=== PATIENT | male | born 1955 | race Caucasian/White ===

== ENCOUNTER → 2019-12-18 14:30 | Outpatient (CLI) | payer BC, SELFPAY ==
--- NOTE | 2019-12-18 14:37 | CT_ITS ---
PROCEDURE: CT LUNG SCREENING CLINICAL INDICATION: H/O TOBACCO USE Seventy pack-year smoking history, asymptomatic for lung cancer COMPARISON: No exams were available for comparison TECHNIQUE: The exam was performed on a GE Light Speed [address] scanner using 2.90 mGy CTDI. A low dose helical CT CHEST was performed on a multi-detector scanner. All CT scans at the facility use one or more dose reduction, viz: automated exposure control, ma/kV adjustment per patient size (including targeted exams where dose is matched to indication, i.e. head), or iterative reconstruction technique. The LDCT was performed in a facility that meets the criteria for the screening program. Data regarding this exam was submitted to ACR which is an approved registry. The order for this exam indicates that it came as a result of a lung cancer screening counseling shard decision-making visit that included all the elements required of such a visit including smoking cessation. The radiologist interpreting this exam meets the CMS criteria for the LDCT lung cancer screening program. The exam is reported using the Lung-RADS classification scale and reported to the ACR registry. NOTE: This study was performed for the specific purposes of lung cancer screening and is not an alternative to diagnostic chest CT. RADIATION DOSE: CTDI vol(CT dose Index-volume) = 2.90mG DLP (Dose Length Product) = 103.16 mGcm Lung Rads Category: FINDINGS: 3 mm noncalcified nodule right upper lobe image 37 series 3. 4 mm noncalcified nodule left apex image 10 series 3. 3 mm noncalcified nodule left upper lobe centrally image 33 series 3 OTHER FINDINGS: Coronary artery calcifications. Prior left nephrectomy IMPRESSION: Lung rads category 2 benign Recommend 12 month LDCT Dictated by: Willem Holman MD 12/25/2019 11:30 Electronically signed by Willem Holman MD in [place] 12/25/2019 11:30
== END ==
PROVIDERS: PCP Internal Medicine Adolescent Medicine; Visit Provider Internal Medicine Adolescent Medicine
DX: Z87.891 Personal history of nicotine dependence (principal); Z12.2 Encounter for screening for malignant neoplasm of respiratory organs

== ENCOUNTER 2020-04-28 14:12 | Emergency (ER) | payer BC, SELFPAY ==
[2020-04-28 14:18] VITALS: BP 157/98; PULSE 70; RESP 17; TEMP 36.7; O2SAT 98; BMI 35.9
[2020-04-28 14:20] VITALS: BP 157/98; PULSE 70; RESP 17; TEMP 36.7; O2SAT 98; BMI 35.8
--- NOTE | 2020-04-28 14:27 | XR_ITS ---
PROCEDURE: XR CERVICAL SPINE 3V CLINICAL INDICATION: PAIN COMPARISON: No exams were available for comparison FINDINGS: There is normal curvature and alignment. C1 through C6 appear intact. C7 is not adequately evaluated even with a swimmer's view. C7 appears grossly normal on the AP film but not adequately seen on the lateral projection. There is mild disc space narrowing at the C4-5, C5-6 and C6-7 disc spaces. The prevertebral soft tissues are normal and the odontoid is normal. IMPRESSION: Mild multilevel degenerate disc disease lower cervical spine, C7 not adequately evaluated on these images Dictated by: Dr. Hayden Prieto MD 04/28/2020 16:19 Dr. Hayden Prieto MD in [place] 04/28/2020 16:19
--- NOTE | 2020-04-28 14:33 | ECG_ITS ---
APPROVED REPORT Exam: Resting ECG HR:70 bpm ECG Measurements Heart Rate 70 AXES MS 182 P 23 QRSd 84 QRS -55 QT 394 T 57 QTc 425 Conclusion Normal sinus rhythm Left axis deviation,LAHB Pulmonary disease pattern Abnormal ECG Electronically signed by : Jarred Jesus, 05/03/2020 11:34:14
--- NOTE | 2020-04-28 14:41 | HMH.EDUTC ---
[facility] Disposition Clinical Impression: Cervical muscle strain Qualifiers: Encounter type: initial encounter Qualified Code(s): S16.1XXA - Strain of muscle, fascia and tendon at neck level, initial encounter Disposition: Home, Self-Care Condition on Discharge: Good Instructions: Muscle Strain, DI for Cervical Muscle Strain Additional Instructions: rotate heat and ice place ice on for 20 mins and then remove wait for skin to come back to room temp and add heat for 20 mins and repeat muscle relaxers at bedtime, watch doing anything you can fall asleep doing follow up with dr singleton this week if symptoms worsen or do not improve return or be seen in ed no work till wed Prescriptions: Cyclobenzaprine HCl [Flexeril 10mg tablet] 10 mg PO HS PRN 10 Days #10 tab PRN Reason: Muscle Spasm Referrals: Leonardo Singleton MD [Primary Care Provider] - Forms: Work/School Release Time of Disposition: 15:06 Medical Decision Making - Yeison Inquiry Pt receiving controlled substance: No Vital Signs: 04/28/20 14:18 04/28/20 14:20 Temperature 98.1 F 98.1 F Temperature Source Oral Oral Pulse Rate [Right Radial] 70 70 Respiratory Rate 17 17 Blood Pressure [Right Arm] 157/98 H 157/98 H Blood Pressure Mean [Right Arm] 117 117 Blood Pressure Source [Right Arm] Automatic Cuff Blood Pressure Position [Right Arm] Sitting 02 Sat by Pulse Oximetry 98 98 Oxygen Delivery Method Room Air Room Air Orders (Tests/Meds): ORDERS Category Date Time Status Cervical spine XR 3 views [XR cervical spine 3V] Stat Exams 04/28/20 14:27 Taken 12-lead EKG Request [ECG Request by /Nse] Stat Y 04/28/20 14:28 Ordered - Radiology Data #1 Image(s): C-Spine Image Reviewed: Yes I reviewed the patient's radiology image Preliminary Findings: Normal/NAD - Physician Consults Physician Consulted: aneesh Time: 14:50 Reason -: Pt condition Comment/Response: pt poor historian, hx kidney removed, type 2 diabetic, ok to give steroid for muscle spasm? aneesh oked and states flexeril qhs and follow up this week if no improvement [facility] [place] HPI - General Chief complaint: Urgent Treatment Center Stated complaint: back and shoulder pain, no accident Time Seen by Provider: 04/28/20 14:41 Mode of Arrival: Ambulatory Source of Information: Patient Limitations: No Limitations Description of Symptoms (Recalled from Triage Doc. by RN): PATIENT C/O NECK AND UPPER BACK PAIN BETWEEN SHOULDER BLADES THAT HAS BEEN GOING ON APPROX 1 WEEK AND IS GETTING WORSE HEENT Symptoms (Recalled from RN notes): No Resp Symptoms (Recalled from RN notes): No Skin Symptoms (Recalled from RN notes): No MS Symptoms (Recalled from RN notes): Yes Functional Status (Recalled from RN notes): WNL - History of Present Illness Provider Complaint: 65 yr old male presents for pain in upper shoulders and neck for 1 week and becoming worse. Pt states movement of neck makes pain increase. Pt states pain is constant but movement makes pain increase. - Related Data Home Medications Medication Instructions Recorded Confirmed Aspirin [Aspir 81] 81 mg PO DAILY 03/07/19 03/07/19 Atorvastatin Calcium [Atorvastatin 40 mg PO DAILY 03/07/19 03/07/19 40mg Tab] Clopidogrel Bisulfate [Plavix 75mg 75 mg PO DAILY 03/07/19 03/07/19 Tab] Escitalopram Oxalate [Lexapro] 10 mg PO DAILY 03/07/19 03/07/19 Metformin HCl 500 mg PO BID 03/07/19 03/07/19 Verapamil HCl [Verapamil ER] 240 mg PO DAILY 03/07/19 03/07/19 hydroCHLOROthiazide [HCTZ 25mg 25 mg PO DAILY 03/07/19 03/07/19 tab] lisinopriL [Lisinopril 40mg Tablet] 40 mg PO BID 03/07/19 03/07/19 Previous Rx's Medication Instructions Recorded Cyclobenzaprine HCl [Flexeril 10mg 10 mg PO HS PRN 10 Days #10 tab 04/28/20 tablet] Allergies Allergy/AdvReac Type Severity Reaction Status Date / Time No Known Allergies Allergy Unverified 06/22/17 14:57 - Worker's Comp Is this a Worker's Comp case?: No H History
[2020-04-28 15:10] VITALS: BP 157/98; PULSE 70; RESP 17; TEMP 36.7; O2SAT 98
== END 2020-04-28 15:12 | disposition home or self-care (01) ==
PROVIDERS: Emergency Provider Nurse Practitioner Family; PCP Internal Medicine Adolescent Medicine
DX: S16.1XXA Strain of muscle, fascia and tendon at neck level, initial encounter (principal); E11.9 Type 2 diabetes mellitus without complications; I10 Essential (primary) hypertension; E78.5 Hyperlipidemia, unspecified; Z79.899 Other long term (current) drug therapy
CPT/HCPCS: 72040; 93005; 96372; 99202

== ENCOUNTER → 2020-12-24 19:41 | Outpatient (CLI) | payer BC, SELFPAY ==
[2020-12-24 21:50] LABS: Chloride 98 mmol/L (98-107); Sodium 139 mmol/L (136-145)
[2020-12-24 21:51] LABS: Potassium 4.8 mmoL/L (3.5-5.1)
[2020-12-24 21:53] LABS: Alanine Aminotransferase 31 U/L (12-78); Alkaline Phosphatase 64 U/L (38-126); Anion Gap 15.8 mEq/L (5-15); Aspartate Amino Transferase 27 U/L (17-59); Bilirubin,Total 0.5 mg/dl (0.2-1.3); Blood Urea Nitrogen 24 mg/dl (9-20); Carbon Dioxide 30 mmol/L (22.0-30.0); Cholesterol 127 mg/dl (140-200); Estimated Glomerular Filt Rate 61 ml/min (>60); GFR (African American) 74 ML/MIN (>60); Triglycerides 220 mg/dl (30-150); VLDL Cholesterol 44 mg/dL (0-40)
[2020-12-24 21:54] LABS: Albumin Level 4.3 g/dl (3.5-5.0); Albumin/Globulin Ratio 1.4 (1.1-1.8); Calcium 9.3 mg/dl (8.4-10.2); Glucose 93 mg/dl (74-100); HDL Cholesterol 21 mg/dl (40-60); Total Protein,Serum 7.3 g/dl (6.3-8.2)
[2020-12-24 22:05] LABS: Direct LDL Cholesterol 66.24 mg/dL (100-129)
== END ==
PROVIDERS: Visit Provider Internal Medicine Adolescent Medicine
DX: E11.69 Type 2 diabetes mellitus with other specified complication; Z79.84 Long term (current) use of oral hypoglycemic drugs
CPT/HCPCS: 80053; 80061; 83036

== ENCOUNTER → 2021-01-21 12:10 | Outpatient (CLI) | payer BC, SELFPAY ==
--- NOTE | 2021-01-21 12:37 | CT_ITS ---
PROCEDURE: CT ABDOMEN PELVIS WO/W CON CLINICAL INDICATION: LOWER ABD PAIN COMPARISON: CT ABDPELW/O CT ABD PELVIS W/O CONTRAST from 06/22/2016 TECHNIQUE: IV Contrast: 75ML Isovue 370 Oral Contrast None Axial images obtained with sagittal and coronal reformats. All CT scans at the facility use one or more dose reduction, viz: automated exposure control, ma/kV adjustment per patient size (including targeted exams where dose is matched to indication, i.e. head), or iterative reconstruction technique. FINDINGS: LOWER THORAX: Minor bibasilar atelectasis is noted. ABDOMEN & PELVIS: Diffuse fatty infiltration of the liver is noted. The liver is enlarged measuring 25.7 centimeters in craniocaudal dimension. No focal liver lesions. The gallbladder is unremarkable. No intra or extrahepatic biliary dilation. The spleen, adrenal glands, and pancreas are unremarkable. Left nephrectomy is noted. Nonobstructing right renal calculus measuring 4 millimeters. No evidence of hydronephrosis. No abnormal enhancement is noted. No free fluid or free intraperitoneal air. The large bowel demonstrates few colonic diverticula without evidence of diverticulitis. The otherwise the large and small bowel loops demonstrate no focal wall thickening, obstruction or adjacent inflammatory changes. No significant retroperitoneal or mesenteric lymphadenopathy. No free fluid or free intraperitoneal air. The visualized prostate gland is unremarkable. Atherosclerotic vascular calcification of the abdominal aorta and its branches. Ectasia of the abdominal aorta is noted. 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 The abdominal aorta is normal in caliber. Small bilateral fat containing inguinal hernias are noted. Multilevel [id number] degenerative changes of the lumbar spine. IMPRESSION: Hepatic steatosis. Hepatomegaly. Non-obstructing right renal calculus measuring 4 millimeters. No hydronephrosis. Left nephrectomy is noted. Ectasia of the infrarenal abdominal aorta. 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 Other chronic findings as described above. Dictated by: Holley Amaya 01/21/2021 15:19 Holley Amaya in [place] 01/21/2021 15:19
[2021-01-21 13:09] LABS: Basophils # 0.1 K/mm3 (0-0.2); Basophils % 0.9 % (0.1-2.0); Eosinophils # 0.1 K/mm3 (0.0-0.4); Eosinophils % 1.4 % (0.1-12.0); Hematocrit 43.3 % (42.0-52.0); Hemoglobin 14.9 g/dL (14.1-18.0); Lymphocytes # 2.1 K/mm3 (0.7-4.5); Lymphocytes % 29.4 % (10-50); Mean Corpuscular HGB Conc 34.5 g/dL (31.8-35.4); Mean Corpuscular Hemoglobin 30.3 pg (27.0-31.2); Mean Corpuscular Volume 87.9 fl (80-94); Mean Platelet Volume 8.3 fl (7.4-10.4); Monocytes # 0.5 K/mm3 (0.1-1.0); Monocytes % 6.6 % (1.7-9.3); Neutrophils # 4.5 K/mm3 (1.8-7.8); Neutrophils % 61.8 % (37.0-80.0); Platelet Count 225 K/mm3 (142-424); Red Blood Count 4.93 M/mm3 (4.60-6.20); Red Cell Distribution Width 13.7 % (11.5-17.5); White Blood Count 7.2 K/mm3 (4.8-10.8)
[2021-01-21 13:25] LABS: Chloride 99 mmol/L (98-107); Potassium 4.2 mmoL/L (3.5-5.1); Sodium 139 mmol/L (136-145)
[2021-01-21 13:28] LABS: Alanine Aminotransferase 35 U/L (12-78); Albumin Level 4.3 g/dl (3.5-5.0); Albumin/Globulin Ratio 1.5 (1.1-1.8); Alkaline Phosphatase 64 U/L (38-126); Anion Gap 12.2 mEq/L (5-15); Aspartate Amino Transferase 29 U/L (17-59); Bilirubin,Total 0.5 mg/dl (0.2-1.3); Blood Urea Nitrogen 20 mg/dl (9-20); Carbon Dioxide 32 mmol/L (22.0-30.0); Estimated Glomerular Filt Rate 61 ml/min (>60); GFR (African American) 74 ML/MIN (>60); Globulin 2.8 g/dL (1.3-3.2); Total Protein,Serum 7.1 g/dl (6.3-8.2)
[2021-01-21 13:29] LABS: Calcium 9.5 mg/dl (8.4-10.2); Glucose 121 mg/dl (74-100)
== END ==
PROVIDERS: PCP Internal Medicine Adolescent Medicine; Visit Provider Internal Medicine Adolescent Medicine
DX: R10.30 Lower abdominal pain, unspecified (principal)
CPT/HCPCS: 36415; 74178; 80053; 85025; Q9967

== ENCOUNTER 2023-12-31 15:38 | Outpatient (CLI) | payer MEDICARE, SELFPAY ==
--- NOTE | 2023-12-31 16:04 | CT_ITS ---
FINAL REPORT TECHNIQUE: Axial images were obtained from the lung apex to the mid abdomen by computed tomography. This study was performed with techniques to keep radiation doses as low as reasonably achievable (ALARA). Individualized dose reduction techniques using automated exposure control or adjustment of mA and/or kV according to the patient's size were employed. CLINICAL HISTORY: NICOTINE DEPENDENCE FORMER SMOKER, QUIT 3 MONTHS AGO, SMOKED 3 PKS PER DAY X 20 YRS HX OF RENAL CA FINDINGS: CHEST CT LOW DOSE CTDI vol (mGy): 2.90 DLP (mGy-cm): 108.90 Exam is compromised by patient's body habitus and respiratory motion. There is no axillary adenopathy. There is no hilar or mediastinal adenopathy. The heart is normal in size. There is no pericardial or pleural effusion. Lung window images demonstrate no suspicious infiltrate or nodule. Limited images of the upper abdomen are unremarkable. IMPRESSION: No obvious suspicious nodule. Lung RADS category 1. Recommend 12 month follow-up low-dose chest CT. Reviewed, Interpreted and Dictated by Dawson Mohan MD Transcribed by Silvia Ragland Authenticated and [facility]
== END 2023-12-31 23:59 | disposition home or self-care (01) ==
PROVIDERS: PCP Internal Medicine Adolescent Medicine; Visit Provider Internal Medicine Adolescent Medicine
DX: Z87.891 Personal history of nicotine dependence (principal)
CPT/HCPCS: 71271

== ENCOUNTER 2024-03-31 12:16 | Outpatient (CLI) | payer MEDICARE, SELFPAY ==
--- NOTE | 2024-03-31 12:41 | ECG_ITS ---
APPROVED REPORT Exam: Resting ECG HR:79 bpm ECG Measurements Heart Rate 79 AXES MD 205 P 34 QRSd 104 QRS -40 QT 382 T 29 QTc 416 Conclusion SINUS RHYTHM LEFT AXIS DEVIATION [QRS AXIS < -30] o/w NORMAL ECG UNCONFIRMED REPORT Electronically signed by : Leonardo Singleton MD 04/01/2024 08:32:14
[2024-03-31 12:42] LABS: Basophils # 0.1 K/mm3 (0-0.2); Basophils % 0.7 % (0.1-2.0); Eosinophils # 0.3 K/mm3 (0.0-0.4); Eosinophils % 3.4 % (0.1-12.0); Hematocrit 43.5 % (42.0-52.0); Hemoglobin 14.3 g/dL (14.1-18.0); Lymphocytes # 1.4 K/mm3 (0.7-4.5); Lymphocytes % 15.8 % (10-50); Mean Corpuscular HGB Conc 32.8 g/dL (31.8-35.4); Mean Corpuscular Hemoglobin 31.6 pg (27.0-31.2); Mean Corpuscular Volume 96.3 fl (80-94); Mean Platelet Volume 8.6 fl (7.4-10.4); Monocytes # 0.7 K/mm3 (0.1-1.0); Monocytes % 7.8 % (1.7-9.3); Neutrophils # 6.6 K/mm3 (1.8-7.8); Neutrophils % 72.3 % (37.0-80.0); Platelet Count 215 K/mm3 (142-424); Red Blood Count 4.52 M/mm3 (4.60-6.20); Red Cell Distribution Width 13.8 % (11.5-17.5); White Blood Count 9.2 K/mm3 (4.8-10.8)
[2024-03-31 13:05] LABS: Blood Urea Nitrogen 20 mg/dl (9-20); Calcium 8.8 mg/dl (8.4-10.2); Carbon Dioxide 31 mmol/L (22.0-30.0); Chloride 104 mmol/L (98-107); Estimated Glomerular Filt Rate 51 ml/min (>60); GFR (African American) 61 ML/MIN (>60); Glucose 108 mg/dl (74-100); Sodium 136 mmol/L (136-145)
[2024-03-31 13:32] LABS: POC Glucose,Bedside 100 (70-110)
[2024-03-31 14:10] LABS: Anion Gap 4.7 mEq/L (5-15); Potassium 3.7 mmoL/L (3.5-5.1)
== END 2024-03-31 23:59 | disposition home or self-care (01) ==
PROVIDERS: PCP Internal Medicine Adolescent Medicine; Visit Provider Surgery
DX: L02.415 Cutaneous abscess of right lower limb (principal)
CPT/HCPCS: 36415; 80048; 82962; 85025; 93005

== ENCOUNTER 2024-03-31 14:02 | Observation (INO) | payer MEDICARE, SELFPAY ==
[2024-03-31 13:33] VITALS: BMI 35.4
[2024-03-31 14:05] VITALS: BP 161/95; PULSE 82; RESP 19; TEMP 37.7; O2SAT 96; BMI 34.7
--- NOTE | 2024-03-31 14:10 | CT_ITS ---
FINAL REPORT TECHNIQUE: Noncontrast CT exam of the abdomen and pelvis. This study was performed with techniques to keep radiation doses as low as reasonably achievable (ALARA). Individualized dose reduction techniques using automated exposure control or adjustment of mA and/or kV according to the patient's size were employed. CLINICAL HISTORY: eval right hip cellulitis/necrotic lesion COMPARISON: 01/21/2021 FINDINGS: Abdomen: Lung bases are clear. The spleen, pancreas and adrenal glands have a normal CT appearance in their limited unenhanced state. There is fatty infiltration of the liver. There is slight increased density within the gallbladder that may represent sludge or stones. There is a solitary right kidney, and presumed left nephrectomy. Pelvis: The appendix is normal in appearance. The prostate is moderately enlarged. Bladder is unremarkable. There is stranding in the right gluteal region with thickening/induration of the soft tissues that may indicate cellulitis. Superficially there is a more prominent area of thickening, measuring 3 x 4 cm in size, and up to 1 cm in thickness, likely an open wound. IMPRESSION: No acute intra-abdominal processes identified. There is superficial inflammatory change in the right gluteal soft tissues, without evidence of gas or drainable abscess in the deep or subcutaneous soft tissues. Reviewed, Interpreted and Dictated by Dawson Mohan MD Transcribed by Leigh Ann Goncalves Authenticated and [facility]
--- NOTE | 2024-03-31 14:12 | P.HP_ITS ---
History of Present Illness *Admission Date: 03/31/24 *Reason for visit:: hip/skin lesion *History of present illness: 62-year-old male with previous history of strokes, hypertension, diabetes, mood disorder who presented to the surgery clinic as an outpatient for evaluation of wound on his right hip. He went to [facility] yesterday where I&D was performed and oral antibiotics were initiated/prescribed. Followed up with his PCP today, has not taken any oral antibiotics as of yet. They referred him to surgery clinic where he was evaluated by Dr. Sarabia. On evaluation, wound is draining amrik purulent material, approximately 4 cm in diameter with necrotic center. Afebrile and hemodynamically stable. Surgery requested admission however for IV antibiotics overnight and evaluation for surgical debridement in the morning. On evaluation, patient denies nausea, vomiting, chest pain, shortness of breath. No chills. States the wound has been present for 2 weeks and gradually getting worse. Normally sleeps on his right side but has not been able to due to pain from the lesion. Reports it feels somewhat better since I&D but is still painful. at bedside helps supplement history. [facility] Disclaimer: The information contained in this section may have been updated after the patient was seen, as this information can be updated by other users. Medical History (Updated 03/31/24 @ 17:41 by Anurag Gudino MD) Frequency of urination History of COVID-19 Anxiety and depression Allergies Stroke Hyperlipidemia History of kidney cancer Renal cancer Diabetes mellitus Hypertension Surgical History History of nephrectomy Family History Father Cancer Coronary artery disease Mother Diabetes Social History Smoking Status: Current every day smoker alcohol intake: never substance use type: denies use current occupational status: retired Travel in the last 8 weeks: None household members: spouse and children housing: house marital status: caffeine: No Review of Systems Review of Systems Review of systems (narrative): 14 point review of systems performed, pertinent positives and negatives as per HPI Meds Home Medications and Allergies Home Medications ?Medication ?Instructions ?Recorded ?Confirmed ?Type clopidogrel 75 mg tablet 75 mg PO DAILY 03/07/19 03/31/24 History hydrochlorothiazide 25 mg tablet 25 mg PO DAILY 03/07/19 03/31/24 History lisinopril 40 mg tablet 40 mg PO DAILY 03/07/19 03/31/24 History metformin 500 mg tablet 500 mg PO BID 03/07/19 03/31/24 History buspirone 10 mg tablet 10 mg PO BID 01/30/21 03/31/24 History atorvastatin 80 mg tablet 80 mg PO DAILY #30 tabs 02/22/23 03/31/24 Rx escitalopram oxalate 20 mg tablet 20 mg PO DAILY #30 tabs 02/22/23 03/31/24 Rx (Lexapro) pantoprazole 40 mg tablet,delayed 40 mg PO DAILY #30 tabs 02/22/23 03/31/24 Rx release (Protonix) bupropion HCl 150 mg 24 hr tablet, 150 mg PO DAILY 03/31/24 03/31/24 History extended release cephalexin 500 mg capsule 500 mg PO TID 03/31/24 03/31/24 History fenofibrate nanocrystallized 145 145 mg PO DAILY 03/31/24 03/31/24 History mg tablet New Prescriptions to Start Prescriptions: Allergies Allergy/AdvReac Type Severity Reaction Status Date / Time No Known Allergies Allergy Verified 03/31/24 13:17 Exam Data for Last 24 hours I & O for Last 24 hours: Intake & Output 03/28/24 03/29/24 03/30/24 03/31/24 23:59 23:59 23:59 23:59 Weight 112.037 kg Constitutional Constitutional: no acute distress, obese, chronically ill appearing and cooperative *Routine HEENT Exam Head: Present normocephalic Eye: Present EOMI and PERRL ENT: Present mucous membranes moist *Routine Neck Exam Neck: Present supple; Absent lymphadenopathy *Routine Respiratory Exam Respiratory: Present CTA bilaterally; Absent rhonchi, wheezes or crackles *Routine Cardiovascular Exam Cardiovascular: Present RRR *Routine Abdominal Exam Abdominal: Present soft and normoactive bowel sounds; Absent tenderness *Routine Rectal Exam Rectal:: deferred *Routine Genitalia Exam Genitalia:: deferred *Routine Extremities Exam Extremities: Absent cyanosis, clubbing or edema *Routine Skin Exam Skin: Present warm; Absent rash Comments: Lesion over right hip with erythema approximately 4 cm in diameter. Incision in the center with amrik purulent drainage. Appears necrotic. Foul-smelling *Routine Neurological Exam Neurological: Present alert and moving all extremities; Absent altered mental status Comments: Oriented to self and place. Speech somewhat garbled but understandable. Appears to have residual deficits from chronic stroke. At baseline per Assessment and Plan *Assessment and plan (1) Cellulitis: Status: Acute Qualifiers: Site of cellulitis: buttock Qualified Code(s): L03.317 - Cellulitis of buttock Category: Medical Code(s): L03.90 - Cellulitis, unspecified (2) Hypertension: Status: Chronic Qualifiers: Hypertension type: primary hypertension Qualified Code(s): I10 - Essential (primary) hypertension Category: Medical Code(s): I10 - Essential (primary) hypertension (3) Diabetes mellitus: Status: Chronic Qualifiers: Diabetes mellitus type: type 2 Diabetes mellitus ocean transportation intermediary insulin use: without ocean transportation intermediary use Diabetes mellitus complication status: without complication Qualified Code(s): E11.9 - Type 2 diabetes mellitus without complications Category: Medical Code(s): E11.9 - Type 2 diabetes mellitus without complications (4) History of kidney cancer: Status: Acute Category: Medical Code(s): Z85.528 - Personal history of other malignant neoplasm of kidney (5) Hyperlipidemia: Status: Chronic Qualifiers: Hyperlipidemia type: mixed hyperlipidemia Qualified Code(s): E78.2 - Mixed hyperlipidemia Category: Medical Code(s): E78.5 - Hyperlipidemia, unspecified (6) Stroke: Status: Chronic Qualifiers: CVA mechanism: unspecified Qualified Code(s): I63.9 - Cerebral infarction, unspecified Category: Medical Code(s): I63.9 - Cerebral infarction, unspecified (7) Cervical muscle strain: Status: Acute Qualifiers: Encounter type: initial encounter Qualified Code(s): S16.1XXA - Strain of muscle, fascia and tendon at neck level, initial encounter Category: Medical Code(s): S16.1XXA - Strain of muscle, fascia and tendon at neck level, initial encounter (8) Anxiety and depression: Status: Acute Category: Medical Code(s): F41.9 - Anxiety disorder, unspecified; F32.A - Depression, unspecified Plan 69-year-old male with multiple comorbidities including hypertension, anxiety and depression, diabetes, hyperlipidemia, prior stroke with residual deficits. Presented to surgery clinic at the referral of his PCP due to necrotic le eli/abscess/cellulitis on his right hip. Evaluation in surgery clinic, recommend initiating IV antibiotics and admitting with possible surgery in the morning. Discussed case with surgeon, request admission for further management. Agreed to admit. Initiate vancomycin and Zosyn. Imaging and labs ordered. Monitoring overnight, problems addressed as follows: Cellulitis Necrotic abscess -Lesion on right hip concerning for central necrosis. CT obtained of hip, personally reviewed with No subcutaneous gas. Significant stranding, consistent with cellulitis. No definitive fluid collection. -Discussed case with surgery, plan to take patient for debridement and coring of lesion in the morning. Recommend IV antibiotics for 24 hours prior to surgery. -Labs obtained prior to admission show white count of 9.2. ESR elevated at 37. Kidney function slightly elevated with creatinine 1.4, BUN normal at 20. Patient has solitary kidney, suspect this may be his baseline with chronic kidney disease stage III. CBC, CMP, magnesium, ESR ordered for the morning -Lactate normal at less than 1 -Blood cultures obtained and pending -Initiated on vancomycin and Zosyn IV. Monitor for toxicity. Close monitoring of kidney function and electrolytes Hypertension:Holding blood pressure meds in the setting of normotensive state on arrival along with infection. Reevaluate need for medication daily Diabetes: A1c 6.8. Sliding scale insulin with fingersticks ACHS. Holding home metformin Anxiety and depression: Continue citalopram 40 mg daily, BuSpar 10 mg twice daily, Wellbutrin 75 mg twice daily Hyperlipidemia: Continue Lipitor 80 mg nightly GERD: Continue pantoprazole 40 mg nightly DNI Holding regulation as he will go for surgery in the morning Diabetic diet, n.p.o. at midnight
--- NOTE | 2024-03-31 14:35 | HMH.PHAINT1 ---
Pharmacy Intervention Comments: MEDICATION RECONCILIATION COMPLETED ON PATIENT USING EXTERNAL FILL HISTORY FROM PHARMACY. -RENNY GODDARD, JONOD
[2024-03-31 14:42] LABS: Erythrocyte Sedimentation Rate 37 mm/hr (0-20)
--- NOTE | 2024-03-31 15:00 | SUR.PREOP ---
pt procedure had to be cancelled due to code yellow in hospital. pt admitted to the floor for IV abx. Report given to MAURICIO Villegas
[2024-03-31 15:04] LABS: Hemoglobin A1C 6.8 % (4.0-6.0)
[2024-03-31] MEDS: PIPERCILLIN/TAZO 3.375 GM in 0.9 % SODIUM CHLORIDE 50 ML IV ×2 (15:12→19:48)
[2024-03-31 15:14] LABS: Lactic Acid 0.9 mmol/L (0.7-2.1)
--- NOTE | 2024-03-31 15:28 | EXP.PHA.CONS ---
Pharmacy Consult Date: 03/31/24 Time: 15:28 Referring provider: DR. TURNER Reason for Consult:: VANCOMYCIN DOSING Allergies Allergy/AdvReac Type Severity Reaction Status Date / Time No Known Allergies Allergy Verified 03/31/24 13:17 Home Medications ?Medication ?Instructions ?Recorded ?Confirmed ?Type clopidogrel 75 mg tablet 75 mg PO DAILY 03/07/19 03/31/24 History hydrochlorothiazide 25 mg tablet 25 mg PO DAILY 03/07/19 03/31/24 History lisinopril 40 mg tablet 40 mg PO DAILY 03/07/19 03/31/24 History metformin 500 mg tablet 500 mg PO BID 03/07/19 03/31/24 History buspirone 10 mg tablet 10 mg PO BID 01/30/21 03/31/24 History atorvastatin 80 mg tablet 80 mg PO DAILY #30 tabs 02/22/23 03/31/24 Rx escitalopram oxalate 20 mg tablet 20 mg PO DAILY #30 tabs 02/22/23 03/31/24 Rx (Lexapro) pantoprazole 40 mg tablet,delayed 40 mg PO DAILY #30 tabs 02/22/23 03/31/24 Rx release (Protonix) bupropion HCl 150 mg 24 hr tablet, 150 mg PO DAILY 03/31/24 03/31/24 History extended release cephalexin 500 mg capsule 500 mg PO TID 03/31/24 03/31/24 History fenofibrate nanocrystallized 145 145 mg PO DAILY 03/31/24 03/31/24 History mg tablet New Prescriptions to Start Prescriptions: Height: 1.78 m Weight: 109.911 kg Laboratory Results:: Laboratory Results - last 24 hr 03/31/24 12:30: ESR 37 H, Hemoglobin A1c 6.8 H 03/31/24 14:30: Lactate 0.9 Medical History: Medical History (Updated 03/31/24 @ 13:42 by Trinity Chambers RN) Frequency of urination History of COVID-19 Anxiety and depression Allergies Stroke Hyperlipidemia History of kidney cancer Renal cancer Diabetes mellitus Hypertension Assessment and Plan Assessment and plan all Dx Assessment and Plan for all problems:: Pharmacokinetic dosing service Objective: Patient: Floor: Age: 68 yo Serum creatinine: 1.4 mg/dL Height: 70.1 Inches Weight (kg): 109.9 Assessment: IBW (kg): 68.73 Dosing wt(kg): 109.9 Estimated Creatinine clearance (ml/min): 42.9 CRCL method: Cockcroft and Gault using ibw(default). Drug selected: Vancomycin Loading dose (mg): 0 Vd (liters): 87.9 (factor used: 0.8 L/kg) Bg (hr-1): 0.040 Half life (hrs): 17.33 Recommended dose: 2000 mg Interval: 24 hrs Infusion time (hrs): 2.0 Predicted peak (mcg/mL): 35.4 Predicted trough (mcg/mL): 14.68 Total body weight is being used for vancomycin dosing. Recommendations: Give Vancomycin 2000 mg q 24 hrs with an expected Cpeak of 35.4 mcg/ml and an expected Ctrough of 14.68 mcg/ml ----Vanco only - ignore for aminoglycosides----- CLvanco= 3.52 L/hr AUC 0-24 /BELÉN Data: BELÉN 0.5 mcg/mL: AUC/BELÉN: 1136.4 BELÉN 1.0 mcg/mL: AUC/BELÉN: 568.2 --------- BELÉN 1.5 mcg/mL: AUC/BELÉN: 378.8 BELÉN 2.0 mcg/mL: AUC/BELÉN: 284.1
[2024-03-31 16:00] VITALS: BP 154/95; PULSE 88; RESP 18; TEMP 37.3; O2SAT 97
[2024-03-31] MEDS: VANCOMYCIN HCL 2,000 MG in 0.9 % SODIUM CHLORIDE 250 ML 125 MG IV (16:06)
[2024-03-31 18:55] LABS: POC Glucose,Bedside 80 (70-110)
--- NOTE | 2024-03-31 19:28 | PC.NURSE ---
BPs elevated. Last BP dayshift was 154/95. BP at this time 146/104. Dr Winter notified and PRN Hydralazine obtained.
[2024-03-31 19:45] VITALS: BP 146/104; PULSE 83; RESP 16; TEMP 36.9; O2SAT 91
[2024-03-31] MEDS: HYDRALAZINE 20MG/ML VIAL 10 MG IV (19:47)
[2024-03-31 20:00] VITALS: O2SAT 91
[2024-03-31] MEDS: BUSPIRONE HCL 10 MG TABLET PO (20:10)
[2024-03-31] MEDS: buPROPion HCL 75 MG TABLET PO (20:10)
[2024-03-31 20:33] LABS: POC Glucose,Bedside 95 (70-110)
--- NOTE | 2024-03-31 21:27 | PC.NURSE ---
Shower received. wound to right hip cleaned with normal saline, covered with 4x4s and secured with tape. Skin red around the wound, scant amt of serosanguinous drainage noted, small amt of necrotic tissue noted.
[2024-04-01] VITALS (22 sets, daily range): BP systolic 116–157; BP diastolic 71–96; PULSE 66–85; RESP 16–21; TEMP 36.2–37.6; O2SAT 90–98; BMI 34.0
[2024-04-01] MEDS: PIPERCILLIN/TAZO 3.375 GM in 0.9 % SODIUM CHLORIDE 50 ML IV ×4 (01:20→19:44)
--- NOTE | 2024-04-01 03:13 | PC.NURSE ---
Has been NPO since MN. Tolerating IV zosyn. Spouse at bedside. Voices no c/o pain or discomfort. Last BP was 138/87.
[2024-04-01 05:16] LABS: POC Glucose,Bedside 140 (70-110)
[2024-04-01 06:52] LABS: Basophils # 0.1 K/mm3 (0-0.2); Basophils % 0.7 % (0.1-2.0); Eosinophils # 0.2 K/mm3 (0.0-0.4); Eosinophils % 2.6 % (0.1-12.0); Hematocrit 44.8 % (42.0-52.0); Hemoglobin 14.2 g/dL (14.1-18.0); Lymphocytes # 1.3 K/mm3 (0.7-4.5); Lymphocytes % 16.5 % (10-50); Mean Corpuscular HGB Conc 31.7 g/dL (31.8-35.4); Mean Corpuscular Hemoglobin 30.8 pg (27.0-31.2); Mean Corpuscular Volume 97.1 fl (80-94); Mean Platelet Volume 7.8 fl (7.4-10.4); Monocytes # 0.7 K/mm3 (0.1-1.0); Monocytes % 8.4 % (1.7-9.3); Neutrophils # 5.7 K/mm3 (1.8-7.8); Neutrophils % 71.9 % (37.0-80.0); Platelet Count 207 K/mm3 (142-424); Red Blood Count 4.61 M/mm3 (4.60-6.20); Red Cell Distribution Width 13.4 % (11.5-17.5); White Blood Count 7.9 K/mm3 (4.8-10.8)
[2024-04-01 07:11] LABS: Alanine Aminotransferase 24 U/L (12-78); Albumin Level 3.8 g/dl (3.5-5.0); Albumin/Globulin Ratio 1.3 (1.1-1.8); Alkaline Phosphatase 97 U/L (38-126); Anion Gap 6.4 mEq/L (5-15); Aspartate Amino Transferase 32 U/L (17-59); Bilirubin,Total 0.6 mg/dl (0.2-1.3); Blood Urea Nitrogen 20 mg/dl (9-20); Calcium 8.7 mg/dl (8.4-10.2); Carbon Dioxide 30 mmol/L (22.0-30.0); Chloride 103 mmol/L (98-107); Creatinine Clearance Estimated 79 mL/min (50-200); Estimated Glomerular Filt Rate 51 ml/min (>60); GFR (African American) 61 ML/MIN (>60); Globulin 2.9 g/dL (1.3-3.2); Glucose 139 mg/dl (74-100); Magnesium 1.5 mg/dl (1.6-2.3); Potassium 3.4 mmoL/L (3.5-5.1); Sodium 136 mmol/L (136-145); Total Protein,Serum 6.7 g/dl (6.3-8.2)
[2024-04-01 07:27] LABS: Procalcitonin 0.108 ng/mL (0.0-2.0)
--- NOTE | 2024-04-01 07:50 | PC.NURSE ---
Pt taken down to surgery for I&D of right hip
[2024-04-01] MEDS: LIDOCAINE 1% 30ML PF VIAL 30 ML (08:33)
[2024-04-01] MEDS: ROPIVACAINE 0.5% 30ML VIAL 150 MG (08:33)
--- NOTE | 2024-04-01 08:38 | EXP.OP.NOTE ---
Date of procedure: 04/01/24 Pre-op Diagnosis:: Soft tissue infection right hip Post-op Diagnosis:: Same Procedure performed:: Incision and drainage of complex soft tissue abscess right hip with debridement of skin and subcutaneous tissues Surgeon:: Amarjit Sarabia MD FUEL CELL DESIGNER:: Maximiliano Garcia Anesthesia: LMA Estimated blood loss (mL): 5 Operative findings:: Focal necrosis with evidence of focal underlying necrotizing cellulitis with purulence. Debrided area measured 8 cm x 2.5 cm x 1 cm depth Operative note:: Consent was obtained patient was taken to the operating room. He was continued on perioperative intravenous antibiotics and administered Zosyn preoperatively. In the operating room he underwent duction of anesthesia via LMA. He was positioned in left lateral position. The area was prepped and draped in the standard surgical fashion. There is a large amount of induration and erythema with central necrosis draining purulence. Limited incision was made at the site of focal central necrosis with electrocautery. There was underlying purulent necrotic subcutaneous tissue. Sequential serial white ending debridement was carried out until relatively nonnecrotic tissues were encountered. Overall size of the debrided area measured 8 cm x 2-1/2 cm in width and 1 cm in depth. Wound was irrigated. Hemostasis was achieved with electrocautery. Local anesthetic was infiltrated. Wound was packed with dry 4 x 4 gauze and covered with clean dry sterile dressing. Condition: stable Disposition: PACU Complications:: None immediately apparent
--- NOTE | 2024-04-01 08:47 | EXP.ANES.CKL ---
[facility] Disclaimer: The information contained in this section may have been updated after the patient was seen, as this information can be updated by other users. Medical History (Updated 03/31/24 @ 17:41 by Anurag Gudino MD) Frequency of urination History of COVID-19 Anxiety and depression Allergies Stroke Hyperlipidemia History of kidney cancer Renal cancer Diabetes mellitus Hypertension Surgical History History of nephrectomy Family History Father Cancer Coronary artery disease Mother Diabetes Social History Smoking Status: Current every day smoker alcohol intake: never substance use type: denies use current occupational status: retired Travel in the last 8 weeks: None household members: spouse and children housing: house marital status: caffeine: No [facility] Anesthesia Checklist Patient Identification Patient Identification: Arm Band Structural Data Admitted From: Inpatient Planned Operative Procedure/s: I&D Right Hip Consent for Planned Operative Procedure(s) Verified: Yes Verified Documents: Surgical Consent and History and Physical NPO Status Verified Time NPO: 00:00 Additional verifications Anesthesia Reactions: No Airway Assessment Mallampati Score:: Class II C-Spine Mobility Assessed: Yes TMJ Mobility Assessed: Yes Dentition: Poor Dentition Neurological Assessment Level of Consciousness: Awake, Alert and Appropriate Anesthesia Plan Anesthesia Risk discussed: Yes Anesthesia Plan: Verified ASA Class: III Anesthesia Type: General
--- NOTE | 2024-04-01 08:48 | EXP.ANES.I ---
[facility] Anesthesia Record Part I Anesthesia Record I Intake, IV Amount: 300 Hydration: Adequate Estimated blood loss (mL): 10 Urine output (mL): 0 Blood Products used (#): none Blood Pressure: 116/71 SaO2: 93 Pulse Rate: 76 Airway Patency: Patent Respiratory Rate: 16 Temperature: 97.2 F Patient is:: Drowsy and Stable Stable to PACU at:: 08:45
[2024-04-01 08:59] LABS: POC Glucose,Bedside 136 (70-110)
--- NOTE | 2024-04-01 09:12 | SUR.PHASEI ---
called report to MAURICIO Espino
--- NOTE | 2024-04-01 09:23 | P.PN_ITS ---
Subjective *Date: 04/01/24 *Time: 09:40 Medical Exam Vital signs and Labs for Last 24 Hours: Vital Signs Temp Pulse Pulse Resp BP BP Pulse Ox 04/01/24 09:05 78 17 125/96 H 94 L 04/01/24 08:55 75 17 127/80 94 L 04/01/24 08:48 97.2 F L 76 16 116/71 04/01/24 08:45 97.2 F L 76 16 116/71 93 L 04/01/24 07:49 99.6 F 76 19 149/85 H 96 04/01/24 06:28 04/01/24 04:58 04/01/24 04:00 97.9 F 77 16 156/94 H 92 L 04/01/24 02:55 04/01/24 00:46 04/01/24 00:00 98.2 F 85 16 138/87 92 L 03/31/24 23:00 03/31/24 20:50 03/31/24 20:00 91 L 03/31/24 19:45 98.4 F 83 16 146/104 H 91 L 03/31/24 18:38 03/31/24 17:00 03/31/24 16:00 99.1 F 88 18 154/95 H 97 03/31/24 15:00 03/31/24 14:05 99.9 F H 82 19 161/95 H 96 O2 Del Method O2 Flow Rate 04/01/24 09:05 Room Air 04/01/24 08:55 Nasal Cannula 4 04/01/24 08:48 04/01/24 08:45 Nasal Cannula 4 04/01/24 07:49 Room Air 04/01/24 06:28 Room Air 04/01/24 04:58 Room Air 04/01/24 04:00 Room Air 04/01/24 02:55 Room Air 04/01/24 00:46 Room Air 04/01/24 00:00 Room Air 03/31/24 23:00 Room Air 03/31/24 20:50 Room Air 03/31/24 20:00 Room Air 03/31/24 19:45 Room Air 03/31/24 18:38 Room Air 03/31/24 17:00 Room Air 03/31/24 16:00 Room Air 03/31/24 15:00 Room Air 03/31/24 14:05 Room Air Intake and Output 03/31/24 04/01/24 04/01/24 23:59 07:59 15:59 Intake Total 350 / 840 490 / 790 300 / 790 Output Total Balance 349 / 839 489 / 789 300 / 789 Intake: Intake, Oral Amount 300 / 740 440 / 440 Intake, Total IV Amount 50 / 100 50 / 350 300 / 350 Pipercillin/Tazo 3.375 gm In 0. 50 / 100 50 / 50 9 % Sodium Chloride 50 ml @ 100 mls/hr IV Q6H [facility] Rx#:[id number] Output: Output, Urine Amount Other: Number of Unmeasured Voids 07 05 Weight 107.7 kg Patient Weight 04/01/24 23:59 Weight 107.7 kg Laboratory Results - last 24 hr 03/31/24 12:30: ESR 37 H, Hemoglobin A1c 6.8 H 03/31/24 14:30: Lactate 0.9 03/31/24 17:19: POC Glucose 80 03/31/24 20:21: POC Glucose 95 04/01/24 05:04: POC Glucose 140 H 04/01/24 05:38: WBC 7.9, RBC 4.61, Hgb 14.2, Hct 44.8, MCV 97.1 H, MCH 30.8, MCHC 31.7 L, RDW 13.4, Plt Count 207, MPV 7.8, Neut % (Auto) 71.9, Lymph % (Auto) 16.5, [place] % (Auto) 8.4, Eos % (Auto) 2.6, Baso % (Auto) 0.7, Neut # (Auto) 5.7, Lymph # (Auto) 1.3, [place] # (Auto) 0.7, Eos # (Auto) 0.2, Baso # (Auto) 0.1, Sodium 136, Potassium 3.4 L, Chloride 103, Carbon Dioxide 30, Anion Gap 6.4, BUN 20, Creatinine 1.40 H, Estimated Creat Clear 79, Estimated GFR 51 L , Est GFR ( Amer) 61, Glucose 139 H D, Calcium 8.7, Magnesium 1.5 L, Total Bilirubin 0.6, AST 32, ALT 24, Alkaline Phosphatase 97, C-Reactive Protein 40.0 H, Total Protein 6.7, Albumin 3.8, Globulin 2.9, Albumin/Globulin Ratio 1.3, Procalcitonin 0.108 04/01/24 08:52: POC Glucose 136 H I & O for Labs for Last 24 Hours: Intake & Output 03/29/24 03/30/24 03/31/24 04/01/24 23:59 23:59 23:59 23:59 Intake Total 350 / 840 790 / 790 Output Total Balance 349 / 839 789 / 789 Weight 109.911 kg 107.7 kg Assessment and Plan *Assessment and plan (1) Cellulitis: Status: Acute Qualifiers: Site of cellulitis: buttock Qualified Code(s): L03.317 - Cellulitis of buttock Category: Medical Code(s): L03.90 - Cellulitis, unspecified (2) Hypertension: Status: Chronic Qualifiers: Hypertension type: primary hypertension Qualified Code(s): I10 - Essential (primary) hypertension Category: Medical Code(s): I10 - Essential (primary) hypertension (3) Diabetes mellitus: Status: Chronic Qualifiers: Diabetes mellitus complication status: without complication Diabetes mellitus penitentiary insulin use: without termite renewal inspector use Diabetes mellitus type: type 2 Qualified Code(s): E11.9 - Type 2 diabetes mellitus without complications Category: Medical Code(s): E11.9 - Type 2 diabetes mellitus without complications (4) History of kidney cancer: Status: Acute Category: Medical Code(s): Z85.528 - Personal history of other malignant neoplasm of kidney (5) Hyperlipidemia: Status: Chronic Qualifiers: Hyperlipidemia type: mixed hyperlipidemia Qualified Code(s): E78.2 - Mixed hyperlipidemia Category: Medical Code(s): E78.5 - Hyperlipidemia, unspecified (6) Stroke: Status: Chronic Qualifiers: CVA mechanism: unspecified Qualified Code(s): I63.9 - Cerebral infarction, unspecified Category: Medical Code(s): I63.9 - Cerebral infarction, unspecified (7) Cervical muscle strain: Status: Acute Qualifiers: Encounter type: initial encounter Qualified Code(s): S16.1XXA - Strain of muscle, fascia and tendon at neck level, initial encounter Category: Medical Code(s): S16.1XXA - Strain of muscle, fascia and tendon at neck level, initial encounter (8) Anxiety and depression: Status: Acute Category: Medical Code(s): F41.9 - Anxiety disorder, unspecified; F32.A - Depression, unspecified Plan 69-year-old male with multiple comorbidities including hypertension, anxiety and depression, diabetes, hyperlipidemia, prior stroke with residual deficits. Presented to surgery clinic at the referral of his PCP due to necrotic lesion/abscess/cellulitis on his right hip. Evaluation in surgery clinic, recommend initiating IV antibiotics and admitting with possible surgery in the morning. Discussed case with surgeon, request admission for further management. Agreed to admit. Continuing Zosyn. Taken for I&D this morning. Will monitor overnight with dressing changes. Anticipate discharge tomorrow. Problems addressed as follows: Cellulitis Necrotic abscess -Discussed case with surgery this morning, taken for debridement. Large excision of approximately 8 x 3-1/2 cm. Recommend monitoring overnight and continuing IV antibiotics. -Continuing Vancomycin 2 g daily, Zosyn 3.375 g every 6 hours. Monitor for toxicity and monitor kidney function closely -Kidney function stable with BUN 20, creatinine 1.4. Potassium low at 3.4, will administer 40 mg p.o. Repeat magnesium 1.5, 2 g once this morning. -White cell count 7.9. - CBC, CMP, magnesium, ESR ordered for the morning -Blood cultures obtained and pending Hypertension:Holding blood pressure meds in the setting of normotensive state on arrival along with infection. Reevaluate need for medication daily Diabetes: A1c 6.8. Sliding scale insulin with fingersticks ACHS. Holding home metformin Anxiety and depression: Continue citalopram 40 mg daily, BuSpar 10 mg twice daily, Wellbutrin 75 mg twice daily Hyperlipidemia: Continue Lipitor 80 mg nightly GERD: Continue pantoprazole 40 mg nightly DNI Diabetic diet
[2024-04-01] MEDS: BUSPIRONE HCL 10 MG TABLET PO ×2 (09:40→19:59)
[2024-04-01] MEDS: MAGNESIUM SULFATE IN WATER 2 GM/50 ML PIGGYBACK IV (09:40)
[2024-04-01] MEDS: CITALOPRAM 40MG TABLET 40 MG PO (09:40)
[2024-04-01] MEDS: POTASSIUM CHLORIDE 20MEQ TAB 40 MEQ PO (09:40)
[2024-04-01] MEDS: buPROPion HCL 75 MG TABLET PO ×2 (09:40→19:59)
[2024-04-01 11:31] LABS: POC Glucose,Bedside 144 (70-110)
[2024-04-01] MEDS: VANCOMYCIN HCL 2,000 MG in 0.9 % SODIUM CHLORIDE 250 ML 125 MG IV (12:36)
[2024-04-01] MEDS: humaLOG 100 UNITS/ML 10ML VIAL (SSI) SQ (16:37)
[2024-04-01 16:56] LABS: POC Glucose,Bedside 223 (70-110)
--- NOTE | 2024-04-01 18:06 | PC.NURSE ---
Pt A&Ox4. Pt had I&D, debridement of wound on right hip today, some sanguineous drainage noted. Dressing C/D/I. Pt has not c/o pain this shift. VSS. Pt on room air. He ambulates independently in room. at bedside. Pt resting comfortably in bed with no complaints at this time.
[2024-04-01] MEDS: HYDROMORPHONE 2MG/ML SYRINGE 1 MG IV (18:39)
[2024-04-01] MEDS: PANTOPRAZOLE 40MG TABLET 40 MG PO (19:59)
[2024-04-01] MEDS: ATORVASTATIN 40MG TABLET 80 MG PO (19:59)
[2024-04-01 20:28] LABS: POC Glucose,Bedside 146 (70-110)
[2024-04-01] MEDS: OXYCODONE 5MG W/APAP 325MG TABLET 1 EACH PO (23:53)
[2024-04-02] VITALS: BP 142/87; PULSE 46; RESP 18; TEMP 36.6; O2SAT 91
[2024-04-02] MEDS: HYDROMORPHONE 2MG/ML SYRINGE 1 MG IV (00:39)
[2024-04-02] MEDS: PIPERCILLIN/TAZO 3.375 GM in 0.9 % SODIUM CHLORIDE 50 ML IV ×2 (02:07→08:06)
[2024-04-02 04:00] VITALS: BP 157/78; PULSE 71; RESP 17; TEMP 36.9; O2SAT 91; BMI 35.1
--- NOTE | 2024-04-02 05:48 | PC.NURSE ---
Patient alert and oriented x4 this shift. Tolerating room air well. Moderate amount of sanguinous drainage noted on dressing change tonight. Dressing is currently C/D/I Patient only states there is pain when the dressing is changed. Medicated per MAR. Patient has ambulated well to/from restroom independently this shift. has remained at bedside. No complaints at the moment. Call light within reach.
[2024-04-02 06:05] LABS: POC Glucose,Bedside 139 (70-110)
[2024-04-02 06:53] LABS: Basophils # 0.1 K/mm3 (0-0.2); Basophils % 0.6 % (0.1-2.0); Eosinophils # 0.2 K/mm3 (0.0-0.4); Eosinophils % 1.8 % (0.1-12.0); Hematocrit 42.3 % (42.0-52.0); Hemoglobin 13.2 g/dL (14.1-18.0); Lymphocytes % 21.7 % (10-50); Mean Corpuscular HGB Conc 31.2 g/dL (31.8-35.4); Mean Corpuscular Hemoglobin 31.4 pg (27.0-31.2); Mean Corpuscular Volume 100.8 fl (80-94); Mean Platelet Volume 7.7 fl (7.4-10.4); Monocytes # 0.7 K/mm3 (0.1-1.0); Monocytes % 7.5 % (1.7-9.3); Neutrophils # 6.3 K/mm3 (1.8-7.8); Neutrophils % 68.4 % (37.0-80.0); Platelet Count 211 K/mm3 (142-424); Red Cell Distribution Width 13.3 % (11.5-17.5); White Blood Count 9.1 K/mm3 (4.8-10.8)
[2024-04-02 07:12] LABS: Alanine Aminotransferase 20 U/L (12-78); Albumin Level 3.3 g/dl (3.5-5.0); Albumin/Globulin Ratio 1.2 (1.1-1.8); Alkaline Phosphatase 83 U/L (38-126); Anion Gap 5.1 mEq/L (5-15); Aspartate Amino Transferase 24 U/L (17-59); Bilirubin,Total 0.4 mg/dl (0.2-1.3); Blood Urea Nitrogen 25 mg/dl (9-20); Calcium 8.4 mg/dl (8.4-10.2); Carbon Dioxide 33 mmol/L (22.0-30.0); Chloride 103 mmol/L (98-107); Creatinine Clearance Estimated 67 mL/min (50-200); Estimated Glomerular Filt Rate 41 ml/min (>60); GFR (African American) 49 ML/MIN (>60); Globulin 2.7 g/dL (1.3-3.2); Glucose 123 mg/dl (74-100); Magnesium 1.9 mg/dl (1.6-2.3); Potassium 4.1 mmoL/L (3.5-5.1); Sodium 137 mmol/L (136-145)
[2024-04-02 08:00] VITALS: BP 122/72; PULSE 86; RESP 20; TEMP 36.9; O2SAT 96
[2024-04-02] MEDS: CITALOPRAM 40MG TABLET 40 MG PO (08:08)
[2024-04-02] MEDS: buPROPion HCL 75 MG TABLET PO (08:08)
[2024-04-02] MEDS: BUSPIRONE HCL 10 MG TABLET PO (08:08)
[2024-04-02] MEDS: LACTATED RINGERS 1000ML 500 ML 250 ML IV (08:46)
--- NOTE | 2024-04-02 09:29 | P.PN_ITS ---
Subjective Narrative: Patient has had some pain requiring oxycodone and Dilaudid with dressing changes. He did have to have a couple dressing changes due to some oozing from the wound. Exam Data for Last 24 hours Vital signs and Labs for Last 24 Hours: Temp Pulse Resp BP Pulse Ox O2 Del Method O2 Flow Rate 98.4 F 86 20 122/72 96 Room Air 2 04/02/24 08:00 04/02/24 08:00 04/02/24 08:00 04/02/24 08:00 04/02/24 08:00 04/02/24 08:00 04/01/24 09:40 Laboratory Results - last 24 hr 04/01/24 11:25: POC Glucose 144 H 04/01/24 16:28: POC Glucose 223 H 04/01/24 20:21: POC Glucose 146 H 04/02/24 05:48: WBC 9.1, RBC 4.20 L, Hgb 13.2 L, Hct 42.3, MCV 100.8 H, MCH 31.4 H, MCHC 31.2 L, RDW 13.3, Plt Count 211, MPV 7.7, Neut % (Auto) 68.4, Lymph % (Auto) 21.7, [place] % (Auto) 7.5, Eos % (Auto) 1.8, Baso % (Auto) 0.6, Neut # (Auto) 6.3, Lymph # (Auto) 2.0, [place] # (Auto) 0.7, Eos # (Auto) 0.2, Baso # (Auto) 0.1, Sodium 137, Potassium 4.1 D, Chloride 103, Carbon Dioxide 33 H, Anion Gap 5.1, BUN 25 H, Creatinine 1.70 H D, Estimated Creat Clear 67, Estimated GFR 41 L, Est GFR ( Amer) 49 L, Glucose 123 H, Calcium 8.4, Magnesium 1.9 D, Total Bilirubin 0.4, AST 24, ALT 20, Alkaline Phosphatase 83, Total Protein 6.0 L, Albumin 3.3 L D, Globulin 2.7, Albumin/Globulin Ratio 1.2 04/02/24 05:55: POC Glucose 139 H I & O for Last 24 hours: Intake & Output 03/30/24 03/31/24 04/01/24 04/02/24 11:59 11:59 11:59 11:59 Intake Total 1140 / 1140 1250 / 1250 Output Total 2 / 2 0 / 0 Balance 1138 / 1138 1250 / 1250 Weight 237 lb 7.005 oz 245 lb 1.6 oz Microbiology Reports for the Last 24 Hours: Microbiology 04/01/24 08:19 Hip,Right - Abscess Gram Stain - Final 04/01/24 08:19 Hip,Right - Abscess Wound Culture - Preliminary Gram Positive Cocci 04/01/24 08:19 Hip,Right - Abscess Gram Stain - Final 04/01/24 08:19 Hip,Right - Abscess Wound Culture - Preliminary Gram Positive Cocci 03/31/24 14:40 Blood Blood Culture - Preliminary NO GROWTH AFTER 24 HOURS 03/31/24 14:30 Blood Blood Culture - Preliminary NO GROWTH AFTER 24 HOURS *Routine Skin Exam Comments: Some edema. Wound relatively clean. Very minimal oozing medially. Minimal tissue necrosis medially. No purulence. Progress Note: A&P Assessment and plan (1) Cellulitis: Status: Acute Assessment and plan: Plan for discharge on oral antibiotics and oral pain medication with outpatient wound care (2) Hypertension: Status: Chronic (3) Diabetes mellitus: Status: Chronic (4) History of kidney cancer: Status: Acute (5) Hyperlipidemia: Status: Chronic (6) Stroke: Status: Chronic (7) Cervical muscle strain: Status: Acute (8) Anxiety and depression: Status: Acute
--- NOTE | 2024-04-02 09:29 | EXP.DC.SUM ---
General Admission date:: 03/31/24 Discharge date: 04/02/24 HPI HPI HPI: 62-year-old male with previous history of strokes, hypertension, diabetes, mood disorder who presented to the surgery clinic as an outpatient for evaluation of wound on his right hip. He went to [facility] yesterday where I&D was performed and oral antibiotics were initiated/prescribed. Followed up with his PCP today, has not taken any oral antibiotics as of yet. They referred him to surgery clinic where he was evaluated by Dr. Sarabia. On evaluation, wound is draining amrik purulent material, approximately 4 cm in diameter with necrotic center. Afebrile and hemodynamically stable. Surgery requested admission however for IV antibiotics overnight and evaluation for surgical debridement in the morning. On evaluation, patient denies nausea, vomiting, chest pain, shortness of breath. No chills. States the wound has been present for 2 weeks and gradually getting worse. Normally sleeps on his right side but has not been able to due to pain from the lesion. Reports it feels somewhat better since I&D but is still painful. at bedside helps supplement history. Hospital Course Hospital Course Hospital Course: 69-year-old male with multiple comorbidities including hypertension, anxiety and depression, diabetes, hyperlipidemia, prior stroke with residual deficits. Presented to surgery clinic at the referral of his PCP due to necrotic lesion/abscess/cellulitis on his right hip. Evaluation in surgery clinic, recommend initiating IV antibiotics and admitting with plan for surgery in the morning. Taken for debridement on Sunday 04/01. Achieved source control. Bleeding improving. Needs daily dressing changes. Stable to discharge home however to continue oral antibiotics for treatment. instructed on dressing changes. Home health ordered. Problems addressed as follows: Cellulitis Necrotic abscess -Patient admitted for necrotic lesion right hip with cellulitis. Surgery consulted. Taken for debridement on 04/01/2024. Large incision approximately 8 cm x 3-1/2 cm. Monitored overnight with dressing changes performed by nursing and instructed on how to change dressings. Bleeding from wound improving by morning. Initially started on vancomycin and Zosyn for broad coverage. Will transition to doxycycline and Keflex to complete 7 days total of antibiotics. Kidney function with BUN 27, creatinine 1.7. Slightly above his baseline. Making good urine. Tolerating p.o. intake. White count remain normal at 9.1. Stable to discharge home with close follow-up with primary care and surgery in the coming week. Blood cultures obtained on admission, negative at time of discharge. Hypertension: Held during admission due to normotensive state, resume after discharge. Diabetes: A1c 6.8. Sliding scale insulin with fingersticks ACHS during admission. Morning glucose 127. Resume home regimen at discharge of metformin twice daily Anxiety and depression: Continue citalopram 40 mg daily, BuSpar 10 mg twice daily, Wellbutrin 75 mg twice daily Hyperlipidemia: Continue Lipitor 80 mg nightly GERD: Continue pantoprazole 40 mg nightly Total time spent on discharge 35 minutes in counseling, documentation, chart review, and direct care with patient. Exam Data for Last 24 hours Vital signs and Labs for Last 24 Hours: Temp Pulse Resp BP Pulse Ox O2 Del Method O2 Flow Rate 98.4 F 86 20 122/72 96 Room Air 2 04/02/24 08:00 04/02/24 08:00 04/02/24 08:00 04/02/24 08:00 04/02/24 08:00 04/02/24 08:00 04/01/24 09:40 Laboratory Results - last 24 hr 04/01/24 11:25: POC Glucose 144 H 04/01/24 16:28: POC Glucose 223 H 04/01/24 20:21: POC Glucose 146 H 04/02/24 05:48: WBC 9.1, RBC 4.20 L, Hgb 13.2 L, Hct 42.3, MCV 100.8 H, MCH 31.4 H, MCHC 31.2 L, RDW 13.3, Plt Count 211, MPV 7.7, Neut % (Auto) 68.4, Lymph % (Auto) 21.7, Saunders % (Auto) 7.5, Eos % (Auto) 1.8, Baso % (Auto) 0.6, Neut # (Auto) 6.3, Lymph # (Auto) 2.0, Saunders # (Auto) 0.7, Eos # (Auto) 0.2, Baso # (Auto) 0.1, Sodium 137, Potassium 4.1 D, Chloride 103, Carbon Dioxide 33 H, Anion Gap 5.1, BUN 25 H, Creatinine 1.70 H D, Estimated Creat Clear 67, Estimated GFR 41 L, Est GFR ( Amer) 49 L, Glucose 123 H, Calcium 8.4, Magnesium 1.9 D, Total Bilirubin 0.4, AST 24, ALT 20, Alkaline Phosphatase 83, Total Protein 6.0 L, Albumin 3.3 L D, Globulin 2.7, Albumin/Globulin Ratio 1.2 04/02/24 05:55: POC Glucose 139 H I & O for Last 24 hours: Intake & Output 03/30/24 03/31/24 04/01/24 04/02/24 23:59 23:59 23:59 23:59 Intake Total 350 / 840 1800 / 1800 240 / 240 Output Total 0 / 0 Balance 349 / 839 1799 / 1799 240 / 240 Weight 109.911 kg 107.7 kg 111.175 kg Microbiology Reports for the Last 24 Hours: Microbiology 04/01/24 08:19 Hip,Right - Abscess Gram Stain - Final 04/01/24 08:19 Hip,Right - Abscess Wound Culture - Preliminary Gram Positive Cocci 04/01/24 08:19 Hip,Right - Abscess Gram Stain - Final 04/01/24 08:19 Hip,Right - Abscess Wound Culture - Preliminary Gram Positive Cocci 03/31/24 14:40 Blood Blood Culture - Preliminary NO GROWTH AFTER 24 HOURS 03/31/24 14:30 Blood Blood Culture - Preliminary NO GROWTH AFTER 24 HOURS Constitutional Constitutional: no acute distress, obese and chronically ill appearing *Routine HEENT Exam Head: Present normocephalic Eye: Present EOMI and PERRL ENT: Present mucous membranes moist *Routine Neck Exam Neck: Present supple; Absent lymphadenopathy *Routine Respiratory Exam Respiratory: Present CTA bilaterally; Absent respiratory distress, rhonchi, wheezes or crackles *Routine Cardiovascular Exam Cardiovascular: Present RRR *Routine Abdominal Exam Abdominal: Present soft and normoactive bowel sounds; Absent tenderness *Routine Rectal Exam Patient deferred: visual exam *Routine Exam Patient deferred: penile exam *Routine Extremities Exam Extremities: Absent cyanosis, clubbing or edema *Routine Skin Exam Skin: Present erythema and warm; Absent rash Comments: 6 x 2 cm open wound through the dermis right hip. Clean base. Minimal bleeding with removal of dressing. Erythema slightly improved. *Routine Neurological Exam Neurological: Present alert, oriented X3 and moving all extremities; Absent altered mental status Comments: Baseline mentation per Results Data Completed and Pending Labs on day of discharge: Labs from last 24 hours 04/02/24 04/02/24 04/01/24 05:55 05:48 20:21 WBC 9.1 RBC 4.20 L Hgb 13.2 L Hct 42.3 MCV 100.8 H MCH 31.4 H MCHC 31.2 L RDW 13.3 Plt Count 211 MPV 7.7 Neut % (Auto) 68.4 Lymph % (Auto) 21.7 Saunders % (Auto) 7.5 Eos % (Auto) 1.8 Baso % (Auto) 0.6 Neut # (Auto) 6.3 Lymph # (Auto) 2.0 Saunders # (Auto) 0.7 Eos # (Auto) 0.2 Baso # (Auto) 0.1 Sodium 137 Potassium 4.1 D Chloride 103 Carbon Dioxide 33 H Anion Gap 5.1 BUN 25 H Creatinine 1.70 H D Estimated Creat Clear 67 Estimated GFR 41 L Est GFR ( Amer) 49 L Glucose 123 H POC Glucose 139 H 146 H Calcium 8.4 Magnesium 1.9 D Total Bilirubin 0.4 AST 24 ALT 20 Alkaline Phosphatase 83 Total Protein 6.0 L Albumin 3.3 L D Globulin 2.7 Albumin/Globulin Ratio 1.2 04/01/24 04/01/24 16:28 11:25 WBC RBC Hgb Hct MCV MCH MCHC RDW Plt Count MPV Neut % (Auto) Lymph % (Auto) Saunders % (Auto) Eos % (Auto) Baso % (Auto) Neut # (Auto) Lymph # (Auto) Saunders # (Auto) Eos # (Auto) Baso # (Auto) Sodium Potassium Chloride Carbon Dioxide Anion Gap BUN Creatinine Estimated Creat Clear Estimated GFR Est GFR ( Amer) Glucose POC Glucose 223 H 144 H Calcium Magnesium Total Bilirubin AST ALT Alkaline Phosphatase Total Protein Albumin Globulin Albumin/Globulin Ratio Preliminary micro results at discharge 04/01/24 08:19 Wound Culture - Preliminary Hip,Right - Abscess Gram Positive Cocci 04/01/24 08:19 Wound Culture - Preliminary Hip,Right - Abscess Gram Positive Cocci 03/31/24 14:40 Blood Culture - Preliminary Blood NO GROWTH AFTER 24 HOURS 03/31/24 14:30 Blood Culture - Preliminary Blood NO GROWTH AFTER 24 HOURS DS: Diagnosis Discharge Diagnosis (1) Cellulitis: Status: Acute Code(s): L03.90 - Cellulitis, unspecified Qualifiers: Site of cellulitis: buttock Qualified Code(s): L03.317 - Cellulitis of buttock (2) Hypertension: Status: Chronic Code(s): I10 - Essential (primary) hypertension Qualifiers: Hypertension type: primary hypertension Qualified Code(s): I10 - Essential (primary) hypertension (3) Diabetes mellitus: Status: Chronic Code(s): E11.9 - Type 2 diabetes mellitus without complications Qualifiers: Diabetes mellitus complication status: without complication Diabetes mellitus long term care social worker insulin use: without fci use Diabetes mellitus type: type 2 Qualified Code(s): E11.9 - Type 2 diabetes mellitus without complications (4) History of kidney cancer: Status: Acute Code(s): Z85.528 - Personal history of other malignant neoplasm of kidney (5) Hyperlipidemia: Status: Chronic Code(s): E78.5 - Hyperlipidemia, unspecified Qualifiers: Hyperlipidemia type: mixed hyperlipidemia Qualified Code(s): E78.2 - Mixed hyperlipidemia (6) Stroke: Status: Chronic Code(s): I63.9 - Cerebral infarction, unspecified Qualifiers: CVA mechanism: unspecified Qualified Code(s): I63.9 - Cerebral infarction, unspecified (7) Cervical muscle strain: Status: Acute Code(s): S16.1XXA - Strain of muscle, fascia and tendon at neck level, initial encounter Qualifiers: Encounter type: initial encounter Qualified Code(s): S16.1XXA - Strain of muscle, fascia and tendon at neck level, initial encounter (8) Anxiety and depression: Status: Acute Code(s): F41.9 - Anxiety disorder, unspecified; F32.A - Depression, unspecified Meds Home Medications and Allergies Home Medications ?Medication ?Instructions ?Recorded ?Confirmed ?Type clopidogrel 75 mg tablet 75 mg PO DAILY 03/07/19 03/31/24 History hydrochlorothiazide 25 mg tablet 25 mg PO DAILY 03/07/19 03/31/24 History lisinopril 40 mg tablet 40 mg PO DAILY 03/07/19 03/31/24 History metformin 500 mg tablet 500 mg PO BID 03/07/19 03/31/24 History buspirone 10 mg tablet 10 mg PO BID 01/30/21 03/31/24 History atorvastatin 80 mg tablet 80 mg PO DAILY #30 tabs 08/21/23 09/27/24 Rx escitalopram oxalate 20 mg tablet 20 mg PO DAILY #30 tabs 02/22/23 03/31/24 Rx (Lexapro) pantoprazole 40 mg tablet,delayed 40 mg PO DAILY #30 tabs 02/22/23 03/31/24 Rx release (Protonix) bupropion HCl 150 mg 24 hr tablet, 150 mg PO DAILY 03/31/24 03/31/24 History extended release cephalexin 500 mg capsule 500 mg PO TID 03/31/24 03/31/24 History fenofibrate nanocrystallized 145 145 mg PO DAILY 03/31/24 03/31/24 History mg tablet doxycycline hyclate 100 mg capsule 100 mg PO BID 5 days #10 caps 04/02/24 Rx oxycodone-acetaminophen 5 mg-325 1 tab PO Q6HP PRN Severe Pain 04/02/24 Rx mg tablet (7-10) 3 days #11 tabs New Prescriptions to Start Prescriptions: doxycycline hyclate Anurag Gudino oxycodone-acetaminophen Anurag Gudino Allergies Allergy/AdvReac Type Severity Reaction Status Date / Time No Known Allergies Allergy Verified 03/31/24 13:17 Discharge Plan Disposition Patient Disposition: Home Health Service Condition: Good Discharge Order Discharge Orders: Discharge Order (Routine); Ordered 04/02/24 Ordered By: Anurag Gudino Follow up Plan Follow up with: Amarjit Sarabia MD [Staff Physician] - 04/06/24 Leonardo Singleton MD [Primary Care Provider] - Enter time for follow up (please call tomorrow Wednesday, to schedule your hospital follow up! ) Prescriptions/Medication Reconciliation: New oxycodone-acetaminophen 5-325 mg Tablet 1 tab PO Q6HP PRN (Reason: Severe Pain (7-10)) 3 Days Qty: 11 0RF Rx Instructions: 30 minutes before a dressing change doxycycline hyclate 100 mg capsule 100 mg PO BID 5 Days Qty: 10 0RF Continued buspirone 10 mg tablet 10 mg PO BID atorvastatin 80 mg tablet 80 mg PO DAILY Qty: 30 2RF pantoprazole [Protonix] 40 mg tablet,delayed release (DR/EC) 40 mg PO DAILY Qty: 30 2RF escitalopram oxalate [Lexapro] 20 mg tablet 20 mg PO DAILY Qty: 30 2RF fenofibrate nanocrystallized 145 mg tablet 145 mg PO DAILY bupropion HCl 150 mg tablet extended release 24 hr 150 mg PO DAILY cephalexin 500 mg capsule 500 mg PO TID metformin 500 MG tablet 500 mg PO BID hydrochlorothiazide 25 MG tablet 25 mg PO DAILY lisinopril 40 MG tablet 40 mg PO DAILY Held clopidogrel 75 MG tablet 75 mg PO DAILY Hold Instructions: resume on 04/06/24 Problem Reconciliation Problems Reviewed?: Yes Patient Discharge Instructions ACTIVITY: Continue current activity DIET: continue same diet Patient Instructions: DI for Cellulitis -- Adult, DI for Surgical Site Infection Print Language: [place]ian Providers Primary Care Provider: Leonardo Singleton Admit Provider: Anurag Gudino Attending Provider: Anurag Gudino
--- NOTE | 2024-04-03 09:38 | SW/DCPLANNER ---
I called and spoke w/ patient's regarding home health services ordered. stated that she is able to complete dressing changes herself and they are not currently interested in home health services. stated that follow up appointment is on w/ Dr Sarabia and if they have any needs they will contact me. I did provide patient's w/ my contact information.
--- NOTE | 2024-04-04 07:43 | P.PNANES_ITS ---
[facility] Anesthesia Record Part II Anesthesia Record Part II Discharge Time: 09:15 Destination: Medical Surgical Department PACU nurse assessment reviewed?: Yes Patient Condition:: Good Anesthesia Complications:: None Swallowing reflex intact?: Yes Airway Patency: Patent Cyanosis?: No Blood Pressure: 132/86 SaO2: 94 Respiratory Rate: 18 Pulse Rate: 78 Temperature: 98.7 F Mental Status: Alert & Oriented Pain level:: 0 Nausea and/or vomitting:: None Intake, IV Amount: 0 Hydration: Adequate
[2024-04-04 07:44] VITALS: BP 132/86; PULSE 78; RESP 18; TEMP 37.1; O2SAT 94
== END 2024-04-02 10:57 | disposition home health service (06) ==
LOC: 2ND 14:02
PROVIDERS: Surgery; Admitting Provider Internal Medicine Adolescent Medicine; PCP Internal Medicine Adolescent Medicine; Visit Provider Internal Medicine Adolescent Medicine
PROC: (CPT 11042; principal; 2024-03-31 14:30)
DX: L02.415 Cutaneous abscess of right lower limb (principal); I10 Essential (primary) hypertension; E11.9 Type 2 diabetes mellitus without complications; Z85.528 Personal history of other malignant neoplasm of kidney; I69.328 Other speech and language deficits following cerebral infarction; E78.5 Hyperlipidemia, unspecified; F41.9 Anxiety disorder, unspecified; F32.A Depression, unspecified; F17.210 Nicotine dependence, cigarettes, uncomplicated; Z79.899 Other long term (current) drug therapy; Z79.84 Long term (current) use of oral hypoglycemic drugs; Z86.16 Personal history of COVID-19; B95.62 Methicillin resistant Staphylococcus aureus infection as the cause of diseases classified elsewhere; S70.211A Abrasion, right hip, initial encounter
CPT/HCPCS: 11042; G0379; 36415; 74176; 80048; 80053; 82962; 83036; 83605; 83735; 84145; 85025; 85651; 86140; 87040; 87070; 87077; 87186; 87205; 88304; 93005; G0378; J0360; J1100; J1170; J2250; J2405; J2543; J3010; J3370; J3475; J7120

== ENCOUNTER 2024-06-16 23:19 | Emergency (ER) | payer MEDICARE, SELFPAY ==
[2024-06-16 23:28] VITALS: BP 153/100; PULSE 82; RESP 20; TEMP 36.5; O2SAT 93; BMI 34.4
--- NOTE | 2024-06-16 23:29 | ED_ITS ---
Discharge Plan Disposition Patient Disposition: Home, Self-Care Prescriptions Prescriptions: New methocarbamol 500 mg tablet 500 mg PO Q6H PRN (Reason: pain) Qty: 30 0RF lidocaine 5 % adhesive patch,medicated 1 patch topical DAILY PRN (Reason: pain) Qty: 30 0RF Rx Instructions: leave on most painful area for up to 12 hrs No Action buspirone 10 mg tablet 10 mg PO BID linezolid [Zyvox] 600 mg tablet 600 mg PO BID 10 Days Qty: 20 0RF atorvastatin 80 mg tablet 80 mg PO DAILY Qty: 30 2RF pantoprazole [Protonix] 40 mg tablet,delayed release (DR/EC) 40 mg PO DAILY Qty: 30 2RF escitalopram oxalate [Lexapro] 20 mg tablet 20 mg PO DAILY Qty: 30 2RF fenofibrate nanocrystallized 145 mg tablet 145 mg PO DAILY bupropion HCl 150 mg tablet extended release 24 hr 150 mg PO DAILY oxycodone-acetaminophen 5-325 mg Tablet 1 tab PO Q6HP PRN (Reason: Severe Pain (7-10)) 3 Days Qty: 11 0RF Rx Instructions: 30 minutes before a dressing change metformin 500 MG tablet 500 mg PO BID hydrochlorothiazide 25 MG tablet 25 mg PO DAILY lisinopril 40 MG tablet 40 mg PO DAILY clopidogrel 75 MG tablet 75 mg PO DAILY Referrals Follow up/Referrals: Leonardo Singleton MD [Primary Care Provider] - See instructions Activity Restrictions/Add. Instructions Additional Instructions/Restrictions: Please take Tylenol as needed for pain. Please take 500 mg or 1 g of the Robaxin every 6-8 hours as needed for pain. Please use lidocaine patches as needed. Please follow-up with your primary care provider. Please return to the emergency department if you develop any new or worsening symptoms or become concerned for your health. Clinical Impressions Clinical Impression: Low back pain Qualifiers: Chronicity: acute Back pain laterality: left Sciatica presence: with sciatica S ciatica laterality: sciatica of left side Qualified Code(s): M54.42 - Lumbago with sciatica, left side Instructions Patient Instructions: DI for Low Back Pain Print Language Print Language: Bengali Discharge ED Provider: Casimiro Manley General Adult [facility] General Chief complaint: Back Pain/Injury Stated complaint: pain in back, left side Time Seen by Provider: 06/16/24 23:20 History of Present Illness HPI narrative: 69-year-old female with history of of hypertension, diabetes, prior nephrectomy on the left, stroke presents for back pain. It started yesterday, is isolated to the left lumbar paraspinal region and radiates down the left buttock. He denies any weakness in the limbs, denies any numbness in the limbs, no numbness in the groin, reports normal urination for him, reports normal bowel movements for him. No recent trauma. No recent fever or infection. No history of metastatic cancer. Related Data Home Medications ?Medication ?Instructions ?Recorded ?Confirmed clopidogrel 75 mg tablet 75 mg PO DAILY 03/07/19 05/30/24 hydrochlorothiazide 25 mg tablet 25 mg PO DAILY 03/07/19 05/30/24 lisinopril 40 mg tablet 40 mg PO DAILY 03/07/19 05/30/24 metformin 500 mg tablet 500 mg PO BID 03/07/19 05/30/24 buspirone 10 mg tablet 10 mg PO BID 01/30/21 05/30/24 bupropion HCl 150 mg 24 hr tablet, 150 mg PO DAILY 03/31/24 05/30/24 extended release fenofibrate nanocrystallized 145 145 mg PO DAILY 03/31/24 05/30/24 mg tablet Previous Rx's ?Medication ?Instructions ?Recorded atorvastatin 80 mg tablet 80 mg PO DAILY #30 tabs 02/22/23 escitalopram oxalate 20 mg tablet 20 mg PO DAILY #30 tabs 02/22/23 (Lexapro) pantoprazole 40 mg tablet,delayed 40 mg PO DAILY #30 tabs 02/22/23 release (Protonix) oxycodone-acetaminophen 5 mg-325 1 tab PO Q6HP PRN Severe Pain 04/02/24 mg tablet (7-10) 3 days #11 tabs linezolid 600 mg tablet (Zyvox) 600 mg PO BID 10 days #20 tabs 04/06/24 lidocaine 5 % topical patch 1 patch topical DAILY PRN pain #30 06/17/24 ea methocarbamol 500 mg tablet 500 mg PO Q6H PRN pain #30 tabs 06/17/24 Allergies Allergy/AdvReac Type Severity Reaction Status Date / Time No Known Allergies Allergy Verified 05/11/24 09:01 [facility] [place] Disclaimer: The information contained in this section may have been updated after the patient was seen, as this information can be updated by other users. Medical History Frequency of urination History of COVID-19 Anxiety and depression Allergies Stroke Hyperlipidemia History of kidney cancer Renal cancer Diabetes mellitus Hypertension Surgical History History of incision and drainage History of nephrectomy Family History Father Cancer Coronary artery disease Mother Diabetes Social History (Updated 05/30/24 @ 09:34 by BIA Pat) Smoking Status: Never smoker alcohol intake: never substance use type: denies use current occupational status: retired Travel in the last 8 weeks: None household members: spouse and children housing: house marital status: caffeine: No Have you lived/traveled outside [place] in past 30 days?: No Contact w/someone who lives/traveled outside US past 30 days?: No Exposure to someone with infectious disease in past 14 days?: No Do you have a fever (greater than 100.4 F or 38 C)?: No Have you tested positive for COVID-19: No Exposed to someone with COVID-19 in past 14 days?: No Do you have a sore throat?: No Do you have a cough?: No Do you have any weakness?: No Do you have any diarrhea?: No Are you experiencing any unusual bleeding?: No Do you have any muscle aches/pain?: No Do you have any abdominal pain?: No Are you experiencing loss of taste or smell?: No Other Medical History Have you received the Flu Vaccine for this season: No Have you received the Pneumonia Vaccine: Yes ROS Obtained: Yes All systems reviewed & no additional complaints except as documented Physical Exam General General appearance: alert and in no apparent distress Head Head exam: atraumatic and normocephalic Eye Eye exam: Present normal appearance, PERRL and EOMI ENT ENT exam: Present normal oropharynx and normal external ear exam Neck Neck exam: Present normal inspection and full ROM Chest Chest inspection: Present normal inspection and symmetric chest wall rise; Absent tenderness Respiratory Respiratory exam: Present normal lung sounds bilaterally; Absent respiratory distress Cardiovascular Cardiovascular exam: Present regular rate and normal rhythm Abdominal Exam Abdominal exam: Present soft; Absent distention, tenderness or guarding Extremities Exam Extremities exam: Present normal inspection; Absent edema or joint swelling Back Exam Back exam: Present normal inspection, tenderness (Left lumbar paraspinal and SI joint) and straight leg raise (L) Neurological Exam Neurological exam: Present alert, oriented X3 and other (Normal strength and sensation in bilateral lower extremities); Absent motor sensory deficit Psychiatric Psychiatric exam: Present normal affect and normal mood Skin Skin exam: Present warm, dry and normal color Lymphatic Lymphatic Findings: no adenopathy Medical Decision Making Medical Records Medical records reviewed: Yes I reviewed the patient's medical records. Screening: Per USPSTF and CDC recommendations, given the prevalence of disease in our region, it is our hospital?s policy to screen for HIV and viral Hepatitis for all patients aged 18 and over and those with ongoing risk factors. Yeison Inquiry Pt receiving controlled substance: No Yeison was queried for this patient: No Vital Signs: 06/16/24 23:28 06/17/24 01:15 Temperature 97.7 F 98 F Temperature Source Oral Pulse Rate 87 Pulse Rate [Right Brachial] 82 Respiratory Rate 20 18 Blood Pressure 156/102 H Blood Pressure [Right Arm] 153/100 H Blood Pressure Mean [Right Arm] 117 Blood Pressure Source [Right Arm] Automatic Cuff Blood Pressure Position [Right Arm] Sitting 02 Sat by Pulse Oximetry 93 L Oxygen Delivery Method Room Air Room Air Lab Data Lab results reviewed: Yes I reviewed the patient's lab results. Lab Results 06/16/24 23:31: WBC 9.0, RBC 4.79, Hgb 14.7, Hct 43.5, MCV 90.8, MCH 30.7, MCHC 33.8, RDW 13.9, Plt Count 215, MPV 8.0, Neut % (Auto) 65.8, Lymph % (Auto) 24.1, [place] % (Auto) 7.7, Eos % (Auto) 1.5, Baso % (Auto) 0.8, Neut # (Auto) 5.9, Lymph # (Auto) 2.2, [place] # (Auto) 0.7, Eos # (Auto) 0.1, Baso # (Auto) 0.1, Sodium 139, Potassium 4.1, Chloride 104, Carbon Dioxide 28, Anion Gap 11.1, BUN 24 H, C reatinine 1.50 H, Estimated Creat Clear 74, Estimated GFR 47 L, Est GFR ( Amer) 56 L, Glucose 96, Calcium 9.3, Total Bilirubin 0.4, AST 33, ALT 27, Alkaline Phosphatase 84, Total Protein 7.1, Albumin 4.2, Globulin 2.9, Albumin/Globulin Ratio 1.4 06/16/24 23:31 06/16/24 23:31 Orders (Tests/Meds): ED MEDICATIONS Generic Name Dose Route Start Last Admin Trade Name Freq PRN Reason Stop Dose Admin Sodium Chloride 10 ml 06/17/24 00:17 06/17/24 00:23 Sodium Chloride 0.9% 10ml Syr (Rad Only) IV 07/17/24 00:16 10 ml NEEDED PRN Administration Maintain IV Site Discontinued Medications Generic Name Dose Route Start Last Admin Trade Name Freq PRN Reason Stop Dose Admin Acetaminophen 1,000 mg 06/16/24 23:30 06/16/24 23:38 Acetaminophen 500mg Tab PO 06/16/24 23:31 1,000 mg ONCE ONE Administration Iopamidol 75 ml 06/17/24 00:17 06/17/24 00:23 Iopamidol-370 (76%);100ml Bottle IV 06/17/24 00:18 75 ml ONCE ONE Administration Ketorolac Tromethamine 15 mg 06/16/24 23:30 06/16/24 23:38 Ketorolac 30mg/Ml Vial IV 06/16/24 23:31 15 mg ONCE ONE Administration Lidocaine 1 each 06/16/24 23:30 06/16/24 23:38 Lidocaine 5% Transdermal Patch TP 06/16/24 23:31 1 each ONCE ONE Administration Methocarbamol 1,000 mg 06/16/24 23:30 06/16/24 23:38 Methocarbamol 500mg Tablet PO 06/16/24 23:31 1,000 mg ONCE ONE Administration ORDERS Category Date Time Status CT abdomen pelvis w con Stat Cat Scan 06/16/24 23:[address] lumbar spine wo con Stat Cat Scan 06/16/24 23:48 Completed CBC w/Auto Diff [Complete Blood Count Auto Diff] Stat Lab 06/16/24 23:31 Completed CMP [Comprehensive Metabolic Panel] Stat Lab 06/16/24 23:31 Completed HIV (1&2) Antibody Rapid Stat Lab 06/16/24 23:31 Received Hep C Ab with Reflex to RNA Stat Lab 06/16/24 23:31 Received Medical Decision Narrative: 69-year-old male with history as documented above presents for a couple days of left paraspinal low back pain radiating to the buttock.. History was obtained via interactive discussion with patient, family, chart review. On arrival, patient is [afebrile, hemodynamically stable, satting appropriately, alert, oriented x4, GCS 15], moving all extremities spontaneously. Full physical exam performed and significant for left paraspinal tenderness, normal neurologic exam. Given risk factor of age, will proceed with CT imaging. Differential includes but is not limited to herniated disc, sciatica, fracture, dislocation, cauda equina, epidural pathology. Patient was given Tylenol, Toradol, lidocaine patch, Robaxin for symptomatic management and correction of underlying abnormalities. Workup initiated including CBC CMP CT lumbar spine, CT abdomen pelvis with IV contrast.. On re-evaluation, patient [remains afebrile, HD stable.] Reports some symptomatic improvement after pain meds. Laboratory workup independently interpreted by me and significant for no significant leukocytosis, creatinine 1.5, at baseline for patient, no elevation in calcium.. Imaging independently interpreted by me and significant for no acute intra- abdominal pathology, chronic degenerative changes in the spine without acute fracture. There is some canal narrowing in the lumbar spine.. See radiology read for full review of final results. MRI was considered, but deemed unnecessary due to history and physical exam.. Given patient history, exam and workup, patient's presentation most likely represents disc herniation/sciatica. No evidence of spinal cord pathology on exam. The patient's lab workup and CT imaging were discussed with him. Patient was discharged in stable condition with return precautions and lidocaine patches and Robaxin for pain. Procedures Risk/Benefits of Procedure(s) Were Explained: Yes Critical Care Critical Care Time Critical Care Time: No
[2024-06-16] MEDS: LIDOCAINE 5% TRANSDERMAL PATCH 1 EACH TP (23:38)
[2024-06-16] MEDS: ACETAMINOPHEN 500MG TAB 1000 MG PO (23:38)
[2024-06-16] MEDS: KETOROLAC 30MG/ML VIAL 15 MG IV (23:38)
[2024-06-16] MEDS: METHOCARBAMOL 500MG TABLET 1000 MG PO (23:38)
[2024-06-16 23:45] LABS: Basophils # 0.1 K/mm3 (0-0.2); Basophils % 0.8 % (0.1-2.0); Eosinophils # 0.1 K/mm3 (0.0-0.4); Eosinophils % 1.5 % (0.1-12.0); Hematocrit 43.5 % (42.0-52.0); Hemoglobin 14.7 g/dL (14.1-18.0); Lymphocytes # 2.2 K/mm3 (0.7-4.5); Lymphocytes % 24.1 % (10-50); Mean Corpuscular HGB Conc 33.8 g/dL (31.8-35.4); Mean Corpuscular Hemoglobin 30.7 pg (27.0-31.2); Mean Corpuscular Volume 90.8 fl (80-94); Monocytes # 0.7 K/mm3 (0.1-1.0); Monocytes % 7.7 % (1.7-9.3); Neutrophils # 5.9 K/mm3 (1.8-7.8); Neutrophils % 65.8 % (37.0-80.0); Platelet Count 215 K/mm3 (142-424); Red Blood Count 4.79 M/mm3 (4.60-6.20); Red Cell Distribution Width 13.9 % (11.5-17.5)
--- NOTE | 2024-06-16 23:48 | CT_ITS ---
PROCEDURE INFORMATION: Exam: CT Abdomen And Pelvis With Contrast Exam date and time: 06/17/2024 12:15 AM Age: 69 years old Clinical indication: Other: New atraumatic lumbar paraspinal back pain TECHNIQUE: Imaging protocol: Computed tomography of the abdomen and pelvis with contrast. Radiation optimization: All CT scans at this facility use at least one of these dose optimization techniques: automated exposure control; mA and/or kV adjustment per patient size (includes targeted exams where dose is matched to clinical indication); or iterative reconstruction. Contrast material: ISOVUE; Contrast volume: 75 ml; Contrast route: IV; COMPARISON: 1. CT ABDOMEN PELVIS WO CON 03/31/2024 2:[address] ABDOMEN PELVIS WO/W CON 01/21/2021 1:[address] LUMBAR SPINE WO CON 06/16/2024 11:58 PM FINDINGS: Lungs: Scattered areas of bronchial wall thickening which are likely chronic inflammatory. A few areas of subpleural reticulation are noted, nonspecific. Coronary arteries: There is moderate coronary atherosclerotic disease/calcification although evaluation is limited secondary to the non gated nature of the study. Liver: Normal. Gallbladder and biliary ducts: No acute process. Pancreas: There is fatty replacement of the pancreas. Spleen: Normal. Adrenal glands: Nonspecific thickening of the right adrenal gland. Kidneys and ureters: Absent left kidney. Stomach and bowel: There is large volume stool throughout the colon. Appendix: No evidence of appendicitis. Intraperitoneal space: Unremarkable. Vasculature: There is atherosclerotic disease of the visualized aorta and its major branch vessels. Lymph nodes: No lymphadenopathy. Urinary bladder: There is moderate distention of the urinary bladder. Reproductive: The prostate is enlarged. Bones/joints: Please see the dedicated interpretation of the spine for findings in that region. There is diffuse degenerative disease of the visualized osseous structures. Soft tissues: There is bilateral gynecomastia. Laxity of the ventral abdominal wall consistent with diastasis recti. Other findings: Motion artifact mildly limits evaluation. IMPRESSION: 1. No acute inflammatory or obstructive process is identified. Incidental findings are described within the findings section. 2. Please see separately dictated examination of the lumbar spine for findings in that region.
--- NOTE | 2024-06-16 23:48 | CT_ITS ---
PROCEDURE INFORMATION: Exam: CT Lumbar Spine Without Contrast Exam date and time: 06/16/2024 11:58 PM Age: 69 years old Clinical indication: Other: New atraumatic lumbar paraspinal back pain TECHNIQUE: Imaging protocol: Computed tomography of the lumbar spine without contrast. Radiation optimization: All CT scans at this facility use at least one of these dose optimization techniques: automated exposure control; mA and/or kV adjustment per patient size (includes targeted exams where dose is matched to clinical indication); or iterative reconstruction. COMPARISON: 1. CT ABDOMEN PELVIS WO CON 03/31/2024 2:[address] ABDOMEN PELVIS WO/W CON 01/21/2021 1:43 PM FINDINGS: Bones/joints: There is slight anterolisthesis of L4 on L5. There is diffuse osseous demineralization. No evidence of acute spondylolisthesis or vertebral subluxation. Vertebral body heights are generally preserved, but some endplate sclerosis and anterior osteophytes are noted at multiple levels. Narrowing of multiple intervertebral disc spaces observed, indicative of degenerative disc disease. Hypertrophic changes are seen in the facet joints, consistent with osteoarthritis. No fractures or bony lesions identified. No abnormalities seen in adjacent osseous structures. Degenerative disease is most pronounced at the L2-L3 level where there is moderate to severe canal narrowing. Soft tissues: Unremarkable. Other findings: No obvious abnormalities seen in the prevertebral and paravertebral soft tissues. IMPRESSION: 1. Degenerative changes without acute abnormality detected. Moderate to severe canal narrowing is noted at L2-L3. 2. If clinical concern persists, MRI would be suggested.
[2024-06-16 23:49] LABS: Alanine Aminotransferase 27 U/L (12-78); Albumin Level 4.2 g/dl (3.5-5.0); Albumin/Globulin Ratio 1.4 (1.1-1.8); Alkaline Phosphatase 84 U/L (38-126); Anion Gap 11.1 mEq/L (5-15); Aspartate Amino Transferase 33 U/L (17-59); Bilirubin,Total 0.4 mg/dl (0.2-1.3); Blood Urea Nitrogen 24 mg/dl (9-20); Calcium 9.3 mg/dl (8.4-10.2); Carbon Dioxide 28 mmol/L (22.0-30.0); Chloride 104 mmol/L (98-107); Creatinine Clearance Estimated 74 mL/min (50-200); Estimated Glomerular Filt Rate 47 ml/min (>60); GFR (African American) 56 ML/MIN (>60); Globulin 2.9 g/dL (1.3-3.2); Glucose 96 mg/dl (74-100); Potassium 4.1 mmoL/L (3.5-5.1); Sodium 139 mmol/L (136-145); Total Protein,Serum 7.1 g/dl (6.3-8.2)
[2024-06-17] MEDS: IOPAMIDOL-370 (76%);100ML BOTTLE 75 ML IV (00:23)
[2024-06-17] MEDS: SODIUM CHLORIDE 0.9% 10ML SYR (RAD ONLY) 10 ML IV (00:23)
[2024-06-17 01:15] VITALS: BP 156/102; PULSE 87; RESP 18; TEMP 36.6; O2SAT 97
[2024-06-17 14:16] LABS: HIV Combo NEGATIVE (Negative)
[2024-06-18 11:15] LABS: HCV Ab Non Reactive (Non Reactive)
== END 2024-06-17 01:23 | disposition home or self-care (01) ==
PROVIDERS: Emergency Provider Emergency Medicine; PCP Internal Medicine Adolescent Medicine
DX: M54.50 Low back pain, unspecified (principal)
CPT/HCPCS: 72131; 74177; 80053; 85025; 86803; 87389; 96374; 99285; J1885; Q9967

== ENCOUNTER 2024-11-26 20:47 | Emergency (ER) | payer MEDICARE, SELFPAY ==
[2024-11-26 20:49] VITALS: BP 125/83; PULSE 75; RESP 18; TEMP 36.1; O2SAT 94; BMI 33.0
[2024-11-26 20:56] VITALS: BP 151/79; PULSE 77; O2SAT 96
[2024-11-26 21:00] VITALS: BP 153/90; PULSE 78; O2SAT 95
--- NOTE | 2024-11-26 21:13 | HMH.EDGENADL ---
Discharge Plan Disposition Patient Disposition: Home, Self-Care Condition: Good Prescriptions Prescriptions: No Action buspirone 10 mg tablet 10 mg PO BID linezolid [Zyvox] 600 mg tablet 600 mg PO BID 10 Days Qty: 20 0RF atorvastatin 80 mg tablet 80 mg PO DAILY Qty: 30 2RF pantoprazole [Protonix] 40 mg tablet,delayed release (DR/EC) 40 mg PO DAILY Qty: 30 2RF escitalopram oxalate [Lexapro] 20 mg tablet 20 mg PO DAILY Qty: 30 2RF fenofibrate nanocrystallized 145 mg tablet 145 mg PO DAILY bupropion HCl 150 mg tablet extended release 24 hr 150 mg PO DAILY oxycodone-acetaminophen 5-325 mg Tablet 1 tab PO Q6HP PRN (Reason: Severe Pain (7-10)) 3 Days Qty: 11 0RF Rx Instructions: 30 minutes before a dressing change methocarbamol 500 mg tablet 500 mg PO Q6H PRN (Reason: pain) Qty: 30 0RF lidocaine 5 % adhesive patch,medicated 1 patch topical DAILY PRN (Reason: pain) Qty: 30 0RF Rx Instructions: leave on most painful area for up to 12 hrs metformin 500 MG tablet 500 mg PO BID hydrochlorothiazide 25 MG tablet 25 mg PO DAILY lisinopril 40 MG tablet 40 mg PO DAILY clopidogrel 75 MG tablet 75 mg PO DAILY Referrals Follow up/Referrals: Leonardo Singleton MD [Primary Care Provider] - See instructions Activity Restrictions/Add. Instructions Additional Instructions/Restrictions: Recommend using ice rest compression and elevation. I recommend taking Tylenol for the pain and swelling. If you have persistent new or worsening signs or symptoms follow-up with your PCP return to the ER as needed. Clinical Impressions Clinical Impression: Contusion of elbow, right Qualifiers: Encounter type: initial encounter Qualified Code(s): S50.01XA - Contusion of right elbow, initial encounter Print Language Print Language: Vietnamese Discharge ED Provider: Srikanth Stewart Adult HPI <GARCIA Lawrence - Last Filed: 11/26/24 21:53> General Chief complaint: PAIN Stated complaint: Fall x2 11/26/24 18:00-19:00; Time Seen by Provider: 11/26/24 21:13 Mode of Arrival: Ambulatory Source of Information: Patient Description of Symptoms (Recalled from ER Triage Doc. by RN): Pt presents for evaluation of right arm pain after a fall. 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 While he was attempting to get up he had a second fall. Pt states that he did not hit his head, denies loc, pt is on plavix. History of Present Illness HPI narrative: Patient presents for evaluation of a right arm injury. Patient fell landing on his right upper extremity. In attempting get up he fell again landing on the same affected area. He has the most pain at the lateral epicondyle of the right elbow. He also pain radiates up into his right shoulder. He denies any other injury has no neck pain no head pain did not lose consciousness he is intact distally to motor and sensory but reports pain is too great to move his elbow. Related Data Home Medications ?Medication ?Instructions ?Recorded ?Confirmed clopidogrel 75 mg tablet 75 mg PO DAILY 03/07/19 05/30/24 hydrochlorothiazide 25 mg tablet 25 mg PO DAILY 03/07/19 05/30/24 lisinopril 40 mg tablet 40 mg PO DAILY 03/07/19 05/30/24 metformin 500 mg tablet 500 mg PO BID 03/07/19 05/30/24 buspirone 10 mg tablet 10 mg PO BID 01/30/21 05/30/24 bupropion HCl 150 mg 24 hr tablet, 150 mg PO DAILY 03/31/24 05/30/24 extended release fenofibrate nanocrystallized 145 145 mg PO DAILY 03/31/24 05/30/24 mg tablet Previous Rx's ?Medication ?Instructions ?Recorded atorvastatin 80 mg tablet 80 mg PO DAILY #30 tabs 02/22/23 escitalopram oxalate 20 mg tablet 20 mg PO DAILY #30 tabs 02/22/23 (Lexapro) pantoprazole 40 mg tablet,delayed 40 mg PO DAILY #30 tabs 02/22/23 release (Protonix) oxycodone-acetaminophen 5 mg-325 1 tab PO Q6HP PRN Severe Pain 04/02/24 mg tablet (7-10) 3 days #11 tabs linezolid 600 mg tablet (Zyvox) 600 mg PO BID 10 days #20 tabs 04/06/24 lidocaine 5 % topical patch 1 patch topical DAILY PRN pain #30 06/17/24 ea methocarbamol 500 mg tablet 500 mg PO Q6H PRN pain #30 tabs 06/17/24 Allergies Allergy/AdvReac Type Severity Reaction Status Date / Time No Known Allergies Allergy Verified 05/11/24 09:01 [facility] <GARCIA Lawrence - Last Filed: 11/26/24 21:53> [facility] Disclaimer: The information contained in this section may have been updated after the patient was seen, as this information can be updated by other users. Medical History Frequency of urination History of COVID-19 Anxiety and depression Allergies Stroke Hyperlipidemia History of kidney cancer Renal cancer Diabetes mellitus Hypertension Surgical History History of incision and drainage History of nephrectomy Family History Father Cancer Coronary artery disease Mother Diabetes Social History (Updated 05/30/24 @ 09:34 by BIA Pat) Smoking Status: Current every day smoker alcohol intake: never substance use type: denies use current occupational status: retired Travel in the last 8 weeks?: None household members: spouse and children housing: house marital status: caffeine: No Have you lived/traveled outside [place] in past 30 days?: No Contact w/someone who lives/traveled outside [place] past 30 days?: No Exposure to someone with infectious disease in past 14 days?: No Do you have a fever (greater than 100.4 F or 38 C)?: No Have you tested positive for COVID-19?: No Exposed to someone with COVID-19 in past 14 days?: No Do you have a sore throat?: No Do you have a cough?: No Do you have any weakness?: No Do you have any diarrhea?: No Are you experiencing any unusual bleeding?: No Do you have any muscle aches/pain?: No Do you have any abdominal pain?: No Are you experiencing loss of taste or smell?: No Other Medical History Have you received the Flu Vaccine for this season: No Have you received the Pneumonia Vaccine: Yes <GARCIA Lawrence - Last Filed: 11/26/24 21:53> ROS Obtained: Yes Systems reviewed as appropriate & no additional complaints except as documented Physical Exam <GARCIA Lawrence - Last Filed: 11/26/24 21:53> General General appearance: alert and in no apparent distress Respiratory Respiratory exam: Present normal lung sounds bilaterally Cardiovascular Cardiovascular exam: Present regular rate Neurological Exam Neurological exam: Present alert and oriented X3 Medical Decision Making <GARCIA Lawrence - Last Filed: 11/26/24 21:53> Medical Records Medical records reviewed: Yes I reviewed the patient's medical records. Screening: Per USPSTF and CDC recommendations, given the prevalence of disease in our region, it is our hospital?s policy to screen for HIV and viral Hepatitis for all patients aged 18 and over and those with ongoing risk factors. Yeison Inquiry Pt receiving controlled substance: No Vital Signs: 11/26/24 20:49 11/26/24 20:56 11/26/24 21:00 Temperature 97.0 F L Temperature Source Oral Pulse Rate 77 78 Pulse Rate [Right] 75 Respiratory Rate 18 Blood Pressure 151/79 H 153/90 H Blood Pressure [Right Arm] 125/83 Blood Pressure Mean [Right Arm] 97 Blood Pressure Source Blood Pressure Source [Right Arm] Automatic Cuff Blood Pressure Position Blood Pressure Position [Right Arm] Sitting 02 Sat by Pulse Oximetry 94 L 96 95 Oxygen Delivery Method Room Air 11/26/24 22:17 Temperature 98 F Temperature Source Temporal Artery Scan Pulse Rate 78 Pulse Rate [Right] Respiratory Rate 20 Blood Pressure 145/82 H Blood Pressure [Right Arm] Blood Pressure Mean [Right Arm] Blood Pressure Source Automatic Cuff Blood Pressure Source [Right Arm] Blood Pressure Position Sitting Blood Pressure Position [Right Arm] 02 Sat by Pulse Oximetry Oxygen Delivery Method Room Air Orders (Tests/Meds): ED MEDICATIONS Discontinued Medications Generic Name Dose Route Start Last Admin Trade Name Freq PRN Reason Stop Dose Admin Acetaminophen 1,000 mg 11/26/24 21:17 11/26/24 21:41 Acetaminophen 500mg Tab PO 11/26/24 21:18 1,000 mg ONCE ONE Administration Oxycodone HCl 5 mg 11/26/24 21:17 11/26/24 21:41 Oxycodone 5mg Immediate Release Tablet PO 11/26/24 21:18 5 mg ONCE ONE Administration ORDERS Category Date Time Status Elbow XR right minimum 3 views [XR elbow RT min 3V] Exams 11/26/24 21:15 Completed Stat Forearm XR right 2 views [XR forearm RT 2V] Stat Exams 11/26/24 21:15 Completed Shoulder XR right miminum 2 views [XR shoulder RT min Exams 11/26/24 21:15 Completed 2V] Stat Medical Decision Narrative: In summary patient is a 69-year-old male who presents to the emergency department for evaluation of right upper extremity injury. Patient is hemodynamically stable upon arrival, afebrile. Physical exam is remarkable for a tender to palpation of the right elbow and more focally so at the lateral epicondyle. There is also swelling. Is difficult to assess for bony deformity due to the patient's pain. He is neurovascular intact distally but has reduced range of motion due to pain so full range of motion testing was not performed. Humerus is intact and pain about the shoulder girdle does not reveal any pain although he states that his right shoulder aches.. Differential diagnosis includes contusion versus fracture. Initial workup will be conducted with plain film x-rays of the shoulder humerus elbow and forearm. Initial interventions include Tylenol and oxycodone as patient is on Plavix. Initial workup reviewed by me and my informal trepidation of his imaging shows no acute fracture or bony abnormality prior to radiology read. Please see final read for formal interpretation. Upon repeat evaluation patient remains neurovascular intact distally with improvement after initial intervention. Given this patient is appropriate for discharge with instructions for rest ice compression elevation and continue taking Tylenol for his pain and swelling. If he has persistent new or worsening signs or symptoms follow-up PCP return to the ER as needed. <Srikanth Stewart MD - Last Filed: 11/26/24 23:31> Vital Signs: 11/26/24 20:49 11/26/24 20:56 11/26/24 21:00 Temperature 97.0 F L Temperature Source Oral Pulse Rate 77 78 Pulse Rate [Right] 75 Respiratory Rate 18 Blood Pressure 151/79 H 153/90 H Blood Pressure [Right Arm] 125/83 Blood Pressure Mean [Right Arm] 97 Blood Pressure Source Blood Pressure Source [Right Arm] Automatic Cuff Blood Pressure Position Blood Pressure Position [Right Arm] Sitting 02 Sat by Pulse Oximetry 94 L 96 95 Oxygen Delivery Method Room Air 11/26/24 22:17 Temperature 98 F Temperature Source Temporal Artery Scan Pulse Rate 78 Pulse Rate [Right] Respiratory Rate 20 Blood Pressure 145/82 H Blood Pressure [Right Arm] Blood Pressure Mean [Right Arm] Blood Pressure Source Automatic Cuff Blood Pressure Source [Right Arm] Blood Pressure Position Sitting Blood Pressure Position [Right Arm] 02 Sat by Pulse Oximetry Oxygen Delivery Method Room Air Orders (Tests/Meds): ED MEDICATIONS Discontinued Medications Generic Name Dose Route Start Last Admin Trade Name Debbie PRN Reason Stop Dose Admin Acetaminophen 1,000 mg 11/26/24 21:17 11/26/24 21:41 Acetaminophen 500mg Tab PO 11/26/24 21:18 1,000 mg ONCE ONE Administration Oxycodone HCl 5 mg 11/26/24 21:17 11/26/24 21:41 Oxycodone 5mg Immediate Release Tablet PO 11/26/24 21:18 5 mg ONCE ONE Administration ORDERS Category Date Time Status Elbow XR right minimum 3 views [XR elbow RT min 3V] Exams 11/26/24 21:15 Completed Stat Forearm XR right 2 views [XR forearm RT 2V] Stat Exams 11/26/24 21:15 Completed Shoulder XR right miminum 2 views [XR shoulder RT min Exams 11/26/24 21:15 Completed 2V] Stat Medical Decision Narrative: In summary patient is a 69-year-old male who presents to the emergency department for evaluation of right upper extremity injury. Patient is hemodynamically stable upon arrival, afebrile. Physical exam is remarkable for a tender to palpation of the right elbow and more focally so at the lateral epicondyle. There is also swelling. Is difficult to assess for bony deformity due to the patient's pain. He is neurovascular intact distally but has reduced range of motion due to pain so full range of motion testing was not performed. Humerus is intact and pain about the shoulder girdle does not reveal any pain although he states that his right shoulder aches.. Differential diagnosis includes contusion versus fracture. Initial workup will be conducted with plain film x-rays of the shoulder humerus elbow and forearm. Initial interventions include Tylenol and oxycodone as patient is on Plavix. Initial workup reviewed by me and my informal trepidation of his imaging shows no acute fracture or bony abnormality prior to radiology read. Please see final read for formal interpretation. Upon repeat evaluation patient remains neurovascular intact distally with improvement after initial intervention. Given this patient is appropriate for discharge with instructions for rest ice compression elevation and continue taking Tylenol for his pain and swelling. If he has persistent new or worsening signs or symptoms follow-up PCP return to the ER as needed. I was consulted by the MARIXA, and we discussed the complexity of the problems being addressed.I approved the treatment and management plan for this patient?s care in the Emergency Department, thus performing a substantive portion of the medical decision making.Signed, Srikanth Stewart MD [facility] <GARCIA Lawrence - Last Filed: 11/26/24 21:53> Critical Care Time Critical Care Time: No
--- NOTE | 2024-11-26 21:15 | XR_ITS ---
PROCEDURE INFORMATION: Exam: XR Right Shoulder Exam date and time: 11/26/2024 9:16 PM Age: 69 years old Clinical indication: Injury or trauma; Fall; Blunt trauma (contusions or hematomas); Shoulder; Right; Additional info: Fell on right arm twice today TECHNIQUE: Imaging protocol: Radiologic exam of the right shoulder. Views: 2 or more views. Total images: 3 COMPARISON: CR Elbow R 11/26/2024 9:12 PM FINDINGS: Bones/joints: No acute fracture, joint dislocation, or AC joint separation. Mild degenerative change glenohumeral joint. Moderate degenerative change AC joint. Subacromial distance is maintained. No concerning bone lesions. Soft tissues: Unremarkable soft tissues. IMPRESSION: 1. Negative right shoulder. 2. Degenerative arthropathy.
--- NOTE | 2024-11-26 21:15 | XR_ITS ---
PROCEDURE INFORMATION: Exam: XR Right Elbow Exam date and time: 11/26/2024 9:12 PM Age: 69 years old Clinical indication: Injury or trauma; Fall; Blunt trauma (contusions or hematomas); Elbow; Right; Additional info: Fell on R arm x2, pain/swelling at lateral epicond TECHNIQUE: Imaging protocol: Radiologic exam of the right elbow. Views: 3 or more views. Total images: 3 COMPARISON: CR Forearm R 11/26/2024 9:11 PM FINDINGS: Bones/joints: No acute fracture, joint dislocation, or joint effusion. Age-appropriate joint spaces. No concerning bone lesions or calcifications. Tiny enthesophytes at the medial humeral epicondyle and coronoid process. Prominent enthesophyte on the olecranon process. Soft tissues: Unremarkable soft tissues. IMPRESSION: Negative right elbow.
--- NOTE | 2024-11-26 21:15 | XR_ITS ---
PROCEDURE INFORMATION: Exam: XR Right Forearm Exam date and time: 11/26/2024 9:11 PM Age: 69 years old Clinical indication: Injury or trauma; Fall; Blunt trauma (contusions or hematomas); Arm, lower; Right; Additional info: Fell on right arm twice today TECHNIQUE: Imaging protocol: Radiologic exam of the right forearm. Views: 2 views. Total images: 2 COMPARISON: No relevant prior studies available. FINDINGS: Bones/joints: No acute fracture or joint dislocation. No acute fracture or joint dislocation. Limited assessment of the distal forearm and wrist. Unremarkable elbow. Remote deformity of the lunate. Soft tissues: Unremarkable soft tissues. Vasculature: Incidental mild scattered vascular calcifications. Notes: Limited exam secondary to patient positioning. IMPRESSION: 1. Limited evaluation of the distal forearm and wrist, secondary to positioning. Recommend follow-up dedicated radiograph. 2. Unremarkable proximal forearm and elbow.
[2024-11-26] MEDS: ACETAMINOPHEN 500MG TAB 1000 MG PO (21:41)
[2024-11-26] MEDS: OXYCODONE 5MG IMMEDIATE RELEASE TABLET 5 MG PO (21:41)
[2024-11-26 22:17] VITALS: BP 145/82; PULSE 78; RESP 20; TEMP 36.6; O2SAT 99
== END 2024-11-26 22:19 | disposition home or self-care (01) ==
PROVIDERS: Emergency Provider Emergency Medicine; PCP Internal Medicine Adolescent Medicine
DX: S50.01XA Contusion of right elbow, initial encounter (principal); M79.621 Pain in right upper arm; Z79.01 Long term (current) use of anticoagulants; W18.39XA Other fall on same level, initial encounter
CPT/HCPCS: 73030; 73080; 73090; 99284

== ENCOUNTER 2025-03-01 09:16 | Outpatient (CLI) | payer MEDICARE, SELFPAY ==
--- OUTSIDE RECORDS SUMMARY | 2024-11-02 05:30 | XMS_ITS ---
Author Organization [facility] CLAUDIA Address [address] [place] [address] Care Team Providers Care Delivery Recruiter Name Role Phone Leonardo Singleton Primary Care Provider REASON FOR VISIT fu Encounters Encounter Location Date Provider Diagnosis [facility] [address] [address] 11/02/2024 Leonardo Singleton Plan Of Treatment Next Appt Details Provider Name:Leonardo Singleton, 04/05/2025 08:45:00 AM, [address] [address], [place], [address], Progress Notes * Melony LEE LDOB:1954 (69 yo M)Acc No.[id number]:11/02/2024 Progress Notes Patient: Juancarlos LU Melony Huddleston Provider: Clarice Singleton MD :1955 A ge:69 Y S ex:Male Date:11/02/2024 [address] [facility] [id number] Subjective: * Chief Complaints: * 1 . Fu. * Medical History: Objective: * Vitals: Assessment: Plan: * Treatment: * * Electronic signature of Regis Singleton MD FAAP on 03/01/2025 at 09:21 AM EDT Sign off status: Pending * Provider: Clarice Singleton MD Date: 11/02/2024 Generated for Printi ng/Faxing/eTransmitting on: 0 03/01/2025 09:21 AM EDT
--- OUTSIDE RECORDS SUMMARY | 2025-01-23 04:45 | XMS_ITS ---
Author Organization [facility] Address [address] [place] [address] Care Team Providers Care Distribution Clerk Name Role Phone Leonardo Singleton Primary Care Provider Allergies No Known Allergies Results Component Value Reference Range Notes Microalbumin (In-House) Reviewed date:01/23/2025 07:33:10 PM Interpretation:Abnormal Performing Lab: Notes/Report: Abnormal ALB 150mg CRE 100mg A:C >300mg BASIC METABOLIC PANEL (66538 ) Reviewed date:01/24/2025 10:18:07 AM Interpretation: Performing Lab:[facility] [id number], [id number] Will Lyle Notes/Report: NON-FASTING; NON-FASTING GLUCOSE 135 65-99 mg/dL Fasting reference interval For someone without known diabetes, a glucose value >125 mg/dL indicates that they may have diabetes and this should be confirmed with a follow-up test. UREA NITROGEN (BUN) 26 7-25 mg/dL CREATININE 1.59 0.70-1.35 mg/dL EGFR 47 > OR = 60 mL/min/1.73m2 BUN/CREATININE RATIO 16 6-22 (calc) SODIUM 139 135-146 mmol/L POTASSIUM 3.9 3.5-5.3 mmol/L CHLORIDE 102 98-110 mmol/L CARBON DIOXIDE 27 20-32 mmol/L CALCIUM 9.2 8.6-10.3 mg/dL HEMOGLOBIN A1c (496) Reviewed date:01/24/2025 10:18:07 AM Interpretation: Performing Lab:[facility] [facility] [id number], [id number] Will Lyle Notes/Report: NON-FASTING; NON-FASTING HEMOGLOBIN A1c 6.2 <5.7 % For someone without known diabetes, a hemoglobin A1c value between 5.7% and 6.4% is consistent with prediabetes and should be confirmed with a follow-up test. For someone with known diabetes, a value <7% indicates that their diabetes is well controlled. A1c targets should be individualized based on duration of diabetes, age, comorbid conditions, and other considerations. This assay result is consistent with an increased risk of diabetes. Currently, no consensus exists regarding use of hemoglobin A1c for diagnosis of diabetes for children. REASON FOR VISIT MED CK Medications Medication SIG (Take, Route, Frequency, Duration) Notes Start Date End Date Status metFORMIN HCl 500 MG 1 tab(s) orally 2 times a day; Duration: 90 days Active Lisinopril 40 (MG) 1 TAB(S) ORALLY ONCE A DAY; Duration: 90 DAYS *Please review and pick correct strength-formulat ion from [employer] options. If intended option is not shown, discontinue and re-order from Quick Search* Active hydroCHLOROthiazide 25 (MG) 1 TAB(S) ORALLY ONCE A DAY; Duration: 90 DAYS *Please review and pick correct strength-formulat ion from [employer] options. If intended option is not shown, discontinue and re-order from Quick Search* Active Atorvastatin Calcium 80 MG 1 tab(s) orally once a day; Duration: 90 days Active buPROPion HCl ER (XL) 300 MG 1 tab(s) orally every 24 hours; Duration: 90 days 08/31/2024 Active ASA 325 MGM 1 Q AM *Please review for potential replacement for e-prescription and drug interaction check* Active NIFEdipine ER 60 MG 1 tablet on an empty stomach Orally Once a day; Duration: 90 days 10/10/2024 Active Farxiga 10 MG 1 tablet Orally Once a day; Duration: 90 days 11/16/2024 Active Plavix 75 MG 1 tab(s) orally once a day; Duration: 90 days Active Pantoprazole Sodium 40 MG 1 tab(s) orall y once a day; Duration: 90 days Active Fenofibrate 145 (MG) 1 TAB(S) ORALLY ONCE A DAY; Duration: 90 DAYS *Please review and pick correct strength-formulat ion from [employer] options. If intended option is not shown, discontinue and re-order from Quick Search* Active busPIRone HCl 10 MG 1 tab(s) orally 2 times a day; Duration: 90 days Active Escitalopram Oxalate 20 (MG) 1 TAB(S) ORALLY ONCE A DAY; Duration: 90 DAYS *Please review and pick correct strength-formulat ion from [employer] options. If intended option is not shown, discontinue and re-order from Quick Search* Active Social History Tobacco Use: Social History Observation Description Date Details (start date - stop date) Former Smoker NA - NA Tobacco Control (Standard) Question Answer Notes Tobacco use: Former smoker How long has it been since you last smoked? 1-5 years Problems Problem Type SNOMED Code ICD Code Onset Dates Problem Status W/U Status Risk Notes Problem CKD stage 3a, GFR 45-59 ml/min (N18.31) Active confirmed Vital Signs Temperature 97.9 degrees Fahrenheit 01/24/20 25 Heart Rate 78 /min 01/23/2025 Blood pressure systolic 126 mm Hg 01/24/20 25 Blood pressure diastolic 82 mm Hg 025 Height 68 in 01/23/2025 Weight 232 lbs 01/23/2025 BMI 35.27 kg/m2 01/23/2025 Encounters Encounter Location Date Provider Diagnosis [address] [address] 01/23/2025 Leonardo Areli Diabetes mellitus type 2 in obese E11.9 ; CKD stage 3a, GFR 45-59 ml/min N18.31 and Hypertension, essential I10 Assessments Encounter Date Diagnosis (ICD Code) Assessment Notes Treatment Notes Treatment Clinical Notes Section Notes 01/23/2025 Diabetes mellitus type 2 in obese (ICD-10 - E11.9) His diabetes is managed with Metformin. He has no acute concerns at this time. 01/23/2025 CKD stage 3a, GFR 45-59 ml/min (ICD-10 - N18.31) His CKD is managed with lisinopril and farxiga. He has no acute concerns at this time. 01/23/2025 Hypertension, essential (ICD-10 - I10) His hypertension is managed with lisinopril, HCTZ, nifedipine and farxiga. His blood pressure in office is 126/82. He has no concerns at this time. Plan Of Treatment Treatment Notes Assessment Notes Diabetes mellitus type 2 in obese His di abetes is managed with Metformin. He has no acute concerns at this time. CKD stage 3a, GFR 45-59 ml/min His CKD i s managed with lisinopril and farxiga. He has no acute concerns at this time. Hypertension, essential His hypertension is managed with lisinopril, HCTZ, nifedipine and farxiga. His blood pressure in office is 126/82. He has no concerns at this time. Next Appt Details Follow Up: prn,3 Months, [place] son: Provider Name:Leonardo Singleton, 04/05/2025 08:45:00 AM, [address] [facility], [place], [address], Progress Notes * Melony LEE LDOB:1954 (69 yo M)Acc No.[id number]:01/23/2025 Progress Notes Patient: Melony MOSS Provider: Clarice Singleton MD :1955 A ge:69 Y S ex:Male Date:01/23/2025 Address:[address] [place] [address], [facility] Subjective: * Chief Complaints: * 1 . MED CK. * HPI: g en: Mr. Lee presents for a f/u after starting Farxiga two months ago. He reports no concerns with the Farxiga. He has no other acute concerns at this time. He denies chest pain, edema in his legs, and any changes in his feet. His urine microalbumin has stayed the same since his last visit two months ago. We will also get a BMP to assess kidney function and an A1C. He is in need of a new at home BP cuff as his last one broke. * Medical History: H ypertension, Type 2 diabetes, Hyperlipidemia, renal cell cancer diagnosed March 2015, follows with yearly eye examinations at [facility] optometry clinic, Birads 1 LDCT 12/22 - Repeated 01/25-BI-RADS 1, Colonoscopy 08/26 with diverticulosis and diminutive polyps - f/u in 01-11, BI-RADS 1 low-dose CT scan December 2023, AAA screening negative with CT abdomen/pelvis 2021. * Surgical History: l eft nephrectomy for renal cell cancer March 2015. * Hospitalization/Major Diagno stic Procedure: a cory , stroke 08/2018. * Family History: F ather: , diagnosed with Cancer. M other: . P aternal Grand Father: . P aternal Grand Mother: . M aternal Grand Father: . M aternal Grand Mother: . S iblings: alive, diagnosed with Diabetes, Hypertension. C hildren: alive. 4 brother(s) , 3 sister(s) . 2 daughter(s) . . * Social History: R ecreational drug use: no. Home smoke detector use: yes. Caffeine: 2 cups coffee daily. Living Will: No. Alcohol: no. Occupation: maintenance at [employer]. Tobacco Control (Standard) T obacco use: F ormer smoker, H ow long has it been since you last smoked? 1 -5 years. * Medications: T aking ASA 325 MGM TABLET 1 Q AM , Notes to Pharmacist: *Please review for potential replacement for e-prescription and drug interaction check*, Taking Atorvastatin Calcium 80 MG Tablet 1 tab(s) orally once a day , Taking Lisinopril 40 (MG) TABLET 1 TAB(S) ORALLY ONCE A DAY , Notes to Pharmacist: *Please review and pick correct strength-formulation from [employer] options. If intended option is not shown, discontinue and re-order from Quick Search*, Taking hydroCHLOROthiazide 25 (MG) TABLET 1 TAB(S) ORALLY ONCE A DAY , Notes to Pharmacist: *Please review and pick correct strength-formulation from [employer] options. If intended option is not shown, discontinue and re-order from Quick Search*, Taking metFORMIN HCl 500 MG Tablet 1 tab(s) orally 2 times a day , Taking buPROPion HCl ER (XL) 300 MG Tablet Extended Release 24 Hour 1 tab(s) orally every 24 hours , Taking Escitalopram Oxalate 20 (MG) TABLET 1 TAB(S) ORALLY ONCE A DAY , Notes to Pharmacist: *Please review and pick correct strength-formulation from [employer] options. If intended option is not shown, discontinue and re-order from Quick Search*, Taking Fenofibrate 145 (MG) TABLET 1 TAB(S) ORALLY ONCE A DAY , Notes to Pharmacist: *Please review and pick correct strength-formulation from [employer] options. If intended option is not shown, discontinue and re-order from Quick Search*, Taking busPIRone HCl 10 MG Tablet 1 tab(s) orally 2 times a day , Taking Plavix 75 MG Tablet 1 tab(s) orally once a day , Taking Pantoprazole Sodium 40 MG Tablet Delayed Release 1 tab(s) orally once a day , Taking NIFEdipine ER 60 MG Tablet Extended Release 24 Hour 1 tablet on an empty stomach Orally Once a day , Taking Farxiga 10 MG Tablet 1 tablet Orally Once a day , Medication List reviewed and reconciled with the patient * Allergies: N .K.D.A. Objective: * Vitals: N urse: dw, Pain: 0, Temp: 97.9, RR: 18, HR: 78, BP: 126/82, Ht: 68, Wt: 232, BMI:35.27. * Examination: G eneral Examination: General P leasant and Cooperative, NAD on RA,. Chest: n ormal shape and expansion. Heart: R egular Rate and Rhythm, no murmur, rubs or gallops. Lungs: L CTAB, No wheezes, crackles or rhonchi, Good air movement,. Peripheral pulses: n ormal (2+) bilaterally. ? Assessment: * Assessment: 1. D iabetes mellitus type 2 in obese - E11.9 (Primary) 2 . C KD stage 3a, GFR 45-59 ml/min - N18.31 3 . H ypertension, essential - I10 Plan: * Treatment: Value Reference Range G LUCOSE 135 H 65-99 - mg/dL * U SYBIL NITROGEN (BUN) 26 H 7-25 - mg/dL * C REATININE 1.59 H 0.70-1.35 - mg/dL * B UN/CREATININE RATIO 16 6-22 - (calc) * S ODIUM 139 135-146 - mmol/L * P OTASSIUM 3.9 3.5-5.3 - mmol/L * C HLORIDE 102 98-110 - mmol/L * C ARBON DIOXIDE 27 20-32 - mmol/L * C ALCIUM 9.2 8.6-10.3 - mg/dL * E GFR 47 L > OR = 60 - mL/min/1 .73m2 * White, Moreno R 01/24/2025 1 0:10:39 AM EDT > na. Not working number White, Moreno R 01/24/2025 10:18:00 AM EDT > pt notifiedThis lab was reviewed by Moreno Calvillo on 01/24/2025 at 10:18 AM EDT ?LAB: HEMOGLOBIN A1c (496)* Value Reference Range H EMOGLOBIN A1c 6.2 H <5.7 - % * Moreno Calvillo 01/24/2025 1 0:10:39 AM EDT > na. Not working number Morneo Calvillo 01/24/2025 10:18:00 AM EDT > pt notifiedThis lab was reviewed by Moreno Calvillo on 01/24/2025 at 10:18 AM EDT ?LAB: Microalbumin (In-House) (Collection Date & Time - 01/23/2025)?Abnormal * Value Reference Range A LB 150mg * C RE 100mg * A :C >300mg * Moreno Calvillo 01/23/2025 0 8:52:22 AM EDT > Notes: His diabetes is managed with Metformin. He has no acute concerns at this time. ??2.?CKD stage 3a, GFR 45-59 ml/min?LAB: BASIC METABOLIC PANEL (18998)* Value Reference Range G LUCOSE 135 H 65-99 - mg/dL * U SYBIL NITROGEN (BUN) 26 H 7-25 - mg/dL * C REATININE 1.59 H 0.70-1.35 - mg/dL * B UN/CREATININE RATIO 16 6-22 - (calc) * S ODIUM 139 135-146 - mmol/L * P OTASSIUM 3.9 3.5-5.3 - mmol/L * C HLORIDE 102 98-110 - mmol/L * C ARBON DIOXIDE 27 20-32 - mmol/L * C ALCIUM 9.2 8.6-10.3 - mg/dL * E GFR 47 L > OR = 60 - mL/min/1 .73m2 * Moreno Calvillo 01/24/2025 1 0:10:39 AM EDT > na. Not working number Moreno Calvillo 01/24/2025 10:18:00 AM EDT > pt notifiedThis lab was reviewed by Moreno Calvillo on 01/24/2025 at 10:18 AM EDT ?LAB: HEMOGLOBIN A1c (496)* Value Reference Range H EMOGLOBIN A1c 6.2 H <5.7 - % * Moreno Calvillo 01/24/2025 1 0:10:39 AM EDT > na. Not working number Moreno Calvillo 01/24/2025 10:18:00 AM EDT > pt notifiedThis lab was reviewed by Moreno Rajinder on 01/24/2025 at 10:18 AM EDT Notes: His CKD is managed with lisinopril and farxiga. He has no acute concerns at this time. ??3.?Hypertension, essential? Notes: His hypertension is managed with lisinopril, HCTZ, nifedipine and farxiga. His blood pressure in office is 126/82. He has no concerns at this time. ?? * Procedure Codes: 8 2044 MICROALBUMIN, URINE, Modifiers: QW * Follow Up: p rn,3 Months * * Sign off status: Completed true * Provider: Clarice Singleton MD Date: 0 01/23/2025 Generated for Printi ng/Crescenciog/eTransmitting on: 0 03/01/2025 09:21 AM EDT History and Physical Notes * HPI (History of Present Illness) Category Sub-Category Detail Notes Category Not es gen Mr. Lee presents for a f/u after starting Farxiga two months ago. He reports no concerns with the Farxiga. He has no other acute concerns at this time. He denies chest pain, edema in his legs, and any changes in his feet. His urine microalbumin has stayed the same since his last visit two months ago. We will also get a BMP to assess kidney function and an A1C. He is in need of a new at home BP cuff as his last one broke. Examination Category Sub-Category Detail Notes Category Not es General Examination Heart: Regular Rate and Rhythm, no murmur, rubs or gallops Lungs: LCTAB, No wheezes, c rackles or rhonchi, Good air movement, Peripheral pulses: normal (2+) bilatera lly Chest: normal shape and exp ansion General Pleasant and Coopera tive, NAD on RA,
--- OUTSIDE RECORDS SUMMARY | 2025-02-28 06:00 | XMS_ITS ---
Author Organization [facility] Address [address] [facility] [address] [place] [address] Care Team Providers Care Hand Tier Name Role Phone BetinaLeonardo abernathy Primary Care Provider Caryn Chambers Unavailable [phone] Allergies No Known Allergies REASON FOR VISIT Rt leg and hip pain Medications Medication SIG (Take, Route, Frequency, Duration) Notes Start Date End Date Status Plavix 75 MG 1 tab(s) orally once a day; Duration: 90 days Active Pantoprazole Sodium 40 MG 1 tab(s) orall y once a day; Duration: 90 days Active NIFEdipine ER 60 MG 1 tablet on an empty stomach Orally Once a day; Duration: 90 days 10/10/2024 Active Farxiga 10 MG 1 tablet Orally Once a day; Duration: 90 days 11/16/2024 Active Atorvastatin Calcium 80 MG TAKE 1 TABLET EVERY DAY; Duration: 90 Active metFORMIN HCl 500 MG 1 tab(s) orally 2 times a day; Duration: 90 days Active buPROPion HCl ER (XL) 300 MG 1 tab(s) orally every 24 hours; Duration: 90 days 08/31/2024 Active Escitalopram Oxalate 20 (MG) 1 TAB(S) ORALLY ONCE A DAY; Duration: 90 DAYS *Please review and pick correct strength-formulat ion from [employer] options. If intended option is not shown, discontinue and re-order from Quick Search* Active Fenofibrate 145 (MG) 1 TAB(S) ORALLY ONCE A DAY; Duration: 90 DAYS *Please review and pick correct strength-formulat ion from [employer] options. If intended option is not shown, discontinue and re-order from Quick Search* Active busPIRone HCl 10 MG 1 tab(s) orally 2 times a day; Duration: 90 days Active hydroCHLOROthiazide 25 (MG) 1 TAB(S) ORALLY ONCE A DAY; Duration: 90 DAYS *Please review and pick correct strength-formulat ion from [employer] options. If intended option is not shown, discontinue and re-order from Quick Search* Active Methocarbamol 500 MG 1-2 tabs Orally at night for pain and spasm; Duration: 10 days 02/28/2025 Active ASA 325 MGM 1 Q AM *Please review for potential replacement for e-prescription and drug interaction check* Active Lisinopril 40 (MG) 1 TAB(S) ORALLY ONCE A DAY; Duration: 90 DAYS *Please review and pick correct strength-formulat ion from [employer] options. If intended option is not shown, discontinue and re-order from Quick Search* Active Problems Problem Type SNOMED Code ICD Code Onset Dates Problem Status W/U Status Risk Notes Problem Right sciatic nerve pain (M54.31) Active confirmed Problem Essential hypertension (73164521) Essential hypertension (I10) Active confirmed Vital Signs Temperature 98 degrees Fahrenheit 02/28/2025 Heart Rate 88 /min 02/28/2025 Blood pressure systolic 162 mm Hg 02/29/20 25 Blood pressure diastolic 110 mm Hg 025 Height 68 in 02/28/2025 Weight 230 lbs 02/28/2025 BMI 34.97 kg/m2 02/28/2025 Encounters Encounter Location Date Provider Diagnosis [address] [address] 02/28/2025 Caryn Chambers Right sciatic nerve pain M54.31 and Essential hypertension I10 Assessments Encounter Date Diagnosis (ICD Code) Assessment Notes Treatment Notes Treatment Clinical Notes Section Notes 02/28/2025 Right sciatic nerve pain (ICD-10 - M54.31) Rec rest, stretching, continue to alternate heat/ice as needed. Steroid injection given today and methocarbamol to use at HS as needed. Xrays as noted. Consider PT 02/28/2025 Essential hypertension (ICD-10 - I10) Poorly controlled today, may need medication adjustment but also with significant pain. Will attempt to help him get a cuff to monitor at home Plan Of Treatment Medication Medication Name Sig Start Date Stop Date Notes Methocarbamol 500 MG 1-2 tabs Orally at night for pain and spasm; Duration: 10 days 02/28/2025 Pending Test Test Name Order Date X ray : Spines, Lumbosacral 02/28/2025 X ray : Hip, Right 02/28/2025 Next Appt Details Follow Up: 6 Weeks, Reason: Provider Name:Leonardo Moffettjosemanuel, 04/05/2025 08:45:00 AM, [address], [address], Medications Administered Medication Instructions Date of Administration Dosage Notes Dexamethasone 4mg Injection 02/28/2025 4 mg Progress Notes * ROSABg BOYDley LDOB:1954 (69 yo M)Acc No.[id number]:02/28/2025 Progress Notes Patient: Melony MOSS Provider: VIJAY Rg :1955 A ge:69 Y S ex:Male Date:02/28/2025 Address:[address] [place], [place] [id number] Pcp:Leonardo Singleton Subjective: * Chief Complaints: * 1 . Rt leg and hip pain. * HPI: g en: 69 yr old male presents today with c/o right leg pain. Starts in the right buttock region and travels down the posterior/lateral leg to the ankle at times. Worse with ambulation or lying flat, most comfortable semi-reclined with leg extended. Started about 6 months ago, mild and intermittent, but has gotten more severe in the past few days. Denies trauma/aggravating activity. No change in bowel/bladder function, no numbness/tingling. Has tried tylenol, heat, ice at home without relief. BP noted to be elevated today. Has taken all of his medications. Hasn't been checking at home, cuff is broken. No CP, SOA, palpitations, edema. * ROS: C ONSTITUTIONAL: no L oss of appetite. n o F ever. G ASTROENTEROLOGY: no A bdominal pain. n o D iarrhea. U ROLOGY: no D ifficulty urinating. * Medical History: H ypertension, Type 2 diabetes, Hyperlipidemia, renal cell cancer diagnosed March 2015, follows with yearly eye examinations at [facility], Birads 1 LDCT 12/22 - Repeated 01/25-BI-RADS 1, Colonoscopy 08/26 with diverticulosis and diminutive polyps - f/u in 01-11, BI-RADS 1 low-dose CT scan December 2023, AAA screening negative with CT abdomen/pelvis 2021. * Medications: T aking ASA 325 MGM TABLET 1 Q AM , Notes to Pharmacist: *Please review for potential replacement for e-prescription and drug interaction check*, Taking Lisinopril 40 (MG) TABLET 1 TAB(S) ORALLY ONCE A DAY , Notes to Pharmacist: *Please review and pick correct strength-formulation from [employer] options. If intended option is not shown, discontinue and re-order from Quick Search*, Taking hydroCHLOROthiazide 25 (MG) TABLET 1 TAB(S) ORALLY ONCE A DAY , Notes to Pharmacist: *Please review and pick correct strength-formulation from [employer] options. If intended option is not shown, [...] *Please review and pick correct strength-formulation from [employer] options. If intended option is not shown, discontinue and re-order from Quick Search*, Taking Fenofibrate 145 (MG) TABLET 1 TAB(S) ORALLY ONCE A DAY , Notes to Pharmacist: *Please review and pick correct strength-formulation from [employer] options. If intended option is not shown, [...] 1 tablet Orally Once a day , Taking Atorvastatin Calcium 80 MG Tablet TAKE 1 TABLET EVERY DAY , Medication List reviewed and reconciled with the patient * Allergies: N .K.D.A. Objective: * Vitals: N urse: dw, Pain: 10, Temp: 98, RR: 18, HR: 88, BP: 162/110, Ht: 68, Wt: 230, BMI:34.97. * Examination: G eneral Examination: General P leasant and Cooperative, NAD on RA,. Heart: R egular Rate and Rhythm, no murmur, rubs or gallops. Lungs: c lear to auscultation,. Extremities: n o edema or clubbing, good ROM lower extremities, 2+ patellar reflexes, neg SLR, LS spine and SI joint nontender, mild pain with resisted hip adduction. Psych N ormal Mood/Affect. Assessment: * Assessment: 1. R ight sciatic nerve pain - M54.31 (Primary) 2 . E ssential hypertension - I10 Plan: * Treatment: ?Imaging: X ray : Hip, Right* Clinical Notes: Rec rest, stretching, continue to alternate heat/ice as needed. Steroid injection given today and methocarbamol to use at HS as needed. Xrays as noted. Consider PT??2.?Essential hypertension? Clinical Notes: Poorly controlled today, may need medication adjustment but also with significant pain. Will attempt to help him get a cuff to monitor at home?? * Therapeutic Injections: Dexamethasone 4mg Injection : 4 mg (Route: Intramuscular) given by OLVIN Mina on right gluteus * Procedure Codes: J 1100 Dexamethasone Sodium Phosphate 4mg Injection, 86115 THERAPEUTIC ADMINISTRATION * Follow Up: 6 Weeks * * Sign off status: Completed true * Provider: VIJAY Rg Date: 0 02/28/2025 Generated for Didi fabian/Fredy/Sharathitting on: 03/01/2025 09:21 AM EDT History and Physical Notes * Examination Category Sub-Category Detail Notes Category Not es General Examination Heart: Regular Rate and Rhythm, no murmur, rubs or gallops Lungs: clear to auscultatio n, Extremities: no edema or clubbing , good ROM lower extremities, 2+ patellar reflexes, neg SLR, LS spine and SI joint nontender, mild pain with resisted hip adduction General Pleasant and Coopera tive, NAD on RA, Psych Normal Mood/Affect
--- OUTSIDE RECORDS SUMMARY | 2025-03-01 09:22 | XMS_ITS | Clinical Summary ---
Author Organization Healthcare Address [address] [place] [address] Care Team Providers Care Engineering Specialist Technician Name Role Phone Leonardo Singleton MD Primary Care Provider Allergies No known active allergies Medications verapamil SR (Calan-SR) 240 MG ER tablet Take 1 tablet (240 mg total) by mouth 2 (two) times a day. Do not crush or chew. Discontinue previous verapamil prescription. New dose. 60 tablet Active Family History Medical History Relation Name Comments Conversions - Other Other Family h istory unknown Relation Name Status Comments Other Social History Tobacco Use Types Packs/Day Years Used Date Smoking Tobacco: Every Day Smokeless Tobacco: Never Alcohol Use Standard Drinks/Week Comments Never 0 (1 standard drink = 0.6 oz pur e alcohol) Sex and Gender Information Value Date Recorded Sex Assigned at Not on file Legal Sex Male 8:43 PM EDT Gender Identity Not on file Sexual Orientation Not on file Last Filed Vital Signs Vital Sign Reading Time Taken Comments Blood Pressure 170/108 04/30/2021 12:37 PM EDT Pulse 65 04/30/2021 12:37 PM EDT Temperature 36.7 C (98 F) 04/30/2021 9:48 AM EDT Respiratory Rate 20 04/30/2021 12:37 PM EDT Oxygen Saturation 95% 04/30/2021 12:37 PM EDT Inhaled Oxygen Concentration - - Weight 118 kg (260 lb) 04/30/2021 9:48 AM EDT Height 177.8 cm (5' 10 ) 04/30/2021 9:48 AM EDT Body Mass Index 37.31 04/30/2021 9:48 AM EDT Plan of Treatment Not on file Care Teams Engineering Specialist Technician Relationship Specialty Start Date End Date Leonardo Singleton MD [address] [place] [address] PCP - General 04/30/21
--- OUTSIDE RECORDS SUMMARY | 2025-03-01 09:22 | XMS_ITS | Patient Health Record ---
Author Organization [facility] CLAUDIA Address [address] [place] [address] Care Team Providers Care Unit Operator Name Role Phone Leonardo Singleton Primary Care Provider [phone] TrishCaryn Unavailable [phone] Natalya Zita Unavailable [phone] Migration, Provider Unavailable Unavailable Allergies No Known Allergies Results Component Value Reference Range Notes Microalbumin (In-House) Reviewed date:01/23/2025 07:33:10 PM Interpretation:Abnormal Performing Lab: Notes/Report: Abnormal ALB 150mg CRE 100mg A:C >300mg BASIC METABOLIC PANEL (65158 ) Reviewed date:01/24/2025 10:18:07 AM Interpretation: Performing Lab:DEAN, [facility] [id number] [facility], [place] LbifXZ[address] Will Lyle Notes/Report: NON-FASTING; NON-FASTING GLUCOSE 135 [...] (496) Reviewed date:01/24/2025 10:18:07 AM Interpretation: Performing Lab:CB, [facility] [id number] [facility], [facility] CenterZcpuGN[address] Will Lyle Notes/Report: NON-FASTING; NON-FASTING HEMOGLOBIN A1c [...] A1c for diagnosis of diabetes for children. Microalbumin (In-House) Reviewed date:11/16/2024 09:14:12 AM Interpretation: Performing Lab: Notes/Report: ALB 150 CRE 100 A:C >300 LIPID PANEL, STANDARD (7600) Reviewed date:04/28/2024 12:45:47 PM Interpretation: Performing Lab:DEAN [facility] [id number] [facility] [employer] [facility], [facility] HospitalCbbfYY[address] Will Lyle Notes/Report: NON-FASTING; NON-FASTING; NON-FASTING FASTING:NO FASTING: NO CHOLESTEROL, TOTAL 108 <200 mg/dL HDL CHOLESTEROL 25 > OR = 40 mg/dL TRIGLYCERIDES 261 <150 mg/dL If a non-fasting specimen was collected, consider repeat triglyceride testing on a fasting specimen if clinically indicated. Linda et al. J. of Clin. Lipidol. 2015;9:129-169. LDL-CHOLESTEROL 52 Reference range: <100 Desirable range <100 mg/dL for primary prevention; <70 mg/dL for patients with CHD or diabetic patients with > or = 2 CHD risk factors. LDL-C is now calculated using the Og-Danika calculation, which is a validated novel method providing better accuracy than the Friedewald equation in the estimation of LDL-C. Og SS et al. BRIAN. 2013;310(19): 1442-4424 (http://education.[employer]/faq/NFY019) CHOL/HDLC RATIO 4.3 <5.0 (calc) NON HDL CHOLESTEROL 83 <130 mg/dL (calc) For patients with diabetes plus 1 major ASCVD risk factor, treating to a non-HDL-C goal of <100 mg/dL (LDL-C of <70 mg/dL) is considered a therapeutic option. LIPID PANEL, STANDARD (7600) Reviewed date:10/12/2024 02:37:23 PM Interpretation: Performing Lab:DEAN Consumer Agent Portal (CAP) [id number] [employer] [facility], [facility] HospitalGzyeUG[address] Will Lyle Notes/Report: NON-FASTING; NON-FASTING; NON-FASTING FASTING:NO FASTING: NO CHOLESTEROL, TOTAL 97 <200 mg/dL HDL CHOLESTEROL 31 > OR = 40 mg/dL TRIGLYCERIDES 113 <150 mg/dL LDL-CHOLESTEROL 46 Reference range: <100 Desirable range <100 mg/dL for primary prevention; <70 mg/dL for patients with CHD or diabetic patients with > or = 2 CHD risk factors. LDL-C is now calculated using the Og-Danika calculation, which is a validated novel method providing better accuracy than the Friedewald equation in the estimation of LDL-C. Og SS et al. BRIAN. 2013;310(19): 2390-7087 (http://education.[employer]/faq/YGG814) CHOL/HDLC RATIO 3.1 <5.0 (calc) NON HDL CHOLESTEROL 66 <130 mg/dL (calc) For patients with diabetes plus 1 major ASCVD risk factor, treating to a non-HDL-C goal of <100 mg/dL (LDL-C of <70 mg/dL) is considered a therapeutic option. COMPREHENSIVE METABOLIC PANE (04501) Reviewed date:10/12/2024 02:37:23 PM Interpretation: Performing Lab:DEAN Consumer Agent Portal (CAP) [id number] [facility] [employer] [facility] VuCOMP, [facility] HospitalTddcFC[address] Will Lyle Notes/Report: NON-FASTING; NON-FASTING; NON-FASTING FASTING:NO FASTING: NO GLUCOSE 91 65-139 mg/dL Non-fasting reference interval UREA NITROGEN (BUN) 17 7-25 mg/dL CREATININE 1.53 0.70-1.35 mg/dL EGFR 50 > OR = 60 mL/min/1.73m2 BUN/CREATININE RATIO 11 6-22 (calc) SODIUM 140 135-146 mmol/L POTASSIUM 4.0 3.5-5.3 mmol/L CHLORIDE 100 98-110 mmol/L CARBON DIOXIDE 31 20-32 mmol/L CALCIUM 9.3 8.6-10.3 mg/dL PROTEIN, TOTAL 6.9 6.1-8.1 g/dL ALBUMIN 4.2 3.6-5.1 g/dL GLOBULIN 2.7 1.9-3.7 g/dL (calc) ALBUMIN/GLOBULIN RATIO 1.6 1.0-2.5 (calc) BILIRUBIN, TOTAL 0.7 0.2-1.2 mg/dL ALKALINE PHOSPHATASE 87 35-144 U/L AST 15 10-35 U/L ALT 18 9-46 U/L COMPREHENSIVE METABOLIC PANE L (72602) Reviewed date:04/28/2024 12:45:47 PM Interpretation: Performing Lab:DEAN [facility] Limitede1355 [facility], BrightkitScpsKO[address] Will Lyle Notes/Report: NON-FASTING; NON-FASTING; NON-FASTING FASTING:NO FASTING: NO GLUCOSE 147 65-139 mg/dL Non-fasting reference interval UREA NITROGEN (BUN) 20 7-25 mg/dL CREATININE 1.40 0.70-1.35 mg/dL EGFR 55 > OR = 60 mL/min/1.73m2 BUN/CREATININE RATIO 14 6-22 (calc) SODIUM 139 135-146 mmol/L POTASSIUM 4.0 3.5-5.3 mmol/L CHLORIDE 101 98-110 mmol/L CARBON DIOXIDE 28 20-32 mmol/L CALCIUM 9.2 8.6-10.3 mg/dL PROTEIN, TOTAL 6.7 6.1-8.1 g/dL ALBUMIN 4.0 3.6-5.1 g/dL GLOBULIN 2.7 1.9-3.7 g/dL (calc) ALBUMIN/GLOBULIN RATIO 1.5 1.0-2.5 (calc) BILIRUBIN, TOTAL 0.5 0.2-1.2 mg/dL ALKALINE PHOSPHATASE 101 35-144 U/L AST 18 10-35 U/L ALT 20 9-46 U/L HEMOGLOBIN A1c (496) Reviewed date:04/28/2024 12:45:47 PM Interpretation: Performing Lab:DEAN [facility] [id number], BrightkitAveeTT[address] Will Lyle Notes/Report: NON-FASTING; NON-FASTING; NON-FASTING FASTING:NO FASTING: NO HEMOGLOBIN A1c 6.8 <5.7 % of total Hgb For someone without known diabetes, a hemoglobin A1c value of 6.5% or greater indicates that they may have diabetes and this should be confirmed with a follow-up test. For someone with known diabetes, a value <7% indicates that their diabetes is well controlled and a value greater than or equal to 7% indicates suboptimal control. A1c targets should be individualized based on duration of diabetes, age, comorbid conditions, and other considerations. Currently, no consensus exists regarding use of hemoglobin A1c for diagnosis of diabetes for children. HEMOGLOBIN A1c (496) Reviewed date:10/12/2024 02:37:23 PM Interpretation: Performing Lab:DEAN, [facility] [id number] [facility], [facility] RojasNyieHI[address] Will Lyle Notes/Report: NON-FASTING; NON-FASTING; NON-FASTING FASTING:NO FASTING: NO HEMOGLOBIN A1c 6.1 <5.7 % of total Hgb For someone without known diabetes, a hemoglobin [...] A1c for diagnosis of diabetes for children. Medications Medication SIG (Take, Route, Frequency, Duration) Notes Start Date End Date Status hydroCHLOROthiazide 25 (MG) 1 TAB(S) ORALLY ONCE A DAY; Duration: 90 DAYS *Please review and pick correct strength-formulat ion from [employer] options. If intended option is not shown, discontinue and re-order from Quick Search* Active metFORMIN HCl 500 MG 1 tab(s) orally 2 times a day; Duration: 90 days Active buPROPion HCl ER (XL) 300 MG 1 tab(s) orally every 24 hours; Duration: 90 days 08/31/2024 Active Methocarbamol 500 MG 1-2 tabs Orally at night for pain and spasm; Duration: 10 days 02/28/2025 Active Escitalopram Oxalate 20 (MG) 1 TAB(S) ORALLY ONCE A DAY; Duration: 90 DAYS *Please review and pick correct strength-formulat ion from [employer] options. If intended option is not shown, discontinue and re-order from Quick Search* Active Fenofibrate 145 (MG) 1 TAB(S) ORALLY ONCE A DAY; Duration: 90 DAYS *Please review and pick correct strength-formulat ion from [employer] options. If intended option is not shown, discontinue and re-order from Quick Search* Active busPIRone HCl 10 MG 1 tab(s) orally 2 times a day; Duration: 90 days Active Plavix 75 MG 1 tab(s) orally once a day; Duration: 90 days Active Pantoprazole Sodium 40 MG 1 tab(s) orall y once a day; Duration: 90 days Active NIFEdipine ER 60 MG 1 tablet on an empty stomach Orally Once a day; Duration: 90 days 10/10/2024 Active ASA 325 MGM 1 Q AM *Please review for potential replacement for e-prescription and drug interaction check* Active Farxiga 10 MG 1 tablet Orally Once a day; Duration: 90 days 11/16/2024 Active Lisinopril 40 (MG) 1 TAB(S) ORALLY ONCE A DAY; Duration: 90 DAYS *Please review and pick correct strength-formulat ion from [employer] options. If intended option is not shown, discontinue and re-order from Quick Search* Active Atorvastatin Calcium 80 MG TAKE 1 TABLET EVERY DAY; Duration: 90 Active Immunizations Vaccine Route Administration Date Status Comme nts SHINGRIX IM Intramuscular 02/11/2023 Administered SHINGRIX IM Intramuscular 04/20/2023 Administered Prevnar PCV-20 (Pneumococcal conjugate 20) IM Intramuscular 01/26/2023 Administered Pneumovax 23 IM Intramuscular 02/14/2019 Administered Influenza-Fluzone 3+years (NON-MEDICARE) IM Intramuscular 03/31/2016 Administered Fluzone High Dose IM Intramuscular 04/20/2023 Administered Fluzone High Dose IM Intramuscular 04/13/2024 Administered FLUZONE 6MO - OLDER IM Intramuscular 03/10/2022 Administer ed Flublok IM Intramuscular 04/09/2020 Administered Covid Lolita Unknown 03/06/2021 Administered Boostrix IM Intramuscular 01/26/2023 Administered Arexvy IM Intramuscular 04/27/2024 Administered Social History Tobacco Use: Social History Observation Description Date Details (start date - stop date) Former Smoker NA - NA Tobacco Control (Standard) Question Answer Notes Tobacco use: Former smoker How long has it been since you last smoked? 1-5 years Problems Problem Type SNOMED Code ICD Code Onset Dates Problem Status W/U Status Risk Notes Problem Diabetic renal disease (002243744) Type 2 diabetes mellitus with other diabetic kidney complication (E11.29) Active confirmed Problem Nicotine dependence (84662253) Personal history of nicotine dependence (Z87.891) Active confirmed Problem Anxiety (29648339) Anxiety (F41.9) Active confi rmed Problem Hyperlipidemia due t o type 2 diabetes mellitus (disorder) (165369365263083) Hyperlipidemia associated with type 2 diabetes mellitus (E11.69) Active confirmed Problem Hypertriglyceridemia (279054381) Hypertriglyceridemia (E78.1) Active confirmed Problem Diabetes mellitus type 2 in obese (99156764) Diabetes mellitus type 2 in obese (E11.9) Active confirmed Problem Essential hypertension (69898391) Essential hypertension (I10) Active confirmed Problem Hyperlipidemia (56507525) Hyperlipemia, idiopathic familial (E78.5) Active confirmed Problem Gastroesophageal reflux disease (921641431) GERD without esophagitis (K21.9) Active confirmed Problem Tubular adenoma of colon (151773678) Tubular adenoma of colon (D12.6) Active confirmed Problem Sciatica (08513176) Right sciati c nerve pain (M54.31) Active confirmed Problem Primary malignant neoplasm of kidney (46008435) Renal cell cancer, unspecified laterality (C64.9) Active confirmed Problem Lower urinary tract symptoms due to benign prostatic hypertrophy (21514611753442) Benign prostatic hyperplasia with lower urinary tract symptoms (N40.1) Active confirmed Problem Stasis dermatitis (disorder) (30402458) Stasis dermatitis of both legs (I87.2) Active confirmed Problem Chronic kidney disease stage 2 (064638214) Stage 2 chronic kidney disease (N18.2) Active confirmed Problem COVID-19 (772448687) COVID-19 (U07.1) Active co nfirmed Problem Chronic kidney disease stage 3A (disorder) (927550263) CKD stage 3a, GFR 45-59 ml/min (N18.31) Active confirmed Vital Signs Heart Rate 88 /min 02/28/2025 Temperature 98 degrees Fahrenheit 02/28/2025 Blood pressure diastolic 110 mm Hg 02/28/2025 Height 68 in 02/28/2025 Blood pressure systolic 162 mm Hg 02/28/2025 Weight 230 lbs 02/28/2025 BMI 34.97 kg/m2 02/28/2025 Encounters Encounter Location Date Provider Diagnosis [place] [facility] CLAUD[place] [address] [place] [address] 10/07/2024 Provider Migration Anxiety F41.9 ; GERD without esophagitis K21.9 and Hypertension, essential I10 [facility] [address] [address] 03/31/2024 Zita McNees Abscess L02.[address] [address] 04/13/2024 Leonardo Besjosemanuel Immunization(s) administered Z23 ; Abscess of right thigh L02.415 and Hospital discharge follow-up Z09 [facility] [address] [address] 04/27/2024 Leonardo Besjosemanuel Diabetes mellitus ty pe 2 in obese E11.9 ; Hyperlipidemia associated with type 2 diabetes mellitus E11.69 ; Hypertension, essential I10 ; Routine medical exam Z00.00 and Encounter for immunization Z23 [facility] [address] [address] 05/16/2024 Leonardobrady Singleton Laceration of right forearm, initial encounter S51.811A [facility] [address] [address] 08/31/2024 Leonardo Besson Hypertension, essential I10 and Anxiety F41.[address] [address] 10/10/2024 Leonardo Besson Diabetes mellitus ty pe 2 in obese E11.9 ; Hyperlipidemia associated with type 2 diabetes mellitus E11.69 ; Type 2 diabetes mellitus with other diabetic kidney complication E11.29 ; GERD without esophagitis K21.9 ; Anxiety F41.9 ; Hypertension, essential I10 and Routine medical exam Z00.[address] [address] 11/16/2024 Leonardo Betinason Hypertension, essential I10 and Type 2 diabetes mellitus with other diabetic kidney complication E11.[address] [address] 01/23/2025 Leonardo Singleton Diabetes mellitus ty pe 2 in obese E11.9 ; CKD stage 3a, GFR 45-59 ml/min N18.31 and Hypertension, essential I10 [facility] [address] [address] 02/28/2025 Caryn Chambers Right sciatic nerve pain M54.31 and Essential hypertension I10 [facility] [address] [address] 08/17/2024 Leonardo Singleton [facility] [place] [address] [place] [address] 02/28/2025 Caryn Chambers Assessments Encounter Date Diagnosis (ICD Code) Assessment Notes Treatment Notes Treatment Clinical Notes Section Notes 03/31/2024 Abscess (ICD-10 - L02.91) Cleansed, borders marked and repacked using sterile technique. Patient tolerated well. Given the size and location recommend surgical evaluation. Sent to Dr. Sarabia's office with plan for surgery for I&D later today. Will defer abx changes to him at that time. 04/13/2024 Immunization(s) administered (ICD-10 - Z23) 04/13/2024 Abscess of right thigh (ICD-10 - L02.415) - hospital follow-up - s/p debridement on 04/01/24. Followed up in surgery clinic on 04/06/24. - wound culture grew MRSA - completed doxycycline and cephalexin. Now on linezolid x 10 days. - wound is healing appropriately. Continue wet-to-dry dressing changes BID. - has surgery follow-up next week 04/27/2024 Hyperlipidemia associated with type 2 diabetes mellitus (ICD-10 - E11.69) Tolerating atorvastatin well. Check FLP and CMP today. 04/27/2024 Diabetes mellitus type 2 in obese (ICD-10 - E11.9) Tolerating medications well. I will follow all labs personally. 05/16/2024 Laceration of right forearm, initial encounter (ICD-10 - S51.811A) Has essentially stopped bleeding. Discussed wound care. Dressed with triple antibiotic ointment, gauze and Coban wrap. Keep this on for 24 hours. Follow-up if worsening 08/31/2024 Anxiety (ICD-10 - F41.9) Has had worsening mood since daughter in May 2024. Patient compliant with current medications but continues to have depressive symptoms. Will increase bupropion to 300 mg daily from 150 and monitor for symptom improvement at next visit 4 weeks. 08/31/2024 Hypertension, essential (ICD-10 - I10) BP elevated at home and in clinic today. Patient currently on lisinopril 40 mg daily and HCTZ 25 mg daily. Will start nifedipine 30 mg daily and encouraged patient to keep a blood pressure log to bring back with him in 1 month at his follow up appointment. 10/07/2024 Anxiety (ICD-10 - F41.9) 10/07/2024 GERD without esophagitis (ICD-10 - K21.9) 10/07/2024 Hypertension, essential (ICD-10 - I10) 10/10/2024 Hyperlipidemia associated with type 2 diabetes mellitus (ICD-10 - E11.69) Will obtain lipid panel today. 10/10/2024 Diabetes mellitus type 2 in obese (ICD-10 - E11.9) Will recheck A1C and kidney function today. 11/16/2024 Type 2 diabetes mellitus with other diabetic kidney complication (ICD-10 - E11.29) Add SGLT2 as noted for diabetic chronic kidney disease. Follow-up 2 months as noted above. Stay on calcium channel sabina and ALICE inhibitor 11/16/2024 Hypertension, essential (ICD-10 - I10) Blood pressure under better control. Still with proteinuria. Add SGLT2 as noted below. Follow-up in 2 months for labs, BMP and repeat urine micro testing 01/23/2025 Diabetes mellitus type 2 in obese (ICD-10 - E11.9) His diabetes is managed with Metformin. He has no acute concerns at this time. 01/23/2025 CKD stage 3a, GFR 45-59 ml/min (ICD-10 - N18.31) His CKD is managed with lisinopril and farxiga. He has no acute concerns at this time. 02/28/2025 Essential hypertension (ICD-10 - I10) Poorly controlled today, may need medication adjustment but also with significant pain. Will attempt to help him get a cuff to monitor at home 02/28/2025 Right sciatic nerve pain (ICD-10 - M54.31) Rec rest, stretching, continue to alternate heat/ice as needed. Steroid injection given today and methocarbamol to use at HS as needed. Xrays as noted. Consider PT 01/23/2025 Hypertension, essential (ICD-10 - I10) His hypertension is managed with lisinopril, HCTZ, nifedipine and farxiga. His blood pressure in office is 126/82. He has no concerns at this time. 10/10/2024 Type 2 diabetes mellitus with other diabetic kidney complication (ICD-10 - E11.29) 04/27/2024 Hypertension, essential (ICD-10 - I10) BP well-controlled in office. No change in plans. Check kidney function today. 04/13/2024 Hospital discharge follow-up (ICD-10 - Z09) 04/27/2024 Routine medical exam (ICD-10 - Z00.00) I personally reviewed HRA with him. No concerns about functional status/mood. His is healthcare surrogate decision maker. /3 on word recall. UTD on cancer screenings. Will be UTD on vaccinations after receiving RSV today. Ordering labs today. 10/10/2024 GERD without esophagitis (ICD-10 - K21.9) 04/27/2024 Encounter for immunization (ICD-10 - Z23) 10/10/2024 Anxiety (ICD-10 - F41.9) 10/10/2024 Hypertension, essential (ICD-10 - I10) Obtaining routine labs today - blood pressure is elevated in clinic today. Reports that blood pressure stays elevated despite adherence to current therapy. Currently taking Lisinopril 40 mg, Nifedipine 30 mg and HCTZ 25 mg. Will increase Nifedpine to 60 mg from 30 mg. Follow up in 1 month to recheck blood pressure. 10/10/2024 Routine medical exam (ICD-10 - Z00.00) In regards to [employer] practitioner assessment form, patient is up-to-date with vaccinations and healthcare screening. Will check labs today. A1c has been under good control. Microalbumin testing up-to-date. Patient has no evidence of dementia with good 3/3 word recall. Anxiety depression symptoms are fairly well-managed. is healthcare surrogate. No recent falls. Non-smoker Plan Of Treatment Pending Test Test Name Order Date X-Lipid Profile 10/18/2007 X ray : Spines, Lumbosacral 02/28/2025 X ray : Hip, Right 02/28/2025 X ray : Shoulder, Left 03/22/2007 N-PSA 08/20/2009 N-PSA 10/18/2007 N-CMP 10/18/2007 N-CMP 08/20/2009 N-Lipid Panel 08/20/2009 N-cbc 08/14/2008 Dietary Consult 12/18/2016 Ultrasound : Abdominal Aorta 01/26/2023 C-CMP 01/23/2014 C-LIPID PANEL 01/23/2014 C-HGBA1C 01/23/2014 VENIPUNCT, ROUTINE* 07/11/2015 VENIPUNCT, ROUTINE* 07/16/2015 CT Scan : Chest, Lung Cancer Screening 0 08/19/2021 CT Scan : Chest, Lung Cancer Screening 0 01/26/2023 Next Appt Details Provider Name:Leonardo Singleton, 04/05/2025 08:45:00 AM, [address] [place] [address], [place], [address], Insurance Providers Payer Name Payer Address Payer Phone Subscriber Number Group Number Insured Name Patient Relationship to Insured Coverage Start Date Coverage End Date [employer] [address] [address] [place] [address] [id number] Melony Lee Self - patient is the insured Medications Administered Medication Instructions Date of Administration Dosage Notes Dexamethasone 4mg Injection 02/28/2025 4 mg Regen-Cov 03/28/2021 2.5 mL Right arm- Lot # [id number] Regen-Cov 03/28/2021 2.5 mL right leg Regen-Cov 03/28/2021 2.5 mL Left arm Regen-Cov 03/28/2021 2.5 mL left leg Medical (General) History Medical History History ICD Code hypertension type 2 diabetes hyperlipidemia renal cell cancer diagnosed March 24 follows with yearly eye examinations at [facility]ometry [facility] Birads 1 LDCT 12/22 - Repeated 01/25-BI-RA DS 1 Colonoscopy 08/26 with diverticulosis and diminutive polyps - f/u in 7- BI-RADS 1 low-dose CT scan December 2023 AAA screening negative with CT abdomen/p lexus 2021 Surgical History Surgery Date(Month/Year) left nephrectomy for renal cell cancer S eptember 2014 Hospitalization History Reason Date(Month/Year) stroke 08/2018 above
--- NOTE | 2025-03-01 09:30 | XR_ITS ---
FINAL REPORT CLINICAL HISTORY: RT SCIATIC NERVE PAIN FINDINGS: An AP view of the pelvis and a frog leg view of the right hip were obtained. There is no prior exam for comparison. There is no acute osseous abnormality of the pelvis or right hip. Degenerative disease is noted at the bilateral hips. There is no acute soft tissue abnormality. IMPRESSION: Degenerative change without acute osseous abnormality of the right hip. Reviewed, Interpreted and Dictated by Debbie Camacho MD Transcribed by Sarah Mckeon Authenticated and [facility]
--- NOTE | 2025-03-01 09:30 | XR_ITS ---
FINAL REPORT CLINICAL HISTORY: RT SCIATIC NERVE PAIN FINDINGS: AP, lateral, and oblique views of the lumbar spine were obtained. There is no prior exam for comparison. There is grade 1 anterior spondylolisthesis of L4 on L5. Very mild retrolisthesis is noted at L1 on L2 and L2 on L3. There is multilevel degenerative disc disease most pronounced in the upper lumbar levels. No acute paraspinal abnormality is identified. IMPRESSION: Degenerative/chronic changes without acute abnormality identified. Reviewed, Interpreted and Dictated by Debbie Camacho MD Transcribed by Sarah Mckeon Authenticated and [facility]
== END 2025-03-01 23:59 | disposition home or self-care (01) ==
LOC: RAD 09:19
PROVIDERS: PCP Internal Medicine Adolescent Medicine; Visit Provider Nurse Practitioner Family
DX: M47.26 Other spondylosis with radiculopathy, lumbar region (principal)
CPT/HCPCS: 72110; 73502

== ENCOUNTER 2025-06-06 13:07 | Inpatient (IN) | payer MEDICARE, SELFPAY ==
--- OUTSIDE RECORDS SUMMARY | 2024-09-28 04:30 | XMS_ITS ---
Author Organization [facility] Address [address] [place] [address] Care Team Providers Care Unit Manager Rn Name Role Phone Leonardo Singleton Primary Care Provider REASON FOR VISIT med ck Encounters Encounter Location Date Provider Diagnosis [place] [address] [address] 09/28/2024 Leonardo Singleotn Plan Of Treatment No Information Progress Notes * Melony LEE LDOB:1954 (70 yo M)Acc No.[id number]:09/28/2024 Progress Notes Patient: Bg MOSSley Flaquito Provider: Clarice Singleton MD :1955 A ge:69 Y S ex:Male Date:09/28/2024 [facility] [id number] Subjective: * Chief Complaints: * 1 . Med ck. * Medical History: Objective: * Vitals: Assessment: Plan: * Treatment: * * Electronic signature of Regis Singleton MD FAAP on 06/07/2025 at 10:00 AM EST Sign off status: Pending * Provider: Clarice Singleton MD Date: 0 09/28/2024 Generated for Didi fabian/Fredy/eTransmitting on: 08/08/2024 10:00 AM EST
--- OUTSIDE RECORDS SUMMARY | 2024-09-28 04:30 | XMS_ITS ---
Author Organization [facility] Address [address] [place] [address] Care Team Providers Care Garment Form Assembler Name Role Phone Leonardo Singleton Primary Care Provider REASON FOR VISIT med ck Encounters Encounter Location Date Provider Diagnosis [place] [address] [address] 09/28/2024 Leonardo Singleton Plan Of Treatment No Information Progress Notes * Melony LEE LDOB:1954 (70 yo M)Acc No.[id number]:09/28/2024 Progress Notes Patient: Bg MOSSley Flaquito Provider: Clarice Singleton MD :1955 A ge:69 Y S ex:Male Date:09/28/2024 [facility] [id number] Subjective: * Chief Complaints: * 1 . Med ck. * Medical History: Objective: * Vitals: Assessment: Plan: * Treatment: * * Electronic signature of Regis Singleton MD FAAP on 06/06/2025 at 01:44 PM EST Sign off status: Pending * Provider: Clarice Singleton MD Date: 0 09/28/2024 Generated for Faizai rui/Fredy/eTransmitting on: 08/07/2024 01:44 PM EST
--- OUTSIDE RECORDS SUMMARY | 2024-10-07 16:30 | XMS_ITS ---
Author Organization [facility] Address [address] [facility] [address] [place] [address] Care Team Providers Care Corporate Sales Representative Name Role Phone Leonardo Singleton Primary Care Provider [phone] Migration, Provider Unavailable Unavailable REASON FOR VISIT [facility] Encounter Medications Medication SIG (Take, Route, Frequency, Duration) Notes Start Date End Date Status Fenofibrate 145 (MG) 1 TAB(S) ORALLY ONCE A DAY; Duration: 90 DAYS *Please review and pick correct strength-formulat ion from Primedic options. If intended option is not shown, [...] review and pick correct strength-formulat ion from Primedic options. If intended option is not shown, [...] review and pick correct strength-formulat ion from Primedic options. If intended option is not shown, discontinue and re-order from Quick Search* Active Atorvastatin Calcium 80 MG 1 tab(s) orally once a day; Duration: 90 days Active Lisinopril 40 (MG) 1 TAB(S) ORALLY ONCE A DAY; Duration: 90 DAYS *Please review and pick correct strength-formulat ion from Primedic options. If intended option is not shown, discontinue and re-order from Quick Search* Active Encounters Encounter Location Date Provider Diagnosis [facility] CLAUDIA [address] [facility] [address] [place] [address] 10/07/2024 Provider Migration Anxiety F41.9 ; GERD [...] *Please review and pick correct strength-formulation from Primedic options. If intended option is not shown, [...] shown, discontinue and re-order from Quick Search* Progress Notes * Bg LEEley LDOB:1954 (70 yo M)Acc No.[id number]:10/07/2024 Patient: Melony MOSS Provider: Yimi frey Migration :1955 A ge:69 Y S ex:Male Date:10/07/2024 Address:[facility] [address] [facility] [place], [id number] Pcp:Leonardo Singleton Subjective: * Chief Complaints: * 1 . Multum To Medispan Conversion Encounter. * Medical History: * Medications: [...] *Please review and pick correct strength-formulation from The Multiverse Networkspan options. If intended option is not shown, discontinue and re-order from Quick Search*; S tart Fenofibrate TABLET, 145 (MG), 1 TAB(S), ORALLY, ONCE A DAY, 90 DAYS, 90, Refills 2, Notes to Pharmacist: *Please review and pick correct strength-formulation from The Multiverse Networkspan options. If intended option is not shown, discontinue and re-order from Quick Search*; S tart Plavix Tablet, 75 MG, 1 tab(s), orally, once a day, 90 days, 90, Refills 2. * * Electronic signature of Prov ider Migration on 06/07/2025 at 09:59 AM EST Sign off status: Pending * Provider: Yimi frey Migration Date: 0 10/07/2024 Generated for Didi fabian/Fredy/Caty on: 1 08/08/2024 09:59 AM EST
--- OUTSIDE RECORDS SUMMARY | 2024-11-02 04:30 | XMS_ITS ---
Author Organization [facility] PE D CLAUDIA Address [address] [place] [address] Care Team Providers Care Linux System Admin Name Role Phone Leonardo Singleton Primary Care Provider [phone] REASON FOR VISIT fu Encounters Encounter Location Date Provider Diagnosis [place] [address] [address] 11/02/2024 Leonardo Singleton Plan Of Treatment No Information Progress Notes * Melony LEE LDOB:1954 (70 yo M)Acc No.[id number]:11/02/2024 Progress Notes Patient: Bg MOSSley [place] Provider: Clarice Singleton MD :1955 A ge:69 Y S ex:Male Date:11/02/2024 [address] [facility] Subjective: * Chief Complaints: * 1 . Fu. * Medical History: Objective: * Vitals: Assessment: Plan: * Treatment: * * Electronic signature of Regis Singleton MD FAAP on 06/06/2025 at 01:44 PM EST Sign off status: Pending * Provider: Clarice Singleton MD Date: 0 11/02/2024 Generated for Printi ng/Crescenciog/eTransmitting on: 08/07/2024 01:44 PM EST
--- OUTSIDE RECORDS SUMMARY | 2024-11-02 04:30 | XMS_ITS ---
Author Organization [facility] PE D CLAUDIA Address [address] [place] [address] Care Team Providers Care Flight Engineer Inspector Name Role Phone Leonardo Singleton Primary Care Provider REASON FOR VISIT fu Encounters Encounter Location Date Provider Diagnosis [place] [address] [address] 11/02/2024 Leonardo Singleton Plan Of Treatment No Information Progress Notes * Melony LEE LDOB:1954 (70 yo M)Acc No.[id number]:11/02/2024 Progress Notes Patient: Bg MOSSinna Huddleston Provider: Clarice Singleton MD :1955 A ge:69 Y S ex:Male Date:11/02/2024 [address] [facility] Subjective: * Chief Complaints: * 1 . Fu. * Medical History: Objective: * Vitals: Assessment: Plan: * Treatment: * * Electronic signature of Regis Singleton MD FAAP on 06/07/2025 at 09:59 AM EST Sign off status: Pending * Provider: Clarice Singleton MD Date: 0 11/02/2024 Generated for Faizai ng/Fredy/eTransmitting on: 08/08/2024 09:59 AM EST
--- OUTSIDE RECORDS SUMMARY | 2025-04-05 03:45 | XMS_ITS ---
Author Organization [facility] Address [address] [place] [address] Care Team Providers Care Ophthalmic Photographer Name Role Phone Leonardo Singleton Primary Care Provider [phone] REASON FOR VISIT wellness Encounters Encounter Location Date Provider Diagnosis [place] [address] [address] 04/05/2025 Leonardo Singleton Plan Of Treatment No Information Progress Notes * Melony LEE LDOB:1954 (70 yo M)Acc No.[id number]:04/05/2025 Progress notes Patient: Bg MOSSley Flaquito Provider: Clarice Singleton MD :1955 A ge:69 Y S ex:Male Date:04/05/2025 [address] [facility] Subjective: * Chief Complaints: * 1 . Wellness. * Medical History: Objective: * Vitals: Assessment: Plan: * Treatment: * * Electronic signature of Regis Singleton MD FAAP on 06/07/2025 at 10:00 AM EST Sign off status: Pending * Provider: Clarice Singleton MD Date: Generated for Faizai rui/Fredy/eTransmitting on: 08/08/2024 10:00 AM EST
--- OUTSIDE RECORDS SUMMARY | 2025-04-05 03:45 | XMS_ITS ---
Author Organization [facility] Address [address] [place] [address] Care Team Providers Care Client Services Coordinator Name Role Phone Leonardo Singleton Primary Care Provider REASON FOR VISIT wellness Encounters Encounter Location Date Provider Diagnosis [place] [address] [address] 04/05/2025 Leonardo Singleton Plan Of Treatment No Information Progress Notes * Melony LEE LDOB:1954 (70 yo M)Acc No.[id number]:04/05/2025 Progress notes Patient: Bg MOSSley Flaquito Provider: Clarice Singleton MD :1955 A ge:69 Y S ex:Male Date:04/05/2025 [facility] [facility] Subjective: * Chief Complaints: * 1 . Wellness. * Medical History: Objective: * Vitals: Assessment: Plan: * Treatment: * * Electronic signature of Regis Singleton MD FAAP on 06/06/2025 at 01:44 PM EST Sign off status: Pending * Provider: Clarice Singleton MD Date: Generated for Faizai rui/Fredy/eTransmitting on: 08/07/2024 01:44 PM EST
[2025-06-06] VITALS (14 sets, daily range): BP systolic 117–176; BP diastolic 68–117; PULSE 57–99; RESP 13–24; TEMP 36.4–36.8; O2SAT 83–98; BMI 33.0
--- NOTE | 2025-06-06 13:38 | PC.NURSE ---
PT ATTEMPTED URINE SPECIMEN COLLECTION WITHOUT SUCCESS. WILL PROVIDE URINE SOON HE CAN.
[2025-06-06 13:43] LABS: Hematocrit 49.8 % (42.0-52.0); Hemoglobin 16.6 g/dL (14.1-18.0); Immature Granulocytes % 0.5 %; Mean Corpuscular HGB Conc 33.3 g/dL (31.8-35.4); Mean Corpuscular Hemoglobin 30.5 pg (27.0-31.2); Mean Corpuscular Volume 91.5 fl (80-94); Nucleated Red Blood Cells % 0 %; Platelet Count 277 K/mm3 (142-424); Red Blood Count 5.44 M/mm3 (4.60-6.20); Red Cell Distribution Width-SD 46.0 fL; White Blood Count 21.8 K/mm3 (4.8-10.8)
--- OUTSIDE RECORDS SUMMARY | 2025-06-06 13:44 | XMS_ITS | Clinical Summary ---
Author Organization [facility] Address [address] [place] [address] Care Team Providers Care Compressor Engineer Name Role Phone Leonardo Singleton MD Primary Care Provider [phone] Allergies No known active allergies Medications verapamil [...] of Treatment Not on file Care Teams Compressor Engineer Relationship Specialty Start Date End Date Leonardo Singleton MD [address] [place] [address] PCP - General 04/30/21
--- OUTSIDE RECORDS SUMMARY | 2025-06-06 13:44 | XMS_ITS | Patient Health Record ---
Author Organization [facility] Address [address] [place] [address] Care Team Providers Care Art Editor Name Role Phone Leonardo Singleton Primary Care Provider Trish Caryn Unavailable [phone] Migration, Provider Unavailable Unavailable Allergies No Known Allergies Results Component Value Reference Range Notes X ray : Hip, Right Reviewed date:03/13/2025 12:55:18 PM Interpretation: Performing Lab: Notes/Report: X ray : Hip, Right Reviewed date:03/13/2025 12:55:18 PM Interpretation: Performing Lab: Notes/Report: X ray : Spines, Lumbosacral Reviewed date:03/09/2025 12:20:45 PM Interpretation: Performing Lab: Notes/Report: Microalbumin (In-House) Reviewed date:11/16/2024 09:14:12 AM Interpretation: Performing Lab: Notes/Report: ALB 150 CRE 100 A:C >300 LIPID PANEL, STANDARD (7600) Reviewed date:10/12/2024 02:37:23 PM Interpretation: Performing Lab:CB, [facility] [address] [facility], [facility] HospitalTgkwBD[address] Will Lyle Notes/Report: NON-FASTING; NON-FASTING; NON-FASTING FASTING:NO FASTING: NO CHOLESTEROL, TOTAL 97 <200 mg/dL HDL CHOLESTEROL 31 > OR = 40 mg/dL TRIGLYCERIDES 113 <150 mg/dL LDL-CHOLESTEROL 46 Reference range: <100 Desirable range <100 mg/dL for primary prevention; <70 mg/dL for patients with CHD or diabetic patients with > or = 2 CHD risk factors. LDL-C is now calculated using the Og-Garnica calculation, which is a validated novel method providing better accuracy than the Friedewald equation in the estimation of LDL-C. Og SS et al. BRIAN. 2013;310(27): 0028-5040 (http://education.[employer].com [employer]/faq/SSO442) CHOL/HDLC RATIO 3.1 <5.0 (calc) NON HDL CHOLESTEROL 66 <130 mg/dL (calc) For patients with diabetes plus 1 major ASCVD risk factor, treating to a non-HDL-C goal of <100 mg/dL (LDL-C of <70 mg/dL) is considered a therapeutic option. COMPREHENSIVE METABOLIC PANE (65475) Reviewed date:10/12/2024 02:37:23 PM Interpretation: Performing Lab:DEAN [facility] [address] [employer], castaclipSkeiUN[address] Will Lyle Notes/Report: NON-FASTING; NON-FASTING; NON-FASTING FASTING:NO [...] 15 10-35 U/L ALT 18 9-46 U/L HEMOGLOBIN A1c (496) Reviewed date:10/12/2024 02:37:23 PM Interpretation: Performing Lab:[facility] [address], [facility] Work LoftsWwxiJL[address] Will Lyle Notes/Report: NON-FASTING; NON-FASTING; NON-FASTING FASTING:NO [...] diabetes for children. HEMOGLOBIN A1c (496) Reviewed date:01/24/2025 10:18:07 AM Interpretation: Performing Lab:[facility] [address] Gallardo[address] Will Lyle Notes/Report: NON-FASTING; NON-FASTING HEMOGLOBIN A1c [...] A1c for diagnosis of diabetes for children. BASIC METABOLIC PANEL (18469 ) Reviewed date:01/24/2025 10:18:07 AM Interpretation: Performing Lab:[facility] [address] [place] TsneUW[address] Will Lyle Notes/Report: NON-FASTING; NON-FASTING GLUCOSE 135 [...] 27 20-32 mmol/L CALCIUM 9.2 8.6-10.3 mg/dL Microalbumin (In-House) Reviewed date:01/23/2025 07:33:10 PM Interpretation:Abnormal Performing Lab: Notes/Report: Abnormal ALB 150mg CRE 100mg A:C >300mg Medications Medication SIG (Take, Route, Frequency, Duration) Notes Start Date End Date Status Lisinopril 40 MG TAKE 1 TABLET EVERY DAY; Duration: 90 Active metFORMIN HCl 500 MG TAKE 1 TABLET TWICE DAILY; Duration: 90 Active ASA 325 MGM 1 Q AM *Please review for potential replacement for e-prescription and drug interaction check* Active Atorvastatin Calcium 80 MG TAKE 1 TABLET EVERY DAY; Duration: 90 Active hydroCHLOROthiazide 25 MG TAKE 1 TABLET EVERY DAY; Duration: 90 Active Escitalopram Oxalate 20 MG 1 TAB(S) ORALLY ONCE A DAY; Duration: 90 days Active buPROPion HCl ER (XL) 300 MG 1 tab(s) orally Once a day; Duration: 90 days 08/31/2024 Active Farxiga 10 MG 1 tablet Orally Once a day; Duration: 90 days 11/16/2024 Active NIFEdipine ER 60 MG 1 tablet on an empty stomach Orally Once a day; Duration: 90 days 10/10/2024 Active Plavix 75 MG 1 tab(s) orally once a day; Duration: 90 days Active Pantoprazole Sodium 40 MG TAKE 1 TABLET EVERY DAY; Duration: 90 Active busPIRone HCl 10 MG TAKE 1 TABLET TWICE DAILY; Duration: 90 Active Fenofibrate 145 (MG) 1 TAB(S) ORALLY ONCE A DAY; Duration: 90 DAYS *Please review and pick correct strength-formulat ion from [employer] options. If intended option is not shown, discontinue and re-order from Quick Search* Active traMADol HCl 50 MG 1 tablet as needed Orally every 8 hrs; Duration: 7 days As needed 03/09/2025 Active Immunizations Vaccine Route Administration Date Status Comme nts Arexvy IM Intramuscular 04/27/2024 Administered Boostrix IM Intramuscular 01/26/2023 Administered Covid Lolita Unknown 03/06/2021 Administered Flublok IM Intramuscular 04/09/2020 Administered FLUZONE 6MO - OLDER IM Intramuscular 03/10/2022 Administer ed Fluzone High Dose IM Intramuscular 04/20/2023 Administered Fluzone High Dose IM Intramuscular 04/13/2024 Administered Influenza-Fluzone 3+years (NON-MEDICARE) IM Intramuscular 03/31/2016 Administered Pneumovax 23 IM Intramuscular 02/14/2019 Administered Prevnar PCV-20 (Pneumococcal conjugate 20) IM Intramuscular 01/26/2023 Administered SHINGRIX IM Intramuscular 02/11/2023 Administered SHINGRIX IM Intramuscular 04/20/2023 Administered Social History Tobacco Use: Social History Observation Description Date Details (start date - stop date) Former Smoker NA - NA Tobacco Control (Standard) Question Answer Notes Tobacco use: Former smoker How long has it been since you last smoked? 1-5 years Problems Problem Type SNOMED Code ICD Code Onset Dates Problem Status W/U Status Risk Notes Problem Diabetic renal disease (293490854) Type 2 diabetes mellitus with other diabetic kidney complication (E11.29) Active confirmed Problem Nicotine dependence (59085568) Personal history of nicotine dependence (Z87.891) Active confirmed Problem Anxiety (34767903) Anxiety (F41.9) Active confi rmed Problem Hyperlipidemia due t o type 2 diabetes mellitus (disorder) (275691666178147) Hyperlipidemia associated with type 2 diabetes mellitus (E11.69) Active confirmed Problem Hypertriglyceridemia (387237258) Hypertriglyceridemia (E78.1) Active confirmed Problem Diabetes mellitus type 2 in obese (40421618) Diabetes mellitus type 2 in obese (E11.9) Active confirmed Problem Essential hypertension (12606894) Essential hypertension (I10) Active confirmed Problem Hyperlipidemia (39077720) Hyperlipemia, idiopathic familial (E78.5) Active confirmed Problem Gastroesophageal reflux disease (968710333) GERD without esophagitis (K21.9) Active confirmed Problem Tubular adenoma of colon (266193010) Tubular adenoma of colon (D12.6) Active confirmed Problem Sciatica (43591479) Right sciati c nerve pain (M54.31) Active confirmed Problem Localized, primary osteoarthritis of the pelvic region and thigh (983497618) 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) Active confirmed Problem Primary malignant neoplasm of kidney (03000331) Renal cell cancer, unspecified laterality (C64.9) Active confirmed Problem Lower urinary tract symptoms due to benign prostatic hypertrophy (44600225958218) Benign prostatic hyperplasia with lower urinary tract symptoms (N40.1) Active confirmed Problem Stasis dermatitis (disorder) (96302991) Stasis dermatitis of both legs (I87.2) Active confirmed Problem Chronic kidney disease stage 2 (216298880) Stage 2 chronic kidney disease (N18.2) Active confirmed Problem COVID-19 (485276746) COVID-19 (U07.1) Active co nfirmed Problem Chronic kidney disease stage 3A (disorder) (133092547) CKD stage 3a, GFR 45-59 ml/min (N18.31) Active confirmed Vital Signs Heart Rate 78 /min 03/13/2025 Temperature 98 degrees Fahrenheit 03/13/2025 Blood pressure diastolic 110 mm Hg 03/13/2025 Height 68 in 03/13/2025 Blood pressure systolic 145 mm Hg 03/13/2025 Weight 220 lbs 03/13/2025 BMI 33.45 kg/m2 03/13/2025 Encounters Encounter Location Date [facility] [address] [facility] [address] [place] [address] 10/07/2024 Provider Migration Anxiety F41.9 ; GERD without esophagitis K21.9 and Hypertension, essential I10 [place] [address] [address] 08/31/2024 Leonardo Areli Hypertension, essential I10 and Anxiety F41.[address] [place] [address] 10/10/2024 Leonardo Besson Diabetes mellitus ty pe 2 in obese E11.9 ; Hyperlipidemia associated with type 2 diabetes mellitus E11.69 ; Type 2 diabetes mellitus with other diabetic kidney complication E11.29 ; GERD without esophagitis K21.9 ; Anxiety F41.9 ; Hypertension, essential I10 and Routine medical exam Z00.[address] [address] 11/16/2024 Leonardo Besson Hypertension, essential I10 and Type 2 diabetes mellitus with other diabetic kidney complication E11.[address] [place] [address] 01/23/2025 Leonardo Besson Diabetes mellitus ty pe 2 in obese E11.9 ; CKD stage 3a, GFR 45-59 ml/min N18.31 and Hypertension, essential I10 [place] [address] [address] 02/28/2025 Caryn Chambers Right sciatic nerve pain M54.31 and Essential hypertension I10 [facility] [address] [address] 03/06/2025 Leonardo Besson Primary osteoarthrit is of right hip M16.11 and Essential hypertension I10 [facility] [address] [address] 03/13/2025 Leonardo Besson Primary osteoarthrit is of right hip M16.11 [facility] [address] [address] 08/17/2024 Leonardo Besson [facility] [address] [place] [address] 02/28/2025 Caryn Chambers [facility] [address] [address] 03/06/2025 Leonardo Besson Primary osteoarthrit is of right hip M16.11 [facility] [address] [address] 03/09/2025 Leonardo Besson [facility] [address] [address] 03/15/2025 Leonardo Besson Anxiety F41.9 and Hypertension, essential I10 Assessments Encounter Date Diagnosis (ICD Code) Assessment Notes Treatment Notes Treatment Clinical Notes Section Notes 08/31/2024 Anxiety (ICD-10 - F41.9) Has had [...] Will recheck A1C and kidney function today. 01/23/2025 CKD stage 3a, GFR 45-59 ml/min [...] as needed. Xrays as noted. Consider PT 03/06/2025 Primary osteoarthritis of right hip (ICD-10 - M16.11) 03/06/2025 Essential hypertension (ICD-10 - I10) Patient's blood pressure been well-controlled on current regimen, needs refills. Will do this and schedule routine follow-up 03/06/2025 Primary osteoarthritis of right hip (ICD-10 - M16.11) Reviewed x-rays previously obtained, DJD bilaterally, especially on the right, no evidence of fracture. Exam consistent with OA of hip 03/13/2025 Primary osteoarthritis of right hip (ICD-10 - M16.11) Pt was referred to Dr. Henson orthopedic office for further evaluation and management of pt's hip pain. Pt was told to continue taking Tylenol as needed for the pain. Pt was encouraged to continue home mobility exercises as tolerated. Pt was encouraged to continue any other supportive measures for comfort as needed. 03/15/2025 Anxiety (ICD-10 - F41.9) 11/16/2024 Type 2 diabetes mellitus with other [...] He has no concerns at this time. 03/15/2025 Hypertension, essential (ICD-10 - I10) 10/10/2024 Type 2 diabetes mellitus with other diabetic kidney complication (ICD-10 - E11.29) 10/10/2024 GERD without esophagitis (ICD-10 - K21.9) 10/10/2024 Anxiety (ICD-10 - F41.9) 10/10/2024 Hypertension, [...] Date X-Lipid Profile 10/18/2007 X ray : Shoulder, Left 03/22/2007 N-PSA 10/18/2007 N-PSA 08/20/2009 N-CMP 08/20/2009 N-CMP 10/18/2007 N-Lipid Panel 08/20/2009 N-cbc 08/14/2008 Dietary Consult 12/18/2016 Ultrasound : Abdominal Aorta 01/26/2023 C-CMP 01/23/2014 C-LIPID PANEL 01/23/2014 C-HGBA1C 01/23/2014 VENIPUNCT, ROUTINE* 07/11/2015 VENIPUNCT, ROUTINE* 07/16/2015 CT Scan : Chest, Lung Cancer Screening 0 08/19/2021 CT Scan : Chest, Lung Cancer Screening 0 01/26/2023 Insurance Providers Payer Name Payer Address Payer Phone Subscriber Number Group Number Insured Name Patient Relationship to Insured Coverage Start Date Coverage End Date [employer] [address] [address] [place] [address] [phone] [id number] Rosa Melony Self - patient is the insured Medications Administered Medication Instructions Date of Administration Dosage Notes Dexamethasone 4mg Injection 02/28/2025 4 mg Regen-Cov 03/28/2021 2.5 mL Right arm- Lot # [id number] Regen-Cov 03/28/2021 2.5 mL right leg Regen-Cov 03/28/2021 2.5 mL Left arm Regen-Cov 03/28/2021 2.5 mL left leg Medical (General) History Medical History History ICD Code hypertension type 2 diabetes hyperlipidemia renal cell cancer diagnosed March 24 follows with yearly eye examinations at [facility] optometry clinic Birads 1 LDCT 12/22 - Repeated 01/25-BI-RA DS 1 Colonoscopy 08/26 with diverticulosis and diminutive polyps - f/u in 7-10 BI-RADS 1 low-dose CT scan December 2023 AAA screening negative with CT abdomen/p lexus 2021 Surgical History Surgery Date(Month/Year) left nephrectomy for renal cell cancer S eptemb2014 Hospitalization History Reason Date(Month/Year) stroke 08/2018 above
[2025-06-06 13:49] LABS: Alanine Aminotransferase 137 U/L (12-78); Albumin Level 4.7 g/dl (3.5-5.0); Albumin/Globulin Ratio 1.5 (1.1-1.8); Alkaline Phosphatase 97 U/L (38-126); Anion Gap 12.4 mEq/L (5-15); Aspartate Amino Transferase 259 U/L (17-59); Bilirubin,Total 2.7 mg/dl (0.2-1.3); Blood Urea Nitrogen 33 mg/dl (9-20); Calcium 9.5 mg/dl (8.4-10.2); Carbon Dioxide 24 mmol/L (22.0-30.0); Chloride 101 mmol/L (98-107); Creatinine Clearance Estimated 61 mL/min (50-200); Creatinine,Serum 1.70 mg/dl (0.66-1.25); Estimated Glomerular Filt Rate 40 ml/min (>60); GFR (African American) 49 ML/MIN (>60); Globulin 3.1 g/dL (1.3-3.2); Glucose 170 mg/dl (74-100); Potassium 3.4 mmoL/L (3.5-5.1); Sodium 134 mmol/L (136-145); Total Protein,Serum 7.8 g/dl (6.3-8.2)
--- NOTE | 2025-06-06 13:51 | ECG_ITS ---
APPROVED REPORT Exam: Resting ECG HR:100 bpm ECG Measurements Heart Rate 100 AXES IN 144 P -18 QRSd 94 QRS -88 QT 355 T 29 QTc 412 Conclusion EKG read limited by baseline artifact, no evidence of overt STEMI Electronically signed by : Dante Solis, 06/06/2025 16:29:18
--- NOTE | 2025-06-06 13:51 | CT_ITS ---
FINAL REPORT TECHNIQUE: Thin section axial images are obtained through the abdomen and pelvis after intravenous contrast. Reconstruction images were obtained from the axial data. This study was performed with techniques to keep radiation doses as low as reasonably achievable (ALARA). Individualized dose reduction techniques using automated exposure control or adjustment of mA and/or kV according to the patient's size were employed. CLINICAL HISTORY: abdominal pain COMPARISON: 03/31/2024 FINDINGS: LIVER: Homogeneous. No focal lesion. GALLBLADDER/BILIARY SYSTEM: Gallbladder is present. Gallbladder wall is either thickened or there is a small amount of Levy cholecystic fluid present. There is no biliary ductal dilatation. SPLEEN: Unremarkable. PANCREAS: Abnormal attenuation surrounding the pancreas consistent with acute, interstitial pancreatitis. No loculated fluid collection. ADRENALS: Unremarkable. KIDNEYS/URETERS/BLADDER: Left kidney is absent. Right kidney is without hydronephrosis or mass. Unremarkable urinary bladder. GI TRACT: Stomach is mildly distended with fluid. No small bowel obstruction or dilatation. Appendix not visualized. No secondary findings of appendicitis. No acute colon abnormality. PELVIC ORGANS: Prostate is significantly enlarged. LYMPH NODES/RETROPERITONEUM/MESENTERY: No lymphadenopathy. No abdominal aortic aneurysm. ABDOMINAL WALL: The abdominal wall is intact. FREE FLUID: No ascites. BONES: No acute osseous abnormality. IMPRESSION: 1. Acute pancreatitis. 2. Gallbladder wall thickening versus small amount of pericholecystic fluid. 3. Very enlarged prostate. Recommend PSA for further evaluation. Reviewed, Interpreted and Dictated by Debbie Camacho MD Transcribed by Izzy Tubbs Authenticated and [facility]
--- NOTE | 2025-06-06 14:00 | CT_ITS ---
FINAL REPORT TECHNIQUE: Axial imaging of the chest is obtained after the administration of contrast. 3-D MIP reformatted images were also obtained and reviewed per PE protocol. This study was performed with techniques to keep radiation doses as low as reasonably achievable (ALARA). Individualized dose reduction techniques using automated exposure control or adjustment of mA and/or kV according to the patient's size were employed. CLINICAL HISTORY: soa COMPARISON: 12/31/2023 FINDINGS: There is prominent wall thickening of the distal esophagus which could be neoplastic or related to esophagitis. The pulmonary arteries are well filled. There is no evidence of pulmonary embolus. There is no aortic dissection. Heart size is mildly enlarged. There is no mediastinal, hilar, or axillary lymphadenopathy. There is dependent atelectasis. The lungs are otherwise clear. There is no pleural or pericardial effusion. No acute osseous abnormality. IMPRESSION: No evidence of pulmonary embolism or aortic dissection. Prominent wall thickening of the distal esophagus which could be neoplastic or related to esophagitis. Recommend endoscopy. Reviewed, Interpreted and Dictated by Debbie Camacho MD Transcribed by Izzy Tubbs Authenticated and . [facility]
[2025-06-06] MEDS: 0.9 % SODIUM CHLORIDE 1000ML 1,000 ML 999 ML IV (14:01)
[2025-06-06] MEDS: ONDANSETRON 4MG/2ML VIAL 4 MG IV (14:02)
--- NOTE | 2025-06-06 14:03 | ED_ITS ---
<Statement entered by Dante Solis DO - 06/06/25 16:36> I was consulted by the MARIXA, and we discussed the complexity of problems being addressed. I approved the treatment and management plan for this patient's care in the emergency department, thus performing a substantive portion of the medical decision making. Dante Solis DO I independently evaluated this patient as well. Patient tells me that he gets rather sudden onset epigastric and right upper quadrant pain began today. He has also been experiencing some shortness of breath with intermittent desaturations while here in the emergency department. On my evaluation he has marked epigastric and right upper quadrant tenderness to palpation. Labs were personally turbid by me and diminished transaminitis, hyperbilirubinemia, and a CT scan on my independent interpretation demonstrates thickening of the gallbladder wall. Given the sudden nature of his pain I had suspicion for potential choledocholithiasis. We obtained a right upper quadrant ultrasound which shows evidence of pericholecystic fluid and gallbladder wall thickening but relatively normal common bile duct size for his age. Ultimately we discussed this case with Dr. Martel and he actually admit the patient to the hospital for further management with ERCP. Case was discussed with internal medicine service who agreed to evaluate the patient the emergency department and they ultimately agreed to accept the patient for admission. Discharge Plan Disposition Patient Disposition: Admitted Prescriptions Prescriptions: No Action buspirone 10 mg tablet 10 mg PO BID linezolid [Zyvox] 600 mg tablet 600 mg PO BID 10 Days Qty: 20 0RF atorvastatin 80 mg tablet 80 mg PO DAILY Qty: 30 2RF pantoprazole [Protonix] 40 mg tablet,delayed release (DR/EC) 40 mg PO DAILY Qty: 30 2RF escitalopram oxalate [Lexapro] 20 mg tablet 20 mg PO DAILY Qty: 30 2RF fenofibrate nanocrystallized 145 mg tablet 145 mg PO DAILY bupropion HCl 150 mg tablet extended release 24 hr 150 mg PO DAILY oxycodone-acetaminophen 5-325 mg Tablet 1 tab PO Q6HP PRN (Reason: Severe Pain (7-10)) 3 Days Qty: 11 0RF Rx Instructions: 30 minutes before a dressing change methocarbamol 500 mg tablet 500 mg PO Q6H PRN (Reason: pain) Qty: 30 0RF lidocaine 5 % adhesive patch,medicated 1 patch topical DAILY PRN (Reason: pain) Qty: 30 0RF Rx Instructions: leave on most painful area for up to 12 hrs metformin 500 MG tablet 500 mg PO BID hydrochlorothiazide 25 MG tablet 25 mg PO DAILY lisinopril 40 MG tablet 40 mg PO DAILY clopidogrel 75 MG tablet 75 mg PO DAILY Referrals Follow up/Referrals: Leonardo Singleton MD [Primary Care Provider, Internal Medicine] - See instructions Clinical Impressions Clinical Impression: Acute gallstone pancreatitis, Sepsis Instructions Patient Instructions: DI for Acute Abdominal Pain Print Language Print Language: [place] Citizen Discharge ED Provider: Dante Solis General Adult HPI <Adrianaarmando Seymouryuliyakalee (ED), VP TRAINING - Last Filed: 06/06/25 16:14> General Chief complaint: Abdominal Pain Stated complaint: abd pain, nausea Time Seen by Provider: 06/06/25 13:11 Mode of Arrival: Ambulatory Source of Information: Patient and Spouse Description of Symptoms (Recalled from ER Triage Doc. by RN): PATIENT PRESENTS TO ED FOR MID EPIGASTRIC ABDOMINAL PAIN WITH NAUSEA THAT BEGAN EARLIER TODAY. DENIES VOMITING OR DIARRHEA. History of Present Illness HPI narrative: 70-year-old male presents to the ED today for complaint of abdominal pain that is in the center of his abdomen that started about 11 AM this morning. Patient has vomiting of green bile. He also has shortness of air. He has had a mass on his kidney in the past that has been removed in 2013 or 2015 according to his . He has history of diabetes, hypertension, shortness of air most of the time. He has osteoarthritis in his hip and his leg on the right side, he has not had any diarrhea but he has had vomiting. No current fevers. He appears to be in pain. Related Data Home Medications ?Medication ?Instructions ?Recorded ?Confirmed clopidogrel 75 mg tablet 75 mg PO DAILY 03/07/1905/06 Held on 04/02/24. Instructions: resume on 04/06/24 hydrochlorothiazide 25 mg tablet 25 mg PO DAILY 05/30/24 lisinopril 40 mg tablet 40 mg PO DAILY 03/07/1905/06 metformin 500 mg tablet 500 mg PO BID 03/07/1905/30 buspirone 10 mg tablet 10 mg PO BID 01/30/21 bupropion HCl 150 mg 24 hr tablet, 150 mg PO DAILY 05/30/24 extended release fenofibrate nanocrystallized 145 145 mg PO DAILY 03/3105/30/24 mg tablet Previous Rx's ?Medication ?Instructions ?Recorded atorvastatin 80 mg tablet 80 mg PO DAILY #30 tabs 02/03 07/27 escitalopram oxalate 20 mg tablet 20 mg PO DAILY #30 t abs 02/22/23 (Lexapro) pantoprazole 40 mg tablet,delayed 40 mg PO DAILY #30 t abs 02/22/23 release (Protonix) oxycodone-acetaminophen 5 mg-325 1 tab PO Q6HP PRN Sev ere Pain 04/02/24 mg tablet (7-10) 3 days #11 tabs linezolid 600 mg tablet (Zyvox) 600 mg PO BID 10 days #20 tabs 04/06/24 lidocaine 5 % topical patch 1 patch topical DAILY PRN pain #30 06/17/24 ea methocarbamol 500 mg tablet 500 mg PO Q6H PRN pain #30 tabs 06/17/24 Allergies Allergy/AdvReac Type Severity Reaction Status Date / Time No Known Allergies Allergy Verified 05/11/24 09:01 [facility] <Adriana Ortiz (ED), VP TRAINING - Last Filed: 06/06/25 16:14> [facility] Disclaimer: The information contained in this section may have been updated after the patient was seen, as this information can be updated by other users. Medical History Frequency of urination History of COVID-19 Anxiety and depression Allergies Stroke Hyperlipidemia History of kidney cancer Renal cancer Diabetes mellitus Hypertension Surgical History History of incision and drainage History of nephrectomy Family History Father Cancer Coronary artery disease Mother Diabetes Social History Smoking Status: Current every day smoker alcohol intake: never substance use type: denies use current occupational status: retired Travel in the last 8 weeks?: None household members: spouse and children housing: house marital status: caffeine: No Have you lived/traveled outside US in past 30 days?: No Contact w/someone who lives/traveled outside US past 30 days?: No Exposure to someone with infectious disease in past 14 days?: No Do you have a fever (greater than 100.4 F or 38 C)?: No Have you tested positive for COVID-19?: No Exposed to someone with COVID-19 in past 14 days?: No Do you have a sore throat?: No Do you have a cough?: No Do you have any weakness?: No Do you have any diarrhea?: No Are you experiencing any unusual bleeding?: No Do you have any muscle aches/pain?: No Do you have any abdominal pain?: No Are you experiencing loss of taste or smell?: No Other Medical History Have you received the Flu Vaccine for this season: No Have you received the Pneumonia Vaccine: Yes <Adriana Ortiz (ED), VP TRAINING - Last Filed: 06/06/25 16:14> ROS Obtained: Yes Systems reviewed as appropriate & no additional complaints except as documented Constitutional Constitutional: Reports as per HPI Physical Exam <Adriana Ortiz (ED), VP TRAINING - Last Filed: 06/06/25 16:14> General General appearance: alert and in no apparent distress Head Head exam: normocephalic Eye Eye exam: Present PERRL and EOMI ENT ENT exam: Present normal oropharynx and mucous membranes moist Neck Neck exam: Present full ROM and trachea midline Chest Chest inspection: Present normal inspection Respiratory Respiratory exam: Present wheezes and accessory muscle use Cardiovascular Cardiovascular exam: Present regular rate, normal rhythm, normal heart sounds, +S1 and +S2 Abdominal Exam Abdominal exam: Present soft, tenderness (Med abdominal pain upper and lower) and normal bowel sounds Extremities Exam Extremities exam: Present normal inspection, full ROM and normal capillary refill Neurological Exam Neurological exam: Present alert and oriented X3 Skin Skin exam: Present warm and dry Medical Decision Making <Adriana Ortiz (ED), VP TRAINING - Last Filed: 06/06/25 16:14> Medical Records Screening: Per USPSTF and CDC recommendations, given the prevalence of disease in our region, it is our hospital?s policy to screen for HIV and viral Hepatitis for all patients aged 18 and over and those with ongoing risk factors. Yeison Inquiry Pt receiving controlled substance: No Yeison was queried for this patient: No Vital Signs: 06/06/25 13:15 12/03/25 13:15 06/06/25 14:44 Temperature 97.7 F 97.7 F Temperature Source Temporal Artery Scan Pulse Rate 99 H 93 H Pulse Rate [Right] 99 H Respiratory Rate 18 18 21 Blood Pressure 128/78 155/104 H Blood Pressure [Right Arm] 128/78 Blood Pressure Mean [Right Arm] 94 02 Sat by Pulse Oximetry 92 L 92 L 98 Oxygen Delivery Method T-Piece Oxygen Flow Rate (LPM) 06/06/25 14:45 06/06/25 14:56 06/06/25 15:00 Temperature Temperature Source Pulse Rate 57 L 86 89 Pulse Rate [Right] Respiratory Rate 17 20 15 Blood Pressure 154/102 H 176/117 H 158/104 H Blood Pressure [Right Arm] Blood Pressure Mean [Right Arm] 02 Sat by Pulse Oximetry 83 L 94 L 96 Oxygen Delivery Method Room Air Nasal Cannula Nasal Cannula Oxygen Flow Rate (LPM) 4 4 06/06/25 15:15 06/06/25 15:30 06/06/25 16:11 Temperature Temperature Source Pulse Rate 89 87 87 Pulse Rate [Right] Respiratory Rate 24 21 18 Blood Pressure 152/104 H 154/101 H 132/82 Blood Pressure [Right Arm] Blood Pressure Mean [Right Arm] 02 Sat by Pulse Oximetry 94 L 98 97 Oxygen Delivery Method Nasal Cannula Nasal Cannula Nasal Cannula Oxygen Flow Rate (LPM) 4 4 4 06/06/25 16:15 Temperature Temperature Source Pulse Rate 86 Pulse Rate [Right] Respiratory Rate 16 Blood Pressure 141/81 H Blood Pressure [Right Arm] Blood Pressure Mean [Right Arm] 02 Sat by Pulse Oximetry 97 Oxygen Delivery Method Nasal Cannula Oxygen Flow Rate (LPM) 4 Lab Data Lab Results 06/06/25 13:20: D-Dimer 2.72 H, NT-Pro-B Natriuret Pep 540 H 06/06/25 13:30: WBC 21.8 H*, RBC 5.44, Hgb 16.6, Hct 49.8, MCV 91.5, MCH 30.5, MCHC 33.3, RDW 13.7, Plt Count 277, MPV 11.0 H, Neut % (Auto) 89.3 H, Lymph % (Auto) 6.4 L, [place] % (Auto) 3.4, Eos % (Auto) 0.0 L, Baso % (Auto) 0.4, Neut # (Auto) 19.5 H, Lymph # (Auto) 1.4, [place] # (Auto) 0.7, Eos # (Auto) 0.0, Baso # (Auto) 0.1, Total Counted 100, Neutrophils % (Manual) 90 H, Lymphocytes % (Manual) 7 L, Monocytes % (Manual) 3, Platelet Estimate Normal, RBC Morphology Not Reportable, Poikilocytosis 1+, Anisocytosis 1+, Microcytosis 1+, Macrocytosis 1+, Target Cells 1+, Tear Drop Cells 1+, Gumaro Cells 1+, Sodium 134 L, Potassium 3.4 L, Chloride 101, Carbon Dioxide 24, Anion Gap 12.4, BUN 33 H, C reatinine 1.70 H, Estimated Creat Clear 61, Estimated GFR 40 L, Est GFR ( Amer) 49 L, Glucose 170 H, Calcium 9.5, Total Bilirubin 2.7 H, AST 259 H, ALT 137 H, Alkaline Phosphatase 97, Total Protein 7.8, Albumin 4.7, Globulin 3.1, Albumin/Globulin Ratio 1.5, Lipase 62570 H, HCV Ab TENNIL[place] w/Rflx PCR Qn Negative, HIV Ag/Ab Combo Qual Negative 06/06/25 13:51: VBG pH 7.29 L, VBG pCO2 45.4, VBG pO2 77.0 H, VBG HCO3 21.2 L, V BG Total CO2 22.6 L, VBG O2 Saturation 93.6 H, VBG Base Excess -5.4 L, VBG Lactic Acid 3.2 H 06/06/25 13:55: ESR 1, PT 12.5, INR 1.14 H, APTT 23.6, Lactate 2.6 H, Total Creatine Kinase 113, Troponin I 0.03, C-Reactive Protein 3.0 06/06/25 14:20: SARS-CoV-2 (PCR) Not detected, Influenza A Untype (PCR) Not detected, Influenza Type B (PCR) Not detected 06/06/25 13:30 06/06/25 13:30 Orders (Tests/Meds): ED MEDICATIONS Discontinued Medications Generic Name Dose Route Start Last Admin Trade Name Freq PRN Reason Stop Dose Admin Albuterol/Ipratropium 9 ml 06/06/25 14:00 06/06/25 14:30 Ipratropium/Albuterol 3 Ml Neb IH 06/06/25 14:01 9 ml ONCE ONE Administration Dexamethasone Sodium Phosphate 10 mg 06/06/25 14:00 06/06/25 14:45 Dexamethasone 4mg/Ml 1ml Vial IV 06/06/25 14:01 10 mg ONCE ONE Administration Hydromorphone HCl 0.5 mg 06/06/25 15:25 06/06/25 16:14 Hydromorphone 2mg/Ml Syringe IV 06/06/25 15:26 0.5 mg ONCE ONE Administration Sodium Chloride 1,000 mls @ 999 mls/hr 06/06/25 13:51 06/06/25 15:11 Sod Chlor 0.9% 1000ml Bag IV 06/06/25 14:51 Infused .Q1H1M ONE Infusion Magnesium Sulfate 2 gm in 50 mls @ 50 mls/hr 06/06/25 14:00 06/06/25 15:38 Magnesium Sulfate 2gm/50ml Premix IV 06/06/25 14:59 Infused ONCE ONE Infusion Cefepime HCl 2 gm/ Sodium 100 mls @ 200 mls/hr 06/06/25 14:01 06/06/25 15:16 Chloride IV 06/06/25 14:30 Infused ONCE ONE Infusion Sodium Chloride 3,130 mls @ 1,565 mls/hr 06/06/25 14:09 06/06/25 15:15 Sod Chlor 0.9% 1000ml Bag 30 ml/kg infuse over 2 hr (3130 ml) 06/06/25 16:08 1,565 mls/hr IV Administration .Q2H ONE Protocol Vancomycin/PEG/NADA/Lysine/Water 1.75 gm in 350 mls @ 175 mls/hr 06/06/25 14:30 06/06/25 14:47 Vancomycin 1.75gm/350ml (Peg) Premix IV 06/06/25 16:29 175 mls/hr ONCE ONE Administration Iopamidol 70 ml 06/06/25 14:15 06/06/25 14:18 Iopamidol-370 (76%);100ml Bottle IV 06/06/25 14:16 70 ml ONCE ONE Administration Miscellaneous 1 each 06/06/25 14:15 06/06/25 14:37 Vancomycin Consult Request NOTAPPLIC 07/06/25 14:14 1 each CONSULT PHARMACY AN Administration Morphine Sulfate 4 mg 06/06/25 13:51 06/06/25 14:04 Morphine 4mg/Ml Syringe IV 06/06/25 13:52 4 mg ONCE ONE Administration Ondansetron HCl 4 mg 06/06/25 13:51 06/06/25 14:02 Ondansetron 4mg/2ml Vial IV 06/06/25 13:52 4 mg ONCE ONE Administration Potassium Chloride 60 meq 06/06/25 14:00 06/06/25 14:46 Potassium Chloride 20meq Tab PO 06/06/25 14:01 60 meq ONCE ONE Administration Sodium Chloride 10 ml 06/06/25 14:15 06/06/25 14:18 Sodium Chloride 0.9% 10ml Syr (Rad Only) IV 06/06/25 14:16 10 ml ONCE ONE Administration Sodium Chloride 50 ml 06/06/25 14:15 06/06/25 14:18 0.9 % Sodium Chloride 50 Ml Vial IV 06/06/25 14:16 50 ml ONCE ONE Administration ORDERS Category Date Time Status CT abdomen pelvis w con Stat Cat Scan 06/06/25 13:51 Completed CTA Chest [CT angio chest PE protocol] Stat Cat Scan 06/06/25 14:00 Completed POCUS Point of Care (ER Only) Stat Exams 06/06/25 14:37 Completed US gallbladder Stat Exams 06/06/25 15:20 Taken BNP [NT Pro Brain Natriuretic Pep.] Stat Lab 06/06/25 13:20 Completed C-Reactive Protein Stat Lab 06/06/25 13:55 Completed Complete Blood Count Auto Diff Stat Lab 06/06/25 13:30 Completed Comprehensive Metabolic Panel Stat Lab 06/06/25 13:30 Completed Creatine Kinase Stat Lab 06/06/25 13:55 Completed D-Dimer Stat Lab 06/06/25 13:20 Completed Erythrocyte Sedimentation Rate Stat Lab 06/06/25 13:55 Completed HIV Combo Stat Lab 06/06/25 13:30 Completed Hepatitis C Ab Qual. W/ RFX Stat Lab 06/06/25 13:30 Completed Lactic Acid Stat Lab 06/06/25 13:55 Completed Lipase Stat Lab 06/06/25 13:30 Completed PT INR [Prothrombin Time INR] Stat Lab 06/06/25 13:55 Completed PTT [Activated Partial Thrombo Time] Stat Lab 06/06/25 13:55 Completed Rapid PCR Covid and Flu A/B Stat Lab 06/06/25 14:20 Completed Trop I [Troponin I] Stat Lab 06/06/25 13:55 Completed Troponin I Q3H Lab 06/06/25 17:15 Ordered Troponin I Q3H Lab 06/06/25 20:15 Ordered Urinalysis and Microscopic Stat Lab 06/06/25 13:37 Ordered Blood Culture Stat Micro 06/06/25 14:20 Received Urine Culture Stat Micro 06/06/25 14:10 Ordered Venous Blood Gas Stat RT 06/06/25 13:51 Completed Medical Decision Narrative: patient is a 70-year-old male presenting to the emergency department for evaluation of abdominal pain, shortness of breath. Patient's abdominal pain began at 11 AM this morning he started vomiting once he got to the ED and it is green in color.. Patient is hemodynamically stable and nontoxic-appearing upon arrival, afebrile. Differential diagnosis includes bowel obstruction, cholangitis, pancreatitis, cirrhosis, obstruction, viral illness, cholecystitis, hepatitis, gastritis, gastroenteritis, incarcerated hernia, colitis, diverticulitis, among others. Workup will be conducted with hematologic labs, specific imaging, provocative tests. Initial inventions include crystalloid bolus, analgesics, antibiotics. Initial workup reviewed by me hematologic labs are remarkable for elevated white count at 21.8, antibiotics have been ordered, shortness of air and hypoxia down to 78% on room air, we placed him on 2 L and recovered to 93%. states that he does smoke. Patient has elevated liver enzymes AST 259 ALT 137 this is different from his normal which the last time he was here he had normal liver enzymes, elevated bilirubin at 2.7 BUN and creatinine were elevated as well at 33 and 1.7. Patient'sPotassium was 3.4 which was treated here in the ED, lipase was 22,735. Patient CT scan came back acute pancreatitis, gallbladder wall thickening with small amount of Levy cholecystic fluid. I talked to Dr. Martel about possibly doing an ERCP and he said to admit patient and he will do that tomorrow if patient does not improve if patient improves he will not do anything most likely. I talked to about admission and he agreed to admit patient for acute pancreatitis. Patient is stable at this time <Dante Solis DO - Last Filed: 06/06/25 16:34> Medical Records Medical records reviewed: Yes I reviewed the patient's medical records. Vital Signs: 06/06/25 13:15 06/06/25 13:15 06/06/25 14:44 Temperature 97.7 F 97.7 F Temperature Source Temporal Artery Scan Pulse Rate 99 H 93 H Pulse Rate [Right] 99 H Respiratory Rate 18 18 21 Blood Pressure 128/78 155/104 H Blood Pressure [Right Arm] 128/78 Blood Pressure Mean [Right Arm] 94 02 Sat by Pulse Oximetry 92 L 92 L 98 Oxygen Delivery Method T-Piece Oxygen Flow Rate (LPM) 06/06/25 14:45 06/06/25 14:56 06/06/25 15:00 Temperature Temperature Source Pulse Rate 57 L 86 89 Pulse Rate [Right] Respiratory Rate 17 20 15 Blood Pressure 154/102 H 176/117 H 158/104 H Blood Pressure [Right Arm] Blood Pressure Mean [Right Arm] 02 Sat by Pulse Oximetry 83 L 94 L 96 Oxygen Delivery Method Room Air Nasal Cannula Nasal Cannula Oxygen Flow Rate (LPM) 4 4 06/06/25 15:15 06/06/25 15:30 06/06/25 16:11 Temperature Temperature Source Pulse Rate 89 87 87 Pulse Rate [Right] Respiratory Rate 24 21 18 Blood Pressure 152/104 H 154/101 H 132/82 Blood Pressure [Right Arm] Blood Pressure Mean [Right Arm] 02 Sat by Pulse Oximetry 94 L 98 97 Oxygen Delivery Method Nasal Cannula Nasal Cannula Nasal Cannula Oxygen Flow Rate (LPM) 4 4 4 06/06/25 16:15 Temperature Temperature Source Pulse Rate 86 Pulse Rate [Right] Respiratory Rate 16 Blood Pressure 141/81 H Blood Pressure [Right Arm] Blood Pressure Mean [Right Arm] 02 Sat by Pulse Oximetry 97 Oxygen Delivery Method Nasal Cannula Oxygen Flow Rate (LPM) 4 Lab Data Lab Results 06/06/25 13:20: D-Dimer 2.72 H, NT-Pro-B Natriuret Pep 540 H 06/06/25 13:30: WBC 21.8 H*, RBC 5.44, Hgb 16.6, Hct 49.8, MCV 91.5, MCH 30.5, MCHC 33.3, RDW 13.7, Plt Count 277, MPV 11.0 H, Neut % (Auto) 89.3 H, Lymph % (Auto) 6.4 L, [place] % (Auto) 3.4, Eos % (Auto) 0.0 L, Baso % (Auto) 0.4, Neut # (Auto) 19.5 H, Lymph # (Auto) 1.4, [place] # (Auto) 0.7, Eos # (Auto) 0.0, Baso # (Auto) 0.1, Total Counted 100, Neutrophils % (Manual) 90 H, Lymphocytes % (Manual) 7 L, Monocytes % (Manual) 3, Platelet Estimate Normal, RBC Morphology Not Reportable, Poikilocytosis 1+, Anisocytosis 1+, Microcytosis 1+, Macrocytosis 1+, Target Cells 1+, Tear Drop Cells 1+, [place] Cells 1+, Sodium 134 L, Potassium 3.4 L, Chloride 101, Carbon Dioxide 24, Anion Gap 12.4, BUN 33 H, C reatinine 1.70 H, Estimated Creat Clear 61, Estimated GFR 40 L, Est GFR ( Amer) 49 L, Glucose 170 H, Calcium 9.5, Total Bilirubin 2.7 H, AST 259 H, ALT 137 H, Alkaline Phosphatase 97, Total Protein 7.8, Albumin 4.7, Globulin 3.1, Albumin/Globulin Ratio 1.5, Lipase 04771 H, HCV Ab [place] w/Rflx PCR Qn Negative, HIV Ag/Ab Combo Qual Negative 06/06/25 13:51: VBG pH 7.29 L, VBG pCO2 45.4, VBG pO2 77.0 H, VBG HCO3 21.2 L, V BG Total CO2 22.6 L, VBG O2 Saturation 93.6 H, VBG Base Excess -5.4 L, VBG Lactic Acid 3.2 H 06/06/25 13:55: ESR 1, PT 12.5, INR 1.14 H, APTT 23.6, Lactate 2.6 H, Total Creatine Kinase 113, Troponin I 0.03, C-Reactive Protein 3.0 06/06/25 14:20: SARS-CoV-2 (PCR) Not detected, Influenza A Untype (PCR) Not detected, Influenza Type B (PCR) Not detected Orders (Tests/Meds): ED MEDICATIONS Discontinued Medications Generic Name Dose Route Start Last Admin Trade Name Freq PRN Reason Stop Dose Admin Albuterol/Ipratropium 9 ml 06/06/25 14:00 06/06/25 14:30 Ipratropium/Albuterol 3 Ml Neb IH 06/06/25 14:01 9 ml ONCE ONE Administration Dexamethasone Sodium Phosphate 10 mg 06/06/25 14:00 06/06/25 14:45 Dexamethasone 4mg/Ml 1ml Vial IV 06/06/25 14:01 10 mg ONCE ONE Administration Hydromorphone HCl 0.5 mg 06/06/25 15:25 06/06/25 16:14 Hydromorphone 2mg/Ml Syringe IV 06/06/25 15:26 0.5 mg ONCE ONE Administration Sodium Chloride 1,000 mls @ 999 mls/hr 06/06/25 13:51 06/06/25 15:11 Sod Chlor 0.9% 1000ml Bag IV 06/06/25 14:51 Infused .Q1H1M ONE Infusion Magnesium Sulfate 2 gm in 50 mls @ 50 mls/hr 06/06/25 14:00 06/06/25 15:38 Magnesium Sulfate 2gm/50ml Premix IV 06/06/25 14:59 Infused ONCE ONE Infusion Cefepime HCl 2 gm/ Sodium 100 mls @ 200 mls/hr 06/06/25 14:01 06/06/25 15:16 Chloride IV 06/06/25 14:30 Infused ONCE ONE Infusion Sodium Chloride 3,130 mls @ 1,565 mls/hr 06/06/25 14:09 06/06/25 15:15 Sod Chlor 0.9% 1000ml Bag 30 ml/kg infuse over 2 hr (3130 ml) 06/06/25 16:08 1,565 mls/hr IV Administration .Q2H ONE Protocol Vancomycin/PEG/NADA/Lysine/Water 1.75 gm in 350 mls @ 175 mls/hr 06/06/25 14:30 06/06/25 14:47 Vancomycin 1.75gm/350ml (Peg) Premix IV 06/06/25 16:29 175 mls/hr ONCE ONE Administration Iopamidol 70 ml 06/06/25 14:15 06/06/25 14:18 Iopamidol-370 (76%);100ml Bottle IV 06/06/25 14:16 70 ml ONCE ONE Administration Miscellaneous 1 each 06/06/25 14:15 06/06/25 14:37 Vancomycin Consult Request NOTAPPLIC 07/06/25 14:14 1 each CONSULT PHARMACY AN Administration Morphine Sulfate 4 mg 06/06/25 13:51 06/06/25 14:04 Morphine 4mg/Ml Syringe IV 06/06/25 13:52 4 mg ONCE ONE Administration Ondansetron HCl 4 mg 06/06/25 13:51 06/06/25 14:02 Ondansetron 4mg/2ml Vial IV 06/06/25 13:52 4 mg ONCE ONE Administration Potassium Chloride 60 meq 06/06/25 14:00 06/06/25 14:46 Potassium Chloride 20meq Tab PO 06/06/25 14:01 60 meq ONCE ONE Administration Sodium Chloride 10 ml 06/06/25 14:15 06/06/25 14:18 Sodium Chloride 0.9% 10ml Syr (Rad Only) IV 06/06/25 14:16 10 ml ONCE ONE Administration Sodium Chloride 50 ml 06/06/25 14:15 06/06/25 14:18 0.9 % Sodium Chloride 50 Ml Vial IV 06/06/25 14:16 50 ml ONCE ONE Administration ORDERS Category Date Time Status CT abdomen pelvis w con Stat Cat Scan 06/06/25 13:51 Completed CTA Chest [CT angio chest PE protocol] Stat Cat Scan 06/06/25 14:00 Completed POCUS Point of Care (ER Only) Stat Exams 06/06/25 14:37 Completed US gallbladder Stat Exams 06/06/25 15:20 Taken BNP [NT Pro Brain Natriuretic Pep.] Stat Lab 06/06/25 13:20 Completed C-Reactive Protein Stat Lab 06/06/25 13:55 Completed Complete Blood Count Auto Diff Stat Lab 06/06/25 13:30 Completed Comprehensive Metabolic Panel Stat Lab 06/06/25 13:30 Completed Creatine Kinase Stat Lab 06/06/25 13:55 Completed D-Dimer Stat Lab 06/06/25 13:20 Completed Erythrocyte Sedimentation Rate Stat Lab 06/06/25 13:55 Completed HIV Combo Stat Lab 06/06/25 13:30 Completed Hepatitis C Ab Qual. W/ RFX Stat Lab 06/06/25 13:30 Completed Lactic Acid Stat Lab 06/06/25 13:55 Completed Lipase Stat Lab 06/06/25 13:30 Completed PT INR [Prothrombin Time INR] Stat Lab 06/06/25 13:55 Completed PTT [Activated Partial Thrombo Time] Stat Lab 06/06/25 13:55 Completed Rapid PCR Covid and Flu A/B Stat Lab 06/06/25 14:20 Completed Trop I [Troponin I] Stat Lab 06/06/25 13:55 Completed Troponin I Q3H Lab 06/06/25 17:15 Ordered Troponin I Q3H Lab 06/06/25 20:15 Ordered Urinalysis and Microscopic Stat Lab 06/06/25 13:37 Ordered Blood Culture Stat Micro 06/06/25 14:20 Received Urine Culture Stat Micro 06/06/25 14:10 Ordered Venous Blood Gas Stat RT 06/06/25 13:51 Completed Critical Care <Adriana Ortiz (ED), VP TRAINING - Last Filed: 06/06/25 16:14> Critical Care Time Critical Care Time: No
[2025-06-06] MEDS: MORPHINE 4MG/ML SYRINGE 4 MG IV (14:04)
[2025-06-06 14:14] LABS: VBG HCO3 21.2 mmol/L (23-30); VBG PCO2 45.4 mmol/L (35-51); VBG PH 7.29 mmol/L (7.31-7.41); VBG PO2 77.0 mmol/L (28-40)
[2025-06-06 14:15] LABS: NT Pro Brain Natriuretic Pep. 540 pg/mL (0-125)
[2025-06-06 14:15] LABS: Lactate Venous 3.2 mmol/L (0.4-2.0)
[2025-06-06] MEDS: 0.9 % SODIUM CHLORIDE 50 ML VIAL IV (14:18)
[2025-06-06] MEDS: SODIUM CHLORIDE 0.9% 10ML SYR (RAD ONLY) 10 ML IV (14:18)
[2025-06-06] MEDS: IOPAMIDOL-370 (76%);100ML BOTTLE 70 ML IV (14:18)
[2025-06-06 14:28] LABS: Coronavirus 19, PCR Not Detected (NotDetected); Influenza A, PCR Not Detected (NotDetected); Influenza B, PCR Not Detected (NotDetected)
[2025-06-06] MEDS: IPRATROPIUM/ALBUTEROL 3 ML NEB 9 ML IH (14:30)
[2025-06-06 14:32] LABS: Activated Partial Thrombo Time 23.6 seconds (22.8-30.6); INR 1.14 (0.9-1.1); Prothrombin Time 12.5 seconds (10.1-12.5)
[2025-06-06] MEDS: VANCOMYCIN CONSULT REQUEST 1 EACH NOTAPPLIC (14:37)
[2025-06-06 14:38] LABS: Creatine Kinase 113 U/L (55-170)
[2025-06-06 14:44] LABS: C-Reactive Protein 3.0 mg/L (0-4)
[2025-06-06] MEDS: MAGNESIUM SULFATE IN WATER 2 GM/50 ML PIGGYBACK IV (14:44)
[2025-06-06] MEDS: DEXAMETHASONE 4MG/ML 1ML VIAL 10 MG IV (14:45)
[2025-06-06] MEDS: CEFEPIME HCL 2 GM in 0.9 % SODIUM CHLORIDE 100 ML IV (14:46)
[2025-06-06] MEDS: POTASSIUM CHLORIDE 20MEQ TAB 60 MEQ PO (14:46)
[2025-06-06] MEDS: VANCOMYCIN/WATER FOR INJ (PEG) 1.75 GM/350 ML PIGGYBACK IV (14:47)
[2025-06-06 14:50] LABS: Troponin I 0.03 ng/ml (0.00-0.034)
[2025-06-06 15:06] LABS: Total Cells Counted 100
[2025-06-06 15:08] LABS: Anisocytosis 1+; Burr Cells 1+; Macrocytosis 1+; Microcytosis 1+; Poikilocytosis 1+
[2025-06-06 15:09] LABS: Target Cells 1+; Tear Drop Cells 1+
--- NOTE | 2025-06-06 15:11 | ECG_ITS ---
APPROVED REPORT Exam: Resting ECG HR:92 bpm ECG Measurements Heart Rate 92 AXES ID 223 P 48 QRSd 95 QRS -60 QT 382 T 27 QTc 431 Conclusion SINUS RHYTHM WITH FIRST DEGREE AV BLOCK LEFT AXIS DEVIATION [QRS AXIS < -30] POSSIBLE ANTERIOR MYOCARDIAL INFARCTION , OF INDETERMINATE AGE [30 ms Q WAVE IN V3/V4, OR R < 0.2 mV IN V4] ABNORMAL ECG UNCONFIRMED REPORT Electronically signed by : Anurag Farr, 06/06/2025 23:26:53
--- NOTE | 2025-06-06 15:20 | US_ITS ---
FINAL REPORT TECHNIQUE: Sonographic images of the right upper quadrant were obtained. CLINICAL HISTORY: severe RUQ pain COMPARISON: None FINDINGS: PANCREAS: Pancreas is not well-seen. LIVER: Fatty infiltration of the liver is present.. No focal hepatic lesion. No intrahepatic biliary ductal dilatation. GALLBLADDER: Multiple gallstones are present in the gallbladder. Mild gallbladder wall thickening is present along with a small amount of Levy cholecystic fluid. COMMON DUCT: 6 mm. Normal for age. RIGHT KIDNEY: The right kidney measures 13 cm. There is no hydronephrosis, mass, or stone. FREE FLUID: None. IMPRESSION: Gallstones are present with gallbladder wall thickening and a small amount of pericholecystic fluid. Acute cholecystitis is not excluded. Fatty infiltration of the liver. Reviewed, Interpreted and Dictated by Debbie Camacho MD Transcribed by Leigh Ann Goncalves Authenticated and [facility]
[2025-06-06 15:24] LABS: D-Dimer 2.72 ug/mL (0.0-0.5)
[2025-06-06 15:29] LABS: Hepatitis C Ab Qual. W/ RFX NEGATIVE (Negative)
[2025-06-06] MEDS: HYDROMORPHONE 2MG/ML SYRINGE 0.5 MG IV (16:14)
--- NOTE | 2025-06-06 17:11 | EXP.HP ---
[facility] Disclaimer: The information contained in this section may have been updated after the patient was seen, as this information can be updated by other users. Medical History Frequency of urination History of COVID-19 Anxiety and depression Allergies Stroke Hyperlipidemia History of kidney cancer Renal cancer Diabetes mellitus Hypertension Surgical History History of incision and drainage History of nephrectomy Family History Father Cancer Coronary artery disease Mother Diabetes Social History Smoking Status: Current every day smoker alcohol intake: never substance use type: denies use current occupational status: retired Travel in the last 8 weeks?: None household members: spouse and children housing: house marital status: caffeine: No Have you lived/traveled outside US in past 30 days?: No Contact w/someone who lives/traveled outside US past 30 days?: No Exposure to someone with infectious disease in past 14 days?: No Do you have a fever (greater than 100.4 F or 38 C)?: No Have you tested positive for COVID-19?: No Exposed to someone with COVID-19 in past 14 days?: No Do you have a sore throat?: No Do you have a cough?: No Do you have any weakness?: No Do you have any diarrhea?: No Are you experiencing any unusual bleeding?: No Do you have any muscle aches/pain?: No Do you have any abdominal pain?: No Are you experiencing loss of taste or smell?: No Other Medical History Have you received the Flu Vaccine for this season: No Have you received the Pneumonia Vaccine: Yes Meds Home Medications and Allergies Home Medications ?Medication ?Instructions ?Recorded ?Confirmed ?Type clopidogrel 75 mg tablet 75 mg PO DAILY 03/07/19 05/30/24 History Held on 04/02/24. Instructions: resume on 04/06/24 hydrochlorothiazide 25 mg tablet 25 mg PO DAILY 03/07/19 05/30/24 History lisinopril 40 mg tablet 40 mg PO DAILY 03/07/19 05/30/24 History metformin 500 mg tablet 500 mg PO BID 03/07/19 05/30/24 History buspirone 10 mg tablet 10 mg PO BID 01/30/21 05/30/24 History atorvastatin 80 mg tablet 80 mg PO DAILY #30 tabs 02/22/23 05/30/24 Rx escitalopram oxalate 20 mg tablet 20 mg PO DAILY #30 tabs 02/22/23 05/30/24 Rx (Lexapro) pantoprazole 40 mg tablet,delayed 40 mg PO DAILY #30 tabs 02/22/23 05/30/24 Rx release (Protonix) bupropion HCl 150 mg 24 hr tablet, 150 mg PO DAILY 03/31/24 05/30/24 History extended release fenofibrate nanocrystallized 145 145 mg PO DAILY 03/31/24 05/30/24 History mg tablet oxycodone-acetaminophen 5 mg-325 1 tab PO Q6HP PRN Severe Pain 04/02/24 05/30/24 Rx mg tablet (7-10) 3 days #11 tabs linezolid 600 mg tablet (Zyvox) 600 mg PO BID 10 days #20 tabs 04/06/24 05/30/24 Rx lidocaine 5 % topical patch 1 patch topical DAILY PRN pain #30 06/17/24 Rx ea methocarbamol 500 mg tablet 500 mg PO Q6H PRN pain #30 tabs 06/17/24 Rx New Prescriptions to Start Prescriptions: Allergies Allergy/AdvReac Type Severity Reaction Status Date / Time No Known Allergies Allergy Verified 05/11/24 09:01 Exam Data for Last 24 hours Vital signs and Labs for Last 24 Hours: Temp Pulse Resp BP Pulse Ox O2 Del Method O2 Flow Rate 97.7 F 88 13 132/80 93 L Nasal Cannula 4 06/06/25 13:15 06/06/25 17:00 06/06/25 16:31 06/06/25 17:00 06/06/25 17:00 06/06/25 17:00 06/06/25 17:00 Laboratory Results - last 24 hr 06/06/25 13:20: D-Dimer 2.72 H, NT-Pro-B Natriuret Pep 540 H 06/06/25 13:30: WBC 21.8 H*, RBC 5.44, Hgb 16.6, Hct 49.8, MCV 91.5, MCH 30.5, MCHC 33.3, RDW 13.7, Plt Count 277, MPV 11.0 H, Neut % (Auto) 89.3 H, Lymph % (Auto) 6.4 L, [place] % (Auto) 3.4, Eos % (Auto) 0.0 L, Baso % (Auto) 0.4, Neut # (Auto) 19.5 H, Lymph # (Auto) 1.4, [place] # (Auto) 0.7, Eos # (Auto) 0.0, Baso # (Auto) 0.1, Total Counted 100, Neutrophils % (Manual) 90 H, Lymphocytes % (Manual) 7 L, Monocytes % (Manual) 3, Platelet Estimate Normal, RBC Morphology Not Reportable, Poikilocytosis 1+, Anisocytosis 1+, Microcytosis 1+, Macrocytosis 1+, Target Cells 1+, Tear Drop Cells 1+, Gumaro Cells 1+, Sodium 134 L, Potassium 3.4 L, Chloride 101, Carbon Dioxide 24, Anion Gap 12.4, BUN 33 H, Creatinine 1.70 H, Estimated Creat Clear 61, Estimated GFR 40 L, Est GFR ( Amer) 49 L, Glucose 170 H, Calcium 9.5, Total Bilirubin 2.7 H, AST 259 H, ALT 137 H, Alkaline Phosphatase 97, Total Protein 7.8, Albumin 4.7, Globulin 3.1, Albumin/Globulin Ratio 1.5, Lipase 19534 H, HCV Ab [place] w/Rflx PCR Qn Negative, HIV Ag/Ab Combo Qual Negative 06/06/25 13:51: VBG pH 7.29 L, VBG pCO2 45.4, VBG pO2 77.0 H, VBG HCO3 21.2 L, VBG Total CO2 22.6 L, VBG O2 Saturation 93.6 H, VBG Base Excess -5.4 L, VBG Lactic Acid 3.2 H 06/06/25 13:55: ESR 1, PT 12.5, INR 1.14 H, APTT 23.6, Lactate 2.6 H, Total Creatine Kinase 113, Troponin I 0.03, C-Reactive Protein 3.0 06/06/25 14:20: SARS-CoV-2 (PCR) Not detected, Influenza A Untype (PCR) Not detected, Influenza Type B (PCR) Not detected I & O for Last 24 hours: Intake & Output 06/03/25 06/04/25 06/05/25 06/06/25 23:59 23:59 23:59 23:59 Intake Total 4280 / 4280 Balance 4280 / 4280 Weight 104.326 kg
[2025-06-06 18:01] LABS: Troponin I 0.04 ng/ml (0.00-0.034)
--- NOTE | 2025-06-06 18:06 | PC.NURSE ---
arrived by w/c from ED
[2025-06-06 18:15] LABS: Reflex Lactic Add Lactic Reflex
--- NOTE | 2025-06-06 18:52 | P.HP_ITS ---
<Statement entered by Timmy Ocampo MD - 06/12/25 15:53> Agree with plan of care as outlined by the [facility]. History of Present Illness *Admission Date: 06/06/25 *Reason for visit:: Abdominal pain *History of present illness: This is a 70-year-old male who has a past medical history significant for COVID-19 infection, anxiety, depression, CVA, hyperlipidemia, kidney cancer, colitis, and hypertension who presents with a chief complaint of abdominal pain. Due to patient's symptoms, presented to the emergency room for evaluation. While in the emergency room, patient had significant elevated LFT. Gallbladder ultrasound revealed gallstones present with within the gallbladder/associated with gallbladder wall thickening and a small amount of pericholecystic fluid alluding to acute cholecystitis/fatty liver infiltration was also noted. CT scan of the chest abdomen distal esophagus which could be seen in neoplastic or related esophagitis. CT scan of the abdomen pelvis revealed acute pancreatitis wall thickening versus small amount of Pericholecystic fluid, and enlarged prostate. As a result of these findings, hospital medicine was consulted for further management. During my evaluation of the patient, patient states he started having diffuse abdominal pain this morning around 1100 hrs. He reports having greenish emesis. He called and spoke with his significant other and informed her that he was not feeling well and needed to be taken to patient also has some associated shortness of air and is currently on 2 L of oxygen by nasal cannula. He reports a multiple year history of a pack a day smoking. He is currently denying chest pain, lightheadedness, dizziness, fever, chills, rigors, dyspnea, PND, orthopnea, lower extremity swelling, or diarrhea. Patient states he is having normal bowel movements. Additional pertinent labs obtained include a white blood cell count of 21.8, neutrophils 89.3%, INR 1.14, pH 7.29, HCO3 21.2, sodium 130 potassium 3.4, 3, creatinine 1.70, GFR 40, blood glucose 170, lactic acid 2.6, total bilirubin 2.7, AST of 259, ALT of 137, and lipase of 22,734. [facility] Disclaimer: The information contained in this section may have been updated after the patient was seen, as this information can be updated by other users. Medical History Frequency of urination History of COVID-19 Anxiety and depression Allergies Stroke Hyperlipidemia History of kidney cancer Renal cancer Diabetes mellitus Hypertension Surgical History History of incision and drainage History of nephrectomy Family History Father Cancer Coronary artery disease Mother Diabetes Social History Smoking Status: Current every day smoker alcohol intake: never substance use type: denies use current occupational status: retired Travel in the last 8 weeks?: None household members: spouse and children housing: house marital status: caffeine: No Have you lived/traveled outside US in past 30 days?: No Contact w/someone who lives/traveled outside US past 30 days?: No Exposure to someone with infectious disease in past 14 days?: No Do you have a fever (greater than 100.4 F or 38 C)?: No Have you tested positive for COVID-19?: No Exposed to someone with COVID-19 in past 14 days?: No Do you have a sore throat?: No Do you have a cough?: No Do you have any weakness?: No Do you have any diarrhea?: No Are you experiencing any unusual bleeding?: No Do you have any muscle aches/pain?: No Do you have any abdominal pain?: No Are you experiencing loss of taste or smell?: No Other Medical History Have you received the Flu Vaccine for this season: No Have you received the Pneumonia Vaccine: Yes Review of Systems Review of Systems Review of systems:: pertinent systems reviewed and negative unless documented b elow Constitutional Constitutional: Reports system reviewed and no additional complaints, except as documented Eyes Eyes: Reports system reviewed and no additional complaints, except as documented ENT Ears, Nose, Mouth, and Throat: Reports system reviewed and no additional complaints, except as documented *Cardiovascular Cardiovascular: Reports system reviewed and no additional complaints, except as documented and Reports dyspnea *Respiratory Respiratory: Reports dyspnea *Gastrointestinal Gastrointestinal: Reports abdominal pain and Reports vomiting *Genitourinary Genitourinary: Reports system reviewed and no additional complaints, except as documented *Musculoskeletal Musculoskeletal: Reports system reviewed and no additional complaints, except as documented Integumentary/Breasts Skin/Breast: Reports system reviewed and no additional complaints, except as documented *Neurologic Neurologic: Reports system reviewed and no additional complaints, except as documented Psychiatric Psychiatric: Reports system reviewed and no additional complaints, except as documented Endocrine Endocrine: Reports system reviewed and no additional complaints, except as documented Hematologic/Lymphatic Hematologic/Lymphatic: Reports system reviewed and no additional complaints, except as documented Allergic/Immunologic Allergic/Immunologic: Reports system reviewed and no additional complaints, except as documented Meds Home Medications and Allergies Home Medications ?Medication ?Instructions ?Recorded ?Confirmed ?Type clopidogrel 75 mg tablet 75 mg PO DAILY 03/07/1905/06 History Held on 04/02/24. Instructions: resume on 04/06/24 hydrochlorothiazide 25 mg tablet 25 mg PO DAILY 05/30/24 History lisinopril 40 mg tablet 40 mg PO DAILY 03/07/1905/06 History metformin 500 mg tablet 500 mg PO BID 03/07/1905/30 History buspirone 10 mg tablet 10 mg PO BID 01/30/21 History atorvastatin 80 mg tablet 80 mg PO DAILY #30 tabs 02/0305/30/24 Rx escitalopram oxalate 20 mg tablet 20 mg PO DAILY #30 t abs 02/22/23 05/30/24 Rx (Lexapro) pantoprazole 40 mg tablet,delayed 40 mg PO DAILY #30 t abs 02/22/23 05/30/24 Rx release (Protonix) bupropion HCl 150 mg 24 hr tablet, 150 mg PO DAILY 05/30/24 History extended release fenofibrate nanocrystallized 145 145 mg PO DAILY 03/3105/30/24 History mg tablet oxycodone-acetaminophen 5 mg-325 1 tab PO Q6HP PRN Sev ere Pain 04/02/24 05/30/24 Rx mg tablet (7-10) 3 days #11 tabs linezolid 600 mg tablet (Zyvox) 600 mg PO BID 10 days #20 tabs 04/06/24 05/30/24 Rx lidocaine 5 % topical patch 1 patch topical DAILY PRN pain #30 06/17/24 Rx ea methocarbamol 500 mg tablet 500 mg PO Q6H PRN pain #30 tabs 06/17/24 Rx New Prescriptions to Start Prescriptions: Allergies Allergy/AdvReac Type Severity Reaction Status Date / Time No Known Allergies Allergy Verified 05/11/24 09:01 Exam Data for Last 24 hours Vital signs and Labs for Last 24 Hours: Temp Pulse Resp BP Pulse Ox O2 Del Method O2 Flow Rate 98.2 F 74 18 154/78 H 93 L Nasal Cannula 2 06/06/25 17:33 06/06/25 17:33 06/06/25 17:33 06/06/25 17:33 06/06/25 17:00 06/06/25 17:33 06/06/25 17:33 Laboratory Results - last 24 hr 06/06/25 13:20: D-Dimer 2.72 H, NT-Pro-B Natriuret Pep 540 H 06/06/25 13:30: WBC 21.8 H*, RBC 5.44, Hgb 16.6, Hct 49.8, MCV 91.5, MCH 30.5, MCHC 33.3, RDW 13.7, Plt Count 277, MPV 11.0 H, Neut % (Auto) 89.3 H, Lymph % (Auto) 6.4 L, [place] % (Auto) 3.4, Eos % (Auto) 0.0 L, Baso % (Auto) 0.4, Neut # (Auto) 19.5 H, Lymph # (Auto) 1.4, [place] # (Auto) 0.7, Eos # (Auto) 0.0, Baso # (Auto) 0.1, Total Counted 100, Neutrophils % (Manual) 90 H, Lymphocytes % (Manual) 7 L, Monocytes % (Manual) 3, Platelet Estimate Normal, RBC Morphology Not Reportable, Poikilocytosis 1+, Anisocytosis 1+, Microcytosis 1+, Macrocytosis 1+, Target Cells 1+, Tear Drop Cells 1+, [place]umaro Cells 1+, Sodium 134 L, Potassium 3.4 L, Chloride 101, Carbon Dioxide 24, Anion Gap 12.4, BUN 33 H, Creatinine 1.70 H, Estimated Creat Clear 61, Estimated GFR 40 L, Est GFR ( Amer) 49 L, Glucose 170 H, Calcium 9.5, Total Bilirubin 2.7 H, AST 259 H, ALT 137 H, Alkaline Phosphatase 97, Total Protein 7.8, Albumin 4.7, Globulin 3.1, Albumin/Globulin Ratio 1.5, Lipase 01449 H, HCV Ab [place] w/Rflx PCR Qn Negative, HIV Ag/Ab Combo Qual Negative 06/06/25 13:51: VBG pH 7.29 L, VBG pCO2 45.4, VBG pO2 77.0 H, VBG HCO3 21.2 L, VBG Total CO2 22.6 L, VBG O2 Saturation 93.6 H, VBG Base Excess -5.4 L, VBG Lactic Acid 3.2 H 06/06/25 13:55: ESR 1, PT 12.5, INR 1.14 H, APTT 23.6, Lactate 2.6 H, Total Creatine Kinase 113, Troponin I 0.03, C-Reactive Protein 3.0 06/06/25 14:20: SARS-CoV-2 (PCR) Not detected, Influenza A Untype (PCR) Not detected, Influenza Type B (PCR) Not detected 06/06/25 17:21: Troponin I 0.04 H I & O for Last 24 hours: Intake & Output 06/03/25 06/04/25 06/05/25 06/06/25 23:59 23:59 23:59 23:59 Intake Total 4630 / 4630 Balance 4630 / 4630 Weight 104.326 kg Constitutional Constitutional: no acute distress, obese and cooperative *Routine HEENT Exam Head: Present normocephalic and atraumatic Eye: Present EOMI and PERRL ENT: Present mucous membranes moist *Routine Neck Exam Neck: Present supple, full ROM and trachea midline *Routine Respiratory Exam Respiratory: Present wheezes, normal respiratory effort, able to speak in complete sentences and symmetric chest movement *Routine Cardiovascular Exam Cardiovascular: Present RRR, Normal S1 and Normal S2 *Routine Abdominal Exam Abdominal: Present soft, normoactive bowel sounds and obese *Routine Rectal Exam Rectal:: deferred *Routine Genitalia Exam Genitalia:: deferred *Routine Extremities Exam Extremities: Present full ROM and normal capillary refill Routine Back/Spine/Pelvis Exam Back/Spine: Present full ROM *Routine Skin Exam Skin: Present intact, dry, warm and normal turgor *Routine Neurological Exam Neurological: Present alert, oriented X3, CN II-XII intact, moving all extremities and normal speech Routine Psychiatric Exam Psychiatric: Present normal affect, normal thought process, cooperative, good insight and good judgment H&P: Result Impressions 70-year-old male presents with acute abdominal pain found to have acute pancreatitis most likely due to acute cholecystitis. Assessment and Plan *Assessment and plan (1) Sepsis: Status: Acute Qualifiers: Sepsis type: sepsis due to unspecified organism Sepsis acute organ dysfunction status: unspecified Qualified Code(s): A41.9 - Sepsis, unspecified organism Category: Medical Code(s): A41.9 - Sepsis, unspecified organism (2) Acute gallstone pancreatitis: Status: Acute Category: Medical Code(s): K85.10 - Biliary acute pancreatitis without necrosis or infection (3) Leukocytosis: Status: Acute Qualifiers: Leukocytosis type: unspecified Qualified Code(s): D72.829 - Elevated white blood cell count, unspecified Category: Medical Code(s): D72.829 - Elevated white blood cell count, unspecified (4) Hypokalemia: Status: Acute Category: Medical Code(s): E87.6 - Hypokalemia (5) Acute kidney injury: Status: Acute Category: Medical Code(s): N17.9 - Acute kidney failure, unspecified (6) Hyperglycemia due to diabetes mellitus: Status: Acute Category: Medical Code(s): E11.65 - Type 2 diabetes mellitus with hyperglycemia (7) Lactic acidosis: Status: Acute Category: Medical Code(s): E87.20 - Acidosis, unspecified (8) Transaminitis: Status: Acute Category: Medical Code(s): R74.01 - Elevation of levels of liver transaminase levels (9) Enlarged prostate: Status: Acute Category: Medical Code(s): N40.0 - Benign prostatic hyperplasia without lower urinary tract symptoms (10) Cholelithiasis: Status: Acute Qualifiers: Cholelithiasis location: gallbladder Cholecystitis acuity: unspecified acuity Biliary obstruction: without biliary obstruction Cholecystitis presence: with cholecystitis Qualified Code(s): K80.10 - Calculus of gallbladder with chronic cholecystitis without obstruction Category: Medical Code(s): K80.20 - Calculus of gallbladder without cholecystitis without obstruction Plan Assessment: Sepsis: Patient is meeting sepsis criteria with high white blood cell count, elevated heart rate, and source of gallbladder Acute gallstone pancreatitis: [place] criteria 3 Leukocytosis with left shift Lactic acidosis Transaminitis: AST greater than ALT: Ratio 1.8 Cholelithiasis: Seen on imaging - Patient is currently meeting sepsis criteria but he did not receive 30 mL/kg of body weight of IV hydration. Patient has stable blood pressure - Blood cultures x 2 - Will trend patient's lactate - 3.375 g of Zosyn IV every 6 hours - Sepsis reperfusion screening performed - Consult general surgery - Consult GI specialist - Obtain lipid panel - More than likely patient will require cholecystectomy - May benefit from ERCP - Sips and chips - Keep patient n.p.o. - Will trend LFT - LR at 100 mL an hour Acute kidney injury - Patient may have some chronic renal impairment baseline creatinine appears to be around 1.3 - Will avoid nephrotoxic drugs - Will give IV hydration - Will monitor creatinine daily - If no improvement will obtain urine studies. And renal ultrasound - Most likely prerenal Enlarged prostate - Obtain PSA - Patient is not voicing any obstructive urinary flow Esophagitis -This was seen on imaging - Protonix daily 40 mg p.o. Hyperglycemia: Most likely due to diabetes - Sliding scale insulin every 6 hours with mild scale coverage Plan: Admit patient to the MedSurg unit Activity as tolerated SCD to bilateral lower extremity Sublinox maintain oxygen saturation greater 94% Vital signs every 4 hours N.p.o. except for ice chips Hemoglobin A1c Fractionate bilirubin CBC/CMP daily Lipid panel in a.m. Daily lipase 5 mg [place] p.o. every 4 hours for moderate pain 0.5 mg hydromorphone IV push every 4 hours as needed severe pain DuoNebs every 6 hours as needed shortness of breath 21 mg nicotine patch daily 4 mg Zofran IV push every 8 hours pain nausea balm Patient's potassium was replaced in emergency room Full code I have discussed this case with attending physician Dr. Ocampo and I look forward to more input
[2025-06-06 19:13] LABS: Bilirubin,Direct 1.7 mg/dl (0.0-0.4); Bilirubin,Indirect 0.8 mg/dL (0.0-0.9); Bilirubin,Total 2.5 mg/dl (0.2-1.3); Bilirubin,Unconjugated 0.8 mg/dL (0.0-1.1)
--- NOTE | 2025-06-06 19:16 | EXP.SEPSISRE ---
[facility] Tissue Perfusion Eval Sepsis Re-Evaluation Performed: Yes Date Performed: 06/06/25 Time Performed: 19:16
[2025-06-06] MEDS: LACTATED RINGERS 1000ML 1,000 ML 100 ML IV (20:11)
[2025-06-06] MEDS: PANTOPRAZOLE 40MG TABLET 40 MG PO (20:12)
[2025-06-06 20:33] LABS: Microscopic, Urine URINE MICROSCOPIC (MICROSCOPIC)
[2025-06-06 20:41] LABS: Bilirubin,Urine Negative (Negative); Color,Urine YELLOW (Yellow); Glucose,Urine (UA) Negative (Negative); Ketones,Urine Negative (Negative); Leukocyte Esterase,Urine Negative (Negative); PH,Urine 5.5 (5.0-8.5); Protein,Urine 1+ (Negative); Specific Gravity, Urine 1.020 (1.005-1.030); Urobilinogen,Urine 0.2 EU/dl (0.2)
[2025-06-06 20:47] LABS: POC Glucose,Bedside 115 gm/dL (70-110)
[2025-06-06 21:23] LABS: Lactic Acid Follow Up (RFLX 1) 2.1 mmol/L (0.7-2.1)
[2025-06-06 21:33] LABS: Bacteria,Urine 2+ /lpf
[2025-06-06 21:35] LABS: Troponin I 0.04 ng/ml (0.00-0.034)
--- NOTE | 2025-06-06 21:47 | PC.NURSE ---
patient refuses to wear SCD's. a&ox4 but forgetful which is his baseline after his CVA.
[2025-06-06] MEDS: KETOROLAC 30MG/ML VIAL 15 MG IV (22:01)
--- NOTE | 2025-06-06 22:07 | PC.NURSE ---
Addendum entered by Josh Kilpatrick RN 06/07/25 04:56: patient c/o 04/13 abd pain x2 - tx per SEP Original Note: pt c/o 04/13 abd pain - tx per MAR
[2025-06-06 22:51] LABS: Hemoglobin A1C 5.6 % (4.0-6.0)
[2025-06-06 23:09] LABS: Reflex Lactic (2 hrs) Add Lactic Reflex
[2025-06-06 23:55] LABS: Lactic Acid Follow up (RFLX 2) 1.6 mmol/L (0.7-2.1)
[2025-06-07] VITALS (19 sets, daily range): BP systolic 140–162; BP diastolic 64–102; PULSE 69–104; RESP 14–24; TEMP 36.5–37.5; O2SAT 90–99; BMI 33.1
[2025-06-07] MEDS: PIPERACILLIN/TAZO 3.375 GM in 0.9 % SODIUM CHLORIDE 50 ML IV ×4 (00:15→17:26)
[2025-06-07 00:22] LABS: POC Glucose,Bedside 140 gm/dL (70-110)
[2025-06-07] MEDS: MORPHINE 4MG/ML SYRINGE 4 MG IV ×3 (03:32→21:31)
[2025-06-07] MEDS: OXYCODONE 7.5MG W/APAP 325MG TABLET 1 EACH PO (04:39)
[2025-06-07 06:18] LABS: POC Glucose,Bedside 126 gm/dL (70-110)
[2025-06-07 06:23] LABS: Albumin Level 4.0 g/dl (3.5-5.0); Chloride 106 mmol/L (98-107)
[2025-06-07 06:24] LABS: Potassium 4.8 mmoL/L (3.5-5.1); Sodium 144 mmol/L (136-145)
[2025-06-07 06:26] LABS: Alanine Aminotransferase 205 U/L (12-78); Albumin/Globulin Ratio 1.4 (1.1-1.8); Alkaline Phosphatase 72 U/L (38-126); Anion Gap 18.8 mEq/L (5-15); Aspartate Amino Transferase 191 U/L (17-59); Bilirubin,Total 2.0 mg/dl (0.2-1.3); Blood Urea Nitrogen 37 mg/dl (9-20); Carbon Dioxide 24 mmol/L (22.0-30.0); Creatinine Clearance Estimated 55 mL/min (50-200); Creatinine,Serum 1.90 mg/dl (0.66-1.25); Estimated Glomerular Filt Rate 35 ml/min (>60); GFR (African American) 43 ML/MIN (>60); Globulin 2.9 g/dL (1.3-3.2); Total Protein,Serum 6.9 g/dl (6.3-8.2)
[2025-06-07 06:27] LABS: Calcium 8.4 mg/dl (8.4-10.2); Cholesterol 80 mg/dl (140-200); Glucose 117 mg/dl (74-100); HDL Cholesterol 34 mg/dl (40-60); Magnesium 2.0 mg/dl (1.6-2.3); Triglycerides 66 mg/dl (30-150)
[2025-06-07 06:39] LABS: Hematocrit 44.7 % (42.0-52.0); Immature Granulocytes % 0.6 %; Mean Corpuscular HGB Conc 31.8 g/dL (31.8-35.4); Mean Corpuscular Hemoglobin 30.0 pg (27.0-31.2); Mean Corpuscular Volume 94.3 fl (80-94); Nucleated Red Blood Cells % 0 %; Platelet Count 216 K/mm3 (142-424); Red Blood Count 4.74 M/mm3 (4.60-6.20); Red Cell Distribution Width-SD 48.6 fL; White Blood Count 21.4 K/mm3 (4.8-10.8)
[2025-06-07 06:45] LABS: Hemoglobin 14.2 g/dL (14.1-18.0)
[2025-06-07 07:35] LABS: Lipase 3647 U/L (23-300)
[2025-06-07 08:05] LABS: Prostate Specific Ag, Diagnost 8.08 ng/ml (0.0-4.0)
[2025-06-07] MEDS: HYDROCODONE/APAP 5/325 MG TABLET 1 TAB PO (08:39)
[2025-06-07] MEDS: LACTATED RINGERS 1000ML 1,000 ML 100 ML IV (08:43)
--- NOTE | 2025-06-07 09:13 | [facility].PHAAMS2 ---
- Antimicrobial Stewardship Review culture & sensitivity review Stewardship interventions: culture & sensitivity review, reviewed - no change Comments: URINE AND BLOOD CULTURES PENDING, EMPIRIC THERAPY CONTINUED
--- OUTSIDE RECORDS SUMMARY | 2025-06-07 10:01 | XMS_ITS | Patient Health Record ---
Author Organization [facility] Address [address] [place] [address] Care Team Providers Care Wall Worker Name Role Phone AreliLeonardo Primary Care Provider TrishCaryn sevilla Unavailable [phone] Migration, Provider Unavailable Unavailable Allergies No Known Allergies Results Component Value Reference Range Notes Microalbumin (In-House) Reviewed date:11/16/2024 09:14:12 AM Interpretation: Performing Lab: Notes/Report: ALB 150 CRE 100 A:C >300 HEMOGLOBIN A1c (496) Reviewed date:10/12/2024 02:37:23 PM Interpretation: Performing Lab:[facility] [id number] [address] [facility] HoldCodavid Apple [id number] Will Lyle Notes/Report: NON-FASTING; NON-FASTING; NON-FASTING FASTING:NO FASTING: NO HEMOGLOBIN A1c 6.1 <5.7 % of total Hgb targets should be individualized based on duration of considerations. of diabetes. This assay result is consistent with an increased risk diabetes, age, comorbid conditions, and other A1c value between 5.7% and 6.4% is consistent with Currently, no consensus exists regarding use of For someone without known diabetes, a hemoglobin follow-up test. indicates that their diabetes is well controlled. A1c hemoglobin A1c for diagnosis of diabetes for children. For someone with known diabetes, a value <7% prediabetes and should be confirmed with a COMPREHENSIVE METABOLIC PANE L (12539) Reviewed date:10/12/2024 02:37:23 PM Interpretation: Performing Lab:[facility] [id number] [address] Easy [employer] Film [id number] Will Lyle Notes/Report: NON-FASTING; NON-FASTING; NON-FASTING FASTING:NO [...] 15 10-35 U/L ALT 18 9-46 U/L LIPID PANEL, STANDARD (7600) Reviewed date:10/12/2024 02:37:23 PM Interpretation: Performing Lab:CB, [facility] [address], [facility] ClinicDbsbWW[address] Will Lyle Notes/Report: NON-FASTING; NON-FASTING; NON-FASTING FASTING:NO FASTING: NO CHOLESTEROL, TOTAL 97 <200 mg/dL HDL CHOLESTEROL 31 > OR = 40 mg/dL TRIGLYCERIDES 113 <150 mg/dL LDL-CHOLESTEROL 46 with > or = 2 CHD risk factors. estimation of LDL-C. LDL-C is now calculated using the Lisa better accuracy than the Friedewald equation in the (http://education.Mission Air.Real Food Real Kitchens/faq/IJQ233) Og WOODWARD et al. BRIAN. 2013;310(19): 9607-5070 <70 mg/dL for patients with CHD or diabetic patients Reference range: <100 Desirable range <100 mg/dL for primary prevention; calculation, which is a validated novel method providing CHOL/HDLC RATIO 3.1 <5.0 (calc) NON HDL CHOLESTEROL 66 <130 mg/dL (calc) For patients with diabetes plus 1 major ASCVD risk factor, treating to a non-HDL-C goal of <100 mg/dL option. (LDL-C of <70 mg/dL) is considered a therapeutic X ray : Hip, Right Reviewed date:03/13/2025 12:55:18 PM Interpretation: Performing Lab: Notes/Report: X ray : Hip, Right Reviewed date:03/13/2025 12:55:18 PM Interpretation: Performing Lab: Notes/Report: X ray : Spines, Lumbosacral Reviewed date:03/09/2025 12:20:45 PM Interpretation: Performing Lab: Notes/Report: HEMOGLOBIN A1c (496) Reviewed date:01/24/2025 10:18:07 AM Interpretation: Performing Lab:[facility] [id number] [address] [place], [facility] [id number] Will Lyle Notes/Report: NON-FASTING; NON-FASTING HEMOGLOBIN A1c 6.2 <5.7 % targets should be individualized based on duration of A1c value between 5.7% and 6.4% is consistent with of diabetes. hemoglobin A1c for diagnosis of diabetes for children. indicates that their diabetes is well controlled. A1c follow-up test. considerations. For someone without known diabetes, a hemoglobin diabetes, age, comorbid conditions, and other Currently, no consensus exists regarding use of This assay result is consistent with an increased risk prediabetes and should be confirmed with a For someone with known diabetes, a value <7% BASIC METABOLIC PANEL (36068 ) Reviewed date:01/24/2025 10:18:07 AM Interpretation: Performing Lab:[facility] [id number], TrackMavenQhigCC[address] Will Lyle Notes/Report: NON-FASTING; NON-FASTING GLUCOSE 135 65-99 mg/dL diabetes and this should be confirmed with a value >125 mg/dL indicates that they may have Fasting reference interval follow-up test. For someone without known diabetes, a glucose UREA NITROGEN (BUN) 26 7-25 mg/dL CREATININE [...] review and pick correct strength-formulat ion from [employer] options. If intended option is not shown, [...] Status Risk Notes Problem Diabetic renal disease (773073546) Type 2 diabetes mellitus with other diabetic kidney complication (E11.29) Active confirmed Problem Nicotine dependence (09153265) Personal history of nicotine dependence (Z87.891) Active confirmed Problem Anxiety (90066331) Anxiety (F41.9) Active confi rmed Problem Hyperlipidemia due t o type 2 diabetes mellitus (disorder) (893725768396639) Hyperlipidemia associated with type 2 diabetes mellitus (E11.69) Active confirmed Problem Hypertriglyceridemia (588811565) Hypertriglyceridemia (E78.1) Active confirmed Problem Diabetes mellitus type 2 in obese (70706657) Diabetes mellitus type 2 in obese (E11.9) Active confirmed Problem Essential hypertension (32274710) Essential hypertension (I10) Active confirmed Problem Hyperlipidemia (66802691) Hyperlipemia, idiopathic familial (E78.5) Active confirmed Problem Gastroesophageal reflux disease (614868451) GERD without esophagitis (K21.9) Active confirmed Problem Tubular adenoma of colon (288854498) Tubular adenoma of colon (D12.6) Active confirmed Problem Sciatica (63278958) Right sciati c nerve pain (M54.31) Active confirmed Problem Localized, primary osteoarthritis of the pelvic region and thigh (867613546) 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) Active confirmed Problem Primary malignant neoplasm of kidney (93169500) Renal cell cancer, unspecified laterality (C64.9) Active confirmed Problem Lower urinary tract symptoms due to benign prostatic hypertrophy (00927893952223) Benign prostatic hyperplasia with lower urinary tract symptoms (N40.1) Active confirmed Problem Stasis dermatitis (disorder) (78331780) Stasis dermatitis of both legs (I87.2) Active confirmed Problem Chronic kidney disease stage 2 (578942995) Stage 2 chronic kidney disease (N18.2) Active confirmed Problem COVID-19 (624450833) COVID-19 (U07.1) Active co nfirmed Problem Chronic kidney disease stage 3A (disorder) (435636659) CKD stage 3a, GFR 45-59 ml/min (N18.31) Active confirmed Vital Signs Heart Rate 78 /min 03/13/2025 Temperature 98 degrees Fahrenheit 03/13/2025 Blood pressure diastolic 110 mm Hg 03/13/2025 Height 68 in 03/13/2025 Blood pressure systolic 145 mm Hg 03/13/2025 Weight 220 lbs 03/13/2025 BMI 33.45 kg/m2 03/13/2025 Encounters Encounter Location Date [facility] [address] [facility] [address] [place] [address] 10/07/2024 Provider Migration Anxiety F41.9 ; GERD without esophagitis K21.9 and Hypertension, essential I10 [facility] [address] [address] 08/31/2024 Leonardo Areli Hypertension, essential I10 and Anxiety F41.[address] [facility] [address] 10/10/2024 Leonardo Besson Diabetes mellitus ty pe 2 in obese E11.9 ; Hyperlipidemia associated with type 2 diabetes mellitus E11.69 ; Type 2 diabetes mellitus with other diabetic kidney complication E11.29 ; GERD without esophagitis K21.9 ; Anxiety F41.9 ; Hypertension, essential I10 and Routine medical exam Z00.[address] [address] 11/16/2024 Leonardo Besson Hypertension, essential I10 and Type 2 diabetes mellitus with other diabetic kidney complication E11.[address] [facility] [address] 01/23/2025 Leonardo Besson Diabetes mellitus ty pe 2 in obese E11.9 ; CKD stage 3a, GFR 45-59 ml/min N18.31 and Hypertension, essential I10 [facility] [address] [address] 02/28/2025 Caryn Chambers Right sciatic nerve pain M54.31 and Essential hypertension I10 [facility] [address] [address] 03/06/2025 Leonardo Besson Primary osteoarthrit is of right hip M16.11 and Essential hypertension I10 [facility] [address] [address] 03/13/2025 Leonardo Besson Primary osteoarthrit is of right hip M16.11 [facility] [address] [address] 08/17/2024 Leonardo Besson [facility] [address] [place] [address] 02/28/2025 Caryn Chambers [facility] [address] [address] 03/06/2025 Leonardo Besson Primary osteoarthrit is of right hip M16.11 [facility] [address] [address] 03/09/2025 Leonardo Besson [facility] [address] [address] 03/15/2025 Leonardo Besson Anxiety F41.9 and Hypertension, [...] End Date [employer] [address] [address] [place] [address] [id number] Rosa Melony Self - patient is the insured Medications Administered Medication Instructions Date of Administration Dosage Notes Dexamethasone 4mg Injection 02/28/2025 4 mg Regen-Cov 03/28/2021 2.5 mL Right arm- Lot # [id number] Regen-Cov 03/28/2021 2.5 mL right leg Regen-Cov 03/28/2021 2.5 mL Left arm Regen-Cov 03/28/2021 2.5 mL left leg Medical (General) History Medical History History ICD Code hypertension type 2 diabetes hyperlipidemia renal cell cancer diagnosed March 24 follows with yearly eye examinations at [facility] optometry clinic Birads 1 LDCT 12/22 - Repeated 01/25-BI-RA DS 1 Colonoscopy 08/26 with diverticulosis and diminutive polyps - f/u in 7-10 BI-RADS 1 low-dose CT scan December 2023 AAA screening negative with CT abdomen/p lexus 2021 Surgical History Surgery Date(Month/Year) left nephrectomy for renal cell cancer S [id number] Hospitalization History Reason Date(Month/Year) stroke 08/2018 above
--- OUTSIDE RECORDS SUMMARY | 2025-06-07 10:01 | XMS_ITS | Clinical Summary ---
Author Organization Healthcare Address [address] [place] [address] Care Team Providers Care Administrative Nursing Supervisor Name Role Phone Leonardo Singleton MD Primary Care Provider [phone] Allergies No known active allergies Medications verapamil [...] of Treatment Not on file Care Teams Administrative Nursing Supervisor Relationship Specialty Start Date End Date Leonardo Singleton MD [address] [place] [address] PCP - General 04/30/21
--- NOTE | 2025-06-07 12:30 | EXP.SURG.CON ---
History of Present Illness *Admission Date: 06/06/25 *Reason for visit:: Gallstone pancreatitis with acute cholecystitis. *History of present illness: Patient is a 70-year-old male from [facility] with history of diabetes, kidney cancer (status post prior left nephrectomy), hyperlipidemia, previous CVA, anxiety and depression, tobacco abuse. He developed acute onset of abdominal pain with associated emesis approximately 11 AM on 06/06/2025. He presented to the emergency department. He was found to have some derangement of his liver function tests. He had a notable leukocytosis. CT scan of the abdomen revealed findings consistent with acute pancreatitis with some gallbladder wall thickening versus Pericholecystic fluid and prostate enlargement. CTA of the chest revealed prominent wall thickening of the distal esophagus which could be neoplastic or related to esophagitis. Gallbladder ultrasound performed which revealed gallstones, gallbladder wall thickening with small amount of Pericholecystic fluid, 6 mm common bile duct. In the emergency department discussion was held with gastroenterology and arrangements were made for admission for inpatient management for biliary pancreatitis and ERCP. Surgery was consulted as well. . [facility] Disclaimer: The information contained in this section may have been updated after the patient was seen, as this information can be updated by other users. Medical History Frequency of urination History of COVID-19 Anxiety and depression Allergies Stroke Hyperlipidemia History of kidney cancer Renal cancer Diabetes mellitus Hypertension Surgical History History of incision and drainage History of nephrectomy Family History Father Cancer Coronary artery disease Mother Diabetes Social History (Updated 06/06/25 @ 20:21 by Josh Kilpatrick RN) Smoking Status: Current every day smoker tobacco type: cigarettes packs per day: 3 alcohol intake: never substance use type: denies use current occupational status: retired Travel in the last 8 weeks?: None household members: spouse and children housing: house marital status: caffeine: No Have you lived/traveled outside US in past 30 days?: No Contact w/someone who lives/traveled outside US past 30 days?: No Exposure to someone with infectious disease in past 14 days?: No Do you have a fever (greater than 100.4 F or 38 C)?: No Have you tested positive for COVID-19?: No Exposed to someone with COVID-19 in past 14 days?: No Do you have a sore throat?: No Do you have a cough?: No Do you have any weakness?: No Do you have any diarrhea?: No Are you experiencing any unusual bleeding?: No Do you have any muscle aches/pain?: No Do you have any abdominal pain?: No Are you experiencing loss of taste or smell?: No Review of Systems *Neurologic Neurologic: Reports system reviewed and no additional complaints, except as documented Meds Home Medications and Allergies Home Medications ?Medication ?Instructions ?Recorded ?Confirmed ?Type hydrochlorothiazide 25 mg tablet 25 mg PO DAILY 03/07/19 06/06/25 History metformin 500 mg tablet 500 mg PO BID 03/07/19 06/06/25 History buspirone 10 mg tablet 10 mg PO BID 01/30/21 06/07/25 History pantoprazole 40 mg tablet,delayed 40 mg PO DAILY #30 tabs 02/22/23 06/06/25 Rx release (Protonix) fenofibrate nanocrystallized 145 145 mg PO DAILY 03/31/24 06/06/25 History mg tablet aspirin 81 mg capsule 81 mg PO DAILY 06/06/25 06/06/25 History clopidogrel 75 mg tablet 75 mg PO DAILY 06/06/25 06/06/25 History escitalopram oxalate 20 mg tablet 20 mg PO DAILY 06/06/25 06/06/25 History lisinopril 40 mg tablet 40 mg PO DAILY 06/06/25 06/06/25 History atorvastatin 80 mg tablet 80 mg PO HS 06/07/25 06/07/25 History New Prescriptions to Start Prescriptions: Allergies Allergy/AdvReac Type Severity Reaction Status Date / Time No Known Allergies Allergy Verified 05/11/24 09:01 Exam (Inpt) Vital signs and Labs for Last 24 Hours: Temp Pulse Resp BP Pulse Ox O2 Del Method O2 Flow Rate 98.1 F 74 17 140/86 97 Room Air 2 06/07/25 12:00 06/07/25 12:00 06/07/25 12:00 06/07/25 12:00 06/07/25 12:00 06/07/25 08:00 06/07/25 06:44 Laboratory Results - last 24 hr 06/06/25 13:20: D-Dimer 2.72 H, Total Bilirubin 2.5 H, Direct Bilirubin 1.7 H, Conjugated Bilirubin 0.8 H, Indirect Bilirubin 0.8, Unconjugated Bilirubin 0.8, NT-Pro-B Natriuret Pep 540 H 06/06/25 13:30: WBC 21.8 H*, RBC 5.44, Hgb 16.6, Hct 49.8, MCV 91.5, MCH 30.5, MCHC 33.3, RDW 13.7, Plt Count 277, MPV 11.0 H, Neut % (Auto) 89.3 H, Lymph % (Auto) 6.4 L, Sab[place] % (Auto) 3.4, Eos % (Auto) 0.0 L, Baso % (Auto) 0.4, Neut # (Auto) 19.5 H, Lymph # (Auto) 1.4, Sabine # (Auto) 0.7, Eos # (Auto) 0.0, Baso # (Auto) 0.1, Total Counted 100, Neutrophils % (Manual) 90 H, Lymphocytes % (Manual) 7 L, Monocytes % (Manual) 3, Platelet Estimate Normal, RBC Morphology Not Reportable, Poikilocytosis 1+, Anisocytosis 1+, Microcytosis 1+, Macrocytosis 1+, Target Cells 1+, Tear Drop Cells 1+, Gumaro Cells 1+, Sodium 134 L, Potassium 3.4 L, Chloride 101, Carbon Dioxide 24, Anion Gap 12.4, BUN 33 H, Creatinine 1.70 H, Estimated Creat Clear 61, Estimated GFR 40 L, Est GFR ( Amer) 49 L, Glucose 170 H, Calcium 9.5, Total Bilirubin 2.7 H, AST 259 H, ALT 137 H, Alkaline Phosphatase 97, Total Protein 7.8, Albumin 4.7, Globulin 3.1, Albumin/Globulin Ratio 1.5, Lipase 13889 H, HCV Ab [place] w/Rflx PCR Qn Negative, HIV Ag/Ab Combo Qual Negative 06/06/25 13:51: VBG pH 7.29 L, VBG pCO2 45.4, VBG pO2 77.0 H, VBG HCO3 21.2 L, VBG Total CO2 22.6 L, VBG O2 Saturation 93.6 H, VBG Base Excess -5.4 L, VBG Lactic Acid 3.2 H 06/06/25 13:55: ESR 1, PT 12.5, INR 1.14 H, APTT 23.6, Hemoglobin A1c 5.6, Lactate 2.6 H, Total Creatine Kinase 113, Troponin I 0.03, C-Reactive Protein 3.0 06/06/25 14:20: SARS-CoV-2 (PCR) Not detected, Influenza A Untype (PCR) Not detected, Influenza Type B (PCR) Not detected 06/06/25 17:21: Troponin I 0.04 H 06/06/25 20:11: POC Glucose 115 H 06/06/25 20:30: Urine Color Yellow, Urine Appearance Clear, Urine pH 5.5, Ur Specific [place] 1.020, Urine Protein 1+ A, Urine Glucose (UA) Negative, Urine Ketones Negative, Urine Blood Negative, Urine Nitrate Negative, Urine Bilirubin Negative, Urine Urobilinogen 0.2, Ur Leukocyte Esterase Negative, Urine RBC None, Urine WBC 5-10, Ur Squamous Epith Cells None, Urine Bacteria 2+ 06/06/25 21:03: Lactate 2.1, Troponin I 0.04 H 06/06/25 23:36: Lactate 1.6 06/07/25 00:14: POC Glucose 140 H 06/07/25 06:01: WBC 21.4 H*, RBC 4.74, Hgb 14.2 D, Hct 44.7, MCV 94.3 H, MCH 30.0, MCHC 31.8, RDW 13.9, Plt Count 216, MPV 11.2 H, Neut % (Auto) 91.4 H, Lymph % (Auto) 3.5 L, Sab[place] % (Auto) 4.3, Eos % (Auto) 0.1, Baso % (Auto) 0.1, Neut # (Auto) 19.6 H, Lymph # (Auto) 0.8, Sab[place] # (Auto) 0.9, Eos # (Auto) 0.0, Baso # (Auto) 0.0, Sodium 144, Potassium 4.8 D, Chloride 106, Carbon Dioxide 24, Anion Gap 18.8 H, BUN 37 H, Creatinine 1.90 H, Estimated Creat Clear 55, Estimated GFR 35 L, Est GFR ( Amer) 43 L, Glucose 117 H D, Calcium 8.4, Magnesium 2.0, Total Bilirubin 2.0 H, AST 191 H D, ALT 205 H D, Alkaline Phosphatase 72, Total Protein 6.9, Albumin 4.0 D, Globulin 2.9, Albumin/Globulin Ratio 1.4, Triglycerides 66, Cholesterol 80 L, LDL Cholesterol Direct 33.19 L, VLDL Cholesterol 13, HDL Cholesterol 34 L, Cholesterol/HDL Ratio 2.4, Lipase 3647 H, Prostate Specific Ag 8.08 H 06/07/25 06:11: POC Glucose 126 H I & O for Labs for Last 24 Hours: Intake & Output 06/05/25 06/06/25 06/07/25 06/08/25 11:59 11:59 11:59 11:59 Intake Total 5850 / 5850 Output Total 0 / 0 Balance 5850 / 5850 Weight 231 lb 12.8 oz Constitutional: no acute distress Head: Present normocephalic Cardiac: Present Reg Rate and Rhythm GI: Present soft Comments:: Significant tenderness in upper abdomen and epigastrium and right upper quadrant. Results Labs 06/07/25 06:01 06/07/25 06:01 Labs: Laboratory Results - last 24 hr 06/06/25 13:20: D-Dimer 2.72 H, Total Bilirubin 2.5 H, Direct Bilirubin 1.7 H, Conjugated Bilirubin 0.8 H, Indirect Bilirubin 0.8, Unconjugated Bilirubin 0.8, NT-Pro-B Natriuret Pep 540 H 06/06/25 13:30: WBC 21.8 H*, RBC 5.44, Hgb 16.6, Hct 49.8, MCV 91.5, MCH 30.5, MCHC 33.3, RDW 13.7, Plt Count 277, MPV 11.0 H, Neut % (Auto) 89.3 H, Lymph % (Auto) 6.4 L, Sab[place] % (Auto) 3.4, Eos % (Auto) 0.0 L, Baso % (Auto) 0.4, Neut # (Auto) 19.5 H, Lymph # (Auto) 1.4, Sab[place] # (Auto) 0.7, Eos # (Auto) 0.0, Baso # (Auto) 0.1, Total Counted 100, Neutrophils % (Manual) 90 H, Lymphocytes % (Manual) 7 L, Monocytes % (Manual) 3, Platelet Estimate Normal, RBC Morphology Not Reportable, Poikilocytosis 1+, Anisocytosis 1+, Microcytosis 1+, Macrocytosis 1+, Target Cells 1+, Tear Drop Cells 1+, Gumaro Cells 1+, Sodium 134 L, Potassium 3.4 L, Chloride 101, Carbon Dioxide 24, Anion Gap 12.4, BUN 33 H, Creatinine 1.70 H, Estimated Creat Clear 61, Estimated GFR 40 L, Est GFR ( Amer) 49 L, Glucose 170 H, Calcium 9.5, Total Bilirubin 2.7 H, AST 259 H, ALT 137 H, Alkaline Phosphatase 97, Total Protein 7.8, Albumin 4.7, Globulin 3.1, Albumin/Globulin Ratio 1.5, Lipase 09401 H, HCV Ab [place] w/Rflx PCR Qn Negative, HIV Ag/Ab Combo Qual Negative 06/06/25 13:51: VBG pH 7.29 L, VBG pCO2 45.4, VBG pO2 77.0 H, VBG HCO3 21.2 L, VBG Total CO2 22.6 L, VBG O2 Saturation 93.6 H, VBG Base Excess -5.4 L, VBG Lactic Acid 3.2 H 06/06/25 13:55: ESR 1, PT 12.5, INR 1.14 H, APTT 23.6, Hemoglobin A1c 5.6, Lactate 2.6 H, Total Creatine Kinase 113, Troponin I 0.03, C-Reactive Protein 3.0 06/06/25 14:20: SARS-CoV-2 (PCR) Not detected, Influenza A Untype (PCR) Not detected, Influenza Type B (PCR) Not detected 06/06/25 17:21: Troponin I 0.04 H 06/06/25 20:11: POC Glucose 115 H 06/06/25 20:30: Urine Color Yellow, Urine Appearance Clear, Urine pH 5.5, Ur Specific [place] 1.020, Urine Protein 1+ A, Urine Glucose (UA) Negative, Urine Ketones Negative, Urine Blood Negative, Urine Nitrate Negative, Urine Bilirubin Negative, Urine Urobilinogen 0.2, Ur Leukocyte Esterase Negative, Urine RBC None, Urine WBC 5-10, Ur Squamous Epith Cells None, Urine Bacteria 2+ 06/06/25 21:03: Lactate 2.1, Troponin I 0.04 H 06/06/25 23:36: Lactate 1.6 06/07/25 00:14: POC Glucose 140 H 06/07/25 06:01: WBC 21.4 H*, RBC 4.74, Hgb 14.2 D, Hct 44.7, MCV 94.3 H, MCH 30.0, MCHC 31.8, RDW 13.9, Plt Count 216, MPV 11.2 H, Neut % (Auto) 91.4 H, Lymph % (Auto) 3.5 L, [place] % (Auto) 4.3, Eos % (Auto) 0.1, Baso % (Auto) 0.1, Neut # (Auto) 19.6 H, Lymph # (Auto) 0.8, [place] # (Auto) 0.9, Eos # (Auto) 0.0, Baso # (Auto) 0.0, Sodium 144, Potassium 4.8 D, Chloride 106, Carbon Dioxide 24, Anion Gap 18.8 H, BUN 37 H, Creatinine 1.90 H, Estimated Creat Clear 55, Estimated GFR 35 L, Est GFR ( Amer) 43 L, Glucose 117 H D, Calcium 8.4, Magnesium 2.0, Total Bilirubin 2.0 H, AST 191 H D, ALT 205 H D, Alkaline Phosphatase 72, Total Protein 6.9, Albumin 4.0 D, Globulin 2.9, Albumin/Globulin Ratio 1.4, Triglycerides 66, Cholesterol 80 L, LDL Cholesterol Direct 33.19 L, VLDL Cholesterol 13, HDL Cholesterol 34 L, Cholesterol/HDL Ratio 2.4, Lipase 3647 H, Prostate Specific Ag 8.08 H 06/07/25 06:11: POC Glucose 126 H Assessment and Plan *Assessment and plan (1) Acute gallstone pancreatitis: Status: Acute Category: Medical Code(s): K85.10 - Biliary acute pancreatitis without necrosis or infection Plan Agree with proceeding initially with ERCP for biliary pancreatitis and clearance of the biliary tree. Pending those findings and patient condition may need cholecystectomy in the near future
[2025-06-07 12:32] LABS: POC Glucose,Bedside 92 gm/dL (70-110)
--- NOTE | 2025-06-07 12:35 | EXP.ANES.CKL ---
[facility] Disclaimer: The information contained in this section may have been updated after the patient was seen, as this information can be updated by other users. Medical History Frequency of urination History of COVID-19 Anxiety and depression Allergies Stroke Hyperlipidemia History of kidney cancer Renal cancer Diabetes mellitus Hypertension Surgical History History of incision and drainage History of nephrectomy Family History Father Cancer Coronary artery disease Mother Diabetes Social History (Updated 06/06/25 @ 20:21 by Josh Kilpatrick RN) Smoking Status: Current every day smoker tobacco type: cigarettes packs per day: 3 alcohol intake: never substance use type: denies use current occupational status: retired Travel in the last 8 weeks?: None household members: spouse and children housing: house marital status: caffeine: No Have you lived/traveled outside US in past 30 days?: No Contact w/someone who lives/traveled outside US past 30 days?: No Exposure to someone with infectious disease in past 14 days?: No Do you have a fever (greater than 100.4 F or 38 C)?: No Have you tested positive for COVID-19?: No Exposed to someone with COVID-19 in past 14 days?: No Do you have a sore throat?: No Do you have a cough?: No Do you have any weakness?: No Do you have any diarrhea?: No Are you experiencing any unusual bleeding?: No Do you have any muscle aches/pain?: No Do you have any abdominal pain?: No Are you experiencing loss of taste or smell?: No [facility] Anesthesia Checklist Patient Identification Patient Identification: Arm Band and Verbal (Name & ) Structural Data Admitted From: Home Planned Operative Procedure/s: ERCP Consent for Planned Operative Procedure(s) Verified: Yes Verified Documents: Surgical Consent NPO Status Verified Time NPO: 00:00 Chart Verification Results Verified: CBC, BMP and ECG Additional verifications Anesthesia Reactions: No Airway Assessment Mallampati Score:: Class II C-Spine Mobility Assessed: Yes TMJ Mobility Assessed: Yes Dentition: Edentulous Neurological Assessment Level of Consciousness: Awake, Alert and Appropriate Hx Seizures: No Numbness or tingling in extremities: No Anesthesia Plan Anesthesia Risk discussed: Yes Anesthesia Plan: Verified ASA Class: III Anesthesia Type: General
[2025-06-07 13:51] LABS: POC Glucose,Bedside 85 gm/dL (70-110)
--- NOTE | 2025-06-07 14:31 | EXP.HP ---
History of Present Illness *Admission Date: 06/07/25 *History of present illness: Mr. Lee is a 70-year-old inpatient gentleman who presents with the acute onset of abdominal pain and emesis that began around 11 AM yesterday. He did come to the emergency department. His CAT scan showed evidence of acute gallstone pancreatitis with gallbladder wall thickening and some periholecystic fluid. His ultrasound showed some cholecystic fluid and a 6 mm common bile duct. The patient's initial labs showed a lipase level of 22,000. He also had an elevated white blood cell count of 21.8. His initial labs also showed escalation of his liver and biliary chemistries and his initial total bilirubin was 2.5 (direct bilirubin 1.7), AST 259, ALT 137. Today his total bilirubin is 2.0 with ALT 205 and AST 191. General surgery (Amarjit Sarabia MD) has seen the patient. The patient is admitted for biliary clearance prior to elective cholecystectomy and resolution of pancreatitis. The examination is deemed medically necessary for inpatient ERCP. The patient has been seen, interviewed and examined prior to the procedure by both myself and the anesthesia provider. [facility] Disclaimer: The information contained in this section may have been updated after the patient was seen, as this information can be updated by other users. Medical History Frequency of urination History of COVID-19 Anxiety and depression Allergies Stroke Hyperlipidemia History of kidney cancer Renal cancer Diabetes mellitus Hypertension Surgical History History of incision and drainage History of nephrectomy Family History Father Cancer Coronary artery disease Mother Diabetes Social History (Updated 06/06/25 @ 20:21 by Josh Kilpatrick RN) Smoking Status: Current every day smoker tobacco type: cigarettes packs per day: 3 alcohol intake: never substance use type: denies use current occupational status: retired Travel in the last 8 weeks?: None household members: spouse and children housing: house marital status: caffeine: No Have you lived/traveled outside US in past 30 days?: No Contact w/someone who lives/traveled outside US past 30 days?: No Exposure to someone with infectious disease in past 14 days?: No Do you have a fever (greater than 100.4 F or 38 C)?: No Have you tested positive for COVID-19?: No Exposed to someone with COVID-19 in past 14 days?: No Do you have a sore throat?: No Do you have a cough?: No Do you have any weakness?: No Do you have any diarrhea?: No Are you experiencing any unusual bleeding?: No Do you have any muscle aches/pain?: No Do you have any abdominal pain?: No Are you experiencing loss of taste or smell?: No Other Medical History Have you received the Flu Vaccine for this season: No Have you received the Pneumonia Vaccine: Yes Review of Systems Review of Systems Review of systems (narrative): Negative *Cardiovascular Comments: Negative *Gastrointestinal Comments: Negative *Genitourinary Comments: Negative *Musculoskeletal Comments: Negative *Neurologic Neurologic: Reports system reviewed and no additional complaints, except as documented Comments: Negative Meds Home Medications and Allergies Home Medications ?Medication ?Instructions ?Recorded ?Confirmed ?Type hydrochlorothiazide 25 mg tablet 25 mg PO DAILY 03/07/19 06/06/25 History metformin 500 mg tablet 500 mg PO BID 03/07/19 06/06/25 History buspirone 10 mg tablet 10 mg PO BID 01/30/21 06/07/25 History pantoprazole 40 mg tablet,delayed 40 mg PO DAILY #30 tabs 02/22/23 06/06/25 Rx release (Protonix) fenofibrate nanocrystallized 145 145 mg PO DAILY 03/31/24 06/06/25 History mg tablet aspirin 81 mg capsule 81 mg PO DAILY 06/06/25 06/06/25 History clopidogrel 75 mg tablet 75 mg PO DAILY 06/06/25 06/06/25 History escitalopram oxalate 20 mg tablet 20 mg PO DAILY 06/06/25 06/06/25 History lisinopril 40 mg tablet 40 mg PO DAILY 06/06/25 06/06/25 History atorvastatin 80 mg tablet 80 mg PO HS 06/07/25 06/07/25 History New Prescriptions to Start Prescriptions: Allergies Allergy/AdvReac Type Severity Reaction Status Date / Time No Known Allergies Allergy Verified 05/11/24 09:01 Exam Data for Last 24 hours Vital signs and Labs for Last 24 Hours: Temp Pulse Resp BP Pulse Ox O2 Del Method O2 Flow Rate 98.1 F 74 17 140/86 97 Room Air 2 06/07/25 12:00 06/07/25 12:00 06/07/25 12:00 06/07/25 12:00 06/07/25 12:00 06/07/25 11:00 06/07/25 06:44 Laboratory Results - last 24 hr 06/06/25 13:20: D-Dimer 2.72 H, Total Bilirubin 2.5 H, Direct Bilirubin 1.7 H, Conjugated Bilirubin 0.8 H, Indirect Bilirubin 0.8, Unconjugated Bilirubin 0.8, NT-Pro-B Natriuret Pep 540 H 06/06/25 13:30: Total Counted 100, Neutrophils % (Manual) 90 H, Lymphocytes % (Manual) 7 L, Monocytes % (Manual) 3, Platelet Estimate Normal, RBC Morphology Not Reportable, Poikilocytosis 1+, Anisocytosis 1+, Microcytosis 1+, Macrocytosis 1+, Target Cells 1+, Tear Drop Cells 1+, [place] Cells 1+, Lipase 85593 H, HCV Ab [place] w/Rflx PCR Qn Negative, HIV Ag/Ab Combo Qual Negative 06/06/25 13:55: ESR 1, PT 12.5, INR 1.14 H, APTT 23.6, Hemoglobin A1c 5.6, Lactate 2.6 H, Total Creatine Kinase 113, Troponin I 0.03, C-Reactive Protein 3.0 06/06/25 14:20: SARS-CoV-2 (PCR) Not detected, Influenza A Untype (PCR) Not detected, Influenza Type B (PCR) Not detected 06/06/25 17:21: Troponin I 0.04 H 06/06/25 20:11: POC Glucose 115 H 06/06/25 20:30: Urine Color Yellow, Urine Appearance Clear, Urine pH 5.5, Ur Specific [place] 1.020, Urine Protein 1+ A, Urine Glucose (UA) Negative, Urine Ketones Negative, Urine Blood Negative, Urine Nitrate Negative, Urine Bilirubin Negative, Urine Urobilinogen 0.2, Ur Leukocyte Esterase Negative, Urine RBC None, Urine WBC 5-10, Ur Squamous Epith Cells None, Urine Bacteria 2+ 06/06/25 21:03: Lactate 2.1, Troponin I 0.04 H 06/06/25 23:36: Lactate 1.6 06/07/25 00:14: POC Glucose 140 H 06/07/25 06:01: WBC 21.4 H*, RBC 4.74, Hgb 14.2 D, Hct 44.7, MCV 94.3 H, MCH 30.0, MCHC 31.8, RDW 13.9, Plt Count 216, MPV 11.2 H, Neut % (Auto) 91.4 H, Lymph % (Auto) 3.5 L, [place] % (Auto) 4.3, Eos % (Auto) 0.1, Baso % (Auto) 0.1, Neut # (Auto) 19.6 H, Lymph # (Auto) 0.8, [place] # (Auto) 0.9, Eos # (Auto) 0.0, Baso # (Auto) 0.0, Sodium 144, Potassium 4.8 D, Chloride 106, Carbon Dioxide 24, Anion Gap 18.8 H, BUN 37 H, Creatinine 1.90 H, Estimated Creat Clear 55, Estimated GFR 35 L, Est GFR ( Amer) 43 L, Glucose 117 H D, Calcium 8.4, Magnesium 2.0, Total Bilirubin 2.0 H, AST 191 H D, ALT 205 H D, Alkaline Phosphatase 72, Total Protein 6.9, Albumin 4.0 D, Globulin 2.9, Albumin/Globulin Ratio 1.4, Triglycerides 66, Cholesterol 80 L, LDL Cholesterol Direct 33.19 L, VLDL Cholesterol 13, HDL Cholesterol 34 L, Cholesterol/HDL Ratio 2.4, Lipase 3647 H, Prostate Specific Ag 8.08 H 06/07/25 06:11: POC Glucose 126 H 06/07/25 12:24: POC Glucose 92 06/07/25 13:42: POC Glucose 85 I & O for Last 24 hours: Intake & Output 06/04/25 06/05/25 06/06/25 06/07/25 23:59 23:59 23:59 23:59 Intake Total 4750 / 4750 1100 / 1100 Output Total 0 / 0 0 / 0 Balance 4750 / 4750 1100 / 1100 Weight 230 lb 231 lb 12.8 oz *Routine HEENT Exam Head: Present normocephalic Eye: Present EOMI and PERRL ENT: Present mucous membranes moist *Routine Neck Exam Neck: Present supple *Routine Respiratory Exam Respiratory: Present CTA bilaterally *Routine Cardiovascular Exam Cardiovascular: Present RRR *Routine Abdominal Exam Abdominal: Present tenderness *Routine Rectal Exam Rectal:: deferred *Routine Genitalia Exam Genitalia:: deferred *Routine Extremities Exam Extremities: Absent cyanosis, clubbing or edema *Routine Skin Exam Skin: Present warm; Absent rash *Routine Neurological Exam Neurological: Present alert and oriented X3 Assessment and Plan *Assessment and plan (1) Acute gallstone pancreatitis: Status: Acute Category: Medical Code(s): K85.10 - Biliary acute pancreatitis without necrosis or infection (2) Transaminitis: Status: Acute Category: Medical Code(s): R74.01 - Elevation of levels of liver transaminase levels (3) Elevated bilirubin: Status: Acute Category: Medical Code(s): R17 - Unspecified jaundice (4) Abdominal pain: Status: Acute Category: Medical Code(s): R10.9 - Unspecified abdominal pain Plan A/P: 1. Acute gallstone pancreatitis with elevated bilirubin and CBD at upper limit of normal is the preprocedural diagnosis. The patient will be anesthetized/sedated using MAC sedation. The patient has been seen and examined. Cardiac and lung assessment prior to the examination is stable. Proceed with planned ERCP with biliary clearance.
--- NOTE | 2025-06-07 14:36 | HMH.PROCNOTE ---
[facility] Procedure Note Date: 06/07/25 Time: 15:25 Procedure Note:: ERCP procedure Report: Endoscopic retrograde cholangiopancreatography with biliary sphincterotomy and balloon extraction Endoscopist: Praneeth Martel II, MD Referring Physician: Leonardo Singleton M.D. Date of Procedure: June 07, 2025 Equipment: Olympus 180 side viewing endoscope duodenoscope Sedation: MAC sedation Indication: Mr. Lee is a 70-year-old inpatient gentleman who is here for therapeutic ERCP. The patient presented with the acute onset of abdominal pain and emesis that began around 11 AM yesterday. He did come to the emergency department. His CAT scan showed evidence of acute gallstone pancreatitis with gallbladder wall thickening and some periholecystic fluid. His ultrasound showed some cholecystic fluid and a 6 mm common bile duct. The patient's initial labs showed a lipase level of 22,000. He also had an elevated white blood cell count of 21.8. His initial labs also showed escalation of his liver and biliary chemistries and his initial total bilirubin was 2.5 (direct bilirubin 1.7), AST 259, ALT 137. Today his total bilirubin is 2.0 with ALT 205 and AST 191. General surgery (Amarjit Sarabia MD) has seen the patient. The patient is admitted for biliary clearance prior to elective cholecystectomy and resolution of pancreatitis. The examination is deemed medically necessary for inpatient ERCP. Procedure: Prior to the procedure, a history and physical exam was performed, and patient's medications and allergies were reviewed. The risks (including pancreatitis), benefits and alternatives of the sedation and procedure were discussed with the patient. All questions were answered and informed consent was obtained. The patient was brought to the fluoroscopic radiology room. Patient identification and proposed procedure were verified by the physician and the nurse. The patient was placed in a swimmer's position between left lateral decubitus and prone position and the scope was passed under direct vision. Throughout the procedure, the patient's blood pressure, pulse, and oxygen saturations were monitored continuously. The ERCP was accomplished without difficulty. The patient tolerated the procedure well. Findings: The duodenoscope was passed directly into the upper esophagus and advanced to the second portion of the duodenum. The esophagus, stomach and duodenum were grossly normal. The ampulla was well-visualized. The fluoroscopic C arm was then placed into position prior to cannulation with the duodenoscope was centered in a L-shaped position fluoroscopically in the second portion of duodenum. The entire endoscopic exam was done in conjunction with fluoroscopy. The cannula was then inserted through the duodenoscope channel and preloaded with low osmolar contrast. There was a duodenal diverticulum approximately 2 cm proximal to the ampulla. The ampulla was normal in appearance. The common bile duct was selectively cannulated with a guidewire. The cholangiogram showed some sludge like filling defect within the mid/distal CBD. The CBD was approximately 6 to 7 mm and there was normal filling of the intrahepatic biliary tree with no rounded filling defects/stones. The amorphous sludge like filling defects were still present and there was minimal filling of the cystic duct and gallbladder. A biliary sphincterotomy was performed. There was extravasation of some bile and a little bit of specks of yellow debris. After completion of biliary sphincterotomy, a 9 mm sweeping balloon was placed at the hilum and swept through the biliary tree with passage of dark bile and a fair amount of debris/sludge but no solid stones. A second sweep was performed with no additional sludge or debris. The pancreatic duct was not cannulated intentionally and the procedure was ended. Impression: 1. Biliary sludge/debris status post biliary clearance and decompression Plan: I would begin to advance diet and allow for resolution of the gallstone pancreatitis prior to elective cholecystectomy.
--- NOTE | 2025-06-07 15:33 | P.PN_ITS ---
Subjective *Date: 06/07/25 *Time: 16:02 Interval history: Patient having abdominal pain still this morning. Eagerly awaiting ERCP. Exam Data for Last 24 hours Vital signs and Labs for Last 24 Hours: Temp Pulse Resp BP Pulse Ox O2 Del Method O2 Flow Rate 98.1 F 74 17 140/86 97 Room Air 2 06/07/25 12:00 06/07/25 12:00 06/07/25 12:00 06/07/25 12:00 06/07/25 12:00 06/07/25 11:00 06/07/25 06:44 Laboratory Results - last 24 hr 06/06/25 13:20: Total Bilirubin 2.5 H, Direct Bilirubin 1.7 H, Conjugated Bilirubin 0.8 H, Indirect Bilirubin 0.8, Unconjugated Bilirubin 0.8 06/06/25 13:30: Lipase 44825 H 06/06/25 13:55: Hemoglobin A1c 5.6 06/06/25 17:21: Troponin I 0.04 H 06/06/25 20:11: POC Glucose 115 H 06/06/25 20:30: Urine Color Yellow, Urine Appearance Clear, Urine pH 5.5, Ur Specific [place] 1.020, Urine Protein 1+ A, Urine Glucose (UA) Negative, Urine Ketones Negative, Urine Blood Negative, Urine Nitrate Negative, Urine Bilirubin Negative, Urine Urobilinogen 0.2, Ur Leukocyte Esterase Negative, Urine RBC None, Urine WBC 5-10, Ur Squamous Epith Cells None, Urine Bacteria 2+ 06/06/25 21:03: Lactate 2.1, Troponin I 0.04 H 06/06/25 23:36: Lactate 1.6 06/07/25 00:14: POC Glucose 140 H 06/07/25 06:01: WBC 21.4 H*, RBC 4.74, Hgb 14.2 D, Hct 44.7, MCV 94.3 H, MCH 30.0, MCHC 31.8, RDW 13.9, Plt Count 216, MPV 11.2 H, Neut % (Auto) 91.4 H, Lymph % (Auto) 3.5 L, [place] % (Auto) 4.3, Eos % (Auto) 0.1, Baso % (Auto) 0.1, Neut # (Auto) 19.6 H, Lymph # (Auto) 0.8, [place] # (Auto) 0.9, Eos # (Auto) 0.0, Baso # (Auto) 0.0, Sodium 144, Potassium 4.8 D, Chloride 106, Carbon Dioxide 24, Anion Gap 18.8 H, BUN 37 H, Creatinine 1.90 H, Estimated Creat Clear 55, Estimated GFR 35 L, Est GFR ( Amer) 43 L, Glucose 117 H D, Calcium 8.4, Magnesium 2.0, Total Bilirubin 2.0 H, AST 191 H D, ALT 205 H D, Alkaline Phosphatase 72, Total Protein 6.9, Albumin 4.0 D, Globulin 2.9, [place] min/Globulin Ratio 1.4, Triglycerides 66, Cholesterol 80 L, LDL Cholesterol Direct 33.19 L, VLDL Cholesterol 13, HDL Cholesterol 34 L, Cholesterol/HDL Ratio 2.4, Lipase 3647 H, Prostate Specific Ag 8.08 H 06/07/25 06:11: POC Glucose 126 H 06/07/25 12:24: POC Glucose 92 06/07/25 13:42: POC Glucose 85 I & O for Last 24 hours: Intake & Output 06/04/25 06/05/25 06/06/25 06/07/25 23:59 23:59 23:59 23:59 Intake Total 4750 / 4750 1100 / 1100 Output Total 0 / 0 0 / 0 Balance 4750 / 4750 1100 / 1100 Weight 104.326 kg 105.143 kg Microbiology Reports for the Last 24 Hours: Microbiology 06/06/25 14:20 Blood Blood Culture - Preliminary NO GROWTH AFTER 24 HOURS 06/06/25 14:15 Blood Blood Culture - Preliminary NO GROWTH AFTER 24 HOURS Constitutional Constitutional: no acute distress, obese and chronically ill appearing *Routine HEENT Exam Head: Present normocephalic Eye: Present EOMI and PERRL ENT: Present mucous membranes moist *Routine Neck Exam Neck: Present supple; Absent lymphadenopathy *Routine Respiratory Exam Respiratory: Present CTA bilaterally *Routine Cardiovascular Exam Cardiovascular: Present RRR *Routine Abdominal Exam Abdominal: Present soft, normoactive bowel sounds and tenderness *Routine Extremities Exam Extremities: Absent cyanosis, clubbing or edema *Routine Skin Exam Skin: Present warm; Absent rash *Routine Neurological Exam Neurological: Present alert and oriented X3 Assessment and Plan *Assessment and plan (1) Abdominal pain: Status: Acute Category: Medical Code(s): R10.9 - Unspecified abdominal pain (2) Cholelithiasis: Status: Acute Qualifiers: Cholelithiasis location: gallbladder Cholecystitis presence: with cholecystitis Cholecystitis acuity: unspecified acuity Biliary obstruction: without biliary obstruction Qualified Code(s): K80.10 - Calculus of gallbladder with chronic cholecystitis without obstruction Category: Medical Code(s): K80.20 - Calculus of gallbladder without cholecystitis without obstruction (3) Enlarged prostate: Status: Acute Category: Medical Code(s): N40.0 - Benign prostatic hyperplasia without lower urinary tract symptoms (4) Sepsis: Status: Acute Qualifiers: Sepsis acute organ dysfunction status: unspecified Sepsis type: sepsis due to unspecified organism Qualified Code(s): A41.9 - Sepsis, unspecified organism Category: Medical Code(s): A41.9 - Sepsis, unspecified organism (5) Acute gallstone pancreatitis: Status: Acute Category: Medical Code(s): K85.10 - Biliary acute pancreatitis without necrosis or infection Plan Naty Lee is a 70-year-old male who presented with severe abdominal pain and was admitted for gallstone pancreatitis with suspected acute cholecystitis. #Abdominal pain #Acute gallstone pancreatitis #Suspected acute cholecystitis with cholelithiasis #Sepsis ? Patient presented with severe abdominal pain, especially in the epigastric region. Initial lipase 22,000's with transaminitis. ? CT abdomen/pelvis consistent with acute pancreatitis, and gallbladder wall thickening with massimo cholecystic fluid. RUQ ultrasound suggested the same. ? Initial WBC 21.8 with tachycardia. WBC blood same at 21.4, continues to be tachycardic. ? GI consulted, s/p ERCP with biliary sludge within the common bile duct s/p clearance. ? General Surgery consulted, will plan for inpatient versus outpatient cholecystectomy depending on patient's clinical progress with pancreatitis. N.p.o. at midnight for now. ? Continue Zosyn 3.375 g every 6 hours. ? [place], morphine, Dilaudid as needed for pain control. ? Follow-up blood cultures. ? Follow-up morning CBC. #CKD stage III ? Creatinine bumped slightly to 1.9 today, GFR 35. Will discontinue Toradol. Continue monitor. #History of renal cancer ? Apparently has not sought treatment. Will follow-up with more details tomorrow. #Enlarged prostate ? Seen on CT abdomen/pelvis. PSA elevated to 8.08. ? Plan to refer to urology on discharge. #Esophagitis ? Seen on imaging. Continue home PPI. DNR/DNI DVT prophylaxis: Lovenox 40 mg
--- NOTE | 2025-06-07 15:43 | XR_ITS ---
FINAL REPORT CLINICAL HISTORY: ERCP fluoro 77.3 s 64.91 mGy FINDINGS: FLUOROSCOPY LESS THAN 1 HOUR HISTORY: Fluoroscopy guidance. FINDINGS: Fluoroscopic guidance was provided for ERCP. A single spot film was obtained. A total of 77.3 seconds of fluoroscopy time were used. DAP: 64.91 mGy IMPRESSION: As above. Reviewed, Interpreted and Dictated by Gamaliel Conn MD Transcribed by Sarah Mckeon Authenticated and [facility]
[2025-06-07] MEDS: IOPAMIDOL-370 (76%);100ML BOTTLE 10 ML IV (15:45)
--- NOTE | 2025-06-07 15:48 | EXP.ANES.I ---
[facility] Anesthesia Record Part I Anesthesia Record I Intake, IV Amount: 400 Hydration: Adequate Estimated blood loss (mL): 5 Urine output (mL): 0 Blood Pressure: 157/84 SaO2: 98 Pulse Rate: 102 Airway Patency: Patent Respiratory Rate: 22 Temperature: 97.8 F Patient is:: Awake, Drowsy, Mask O2 and Stable Stable to PACU at:: 15:50
[2025-06-07 15:53] LABS: POC Glucose,Bedside 83 gm/dL (70-110)
[2025-06-07 18:25] LABS: POC Glucose,Bedside 78 gm/dL (70-110)
--- NOTE | 2025-06-07 18:57 | XR_ITS ---
PROCEDURE INFORMATION: Exam: XR Chest Exam date and time: 06/07/2025 7:19 PM Age: 70 years old Clinical indication: Other: Hypoxia TECHNIQUE: Imaging protocol: Radiologic exam of the chest. Views: 1 view. COMPARISON: CT ANGIO CHEST PE PROTOCOL 06/06/2025 2:15 PM FINDINGS: Lungs: Pulmonary vascular congestion. Pleural spaces: No large pleural effusion. No pneumothorax. Heart/Mediastinum: Mild cardiac prominence. Diaphragm: Right diaphragmatic elevation. Bones/joints: Unremarkable. IMPRESSION: Pulmonary vascular congestion.
[2025-06-07] MEDS: LISINOPRIL 20MG TABLET 40 MG PO (19:10)
[2025-06-07] MEDS: PANTOPRAZOLE 40MG TABLET 40 MG PO (20:33)
[2025-06-07] MEDS: LACTATED RINGERS 1000ML 1,000 ML 25 ML IV (20:37)
[2025-06-08] VITALS (8 sets, daily range): BP systolic 143–172; BP diastolic 64–97; PULSE 64–102; RESP 14–20; TEMP 36.6–37.4; O2SAT 90–99; BMI 32.8
[2025-06-08] MEDS: PIPERACILLIN/TAZO 3.375 GM in 0.9 % SODIUM CHLORIDE 50 ML IV ×3 (00:20→11:53)
[2025-06-08 01:08] LABS: POC Glucose,Bedside 77 gm/dL (70-110)
[2025-06-08] MEDS: MORPHINE 4MG/ML SYRINGE 4 MG IV ×3 (02:36→22:12)
[2025-06-08] MEDS: HYDROMORPHONE 2MG/ML SYRINGE 0.5 MG IV ×2 (04:23→15:18)
[2025-06-08 06:47] LABS: Hematocrit 42.4 % (42.0-52.0); Hemoglobin 13.3 g/dL (14.1-18.0); Immature Granulocytes % 1.3 %; Mean Corpuscular HGB Conc 31.4 g/dL (31.8-35.4); Mean Corpuscular Hemoglobin 29.9 pg (27.0-31.2); Mean Corpuscular Volume 95.3 fl (80-94); Nucleated Red Blood Cells % 0 %; Platelet Count 170 K/mm3 (142-424); Red Blood Count 4.45 M/mm3 (4.60-6.20); Red Cell Distribution Width-SD 49.7 fL; White Blood Count 22.7 K/mm3 (4.8-10.8)
[2025-06-08 06:56] LABS: Chloride 104 mmol/L (98-107)
--- NOTE | 2025-06-08 06:56 | EXP.SURG.PN ---
Subjective Narrative: Patient resting comfortably this morning. Underwent successful ERCP with sphincterotomy and balloon extraction. No evidence of acute cholecystitis. Exam Data for Last 24 hours Vital signs and Labs for Last 24 Hours: Temp Pulse Resp BP Pulse Ox O2 Del Method O2 Flow Rate 98.7 F 90 14 143/89 H 93 L Nasal Cannula 5 06/08/25 04:00 06/08/25 04:00 06/08/25 04:00 06/08/25 04:00 06/08/25 04:00 06/08/25 05:00 06/08/25 05:00 Laboratory Results - last 24 hr 06/07/25 06:01: Lipase 3647 H, Prostate Specific Ag 8.08 H 06/07/25 12:24: POC Glucose 92 06/07/25 13:42: POC Glucose 85 06/07/25 15:45: POC Glucose 83 06/07/25 18:17: POC Glucose 78 06/08/25 01:01: POC Glucose 77 I & O for Last 24 hours: Intake & Output 06/05/25 06/06/25 06/07/25 06/08/25 11:59 11:59 11:59 11:59 Intake Total 5850 / 5850 1110 / 1110 Output Total 0 / 0 900 / 900 Balance 5850 / 5850 210 / 210 Weight 231 lb 12.8 oz 229 lb 1.6 oz Microbiology Reports for the Last 24 Hours: Microbiology 06/06/25 20:30 Urine,Clean Catch Urine Culture - Final NO GROWTH AFTER 48 HOURS 06/06/25 14:20 Blood Blood Culture - Preliminary NO GROWTH AFTER 24 HOURS 06/06/25 14:15 Blood Blood Culture - Preliminary NO GROWTH AFTER 24 HOURS Progress Note: A&P Assessment and plan (1) Abdominal pain: Status: Acute (2) Cholelithiasis: Status: Acute Assessment and plan: Ideally recommend resolution of acute pancreatitis with follow-up for outpatient cholecystectomy (3) Enlarged prostate: Status: Acute (4) Sepsis: Status: Acute (5) Acute gallstone pancreatitis: Status: Acute
[2025-06-08 06:57] LABS: Potassium 4.4 mmoL/L (3.5-5.1); Sodium 144 mmol/L (136-145)
[2025-06-08 06:59] LABS: Alanine Aminotransferase 120 U/L (12-78); Alkaline Phosphatase 62 U/L (38-126); Aspartate Amino Transferase 76 U/L (17-59); Bilirubin,Total 2.2 mg/dl (0.2-1.3); Blood Urea Nitrogen 38 mg/dl (9-20); Calcium 8.4 mg/dl (8.4-10.2); Creatinine Clearance Estimated 61 mL/min (50-200); Creatinine,Serum 1.70 mg/dl (0.66-1.25); Estimated Glomerular Filt Rate 40 ml/min (>60); GFR (African American) 49 ML/MIN (>60); Glucose 80 mg/dl (74-100); Total Protein,Serum 6.6 g/dl (6.3-8.2)
[2025-06-08 07:00] LABS: Magnesium 2.3 mg/dl (1.6-2.3)
[2025-06-08 07:27] LABS: Lipase 1213 U/L (23-300)
[2025-06-08] MEDS: LISINOPRIL 20MG TABLET 40 MG PO (08:11)
[2025-06-08 08:24] LABS: Albumin Level 3.7 g/dl (3.5-5.0); Albumin/Globulin Ratio 1.3 (1.1-1.8); Anion Gap 16.4 mEq/L (5-15); Carbon Dioxide 28 mmol/L (22.0-30.0); Globulin 2.9 g/dL (1.3-3.2)
--- NOTE | 2025-06-08 08:47 | HMH.PHAAMS2 ---
- Antimicrobial Stewardship Review culture & sensitivity review Stewardship interventions: culture & sensitivity review Comments: URINE AND BLOOD CULTURES NO GROWTH AT 24-48 HR, PATIENT ON ZOSYN EMPIRICALLY FOR FOR GALLSTONE PANCREATITIS
[2025-06-08 09:07] LABS: RBC Morphology Normal; Total Cells Counted 100
[2025-06-08] MEDS: POLYETHYLENE GLYCOL 3350 17 GM PACKET PO (09:40)
[2025-06-08] MEDS: HYDROCODONE/APAP 5/325 MG TABLET 1 TAB PO (10:46)
[2025-06-08 11:00] LABS: POC Glucose,Bedside 68 gm/dL (70-110)
[2025-06-08 11:49] LABS: POC Glucose,Bedside 72 gm/dL (70-110)
--- NOTE | 2025-06-08 12:06 | P.PN_ITS ---
Subjective *Date: 06/08/25 *Time: 12:06 Interval history: Patient continues to have diffuse abdominal pain, will slowly advance diet as tolerated for pancreatitis. General surgery has low suspicion for acute cystitis. Exam Data for Last 24 hours Vital signs and Labs for Last 24 Hours: Temp Pulse Resp BP Pulse Ox O2 Del Method O2 Flow Rate 98.4 F 86 16 157/86 H 94 L Nasal Cannula 3 06/08/25 07:37 06/08/25 07:37 06/08/25 07:37 06/08/25 07:37 06/08/25 07:37 06/08/25 11:00 06/08/25 11:00 Laboratory Results - last 24 hr 06/07/25 12:24: POC Glucose 92 06/07/25 13:42: POC Glucose 85 06/07/25 15:45: POC Glucose 83 06/07/25 18:17: POC Glucose 78 06/08/25 01:01: POC Glucose 77 06/08/25 06:32: WBC 22.7 H*, RBC 4.45 L, Hgb 13.3 L, Hct 42.4, MCV 95.3 H, MCH 29.9, MCHC 31.4 L, RDW 14.4, Plt Count 170, MPV 11.1 H, Neut % (Auto) 88.2 H, Lymph % (Auto) 4.0 L, [place] % (Auto) 6.3, Eos % (Auto) 0.1, Baso % (Auto) 0.1, Neut # (Auto) 20.1 H, Lymph # (Auto) 0.9, [place] # (Auto) 1.4 H, Eos # (Auto) 0.0, Baso # (Auto) 0.0, Total Counted 100, Neutrophils % (Manual) 89 H, Lymphocytes % (Manual) 4 L, Monocytes % (Manual) 7, Platelet Estimate Normal, RBC Morphology Normal, Sodium 144, Potassium 4.4, Chloride 104, Carbon Dioxide 28, Anion Gap 16.4 H, BUN 38 H, Creatinine 1.70 H, Estimated Creat Clear 61, Estimated GFR 40 L, Est GFR ( Amer) 49 L, Glucose 80, Calcium 8.4, Magnesium 2.3 D, Total Bilirubin 2.2 H, AST 76 H D, ALT 120 H D, Alkaline Phosphatase 62, Total Protein 6.6, Albumin 3.7, Globulin 2.9, Albumin/Globulin Ratio 1.3, Lipase 1213 H 06/08/25 10:51: POC Glucose 68 L 06/08/25 11:12: POC Glucose 72 I & O for Last 24 hours: Intake & Output 06/05/25 06/06/25 06/07/25 06/08/25 23:59 23:59 23:59 23:59 Intake Total 4750 / 4750 1869 / 2109 340 / 340 Output Total 0 / 0 0 / 0 1525 / 1525 Balance 4750 / 4750 0 / 0 -1185 / -1185 Weight 104.326 kg 105.143 kg 103.918 kg Microbiology Reports for the Last 24 Hours: Microbiology 06/06/25 20:30 Urine,Clean Catch Urine Culture - Final NO GROWTH AFTER 48 HOURS 06/06/25 14:20 Blood Blood Culture - Preliminary NO GROWTH AFTER 24 HOURS 06/06/25 14:15 Blood Blood Culture - Preliminary NO GROWTH AFTER 24 HOURS Constitutional Constitutional: no acute distress, obese and chronically ill appearing *Routine HEENT Exam Head: Present normocephalic Eye: Present EOMI and PERRL ENT: Present mucous membranes moist *Routine Neck Exam Neck: Present supple; Absent lymphadenopathy *Routine Respiratory Exam Respiratory: Present CTA bilaterally *Routine Cardiovascular Exam Cardiovascular: Present RRR *Routine Abdominal Exam Abdominal: Present soft, normoactive bowel sounds and tenderness Comments: Diffuse moderate abdominal tenderness without peritoneal signs. *Routine Extremities Exam Extremities: Absent cyanosis, clubbing or edema *Routine Skin Exam Skin: Present warm; Absent rash *Routine Neurological Exam Neurological: Present alert and oriented X3 Assessment and Plan *Assessment and plan (1) Abdominal pain: Status: Acute Category: Medical Code(s): R10.9 - Unspecified abdominal pain (2) Cholelithiasis: Status: Acute Qualifiers: Cholelithiasis location: gallbladder Cholecystitis presence: with cholecystitis Cholecystitis acuity: unspecified acuity Biliary obstruction: without biliary obstruction Qualified Code(s): K80.10 - Calculus of gallbladder with chronic cholecystitis without obstruction Category: Medical Code(s): K80.20 - Calculus of gallbladder without cholecystitis without obstruction (3) Enlarged prostate: Status: Acute Category: Medical Code(s): N40.0 - Benign prostatic hyperplasia without lower urinary tract symptoms (4) Sepsis: Status: Acute Qualifiers: Sepsis acute organ dysfunction status: unspecified Sepsis type: sepsis due to unspecified organism Qualified Code(s): A41.9 - Sepsis, unspecified organism Category: Medical Code(s): A41.9 - Sepsis, unspecified organism (5) Acute gallstone pancreatitis: Status: Acute Category: Medical Code(s): K85.10 - Biliary acute pancreatitis without necrosis or infection Plan Naty Lee is a 70-year-old male who presented with severe abdominal pain and was admitted for gallstone pancreatitis with suspected acute cholecystitis. #Abdominal pain #Acute gallstone pancreatitis ? Patient presented with severe abdominal pain, especially in the epigastric region. Initial lipase 22,000's with transaminitis. ? CT abdomen/pelvis consistent with acute pancreatitis, and gallbladder wall thickening with massimo cholecystic fluid. RUQ ultrasound suggested the same. ? Initial WBC 21.8 with tachycardia. WBC slightly up to 22.7 today, tachycardia resolved. ? GI consulted, s/p ERCP with biliary sludge within the common bile duct s/p clearance. ? Initially thought to have sepsis from acute cholecystitis, however general surgery has low suspicion for acute cholecystitis after ERCP. Plan for outpatient cholecystectomy. Leukocytosis likely reactive in the setting of pancreatitis. ? Continue Zosyn 3.375 g every 6 hours for now given leukocytosis. ? [place], morphine, Dilaudid as needed for pain control. ? Follow-up morning CBC. #CKD stage III ? Creatinine stable at 1.7. #History of renal cancer ? Apparently has not sought treatment. Will follow-up with more details tomorrow. #Enlarged prostate ? Seen on CT abdomen/pelvis. PSA elevated to 8.08. ? Plan to refer to urology on discharge. #Esophagitis ? Seen on imaging. Continue home PPI. DNR/DNI DVT prophylaxis: Lovenox 40 mg
--- NOTE | 2025-06-08 13:00 | EXP.ANES.II ---
[facility] Anesthesia Record Part II Anesthesia Record Part II Discharge Time: 16:11 Destination: Medical Surgical Department PACU nurse assessment reviewed?: Yes Patient Condition:: Good Anesthesia Complications:: None Swallowing reflex intact?: Yes Airway Patency: Patent Cyanosis?: No Blood Pressure: 154/64 SaO2: 99 Respiratory Rate: 20 Pulse Rate: 93 Temperature: 97.8 F Mental Status: Alert & Oriented Pain level:: 0 Nausea and/or vomitting:: None Intake, IV Amount: 0 Hydration: Adequate
[2025-06-08] MEDS: BUSPIRONE HCL 10 MG TABLET PO ×2 (13:06→20:44)
[2025-06-08] MEDS: ESCITALOPRAM 20MG TABLET 20 MG PO (13:07)
[2025-06-08] MEDS: CLOPIDOGREL 75MG TAB 75 MG PO (13:07)
[2025-06-08 14:44] LABS: POC Glucose,Bedside 90 gm/dL (70-110)
[2025-06-08] MEDS: LACTATED RINGERS 1000ML 1,000 ML 100 ML IV (15:43)
--- NOTE | 2025-06-08 16:57 | CT_ITS ---
PROCEDURE INFORMATION: Exam: CT Abdomen And Pelvis With Contrast Exam date and time: 06/08/2025 5:18 PM Age: 70 years old Clinical indication: Abdominal pain; Prior surgery; Surgery date: Post-operative (0-2 days); Surgery type: Ercp; Additional info: Worsening abdominal pain TECHNIQUE: Imaging protocol: Computed tomography of the abdomen and pelvis with contrast. Radiation optimization: All CT scans at this facility use at least one of these dose optimization techniques: automated exposure control; mA and/or kV adjustment per patient size (includes targeted exams where dose is matched to clinical indication); or iterative reconstruction. Contrast material: ISOVUE; Contrast volume: 75 ml; Contrast route: IV; COMPARISON: CT ABDOMEN PELVIS W CON 06/06/2025 2:15 PM FINDINGS: Lungs: See Pleural spaces finding. Pleural spaces: New small bilateral pleural effusions and dense atelectasis of the lung bases. Coronary arteries: Heavy coronary artery calcifications. Esophagus: Circumferential thickening of the distal esophagus. Liver: Unremarkable liver. Gallbladder and biliary ducts: Gallstones. Interval resolution of gallbladder wall thickening. No biliary ductal dilation. Pancreas: Fatty replacement of pancreatic parenchyma. Mild peripancreatic fat stranding and trace fluid, slightly improved compared to 06/06/2025. No focal hypoenhancement. Spleen: Unremarkable spleen. Adrenal glands: Unremarkable adrenal glands. Kidneys and ureters: Unremarkable right kidney and ureter. Absent left kidney. Stomach and bowel: No dilated or inflamed bowel. Colonic diverticulosis without diverticulitis. Appendix: Appendix is not visualized. Intraperitoneal space: No free air. Trace free fluid in the pelvis, likely secondary to pancreatitis. Vasculature: Patent portal vein, splenic vein, and SMV. Moderate atherosclerotic calcification of the normal-caliber abdominal aorta. Lymph nodes: No enlarged lymph nodes. Urinary bladder: Unremarkable urinary bladder. Reproductive: Prostatomegaly measuring 6.9 cm in transverse dimension. Bones/joints: No acute osseous abnormality. Multilevel chronic degenerative changes of the spine. Grade 1 anterolisthesis of L4 on L5. Soft tissues: Unremarkable soft tissues. IMPRESSION: 1. Mild peripancreatic fat stranding and trace adjacent free fluid, compatible with acute interstitial edematous pancreatitis, slightly improved compared to 06/06/2025. 2. Interval resolution of gallbladder wall thickening. 3. New small bilateral pleural effusions and dense atelectasis of the lung bases. Superimposed pneumonia is possible. 4. Circumferential thickening of the distal esophagus. Recommend correlation for esophagitis. 5. Heavy coronary artery calcifications. 6. Prostatomegaly.
[2025-06-08 17:01] LABS: POC Glucose,Bedside 74 gm/dL (70-110)
[2025-06-08] MEDS: KETOROLAC 15MG/ML VIAL 15 MG IV (17:07)
[2025-06-08] MEDS: SODIUM CHLORIDE 0.9% 10ML SYR (RAD ONLY) 10 ML IV (17:19)
[2025-06-08] MEDS: IOPAMIDOL-370 (76%);100ML BOTTLE 75 ML IV (17:19)
--- NOTE | 2025-06-08 17:42 | PC.NURSE ---
Oxygen weaned from 5LNC to 3LNC. BP elevated, md aware, watch for now. Pain reported throughout shift, prn medications given and relief noted with toradol administration. Patient able to sit on side of bed for most of shift.
[2025-06-08] MEDS: SIMETHICONE 80MG CHEWABLE TABLET 160 MG PO (18:29)
[2025-06-08] MEDS: DEXTROSE 50% 50ML SYRINGE (CRASH CART) 50 ML IVP (20:43)
[2025-06-08] MEDS: PANTOPRAZOLE 40MG VIAL 40 MG IV (20:43)
[2025-06-08 20:55] LABS: POC Glucose,Bedside 61 gm/dL (70-110)
[2025-06-08 20:55] LABS: POC Glucose,Bedside 53 gm/dL (70-110)
[2025-06-08 21:55] LABS: POC Glucose,Bedside 72 gm/dL (70-110)
[2025-06-09] VITALS (7 sets, daily range): BP systolic 149–182; BP diastolic 85–106; PULSE 69–85; RESP 12–18; TEMP 36.6–37.1; O2SAT 90–95; BMI 33.0
[2025-06-09] MEDS: SIMETHICONE 80MG CHEWABLE TABLET 160 MG PO ×5 (00:06→23:58)
[2025-06-09 00:11] LABS: POC Glucose,Bedside 69 gm/dL (70-110)
[2025-06-09] MEDS: KETOROLAC 15MG/ML VIAL 15 MG IV ×2 (00:49→22:35)
[2025-06-09] MEDS: IPRATROPIUM/ALBUTEROL 3 ML NEB IH (05:05)
[2025-06-09] MEDS: DEXTROSE 50% 50ML SYRINGE (CRASH CART) 50 ML IVP (06:30)
[2025-06-09 06:34] LABS: POC Glucose,Bedside 52 gm/dL (70-110)
[2025-06-09 06:34] LABS: POC Glucose,Bedside 65 gm/dL (70-110)
[2025-06-09 07:01] LABS: POC Glucose,Bedside 129 gm/dL (70-110)
--- NOTE | 2025-06-09 07:25 | PC.NURSE ---
Pt blood sugars are Low all night. Gave 2 amps of d 50 on 2 different occasions to get b/s up. Pt has received LR at 75 ML/ HOUR. Pt has started out on 3 L NC and in the editor index hours the needs increased to 5L. Pt is at the bedside. Pt received a breathing treatment around 530 or 6 AM. Pt abd is very distend and round. B/p has been elevated all night. call light is with in reach and bed wheels are locked. EVANS MARR RN
[2025-06-09 07:39] LABS: Hematocrit 36.8 % (42.0-52.0); Hemoglobin 12.0 g/dL (14.1-18.0); Immature Granulocytes % 1.4 %; Mean Corpuscular HGB Conc 32.6 g/dL (31.8-35.4); Mean Corpuscular Hemoglobin 31.2 pg (27.0-31.2); Mean Corpuscular Volume 95.6 fl (80-94); Nucleated Red Blood Cells % 0 %; Platelet Count 140 K/mm3 (142-424); Red Blood Count 3.85 M/mm3 (4.60-6.20); Red Cell Distribution Width-SD 49.9 fL; White Blood Count 15.2 K/mm3 (4.8-10.8)
[2025-06-09 07:58] LABS: Alanine Aminotransferase 83 U/L (12-78); Albumin Level 3.4 g/dl (3.5-5.0); Albumin/Globulin Ratio 1.1 (1.1-1.8); Alkaline Phosphatase 75 U/L (38-126); Anion Gap 8.8 mEq/L (5-15); Aspartate Amino Transferase 57 U/L (17-59); Bilirubin,Total 2.3 mg/dl (0.2-1.3); Blood Urea Nitrogen 36 mg/dl (9-20); Calcium 8.6 mg/dl (8.4-10.2); Carbon Dioxide 28 mmol/L (22.0-30.0); Chloride 100 mmol/L (98-107); Creatinine Clearance Estimated 70 mL/min (50-200); Creatinine,Serum 1.50 mg/dl (0.66-1.25); Estimated Glomerular Filt Rate 47 ml/min (>60); GFR (African American) 56 ML/MIN (>60); Globulin 3.0 g/dL (1.3-3.2); Glucose 96 mg/dl (74-100); Lipase 338 U/L (23-300); Magnesium 2.4 mg/dl (1.6-2.3); Potassium 3.8 mmoL/L (3.5-5.1); Sodium 133 mmol/L (136-145); Total Protein,Serum 6.4 g/dl (6.3-8.2)
[2025-06-09] MEDS: HYDROCODONE/APAP 5/325 MG TABLET 1 TAB PO ×3 (08:12→20:06)
[2025-06-09] MEDS: POLYETHYLENE GLYCOL 3350 17 GM PACKET PO (08:13)
[2025-06-09] MEDS: ESCITALOPRAM 20MG TABLET 20 MG PO (08:13)
[2025-06-09] MEDS: CLOPIDOGREL 75MG TAB 75 MG PO (08:13)
[2025-06-09] MEDS: BUSPIRONE HCL 10 MG TABLET PO ×2 (08:13→20:06)
[2025-06-09] MEDS: LISINOPRIL 20MG TABLET 40 MG PO (08:13)
[2025-06-09] MEDS: LACTATED RINGERS 1000ML 1,000 ML 75 ML IV (08:14)
[2025-06-09] MEDS: FUROSEMIDE 40MG/4ML VIAL 40 MG IV (12:22)
[2025-06-09] MEDS: BELLADONNA ALKALOIDS 60 ML ML PO (12:22)
--- NOTE | 2025-06-09 14:19 | HMH.PHAAMS2 ---
- Antimicrobial Stewardship Review culture & sensitivity review Stewardship interventions: culture & sensitivity review (NG ALL CX)
--- NOTE | 2025-06-09 14:49 | EXP.PN ---
Subjective *Date: 06/09/25 *Time: 14:49 Interval history: Patient continues to have moderate epigastric tenderness to palpation, though this can also be from esophagitis. Increase IV Protonix 40 mg twice daily, ordered GI cocktail. Ordered IV Lasix 40 mg for new onset HFpEF. Exam Data for Last 24 hours Vital signs and Labs for Last 24 Hours: Temp Pulse Resp BP Pulse Ox O2 Del Method O2 Flow Rate 98.2 F 85 12 149/87 H 93 L Nasal Cannula 5 06/09/25 12:00 06/09/25 12:00 06/09/25 12:00 06/09/25 12:00 06/09/25 12:00 06/09/25 13:00 06/09/25 13:00 Laboratory Results - last 24 hr 06/08/25 16:50: POC Glucose 74 06/08/25 20:21: POC Glucose 53 L 06/08/25 20:39: POC Glucose 61 L 06/08/25 21:48: POC Glucose 72 06/08/25 23:59: POC Glucose 69 L 06/09/25 04:59: POC Glucose 65 L 06/09/25 06:28: POC Glucose 52 L 06/09/25 06:54: POC Glucose 129 H 06/09/25 07:03: WBC 15.2 H D, RBC 3.85 L, Hgb 12.0 L, Hct 36.8 L, MCV 95.6 H, MCH 31.2, MCHC 32.6, RDW 14.2, Plt Count 140 L, MPV 11.2 H, Neut % (Auto) 86.9 H, Lymph % (Auto) 4.1 L, [place] % (Auto) 7.5, Eos % (Auto) 0.0 L, Baso % (Auto) 0.1, Neut # (Auto) 13.2 H, Lymph # (Auto) 0.6 L, [place] # (Auto) 1.1 H, Eos # (Auto) 0.0, Baso # (Auto) 0.0, Sodium 133 L, Potassium 3.8, Chloride 100, Carbon Dioxide 28, Anion Gap 8.8, BUN 36 H, Creatinine 1.50 H, Estimated Creat Clear 70, Estimated GFR 47 L, Est GFR ( Amer) 56 L, Glucose 96, Calcium 8.6, Magnesium 2.4 H, Total Bilirubin 2.3 H, AST 57, ALT 83 H D, Alkaline Phosphatase 75, Total Protein 6.4, Albumin 3.4 L, Globulin 3.0, Albumin/Globulin Ratio 1.1, Lipase 338 H I & O for Last 24 hours: Intake & Output 06/06/25 06/07/25 06/08/25 06/09/25 23:59 23:59 23:59 23:59 Intake Total 4750 / 4750 2623.333 / 2863.333 178 / 5 4275 / 4275 Output Total 0 / 0 0 / 0 2090 / 2240 1900 / 1900 Balance 4750 / 4750 2623.333 / 2863.333 -305 / -155 2375 / 2375 Weight 104.326 kg 105.143 kg 103.918 kg 104.78 kg Microbiology Reports for the Last 24 Hours: Microbiology 06/06/25 14:15 Blood Blood Culture - Preliminary NO GROWTH AFTER 48 HOURS 06/06/25 14:20 Blood Blood Culture - Preliminary NO GROWTH AFTER 48 HOURS Constitutional Constitutional: no acute distress, obese and chronically ill appearing *Routine HEENT Exam Head: Present normocephalic Eye: Present EOMI and PERRL ENT: Present mucous membranes moist *Routine Neck Exam Neck: Present supple; Absent lymphadenopathy *Routine Respiratory Exam Respiratory: Present CTA bilaterally *Routine Cardiovascular Exam Cardiovascular: Present RRR *Routine Abdominal Exam Abdominal: Present soft, normoactive bowel sounds and tenderness Comments: Moderate epigastric abdominal tenderness without peritoneal signs. *Routine Extremities Exam Extremities: Absent cyanosis, clubbing or edema *Routine Skin Exam Skin: Present warm; Absent rash *Routine Neurological Exam Neurological: Present alert and oriented X3 Assessment and Plan *Assessment and plan (1) Abdominal pain: Status: Acute Category: Medical Code(s): R10.9 - Unspecified abdominal pain (2) Cholelithiasis: Status: Acute Qualifiers: Cholelithiasis location: gallbladder Cholecystitis presence: with cholecystitis Cholecystitis acuity: unspecified acuity Biliary obstruction: without biliary obstruction Qualified Code(s): K80.10 - Calculus of gallbladder with chronic cholecystitis without obstruction Category: Medical Code(s): K80.20 - Calculus of gallbladder without cholecystitis without obstruction (3) Enlarged prostate: Status: Acute Category: Medical Code(s): N40.0 - Benign prostatic hyperplasia without lower urinary tract symptoms (4) Sepsis: Status: Acute Qualifiers: Sepsis acute organ dysfunction status: unspecified Sepsis type: sepsis due to unspecified organism Qualified Code(s): A41.9 - Sepsis, unspecified organism Category: Medical Code(s): A41.9 - Sepsis, unspecified organism (5) Acute gallstone pancreatitis: Status: Acute Category: Medical Code(s): K85.10 - Biliary acute pancreatitis without necrosis or infection Plan Naty Lee is a 70-year-old male who presented with severe abdominal pain and was admitted for gallstone pancreatitis with suspected acute cholecystitis. #Abdominal pain #Acute gallstone pancreatitis ? Patient presented with severe abdominal pain, especially in the epigastric region. Initial lipase 22,000's with transaminitis. ? CT abdomen/pelvis consistent with acute pancreatitis, and gallbladder wall thickening with massimo cholecystic fluid. RUQ ultrasound suggested the same. ? Initial WBC 21.8 with tachycardia. WBC improved to 15.2, lipase down to 338 today. ? GI consulted, s/p ERCP on 06/07/2025 with biliary sludge within the common bile duct s/p clearance. ? Initially thought to have sepsis from acute cholecystitis, however general surgery has low suspicion for acute cholecystitis after ERCP. Plan for outpatient cholecystectomy. Leukocytosis likely reactive in the setting of pancreatitis. ? Repeat CT abdomen/pelvis on 06/08/2025 showed improvement in peripancreatic edema, and resolution of gallbladder wall thickening. Continued to show esophagitis. ? Today, patient looks better but continues to have epigastric abdominal pain. Will continue supportive treatment of pancreatitis. ? Continue Zosyn 3.375 g every 6 hours for now given leukocytosis which is improving. ? Toradol, [place], morphine, Dilaudid as needed for pain control. ? Follow-up morning CBC. #Acute hypoxic respiratory failure #Bilateral pleural effusions, small #Suspected HFpEF, new onset ? Patient requiring 3-5 l nasal cannula, likely from fluid resuscitation more blood. CXR yesterday showed pulmonary vascular congestion. ? Ordered IV Lasix 40 mg, follow-up response. #CKD stage III ?Creatinine improved to 1.5 today. #History of renal cancer ? History of left kidney with nephrectomy. Has reportedly been in remission since then. #Enlarged prostate ? Seen on CT abdomen/pelvis. PSA elevated to 8.08. ? Plan to refer to urology on discharge. #Esophagitis ?Increased IV Protonix to 40 mg twice daily, ordered one-time dose of GI cocktail. Continue home PPI. DNR/DNI DVT prophylaxis: Lovenox 40 mg
[2025-06-09 16:09] LABS: POC Glucose,Bedside 93 gm/dL (70-110)
--- NOTE | 2025-06-09 16:12 | PC.NURSE ---
PT IS SITTING UP ON THE SOB WITH FAMILY AT BEDSIDE. ALERT AND ORIENTED X4. TOLERATING FULL LIQUIDS. MEDICATED PER MAR FOR ABDOMINAL DISCOMFORT. PT HAS DIURESED WELL. O2 SATURATION HAS MAINTAINED 90-93% ON 5 L NC. LUNG SOUNDS DIMINISHED. ABDOMEN SOFT/TENDER WITH HYPOACTIVE BOWEL SOUNDS. WILL CONTINUE TO MONITOR.
--- NOTE | 2025-06-09 16:41 | P.PN_ITS ---
Subjective Narrative: Had some orange juice, full liquids today. Reports pain is worse yesterday. CT scan reviewed: no free air, no pancreatic necrosis. Admits that drinking made his abdominal pain worse. Had some relief from pain earlier with a GI cocktail. Exam Data for Last 24 hours Vital signs and Labs for Last 24 Hours: Temp Pulse Resp BP Pulse Ox O2 Del Method O2 Flow Rate 98.2 F 85 12 149/87 H 93 L Nasal Cannula 5 06/09/25 12:00 06/09/25 12:00 06/09/25 12:00 06/09/25 12:00 06/09/25 12:00 06/09/25 15:00 06/09/25 13:00 Laboratory Results - last 24 hr 06/08/25 16:50: POC Glucose 74 06/08/25 20:21: POC Glucose 53 L 06/08/25 20:39: POC Glucose 61 L 06/08/25 21:48: POC Glucose 72 06/08/25 23:59: POC Glucose 69 L 06/09/25 04:59: POC Glucose 65 L 06/09/25 06:28: POC Glucose 52 L 06/09/25 06:54: POC Glucose 129 H 06/09/25 07:03: WBC 15.2 H D, RBC 3.85 L, Hgb 12.0 L, Hct 36.8 L, MCV 95.6 H, MCH 31.2, MCHC 32.6, RDW 14.2, Plt Count 140 L, MPV 11.2 H, Neut % (Auto) 86.9 H , Lymph % (Auto) 4.1 L, [place] % (Auto) 7.5, Eos % (Auto) 0.0 L, Baso % (Auto) 0.1, Neut # (Auto) 13.2 H, Lymph # (Auto) 0.6 L, [place] # (Auto) 1.1 H, Eos # (Auto) 0.0, Baso # (Auto) 0.0, Sodium 133 L, Potassium 3.8, Chloride 100, Carbon Dioxide 28, Anion Gap 8.8, BUN 36 H, Creatinine 1.50 H, Estimated Creat Clear 70, Estimated GFR 47 L, Est GFR ( Amer) 56 L, Glucose 96, Calcium 8.6, Magnesium 2.4 H, Total Bilirubin 2.3 H, AST 57, ALT 83 H D, Alkaline Phosphatase 75, Total Protein 6.4, Albumin 3.4 L, Globulin 3.0, Albumin/Globulin Ratio 1.1, Lipase 338 H 06/09/25 15:48: POC Glucose 93 I & O for Last 24 hours: Intake & Output 06/06/25 06/07/25 06/08/25 06/09/25 23:59 23:59 23:59 23:59 Intake Total 4750 / 4750 2623.333 / 2863.333 1785 / 2085 4275 / 4275 Output Total 0 / 0 0 / 0 2090 / 2240 1900 / 1900 Balance 4750 / 4750 2623.333 / 2863.333 -305 / -155 2375 / 2375 Weight 230 lb 231 lb 12.8 oz 229 lb 1.6 oz 231 lb Microbiology Reports for the Last 24 Hours: Microbiology 06/06/25 14:15 Blood Blood Culture - Preliminary NO GROWTH AFTER 48 HOURS 06/06/25 14:20 Blood Blood Culture - Preliminary NO GROWTH AFTER 48 HOURS Constitutional Constitutional: no acute distress *Routine Abdominal Exam Comments: distended. +rebound TTP in upper abdomen. Progress Note: A&P Assessment and plan (1) Abdominal pain: Status: Acute (2) Cholelithiasis: Status: Acute (3) Enlarged prostate: Status: Acute (4) Sepsis: Status: Acute (5) Acute gallstone pancreatitis: Status: Acute Assessment and plan: Decreasing leukocytosis, but may continue with leukocytosis even if pancreatitis is improving. Abdominal pain has not resolved, and worse with oral intake. Recommend NPO until abdominal pain has decreased or subsided. Not concerned for acute cholecystitis at this time. VS ok, not toxic. Reassess tomorrow.
[2025-06-09] MEDS: PIPERCILLIN/TAZO 3.375 GM in 0.9 % SODIUM CHLORIDE 50 ML IV ×2 (18:29→23:58)
[2025-06-09] MEDS: PANTOPRAZOLE 40MG VIAL 40 MG IV (20:09)
[2025-06-09] MEDS: SODIUM CHLORIDE 0.9% 10ML VIAL 10 ML IV (20:09)
[2025-06-09 22:15] LABS: POC Glucose,Bedside 88 gm/dL (70-110)
[2025-06-10] VITALS: BP 159/90; PULSE 62; RESP 17; TEMP 36.5; O2SAT 95
[2025-06-10] MEDS: MORPHINE 4MG/ML SYRINGE 4 MG IV (01:50)
[2025-06-10 04:00] VITALS: BP 166/89; PULSE 62; RESP 17; TEMP 36.4; O2SAT 94; BMI 31.9
--- NOTE | 2025-06-10 04:50 | PC.NURSE ---
Patient is alert and oriented x4. He was observed to have both wakeful periods and resting periods (eyes closed, respirations even and unlabored) throughout the night. Nasal cannula (5 L oxygen) remains in place; oxygen saturations have remained > 90%. On continuous pulse ox. He has had complaints of severe abdominal pain this shift, as well as a headache that occurred yesterday evening. [place] was administered first but did not relieve the patient's pain this shift. Intravenous pain medication (Toradol and morphine) was then given, of which relief was provided per patient's statement and observance of resting periods. Abdomen is round + firm and tender upon palpation. Patient reports passing gas but has not had a bowel movement thus far. Physical assessment (see nursing shift biophysical intervention) was performed as appropriately this shift. Scheduled medications were administered per SEP. Patient gets up with standby assistance without difficulties. Mild swelling (+1) noted to both feet. Utilizes urinal at bedside for voiding needs; urine output documented accordingly, has voided frequently in small amounts. No complaints of nausea. NPO since midnight; had ate Jell-O cups and consumed ice water prior with no reported difficulty. ACHS glucose checks performed. At this time, the patient remains resting in bed. No acute changes noted thus far. Call light within reach.
[2025-06-10] MEDS: KETOROLAC 15MG/ML VIAL 15 MG IV ×3 (05:38→22:28)
[2025-06-10] MEDS: SIMETHICONE 80MG CHEWABLE TABLET 160 MG PO ×4 (05:38→23:43)
[2025-06-10] MEDS: PIPERCILLIN/TAZO 3.375 GM in 0.9 % SODIUM CHLORIDE 50 ML IV ×4 (05:38→23:43)
[2025-06-10] MEDS: DEXTROSE 50% 50ML SYRINGE (CRASH CART) 50 ML IVP (05:48)
[2025-06-10 05:52] LABS: POC Glucose,Bedside 67 gm/dL (70-110)
--- NOTE | 2025-06-10 06:10 | PC.NURSE ---
Patient's glucose reading this morning (at 05:44) was 67. He did not have any reports of hypoglycemic symptoms (fatigue, confusion, lightheadedness, etc., no pale skin appearance). Due to the patient's NPO status per abdominal condition and hypoglycemic reading, 50 mL of dextrose 50% in water was administered at 05:48 per SEP. Glucose reading was rechecked (at 06:09), and the reading was 127.
[2025-06-10 06:17] LABS: POC Glucose,Bedside 127 gm/dL (70-110)
[2025-06-10 07:58] VITALS: BP 149/91; PULSE 70; RESP 14; TEMP 36.4; O2SAT 94
[2025-06-10] MEDS: LISINOPRIL 20MG TABLET 40 MG PO (09:33)
[2025-06-10] MEDS: ESCITALOPRAM 20MG TABLET 20 MG PO (09:33)
[2025-06-10] MEDS: FUROSEMIDE 40MG/4ML VIAL 40 MG IV ×2 (09:33→16:09)
[2025-06-10] MEDS: CLOPIDOGREL 75MG TAB 75 MG PO (09:33)
[2025-06-10] MEDS: BUSPIRONE HCL 10 MG TABLET PO ×2 (09:33→20:25)
[2025-06-10] MEDS: POLYETHYLENE GLYCOL 3350 17 GM PACKET PO (09:34)
--- NOTE | 2025-06-10 09:35 | HMH.PHAAMS2 ---
- Antimicrobial Stewardship Review reviewed - no change Stewardship interventions: reviewed - no change
[2025-06-10] MEDS: HYDROCODONE/APAP 5/325 MG TABLET 1 TAB PO ×3 (09:44→19:02)
--- NOTE | 2025-06-10 10:37 | EXP.SURG.PN ---
Subjective Narrative: No acute events. Feels a little better since being made NPO, but still has abdominal pain. He asked me not to examine him because it would hurt. He and had questions about timing of gallbladder surgery, and how long he would be NPO. Exam Data for Last 24 hours Vital signs and Labs for Last 24 Hours: Temp Pulse Resp BP Pulse Ox O2 Del Method O2 Flow Rate 97.5 F L 70 14 149/91 H 94 L Nasal Cannula 5 06/10/25 07:58 06/10/25 07:58 06/10/25 07:58 06/10/25 07:58 06/10/25 07:58 06/10/25 08:08 06/10/25 08:08 FiO2 28 06/09/25 18:13 Laboratory Results - last 24 hr 06/09/25 15:48: POC Glucose 93 06/09/25 20:10: POC Glucose 88 06/10/25 05:44: POC Glucose 67 L 06/10/25 06:09: POC Glucose 127 H I & O for Last 24 hours: Intake & Output 06/07/25 06/08/25 06/09/25 06/10/25 23:59 23:59 23:59 23:59 Intake Total 2623.333 / 2863.333 1785 / 2085 4445 / 4565 220 / 220 Output Total 0 / 0 2090 / 2240 3025 / 3150 575 / 575 Balance 2623.333 / 2863.333 -305 / -155 1420 / 1415 -355 / -355 Weight 231 lb 12.8 oz 229 lb 1.6 oz 231 lb 223 lb Constitutional Constitutional: no acute distress *Routine Abdominal Exam Abdominal: Present soft and distended Comments: Rebound TTP in upper abdomen. Progress Note: A&P Assessment and plan (1) Abdominal pain: Status: Acute (2) Cholelithiasis: Status: Acute (3) Enlarged prostate: Status: Acute (4) Sepsis: Status: Acute (5) Acute gallstone pancreatitis: Status: Acute Assessment and plan: Stable VS, labs. Continues with abdominal pain. Continue NPO. If still has pain on Wednesday and diet cannot be advanced, consider alternative nutrition, such as TPN or post-pyloric tube feeds.
[2025-06-10 12:00] VITALS: BP 163/93; PULSE 67; RESP 14; TEMP 36.8; O2SAT 94
--- NOTE | 2025-06-10 12:02 | P.PN_ITS ---
Subjective *Date: 06/10/25 *Time: 12:31 Interval history: Today, patient again send looks better and decreased overall abdominal pain. Continues to have moderate epigastric tenderness to palpation. Will start clear diet and advance as tolerated. Continue IV Lasix diuresis for HFpEF, follow-up ECHO in the morning. Exam Data for Last 24 hours Vital signs and Labs for Last 24 Hours: Temp Pulse Resp BP Pulse Ox O2 Del Method O2 Flow Rate 97.5 F L 70 14 149/91 H 94 L Nasal Cannula 5 06/10/25 07:58 06/10/25 07:58 06/10/25 07:58 06/10/25 07:58 06/10/25 07:58 06/10/25 11:00 06/10/25 11:00 FiO2 28 06/09/25 18:13 Laboratory Results - last 24 hr 06/09/25 15:48: POC Glucose 93 06/09/25 20:10: POC Glucose 88 06/10/25 05:44: POC Glucose 67 L 06/10/25 06:09: POC Glucose 127 H I & O for Last 24 hours: Intake & Output 06/07/25 06/08/25 06/09/25 06/10/25 23:59 23:59 23:59 23:59 Intake Total 2623.333 / 2863.333 1785 / 2085 4445 / 4565 220 / 220 Output Total 0 / 0 2090 / 2240 3025 / 3150 575 / 575 Balance 2623.333 / 2863.333 -305 / -155 1420 / 1415 -355 / -355 Weight 105.143 kg 103.918 kg 104.78 kg 101.151 kg Constitutional Constitutional: no acute distress, obese and chronically ill appearing *Routine HEENT Exam Head: Present normocephalic Eye: Present EOMI and PERRL ENT: Present mucous membranes moist *Routine Neck Exam Neck: Present supple; Absent lymphadenopathy *Routine Respiratory Exam Respiratory: Present CTA bilaterally *Routine Cardiovascular Exam Cardiovascular: Present RRR *Routine Abdominal Exam Abdominal: Present soft, normoactive bowel sounds and tenderness Comments: Moderate epigastric abdominal tenderness without peritoneal signs. *Routine Extremities Exam Extremities: Absent cyanosis, clubbing or edema *Routine Skin Exam Skin: Present warm; Absent rash *Routine Neurological Exam Neurological: Present alert and oriented X3 Assessment and Plan *Assessment and plan (1) Abdominal pain: Status: Acute Category: Medical Code(s): R10.9 - Unspecified abdominal pain (2) Cholelithiasis: Status: Acute Qualifiers: Cholelithiasis location: gallbladder Cholecystitis presence: with cholecystitis Cholecystitis acuity: unspecified acuity Biliary obstruction: without biliary obstruction Qualified Code(s): K80.10 - Calculus of gallbladder with chronic cholecystitis without obstruction Category: Medical Code(s): K80.20 - Calculus of gallbladder without cholecystitis without obstruction (3) Enlarged prostate: Status: Acute Category: Medical Code(s): N40.0 - Benign prostatic hyperplasia without lower urinary tract symptoms (4) Sepsis: Status: Acute Qualifiers: Sepsis acute organ dysfunction status: unspecified Sepsis type: sepsis due to unspecified organism Qualified Code(s): A41.9 - Sepsis, unspecified organism Category: Medical Code(s): A41.9 - Sepsis, unspecified organism (5) Acute gallstone pancreatitis: Status: Acute Category: Medical Code(s): K85.10 - Biliary acute pancreatitis without necrosis or infection Plan Naty Lee is a 70-year-old male who presented with severe abdominal pain and was admitted for gallstone pancreatitis with suspected acute cholecystitis. #Abdominal pain #Acute gallstone pancreatitis, improving ? Patient presented with severe abdominal pain, especially in the epigastric region. Initial lipase 22,000's with transaminitis. ? CT abdomen/pelvis consistent with acute pancreatitis, and gallbladder wall thickening with massimo cholecystic fluid. RUQ ultrasound suggested the same. ? Initial WBC 21.8 with tachycardia. WBC improved to 13.9 today, lipase down to 338. ? GI consulted, s/p ERCP on 06/07/2025 with biliary sludge within the common bile duct s/p clearance. ? Initially thought to have sepsis from acute cholecystitis, however general surgery has low suspicion for acute cholecystitis after ERCP. Plan for outpatient cholecystectomy. Leukocytosis likely reactive in the setting of pancreatitis. ? Repeat CT abdomen/pelvis on 06/08/2025 showed improvement in peripancreatic edema, and resolution of gallbladder wall thickening. Continued to show esophagitis. ? Today, patient again send looks better and decreased overall abdominal pain. Continues to have moderate epigastric tenderness to palpation. Will start clear diet and advance as tolerated. ? Continue Zosyn 3.375 g every 6 hours for now given leukocytosis which is improving. ? Toradol, [place], morphine, Dilaudid as needed for pain control. ? Follow-up morning CBC. #Acute hypoxic respiratory failure #Bilateral pleural effusions, small #Suspected HFpEF, new onset ? Patient requiring 3-5 l nasal cannula, likely from fluid resuscitation more blood. CXR on 06/09/2025 showed pulmonary vascular congestion. ? Continue IV Lasix 40 mg twice daily. Discontinued hydrochlorothiazide. ? Follow-up ECHO in the morning. #CKD stage III ?Creatinine 1.6, GFR 43. Stable. #History of renal cancer #Solitary right kidney ? History of left kidney with nephrectomy for renal cancer. Has reportedly been in remission since then. #Enlarged prostate ? Seen on CT abdomen/pelvis on admission. PSA elevated to 8.08. ? Plan to refer to urology on discharge. #Esophagitis ? Continue IV Protonix to 40 mg twice daily, GI cocktail seem to have helped with epigastric pain. DNR/DNI DVT prophylaxis: Lovenox 40 mg
[2025-06-10 12:10] LABS: POC Glucose,Bedside 62 gm/dL (70-110)
[2025-06-10 12:17] LABS: Hematocrit 39.2 % (42.0-52.0); Hemoglobin 12.9 g/dL (14.1-18.0); Immature Granulocytes % 0.4 %; Mean Corpuscular HGB Conc 32.9 g/dL (31.8-35.4); Mean Corpuscular Hemoglobin 30.9 pg (27.0-31.2); Mean Corpuscular Volume 94.0 fl (80-94); Nucleated Red Blood Cells % 0 %; Platelet Count 178 K/mm3 (142-424); Red Blood Count 4.17 M/mm3 (4.60-6.20); Red Cell Distribution Width-SD 47.6 fL; White Blood Count 13.9 K/mm3 (4.8-10.8)
[2025-06-10 12:24] LABS: Albumin Level 3.8 g/dl (3.5-5.0); Chloride 95 mmol/L (98-107); Potassium 3.8 mmoL/L (3.5-5.1); Sodium 142 mmol/L (136-145)
[2025-06-10 12:26] LABS: Blood Urea Nitrogen 35 mg/dl (9-20)
[2025-06-10 12:27] LABS: Alanine Aminotransferase 71 U/L (12-78); Albumin/Globulin Ratio 1.1 (1.1-1.8); Alkaline Phosphatase 75 U/L (38-126); Anion Gap 12.8 mEq/L (5-15); Aspartate Amino Transferase 44 U/L (17-59); Bilirubin,Total 2.2 mg/dl (0.2-1.3); Calcium 9.1 mg/dl (8.4-10.2); Carbon Dioxide 38 mmol/L (22.0-30.0); Creatinine Clearance Estimated 63 mL/min (50-200); Creatinine,Serum 1.60 mg/dl (0.66-1.25); Estimated Glomerular Filt Rate 43 ml/min (>60); GFR (African American) 52 ML/MIN (>60); Globulin 3.4 g/dL (1.3-3.2); Glucose 83 mg/dl (74-100); Magnesium 2.5 mg/dl (1.6-2.3); Total Protein,Serum 7.2 g/dl (6.3-8.2)
[2025-06-10 13:07] LABS: Lipase 322 U/L (23-300)
[2025-06-10 16:00] VITALS: BP 138/69; PULSE 75; RESP 12; TEMP 36.7; O2SAT 94
[2025-06-10 16:18] LABS: POC Glucose,Bedside 76 gm/dL (70-110)
--- NOTE | 2025-06-10 16:41 | PC.NURSE ---
PT IS SITTING ON SOB. ALERT AND ORIENTED X4. TOLERATING CLEAR LIQUIDS. O2 SATURATION HAS MAINTAINED 92-95% ON 3 L NC. LUNG SOUNDS DIMINISHED. ABDOMEN FIRM/TENDER WITH ACTIVE BOWEL SOUNDS. MEDICATED PER MAR FOR ABDOMINAL DISCOMFORT. PT CONTINUES TO DIURESE WELL. TOLERATED SITTING UP IN THE CHAIR FOR SEVERAL HOURS THIS SHIFT. WILL CONTINUE TO MONITOR.
[2025-06-10 20:00] VITALS: BP 162/107; PULSE 78; RESP 16; TEMP 36.3; O2SAT 94
[2025-06-10] MEDS: SODIUM CHLORIDE 0.9% 10ML VIAL 10 ML IV (20:25)
[2025-06-10] MEDS: PANTOPRAZOLE 40MG VIAL 40 MG IV (20:25)
[2025-06-10 20:43] LABS: POC Glucose,Bedside 98 gm/dL (70-110)
[2025-06-11] VITALS: BP 166/93; PULSE 60; RESP 17; TEMP 36.5; O2SAT 94
[2025-06-11] MEDS: HYDROCODONE/APAP 5/325 MG TABLET 1 TAB PO ×2 (02:00→10:17)
--- NOTE | 2025-06-11 03:40 | PC.NURSE ---
Patient remains pleasantly alert and oriented x4; mild short-term forgetfulness ongoing, is patient's baseline per . He was observed to have both wakeful periods and resting periods (eyes closed, respirations even and unlabored) once more throughout the night. has remained at bedside. Nasal cannula (3 L oxygen) remains in place. Continuous pulse ox remains intact; oxygen saturations > 90%. He continues to have complaints of severe mid-abdominal pain. Patient has received both [place] and Toradol per MAR interchangeably for reported pain relief. No bowel movement yet, continues to pass small amounts of gas. Physical assessment (see nursing shift biophysical intervention) was performed as appropriately this shift. Scheduled medications were administered per MAR. Mild swelling to both feet improved. Utilizes urinal at bedside for voiding needs; urine output documented accordingly. Patient positions himself to sit at the edge of the bed frequently during wakeful periods. Has been tolerating a full liquid diet without any reports of nausea or worsening abdominal pain. ACHS glucose checks performed. At this time, the patient remains resting in bed. No acute changes noted thus far. Call light within reach.
[2025-06-11 04:00] VITALS: BP 161/74; PULSE 84; RESP 17; TEMP 36.4; O2SAT 94; BMI 31.5
[2025-06-11] MEDS: PIPERCILLIN/TAZO 3.375 GM in 0.9 % SODIUM CHLORIDE 50 ML IV ×3 (05:00→18:07)
[2025-06-11] MEDS: KETOROLAC 15MG/ML VIAL 15 MG IV ×3 (05:00→21:33)
[2025-06-11 05:28] LABS: POC Glucose,Bedside 73 gm/dL (70-110)
[2025-06-11] MEDS: SIMETHICONE 80MG CHEWABLE TABLET 160 MG PO ×3 (05:50→18:07)
--- NOTE | 2025-06-11 06:00 | CA_ITS ---
APPROVED REPORT EXAM: Comprehensive 2D, Doppler, and color-flow Echocardiogram [employer] Operator: Yulia Webb RVT Ht: 5 ft 10 in Wt: 223lbs BSA: 2.19 BP: 132/82 mmHg Indications: Congestive Heart Failure 2D Dimensions Left Atrium 4.60 cm M: 3.0 - 4.0 LA Volume 44.50 mL RVID Base (AP4) 3.50 cm (M/F) 2.5-4.1 LA Volume Index 20.32 mL/m2 (M/F) 16-34 LVOT 2.27 cm (M/F) 1.5-2.5 EF AP4 43.60 % GL Strain -11.7 % M-Mode Dimensions RVDd 4.16 cm (0.9-2.6) LVDd 3.67 cm (3.5-5.7) Ao Diam 3.61 cm (2.0-3.7) LVDs 2.41 cm (3.5-5.7) IVSd 2.41 cm (0.6-1.1) PWd 1.25 cm (0.6-1.1) EF (Teich) 64.20% FS 34.30% EDV (Teich) 57.00 mL ESV (Teich) 20.40 mL LV Diastology E Decel Time 150 (160-240 msec) E/A Ratio 0.5 MED E' 4.4 (>= 7 cm/sec) E'/MED E' Ratio 10.98 (<= 14) LAT E' 5.6 (>= 10 cm/sec) E/LAT E' Ratio 8.62 (<= 14) Aortic Valve LVOT Max 95.0 (70-110 cm/s) KAROL Index 1.47 cm2/m2 LVOT VTI 17.27 cm AoV Peak Jamie. 116.0 (50-130 cm/s) AO Peak GR. 6.20 mmHg AO Mean GR. 2.80 (<5 mmHg) AO VTI 21.8 (18-25 cm) KAROL (VTI) 3.21 (2.5-4.5 cm2) Mitral Valve MV E Max Jamie. 48.0 (40-130 cm/s) MV A Velocity 105.0 (40-130 cm/s) E/A Ratio 0.46 MV Decel. Time 150 (160-240 ms) Left Ventricle The left ventricle is normal size. Left ventricular systolic function is normal. The left ventricular ejection fraction is within the normal range. There is increased left ventricular wall thickness. There is mild hypokinesis of the lateral and anterolateral LV de le[place]. Transmitral Doppler flow pattern suggests impaired LV relaxation. LVEF is 50% Right Ventricle The right ventricle is mildly dilated. The right ventricular systolic function is normal. Atria The left atrium size is normal. The right atrium size is normal. There is no color Doppler evidence of interatrial shunt. Aortic Valve The aortic valve is mildly thickened. There is no hemodynamically significant aortic valvular stenosis. Trace aortic regurgitation is present. Mitral Valve The mitral valve is mildly thickened. No evidence of mitral valve stenosis. Mild mitral regurgitation is present. Tricuspid Valve The tricuspid valve leaflets are thin and pliable. Trace tricuspid regurgitation. There is insufficient TR jet to estimate RVSP. Pulmonic Valve The pulmonary valve is grossly normal in structure. Trace pulmonic valve regurgitation is present. Great Vessels The aortic root is normal in size. IVC is normal in size and collapses >50% with inspiration. Pericardium There is no pericardial effusion. Other Information Study Quality: Fair Conclusion Normal biventricular systolic function. Mild hypokinesis of the lateral and anterolateral LV de le[place]. Mild MR. Electronically signed by : Emily Zepeda MD 06/11/2025 15:02:47
[2025-06-11 07:11] LABS: Hematocrit 37.5 % (42.0-52.0); Hemoglobin 12.2 g/dL (14.1-18.0); Immature Granulocytes % 0.3 %; Mean Corpuscular HGB Conc 32.5 g/dL (31.8-35.4); Mean Corpuscular Hemoglobin 29.8 pg (27.0-31.2); Mean Corpuscular Volume 91.7 fl (80-94); Nucleated Red Blood Cells % 0 %; Platelet Count 177 K/mm3 (142-424); Red Blood Count 4.09 M/mm3 (4.60-6.20); Red Cell Distribution Width-SD 45.3 fL; White Blood Count 11.5 K/mm3 (4.8-10.8)
[2025-06-11 07:18] LABS: Albumin Level 3.4 g/dl (3.5-5.0); Chloride 93 mmol/L (98-107); Sodium 139 mmol/L (136-145)
[2025-06-11 07:19] LABS: Potassium 3.4 mmoL/L (3.5-5.1)
[2025-06-11 07:21] LABS: Alanine Aminotransferase 56 U/L (12-78); Albumin/Globulin Ratio 1.1 (1.1-1.8); Alkaline Phosphatase 85 U/L (38-126); Anion Gap 9.4 mEq/L (5-15); Aspartate Amino Transferase 37 U/L (17-59); Bilirubin,Total 1.6 mg/dl (0.2-1.3); Blood Urea Nitrogen 39 mg/dl (9-20); Calcium 8.7 mg/dl (8.4-10.2); Carbon Dioxide 40 mmol/L (22.0-30.0); Creatinine Clearance Estimated 62 mL/min (50-200); Creatinine,Serum 1.60 mg/dl (0.66-1.25); Estimated Glomerular Filt Rate 43 ml/min (>60); GFR (African American) 52 ML/MIN (>60); Globulin 3.2 g/dL (1.3-3.2); Glucose 93 mg/dl (74-100); Total Protein,Serum 6.6 g/dl (6.3-8.2)
[2025-06-11 07:22] LABS: Magnesium 2.3 mg/dl (1.6-2.3)
[2025-06-11 08:00] VITALS: BP 157/98; PULSE 79; RESP 16; TEMP 36.5; O2SAT 95
--- NOTE | 2025-06-11 08:48 | P.PN_ITS ---
Subjective Narrative: Patient underwent CT scan on Wednesday due to significant ongoing pain and persistent leukocytosis. This revealed mild peripancreatic fat stranding with adjacent free fluid consistent with interstitial edematous pancreatitis which was slightly improved. There was no evidence of any necrosis. He had resolution of the previously noted gallbladder wall thickening. Due to the significance of his tenderness on examination and persistent leukocytosis he was placed on n.p.o. status over the weekend by general surgery coverage. Patient states that he feels better today. He underwent echocardiogram this morning. Abdominal pain has improved. He has not had a bowel movement. White blood cell count has improved to 11,500. Exam Data for Last 24 hours Vital signs and Labs for Last 24 Hours: Temp Pulse Resp BP Pulse Ox O2 Del Method O2 Flow Rate 97.7 F 79 16 157/98 H 95 Nasal Cannula 4 06/11/25 08:00 06/11/25 08:00 06/11/25 08:00 06/11/25 08:00 06/11/25 08:00 06/11/25 08:00 06/11/25 08:00 FiO2 28 06/09/25 18:13 Laboratory Results - last 24 hr 06/10/25 11:56: POC Glucose 62 L 06/10/25 12:00: WBC 13.9 H, RBC 4.17 L, Hgb 12.9 L, Hct 39.2 L, MCV 94.0, MCH 30.9, MCHC 32.9, RDW 13.6, Plt Count 178 D, MPV 11.2 H, Neut % (Auto) 84.5 H, Lymph % (Auto) 5.3 L, [place] % (Auto) 9.6 H, Eos % (Auto) 0.1, Baso % (Auto) 0.1, Neut # (Auto) 11.7 H, Lymph # (Auto) 0.7, [place] # (Auto) 1.3 H, Eos # (Auto) 0.0, Baso # (Auto) 0.0, Sodium 142, Potassium 3.8, Chloride 95 L, Carbon Dioxide 38 H , Anion Gap 12.8, BUN 35 H, Creatinine 1.60 H, Estimated Creat Clear 63, Estimated GFR 43 L, Est GFR ( Amer) 52 L, Glucose 83, Calcium 9.1, Magnesium 2.5 H, Total Bilirubin 2.2 H, AST 44, ALT 71, Alkaline Phosphatase 75, Total Protein 7.2, Albumin 3.8 D, Globulin 3.4 H, Albumin/Globulin Ratio 1.1, Lipase 322 H 06/10/25 16:08: POC Glucose 76 06/10/25 20:32: POC Glucose 98 06/11/25 05:20: POC Glucose 73 06/11/25 06:52: WBC 11.5 H, RBC 4.09 L, Hgb 12.2 L, Hct 37.5 L, MCV 91.7, MCH 29.8, MCHC 32.5, RDW 13.4, Plt Count 177, MPV 10.9 H, Neut % (Auto) 79.1, Lymph % (Auto) 8.7 L, [place] % (Auto) 11.1 H, Eos % (Auto) 0.5, Baso % (Auto) 0.3, Neut # (Auto) 9.1 H, Lymph # (Auto) 1.0, [place] # (Auto) 1.3 H, Eos # (Auto) 0.1, Baso # (Auto) 0.0, Sodium 139, Potassium 3.4 L, Chloride 93 L, Carbon Dioxide 40 H, Anion Gap 9.4, BUN 39 H, Creatinine 1.60 H, Estimated Creat Clear 62, Estimated GFR 43 L, Est GFR ( Amer) 52 L, Glucose 93, Calcium 8.7, Magnesium 2.3, Total Bilirubin 1.6 H, AST 37, ALT 56, Alkaline Phosphatase 85, Total Protein 6.6, Albumin 3.4 L D, Globulin 3.2, Albumin/Globulin Ratio 1.1 I & O for Last 24 hours: Intake & Output 06/08/25 06/09/25 06/10/25 06/11/25 11:59 11:59 11:59 11:59 Intake Total 1863.333 / 3316.315 5896 / 3020 3090 / 3090 1310 / 1310 Output Total 1525 / 1525 1765 / 1765 2400 / 2600 2400 / 2400 Balance 338.333 / 856.615 4709 / 1255 690 / 490 -1090 / -1090 Weight 229 lb 1.6 oz 231 lb 223 lb 220 lb 1.6 oz Microbiology Reports for the Last 24 Hours: Microbiology 06/06/25 14:20 Blood Blood Culture - Preliminary NO GROWTH AFTER 4 DAYS 06/06/25 14:15 Blood Blood Culture - Preliminary NO GROWTH AFTER 4 DAYS *Routine Abdominal Exam Abdominal: Present soft and distended; Absent tenderness Progress Note: A&P Assessment and plan (1) Abdominal pain: Status: Acute (2) Cholelithiasis: Status: Acute (3) Enlarged prostate: Status: Acute (4) Sepsis: Status: Acute (5) Acute gallstone pancreatitis: Status: Acute Assessment and plan: Continue medical management for acute biliary pancreatitis. Improving. Ultimately will need cholecystectomy in the future for prevention of recurrent biliary pancreatitis.
[2025-06-11 09:07] LABS: Lipase 329 U/L (23-300)
--- NOTE | 2025-06-11 09:07 | HMH.PHAAMS2 ---
- Antimicrobial Stewardship Review culture & sensitivity review Stewardship interventions: culture & sensitivity review, reviewed - no change Comments: BLOOD AND URINE CX REMAIN NO GROWTH, ON ZOSYN EMPIRICALLY FOR PANCREATITIS.
[2025-06-11] MEDS: BUSPIRONE HCL 10 MG TABLET PO ×2 (10:18→21:10)
[2025-06-11] MEDS: ESCITALOPRAM 20MG TABLET 20 MG PO (10:18)
[2025-06-11] MEDS: LISINOPRIL 20MG TABLET 40 MG PO (10:18)
[2025-06-11] MEDS: CLOPIDOGREL 75MG TAB 75 MG PO (10:18)
[2025-06-11] MEDS: FUROSEMIDE 40MG/4ML VIAL 40 MG IV (10:19)
[2025-06-11] MEDS: POLYETHYLENE GLYCOL 3350 17 GM PACKET PO (10:19)
[2025-06-11 11:25] LABS: POC Glucose,Bedside 86 gm/dL (70-110)
[2025-06-11] MEDS: BISACODYL 5MG TABLET 10 MG PO (11:25)
[2025-06-11] MEDS: POTASSIUM CHLORIDE 20MEQ TAB 40 MEQ PO ×2 (11:25→14:36)
--- NOTE | 2025-06-11 11:48 | XR_ITS ---
PROCEDURE INFORMATION: Exam: XR Chest Exam date and time: 06/11/2025 11:47 AM Age: 70 years old Clinical indication: Other: Hypoxia, follow-up edema TECHNIQUE: Imaging protocol: Radiologic exam of the chest. Views: 1 view. COMPARISON: CR XR CHEST PORTABLE 06/07/2025 7:19 PM FINDINGS: Lungs: The extreme lordotic positioning of the chest limits evaluation of the lung bases but no definite pulmonary infiltrates identified. The prominent pulmonary vasculature seen at the time of the previous exam has improved. Pleural spaces: Unremarkable. No pleural effusion. No pneumothorax. Heart/Mediastinum: The heart size is stable. Bones/joints: Unremarkable. IMPRESSION: The pulmonary vascular congestion seen at the time of the previous exam has improved.
[2025-06-11 12:00] VITALS: BP 168/103; PULSE 79; RESP 14; TEMP 36.8; O2SAT 95
--- NOTE | 2025-06-11 12:23 | P.PN_ITS ---
Subjective *Date: 06/11/25 *Time: 12:23 Interval history: Epigastric pain is improving, only mild today. Advancing to low-fat diet today. Assess for tolerance. Continues to be hypoxic, intermittently dyspneic. CXR shows improvement in pulmonary edema, increased IV Lasix to 60 mg twice daily. Follow-up ECHO, cardiology consulted. Exam Data for Last 24 hours Vital signs and Labs for Last 24 Hours: Temp Pulse Resp BP Pulse Ox O2 Del Method O2 Flow Rate 97.7 F 79 16 157/98 H 95 Nasal Cannula 4 06/11/25 08:00 06/11/25 08:00 06/11/25 08:00 06/11/25 08:00 06/11/25 08:00 06/11/25 08:00 06/11/25 08:00 FiO2 28 06/09/25 18:13 Laboratory Results - last 24 hr 06/10/25 12:00: WBC 13.9 H, RBC 4.17 L, Hgb 12.9 L, Hct 39.2 L, MCV 94.0, MCH 30.9, MCHC 32.9, RDW 13.6, Plt Count 178 D, MPV 11.2 H, Neut % (Auto) 84.5 H, Lymph % (Auto) 5.3 L, [place] % (Auto) 9.6 H, Eos % (Auto) 0.1, Baso % (Auto) 0.1, Neut # (Auto) 11.7 H, Lymph # (Auto) 0.7, [place] # (Auto) 1.3 H, Eos # (Auto) 0.0, Baso # (Auto) 0.0, Sodium 142, Potassium 3.8, Chloride 95 L, Carbon Dioxide 38 H , Anion Gap 12.8, BUN 35 H, Creatinine 1.60 H, Estimated Creat Clear 63, Estimated GFR 43 L, Est GFR ( Amer) 52 L, Glucose 83, Calcium 9.1, Magnesium 2.5 H, Total Bilirubin 2.2 H, AST 44, ALT 71, Alkaline Phosphatase 75, Total Protein 7.2, Albumin 3.8 D, Globulin 3.4 H, Albumin/Globulin Ratio 1.1, Lipase 322 H 06/10/25 16:08: POC Glucose 76 06/10/25 20:32: POC Glucose 98 06/11/25 05:20: POC Glucose 73 06/11/25 06:52: WBC 11.5 H, RBC 4.09 L, Hgb 12.2 L, Hct 37.5 L, MCV 91.7, MCH 29.8, MCHC 32.5, RDW 13.4, Plt Count 177, MPV 10.9 H, Neut % (Auto) 79.1, Lymph % (Auto) 8.7 L, [place] % (Auto) 11.1 H, Eos % (Auto) 0.5, Baso % (Auto) 0.3, Neut # (Auto) 9.1 H, Lymph # (Auto) 1.0, [place] # (Auto) 1.3 H, Eos # (Auto) 0.1, Baso # (Auto) 0.0, Sodium 139, Potassium 3.4 L, Chloride 93 L, Carbon Dioxide 40 H, Anion Gap 9.4, BUN 39 H, Creatinine 1.60 H, Estimated Creat Clear 62, Estimated GFR 43 L, Est GFR ( Amer) 52 L, Glucose 93, Calcium 8.7, Magnesium 2.3, Total Bilirubin 1.6 H, AST 37, ALT 56, Alkaline Phosphatase 85, Total Protein 6.6, Albumin 3.4 L D, Globulin 3.2, Albumin/Globulin Ratio 1.1, Lipase 329 H 06/11/25 11:08: POC Glucose 86 I & O for Last 24 hours: Intake & Output 06/08/25 06/09/25 06/10/25 06/11/25 23:59 23:59 23:59 23:59 Intake Total 1785 / 2085 4445 / 4565 990 / 1140 590 / 590 Output Total 2090 / 2240 3025 / 3150 2275 / 2275 700 / 700 Balance -305 / -155 1420 / 1415 -1285 / -1135 -110 / -110 Weight 103.918 kg 104.78 kg 101.151 kg 99.836 kg Microbiology Reports for the Last 24 Hours: Microbiology 06/06/25 14:20 Blood Blood Culture - Preliminary NO GROWTH AFTER 4 DAYS 06/06/25 14:15 Blood Blood Culture - Preliminary NO GROWTH AFTER 4 DAYS Constitutional Constitutional: no acute distress, obese and chronically ill appearing *Routine HEENT Exam Head: Present normocephalic Eye: Present EOMI and PERRL ENT: Present mucous membranes moist *Routine Neck Exam Neck: Present supple; Absent lymphadenopathy *Routine Respiratory Exam Respiratory: Present CTA bilaterally *Routine Cardiovascular Exam Cardiovascular: Present RRR *Routine Abdominal Exam Abdominal: Present soft, normoactive bowel sounds and tenderness Comments: Mild epigastric abdominal tenderness without peritoneal signs. *Routine Extremities Exam Extremities: Absent cyanosis, clubbing or edema *Routine Skin Exam Skin: Present warm; Absent rash *Routine Neurological Exam Neurological: Present alert and oriented X3 Assessment and Plan *Assessment and plan (1) Abdominal pain: Status: Acute Category: Medical Code(s): R10.9 - Unspecified abdominal pain (2) Cholelithiasis: Status: Acute Qualifiers: Cholelithiasis location: gallbladder Cholecystitis presence: with cholecystitis Cholecystitis acuity: unspecified acuity Biliary obstruction: without biliary obstruction Qualified Code(s): K80.10 - Calculus of gallbladder with chronic cholecystitis without obstruction Category: Medical Code(s): K80.20 - Calculus of gallbladder without cholecystitis without obstruction (3) Enlarged prostate: Status: Acute Category: Medical Code(s): N40.0 - Benign prostatic hyperplasia without lower urinary tract symptoms (4) Sepsis: Status: Acute Qualifiers: Sepsis acute organ dysfunction status: unspecified Sepsis type: sepsis due to unspecified organism Qualified Code(s): A41.9 - Sepsis, unspecified organism Category: Medical Code(s): A41.9 - Sepsis, unspecified organism (5) Acute gallstone pancreatitis: Status: Acute Category: Medical Code(s): K85.10 - Biliary acute pancreatitis without necrosis or infection Plan Naty Lee is a 70-year-old male who presented with severe abdominal pain and was admitted for gallstone pancreatitis with suspected acute cholecystitis. #Abdominal pain #Acute gallstone pancreatitis, improving ? Patient presented with severe abdominal pain, especially in the epigastric region. Initial lipase 22,000's with transaminitis. ? CT abdomen/pelvis consistent with acute pancreatitis, and gallbladder wall thickening with massimo cholecystic fluid. RUQ ultrasound suggested the same. ? Initial WBC 21.8 with tachycardia. WBC improved to 11.5 today, lipase down to 338. ? GI consulted, s/p ERCP on 06/07/2025 with biliary sludge within the common bile duct s/p clearance. ? Initially thought to have sepsis from acute cholecystitis, however general surgery has low suspicion for acute cholecystitis after ERCP. Plan for outpatient cholecystectomy. Leukocytosis likely reactive in the setting of pancreatitis. ? Repeat CT abdomen/pelvis on 06/08/2025 showed improvement in peripancreatic edema, and resolution of gallbladder wall thickening. Continued to show esophagitis. ? Today, patient again looks better and decreased overall abdominal pain. Epigastric pain significantly improved. Still requiring Toradol, [place]. ? Will advance to low-fat diet and assess for toleration. ? Continue Zosyn 3.375 g every 6 hours per surgery recommendations for now given leukocytosis which is improving. ? Toradol, [place], morphine, Dilaudid as needed for pain control. ? Follow-up morning CBC. #Acute hypoxic respiratory failure #Bilateral pleural effusions, small #Suspected HFpEF, new onset ? Patient requiring 3-5 l nasal cannula, likely from fluid resuscitation more blood. CXR on 06/09/2025 showed pulmonary vascular congestion. ? Today, patient continues to require 2 to 3 L nasal cannula. CXR shows improvement in edema, but still dyspneic. ? Continue IV Lasix 40 mg twice daily. Discontinued hydrochlorothiazide. ? Follow-up ECHO report. ? Cardiology consulted, pending further recommendations. #CKD stage III ?Creatinine 1.6, GFR 43. Stable. #History of renal cancer #Solitary right kidney ? History of left kidney with nephrectomy for renal cancer. Has reportedly been in remission since then. #Enlarged prostate ? Seen on CT abdomen/pelvis on admission. PSA elevated to 8.08. ? Plan to refer to urology on discharge. #Esophagitis ? Continue IV Protonix to 40 mg daily, GI cocktail seem to have helped with epigastric pain. DNR/DNI DVT prophylaxis: Lovenox 40 mg
[2025-06-11 16:00] VITALS: BP 177/107; PULSE 71; RESP 20; TEMP 36.8; O2SAT 94
--- NOTE | 2025-06-11 16:00 | EXP.CARD.CON ---
History of Present Illness History of Present Illness Consult date: 06/11/25 Requesting physician: Timmy Ocampo Consult reason: congestive heart failure Chief complaint: Abdominal pain History of present illness: This is a 70-year-old white gentleman who presented to the emergency department with abdominal pain. He was found to have pancreatitis and cholecystitis. The patient did undergo ERCP on 06/2025 with biliary sludge within the common bile duct status post clearance. He continues to have persistent abdominal pain. He states that this is in the epigastric region. He states that then radiates diffusely throughout his abdomen. He does have associated shortness of breath. He denies any lower extremity edema. He denies any fever or chills. He does get nauseated and did have vomiting but his vomiting has improved. He denies any diarrhea or constipation. Of note the patient did have a slightly elevated troponin on admission. His BNP is also elevated. The patient has pulmonary vascular congestion noted on chest x-ray. Cardiology has been consulted due to concerns of heart failure. [facility] Disclaimer: The information contained in this section may have been updated after the patient was seen, as this information can be updated by other users. Medical History (Updated 06/11/25 @ 16:09 by Ilana Hua APRN) Abnormal electrocardiogram [ECG] [EKG] Acute heart failure with preserved ejection fraction (HFpEF) Abnormal echocardiogram Non-STEMI (non-ST elevated myocardial infarction) Frequency of urination History of COVID-19 Anxiety and depression Allergies Stroke Hyperlipidemia History of kidney cancer Renal cancer Diabetes mellitus Hypertension Surgical History History of incision and drainage History of nephrectomy Family History Father Cancer Coronary artery disease Mother Diabetes Social History (Updated 06/06/25 @ 20:21 by Josh Kilpatrick RN) Smoking Status: Current every day smoker tobacco type: cigarettes packs per day: 3 alcohol intake: never substance use type: denies use current occupational status: retired Travel in the last 8 weeks?: None household members: spouse and children housing: house marital status: caffeine: No Have you lived/traveled outside [place] in past 30 days?: No Contact w/someone who lives/traveled outside US past 30 days?: No Exposure to someone with infectious disease in past 14 days?: No Do you have a fever (greater than 100.4 F or 38 C)?: No Have you tested positive for COVID-19?: No Exposed to someone with COVID-19 in past 14 days?: No Do you have a sore throat?: No Do you have a cough?: No Do you have any weakness?: No Do you have any diarrhea?: No Are you experiencing any unusual bleeding?: No Do you have any muscle aches/pain?: No Do you have any abdominal pain?: No Are you experiencing loss of taste or smell?: No Review of Systems Review of Systems Review of systems:: pertinent systems reviewed and negative unless documented below Constitutional Constitutional: Reports system reviewed and no additional complaints, except as documented and Reports lethargy Eyes Eyes: Reports system reviewed and no additional complaints, except as documented ENT Ears, Nose, Mouth, and Throat: Reports system reviewed and no additional complaints, except as documented *Cardiovascular Cardiovascular: Reports system reviewed and no additional complaints, except as documented and Reports dyspnea on exertion *Respiratory Respiratory: Reports system reviewed and no additional complaints, except as documented and Reports dyspnea on exertion *Gastrointestinal Gastrointestinal: Reports system reviewed and no additional complaints, except as documented, Reports abdominal pain and Reports dyspepsia *Genitourinary Genitourinary: Reports system reviewed and no additional complaints, except as documented *Musculoskeletal Musculoskeletal: Reports system reviewed and no additional complaints, except as documented Integumentary/Breasts Skin/Breast: Reports system reviewed and no additional complaints, except as documented *Neurologic Neurologic: Reports system reviewed and no additional complaints, except as documented Psychiatric Psychiatric: Reports system reviewed and no additional complaints, except as documented Endocrine Endocrine: Reports system reviewed and no additional complaints, except as documented Hematologic/Lymphatic Hematologic/Lymphatic: Reports system reviewed and no additional complaints, except as documented Allergic/Immunologic Allergic/Immunologic: Reports system reviewed and no additional complaints, except as documented Exam Data for Last 24 hours Vital signs and Labs for Last 24 Hours: Temp Pulse Resp BP Pulse Ox O2 Del Method O2 Flow Rate 98.3 F 79 14 168/103 H 95 Nasal Cannula 4 06/11/25 12:00 06/11/25 12:00 06/11/25 12:00 06/11/25 12:00 06/11/25 12:00 06/11/25 15:00 06/11/25 12:00 FiO2 28 06/09/25 18:13 Laboratory Results - last 24 hr 06/10/25 16:08: POC Glucose 76 06/10/25 20:32: POC Glucose 98 06/11/25 05:20: POC Glucose 73 06/11/25 06:52: WBC 11.5 H, RBC 4.09 L, Hgb 12.2 L, Hct 37.5 L, MCV 91.7, MCH 29.8, MCHC 32.5, RDW 13.4, Plt Count 177, MPV 10.9 H, Neut % (Auto) 79.1, Lymph % (Auto) 8.7 L, [place] % (Auto) 11.1 H, Eos % (Auto) 0.5, Baso % (Auto) 0.3, Neut # (Auto) 9.1 H, Lymph # (Auto) 1.0, [place] # (Auto) 1.3 H, Eos # (Auto) 0.1, Baso # (Auto) 0.0, Sodium 139, Potassium 3.4 L, Chloride 93 L, Carbon Dioxide 40 H, Anion Gap 9.4, BUN 39 H, Creatinine 1.60 H, Estimated Creat Clear 62, Estimated GFR 43 L, Est GFR ( Amer) 52 L, Glucose 93, Calcium 8.7, Magnesium 2.3, Total Bilirubin 1.6 H, AST 37, ALT 56, Alkaline Phosphatase 85, Total Protein 6.6, Albumin 3.4 L D, Globulin 3.2, Albumin/Globulin Ratio 1.1, Lipase 329 H 06/11/25 11:08: POC Glucose 86 I & O for Last 24 hours: Intake & Output 06/08/25 06/09/25 06/10/25 06/11/25 23:59 23:59 23:59 23:59 Intake Total 1785 / 2085 4445 / 4565 990 / 1140 830 / 830 Output Total 2090 / 2240 3025 / 3150 2275 / 2275 1600 / 1600 Balance -305 / -155 1420 / 1415 -1285 / -1135 -770 / -770 Weight 229 lb 1.6 oz 231 lb 223 lb 220 lb 1.6 oz Microbiology Reports for the Last 24 Hours: Microbiology 06/06/25 14:20 Blood Blood Culture - Final NO GROWTH AFTER 5 DAYS 06/06/25 14:15 Blood Blood Culture - Final NO GROWTH AFTER 5 DAYS Constitutional Constitutional: no acute distress and average body habitus *Routine HEENT Exam Head: Present normocephalic and atraumatic ENT: Present mucous membranes moist *Routine Neck Exam Neck: Present supple, full ROM and normal carotid upstroke; Absent JVD, carotid bruit or lymphadenopathy *Routine Respiratory Exam Respiratory: Present CTA bilaterally, normal respiratory effort, able to speak in complete sentences and symmetric chest movement *Routine Cardiovascular Exam Cardiovascular: Present RRR, Normal S1 and Normal S2; Absent murmur or gallop *Routine Abdominal Exam Abdominal: Present soft and normoactive bowel sounds; Absent tenderness, distended or organomegaly *Routine Extremities Exam Extremities: Present full ROM, pulses intact and normal capillary refill; Absent cyanosis, clubbing or edema *Routine Skin Exam Skin: Present intact and warm; Absent erythema *Routine Neurological Exam Neurological: Present alert, oriented X3 and CN II-XII intact; Absent sensory deficit or motor deficit Routine Psychiatric Exam Psychiatric: Present normal affect Meds Home Medications and Allergies Home Medications ?Medication ?Instructions ?Recorded ?Confirmed ?Type hydrochlorothiazide 25 mg tablet 25 mg PO DAILY 03/07/19 06/06/25 History metformin 500 mg tablet 500 mg PO BID 03/07/19 06/06/25 History buspirone 10 mg tablet 10 mg PO BID 01/30/21 06/07/25 History pantoprazole 40 mg tablet,delayed 40 mg PO DAILY #30 tabs 02/22/23 06/06/25 Rx release (Protonix) fenofibrate nanocrystallized 145 145 mg PO DAILY 03/31/24 06/06/25 History mg tablet aspirin 81 mg capsule 81 mg PO DAILY 06/06/25 06/06/25 History clopidogrel 75 mg tablet 75 mg PO DAILY 06/06/25 06/06/25 History escitalopram oxalate 20 mg tablet 20 mg PO DAILY 06/06/25 06/06/25 History lisinopril 40 mg tablet 40 mg PO DAILY 06/06/25 06/06/25 History atorvastatin 80 mg tablet 80 mg PO HS 06/07/25 06/07/25 History New Prescriptions to Start Prescriptions: Allergies Allergy/AdvReac Type Severity Reaction Status Date / Time No Known Allergies Allergy Verified 05/11/24 09:01 Assessment and Plan *Assessment and plan (1) Non-STEMI (non-ST elevated myocardial infarction): Status: Acute Category: Medical Code(s): I21.4 - Non-ST elevation (NSTEMI) myocardial infarction (2) Abnormal echocardiogram: Status: Acute Category: Medical Code(s): R93.1 - Abnormal findings on diagnostic imaging of heart and coronary circulation (3) Acute heart failure with preserved ejection fraction (HFpEF): Status: Acute Category: Medical Code(s): I50.31 - Acute diastolic (congestive) heart failure (4) Hyperlipidemia: Status: Chronic Qualifiers: Hyperlipidemia type: mixed hyperlipidemia Qualified Code(s): E78.2 - Mixed hyperlipidemia Category: Medical Code(s): E78.5 - Hyperlipidemia, unspecified (5) Diabetes mellitus: Status: Chronic Qualifiers: Diabetes mellitus type: type 2 Diabetes mellitus longterm insulin use: without longterm use Diabetes mellitus complication status: without complication Qualified Code(s): E11.9 - Type 2 diabetes mellitus without complications Category: Medical Code(s): E11.9 - Type 2 diabetes mellitus without complications (6) Hypertension: Status: Chronic Qualifiers: Hypertension type: primary hypertension Qualified Code(s): I10 - Essential (primary) hypertension Category: Medical Code(s): I10 - Essential (primary) hypertension (7) Abdominal pain: Status: Acute Qualifiers: Abdominal location: epigastric Qualified Code(s): R10.13 - Epigastric pain Category: Medical Code(s): R10.9 - Unspecified abdominal pain (8) Elevated bilirubin: Status: Acute Category: Medical Code(s): R17 - Unspecified jaundice (9) Cholelithiasis: Status: Acute Qualifiers: Cholelithiasis location: gallbladder Cholecystitis presence: with cholecystitis Cholecystitis acuity: unspecified acuity Biliary obstruction: without biliary obstruction Qualified Code(s): K80.10 - Calculus of gallbladder with chronic cholecystitis without obstruction Category: Medical Code(s): K80.20 - Calculus of gallbladder without cholecystitis without obstruction (10) Enlarged prostate: Status: Acute Category: Medical Code(s): N40.0 - Benign prostatic hyperplasia without lower urinary tract symptoms (11) Transaminitis: Status: Acute Category: Medical Code(s): R74.01 - Elevation of levels of liver transaminase levels (12) Acute gallstone pancreatitis: Status: Acute Category: Medical Code(s): K85.10 - Biliary acute pancreatitis without necrosis or infection (13) Abnormal electrocardiogram [ECG] [EKG]: Status: Acute Category: Medical Code(s): R94.31 - Abnormal electrocardiogram [ECG] [EKG] Plan Plan: 1. The patient was admitted to the hospital and found to have pancreatitis and cholecystitis. He underwent ERCP on 06/2025 and had biliary stretch status post clearance. He will need to have his gallbladder removed but this is being completed on an outpatient basis. He is still having epigastric pain. He states that his abdominal pain is still pretty constant and has not really gotten much relief. This is most likely from his pancreatitis. Will defer to the hospitalist and surgery/GI. 2. The patient did have a significantly enlarged prostate and elevated PSA. Will also defer to the hospitalist. 3. The patient does have chest x-ray showing pulmonary vascular congestion. He is being diuresed with IV Lasix. Continue Lasix 60 mg IV twice daily. We do want to be very careful with diuresing this patient to avoid dehydration as to not worsen his pancreatitis. 4. The patient had an echocardiogram which shows a preserved ejection fraction at 50%. There is anterolateral and inferolateral hypokinesis very concerning for lateral ischemia. The patient will need left cardiac catheterization for further evaluation for coronary artery disease prior to discharge home due to his abnormal echocardiogram and elevated troponin consistent with a non-STEMI. He did have a CT which showed coronary calcifications as well. Will see if his pancreatitis symptoms have improved overnight and if so we will consider left cardiac catheterization tomorrow. 5. His blood pressure is elevated which is most likely from his pain. Will continue to follow. 6. His LDL goal is less than 55. His LDL is 33. He is on a statin. 7. The patient takes Plavix for history of CVA x 2 in 2019. 8. Further recommendations will be made pending the patient's response to treatment. Thank you for the opportunity to help participate in the care of this patient. All recommendations and orders are per Dr. Zepeda.
[2025-06-11] MEDS: FUROSEMIDE 40MG/4ML VIAL 60 MG IV (17:10)
[2025-06-11 20:00] VITALS: BP 175/99; PULSE 65; RESP 16; TEMP 36.6; O2SAT 95; O2SAT 96
[2025-06-11] MEDS: SODIUM CHLORIDE 0.9% 10ML VIAL 10 ML IV (21:10)
[2025-06-11] MEDS: PANTOPRAZOLE 40MG VIAL 40 MG IV (21:10)
[2025-06-11 21:27] LABS: POC Glucose,Bedside 89 gm/dL (70-110)
[2025-06-12] VITALS (16 sets, daily range): BP systolic 160–188; BP diastolic 72–106; PULSE 59–84; RESP 14–24; TEMP 36.4–37.1; O2SAT 90–97; BMI 30.4
[2025-06-12] MEDS: SIMETHICONE 80MG CHEWABLE TABLET 160 MG PO ×3 (00:13→17:22)
[2025-06-12] MEDS: HYDROCODONE/APAP 5/325 MG TABLET 1 TAB PO ×4 (00:13→21:05)
[2025-06-12] MEDS: PIPERCILLIN/TAZO 3.375 GM in 0.9 % SODIUM CHLORIDE 50 ML IV ×4 (00:13→17:22)
[2025-06-12] MEDS: KETOROLAC 15MG/ML VIAL 15 MG IV ×2 (04:43→18:00)
--- NOTE | 2025-06-12 04:50 | PC.NURSE ---
Patient remains pleasantly alert and oriented x4. He was observed to be resting in bed with eyes closed, respirations even and unlabored, and no apparent distress throughout the majority of the night. remains at bedside. Oxygen flow was weaned from 3 L to 2 L this shift; patient is tolerating it well, oxygen saturations > 90%. Continuous pulse ox remains intact. No difficulties with breathing reported. He continues to have complaints of mid-abdominal pain (moderate to severe this shift). Abdomen remains firm and tender upon palpation. Patient continues to receive both [place] and Toradol per MAR interchangeably for reported pain relief. Still no bowel movement yet, continues to pass gas. Physical assessment (see nursing shift biophysical intervention) was performed as appropriately this shift. No swelling noted to extremities this shift. Scheduled medications were administered per SEP. Utilizes urinal at bedside for voiding needs; urine output documented accordingly. Continues to tolerate a full liquid diet. ACHS glucose checks performed. At this time, the patient remains resting in bed. No acute changes noted thus far. Call light within reach.
[2025-06-12 05:42] LABS: POC Glucose,Bedside 97 gm/dL (70-110)
[2025-06-12 07:23] LABS: Lipase 226 U/L (23-300)
--- NOTE | 2025-06-12 07:53 | EXP.SURG.PN ---
Subjective Narrative: Patient states he still does have some abdominal pain but overall feels better. Tolerating full liquids. Exam Data for Last 24 hours Vital signs and Labs for Last 24 Hours: Temp Pulse Resp BP Pulse Ox O2 Del Method O2 Flow Rate 97.5 F L 71 16 175/101 H 95 Nasal Cannula 2 06/12/25 04:00 06/12/25 04:00 06/12/25 04:00 06/12/25 04:00 06/12/25 04:00 06/12/25 07:00 06/12/25 07:00 FiO2 28 06/09/25 18:13 Laboratory Results - last 24 hr 06/11/25 06:52: Lipase 329 H 06/11/25 11:08: POC Glucose 86 06/11/25 21:15: POC Glucose 89 06/12/25 05:30: POC Glucose 97 06/12/25 06:47: Lipase 226 I & O for Last 24 hours: Intake & Output 06/09/25 06/10/25 06/11/25 06/12/25 11:59 11:59 11:59 11:59 Intake Total 3020 / 3020 3090 / 3090 1360 / 1360 800 / 800 Output Total 1765 / 1765 2400 / 2600 2400 / 3300 3300 / 3300 Balance 1255 / 1255 690 / 490 -1040 / -1940 -2500 / -2500 Weight 231 lb 223 lb 220 lb 1.6 oz 213 lb Microbiology Reports for the Last 24 Hours: Microbiology 06/06/25 14:20 Blood Blood Culture - Final NO GROWTH AFTER 5 DAYS 06/06/25 14:15 Blood Blood Culture - Final NO GROWTH AFTER 5 DAYS *Routine Abdominal Exam Abdominal: Present distended; Absent tenderness Progress Note: A&P Assessment and plan (1) Non-STEMI (non-ST elevated myocardial infarction): Status: Acute (2) Abnormal echocardiogram: Status: Acute (3) Acute heart failure with preserved ejection fraction (HFpEF): Status: Acute (4) Hyperlipidemia: Status: Chronic (5) Diabetes mellitus: Status: Chronic (6) Hypertension: Status: Chronic (7) Abdominal pain: Status: Acute (8) Elevated bilirubin: Status: Acute (9) Cholelithiasis: Status: Acute (10) Enlarged prostate: Status: Acute (11) Transaminitis: Status: Acute (12) Acute gallstone pancreatitis: Status: Acute Assessment and plan: Seems to be improving regarding pancreatitis. Cardiology would apparently advocate left heart catheterization. Ideally since patient has undergone clearance of his biliary tree with ERCP plan would be for interval cholecystectomy as an outpatient in several weeks for prevention of future biliary pancreatitis. (13) Abnormal electrocardiogram [ECG] [EKG]: Status: Acute
[2025-06-12] MEDS: ESCITALOPRAM 20MG TABLET 20 MG PO (08:38)
[2025-06-12] MEDS: BUSPIRONE HCL 10 MG TABLET PO ×2 (08:39→21:05)
[2025-06-12] MEDS: POLYETHYLENE GLYCOL 3350 17 GM PACKET PO (08:39)
[2025-06-12] MEDS: CLOPIDOGREL 75MG TAB 75 MG PO (08:39)
[2025-06-12] MEDS: FUROSEMIDE 40MG/4ML VIAL 60 MG IV ×2 (08:39→16:27)
[2025-06-12] MEDS: LISINOPRIL 20MG TABLET 40 MG PO (08:39)
--- NOTE | 2025-06-12 09:39 | HMH.PHAAMS2 ---
- Antimicrobial Stewardship Review culture & sensitivity review Stewardship interventions: culture & sensitivity review (CURRENTLY ON ZOSYN FOR ACUTE ABDOMEN, WBC DECREASED FROM 22.7K TO 11.5K, AFEBRILE, NO GROWTH IN BLD AND URINE CX.)
--- NOTE | 2025-06-12 09:42 | HMH.PHAAMS2 ---
- Antimicrobial Stewardship Review 48 hour timeout review Stewardship interventions: 48 hour timeout review (CURRENTLY ON ZOSYN FOR ACUTE ABDOMEN, AFEBRILE, WBC DECREASED TO 11.5K TODAY FROM 22.7K EARLIER.)
--- NOTE | 2025-06-12 11:21 | IR_ITS ---
APPROVED REPORT Patient Location: Inpatient Cane Burner: ROSY Garcia RT (R) PROCEDURES Left heart catheterization Left ventriculogram Selective coronary angiogram Drug-eluting stent deployment to the proximal and mid LAD INDICATION Acute non-ST elevation myocardial infarction, Coronary artery disease, Preoperative evaluation Informed consent was obtained prior to the procedure. COMPLICATIONS NONE Estimated Blood Loss: LESS THAN 10 ML TECHNIQUE One percent lidocaine used to anesthetize the right anterior aspect of the wrist. The right radial artery was accessed via the Seldinger technique. A 6 Yi sheath was placed in the right radial artery. 2.5 mg of Verapamil, 800 mcg of nitroglycerin, 1mg Lidocaine and 5000 U Heparin were given through the arterial sheath. The JL3 catheter was also used to perform left heart catheterization, left ventriculogram and selective coronary angiogram. At the end of the diagnostic angiogram therapeutic heparin ministered giving a therapeutic ACT and the guide catheter was placed in left main artery followed by Choice PT extra-support wire placed into the LAD. 4 mm x 38 mm Ion frontier stent was deployed at 15 brittany reducing the stenosis. A 4 mm x 15 mm noncompliant balloon was deployed at 22 brittany up and down the stent to post dilate however this still undersized the stent. A 4.5 x 15 mm noncompliant balloon was then deployed at 22 brittayn in the proximal and midportion further postdilated giving excellent angiographic results. EDGAR II flow was present at the beginning the procedure with EDGAR-3 flow at the end the procedure. At the end the procedure the apparatus was removed the sheath was removed and hemostasis was achieved using TR banding patient was transferred to the postop putting in stable condition ANGIOGRAPHIC RESULTS The left main artery Normal The left anterior descending artery Has a proximal long stenosis which starts to 70% and ends as a 90% stenosis in the midportion of the LAD. The LAD is massively large in caliber and wraps the apex The circumflex artery Is a large dominant vessel has proximal 20% stenosis with mid vessel 30% stenosis The right coronary artery Nondominant and has diffuse 50% stenoses throughout with mild vascular ectasia The FERNANDO ventriculogram reveals Normal 65% The left ventricular end-diastolic pressure 10 mmHg IMPRESSION Severe to critical proximal LAD disease as described above Successful stenting of the proximal to mid LAD critical disease reduced to 0% with 1 drug-eluting stent Normal ejection fraction Normal LVEDP PLAN 1. Dual antiplatelet therapy 2. Cardiac rehabilitation 3. If patient is having cholecystectomy he must remain on dual antiplatelet therapy throughout the perioperative phase 4. LDL less than 55 to be achieved with high intensity statin 5. Avoidance of tobacco products 6. Recommended renal duplex to evaluate for renal artery stenosis given patient's extensive coronary artery disease and renal insufficiency with hypertension 7. Consider evaluation for amyloidosis if applicable 8. Cardiac rehabilitation Electronically signed by : Thai Carlson MD 06/12/2025 14:58:17
--- NOTE | 2025-06-12 11:58 | EXP.ACUTE.PN ---
Subjective *Date: 06/12/25 *Time: 11:58 Interval history: Still having abdominal pain. No worse with eating however. Had 1 bowel movement overnight. Currently stable on 3 L nasal cannula oxygen. -2.6 L with diuresis in the past 24 hours. Planning for left heart cath today with cardiology. Medical Exam Vital signs and Labs for Last 24 Hours: Vital Signs Temp Pulse Resp BP Pulse Ox O2 Del Method O2 Flow Rate 06/12/25 09:00 Nasal Cannula 06/12/25 08:00 Nasal Cannula 06/12/25 08:00 98.7 F 59 L 14 160/92 H 96 Nasal Cannula 3 06/12/25 07:00 Nasal Cannula 2 06/12/25 05:00 Nasal Cannula 2 06/12/25 04:00 97.5 F L 71 16 175/101 H 95 Nasal Cannula 3 06/12/25 03:00 Nasal Cannula 2 06/12/25 01:00 Nasal Cannula 2 06/11/25 23:00 Nasal Cannula 2 06/11/25 21:00 Nasal Cannula 2 06/11/25 20:00 95 Nasal Cannula 2 06/11/25 20:00 97.8 F 65 16 175/99 H 96 Nasal Cannula 2 06/11/25 19:00 Nasal Cannula 06/11/25 17:00 Nasal Cannula 06/11/25 16:00 98.2 F 71 20 177/107 H 94 L Nasal Cannula 2 06/11/25 15:00 Nasal Cannula 06/11/25 13:00 Nasal Cannula 06/11/25 12:00 98.3 F 79 14 168/103 H 95 Nasal Cannula 4 Intake and Output 06/11/25 06/12/25 06/12/25 23:59 07:59 15:59 Intake Total 170 / 1240 390 / 510 120 / 510 Output Total 1700 / 3550 700 / 900 200 / 900 Balance -1530 / -2310 -310 / -390 -80 / -390 Intake: Intake, Oral Amount 120 / 1040 290 / 410 120 / 410 Intake, Total IV Amount 50 / 200 100 / 100 Pipercillin/Tazo 3.375 gm In 0. 50 / 200 100 / 100 9 % Sodium Chloride 50 ml @ 100 mls/hr IV Q6H [facility] Rx#:[id number] Output: Output, Urine Amount 1700 / 3550 700 / 900 200 / 900 Other: Weight 96.615 kg Patient Weight 06/12/25 23:59 Weight 96.615 kg Laboratory Results - last 24 hr 06/11/25 21:15: POC Glucose 89 06/12/25 05:30: POC Glucose 97 06/12/25 06:47: Lipase 226 I & O for Labs for Last 24 Hours: Intake & Output 06/09/25 06/10/25 06/11/25 06/12/25 23:59 23:59 23:59 23:59 Intake Total 4445 / 4565 990 / 1140 1000 / 1240 510 / 510 Output Total 3025 / 3150 2275 / 2275 3300 / 3550 900 / 900 Balance 1420 / 1415 -1285 / -1135 -2300 / -2310 -390 / -390 Weight 104.78 kg 101.151 kg 99.836 kg 96.615 kg Microbiology Reports for the Last 24 Hours: Microbiology 06/06/25 14:20 Blood Blood Culture - Final NO GROWTH AFTER 5 DAYS 06/06/25 14:15 Blood Blood Culture - Final NO GROWTH AFTER 5 DAYS Constitutional: Present mild distress, obese, chronically ill appearing and cooperative Head: Present atraumatic Respiratory: Present prolonged expiratory phase and normal respiratory effort; Absent respiratory distress, stridor, wheezes or crackles Cardiac: Present Reg Rate and Rhythm GI: Present soft, tenderness (Mainly in right upper quadrant) and normal bowel sounds; Absent distention Extremities: Present normal inspection and full ROM Skin: Present intact; Absent erythema Neuro: Present Grossly Intact, alert, awake, oriented x 3 and moves all extremities Assessment and Plan *Assessment and plan (1) Abdominal pain: Status: Acute Qualifiers: Abdominal location: epigastric Qualified Code(s): R10.13 - Epigastric pain Category: Medical Code(s): R10.9 - Unspecified abdominal pain (2) Cholelithiasis: Status: Acute Qualifiers: Cholelithiasis location: gallbladder Cholecystitis presence: with cholecystitis Cholecystitis acuity: unspecified acuity Biliary obstruction: without biliary obstruction Qualified Code(s): K80.10 - Calculus of gallbladder with chronic cholecystitis without obstruction Category: Medical Code(s): K80.20 - Calculus of gallbladder without cholecystitis without obstruction (3) Enlarged prostate: Status: Acute Category: Medical Code(s): N40.0 - Benign prostatic hyperplasia without lower urinary tract symptoms (4) Sepsis: Status: Acute Qualifiers: Sepsis acute organ dysfunction status: unspecified Sepsis type: sepsis due to unspecified organism Qualified Code(s): A41.9 - Sepsis, unspecified organism Category: Medical Code(s): A41.9 - Sepsis, unspecified organism (5) Acute gallstone pancreatitis: Status: Acute Category: Medical Code(s): K85.10 - Biliary acute pancreatitis without necrosis or infection (6) Acute heart failure with preserved ejection fraction (HFpEF): Status: Acute Category: Medical Code(s): I50.31 - Acute diastolic (congestive) heart failure (7) Non-STEMI (non-ST elevated myocardial infarction): Status: Acute Category: Medical Code(s): I21.4 - Non-ST elevation (NSTEMI) myocardial infarction (8) Hyperglycemia due to diabetes mellitus: Status: Acute Category: Medical Code(s): E11.65 - Type 2 diabetes mellitus with hyperglycemia (9) Diabetes mellitus: Status: Chronic Qualifiers: Diabetes mellitus type: type 2 Diabetes mellitus senior care insulin use: without equipment operator intermodal yard use Diabetes mellitus complication status: without complication Qualified Code(s): E11.9 - Type 2 diabetes mellitus without complications Category: Medical Code(s): E11.9 - Type 2 diabetes mellitus without complications (10) Anxiety and depression: Status: Acute Category: Medical Code(s): F41.9 - Anxiety disorder, unspecified; F32.A - Depression, unspecified Plan Naty Lee is a 70-year-old male who presented with severe abdominal pain and was admitted for gallstone pancreatitis with suspected acute cholecystitis. #Abdominal pain #Acute gallstone pancreatitis, improving ? Patient presented with severe abdominal pain, especially in the epigastric region. Initial lipase 22,000's with transaminitis. ? CT abdomen/pelvis consistent with acute pancreatitis, and gallbladder wall thickening with massimo cholecystic fluid. RUQ ultrasound suggested the same. ? Initial WBC 21.8 with tachycardia. Lipase normal at 226. White count yesterday normalized 11.5. Lab holiday today with no CBC or CMP. - Kidney function stable at baseline at 1.6. Baseline appears to be 1.5-1.7 ? GI consulted, s/p ERCP on 06/07/2025 with biliary sludge within the common bile duct s/p clearance. ? Initially thought to have sepsis from acute cholecystitis, however general surgery has low suspicion for acute cholecystitis after ERCP. Plan for outpatient cholecystectomy. Leukocytosis likely reactive in the setting of pancreatitis. ? Repeat CT abdomen/pelvis on 06/08/2025 showed improvement in peripancreatic edema, and resolution of gallbladder wall thickening. Continued to show esophagitis. ? Will advance to low-fat diet and assess for toleration. ? Continue Zosyn 3.375 g every 6 hours per surgery recommendations for now given leukocytosis which is improving. Will complete antibiotics today. ? Toradol, Dupont, morphine, Dilaudid as needed for pain control. Monitor for toxicity -Repeat CBC, CMP, magnesium ordered for the morning. #Acute hypoxic respiratory failure #Bilateral pleural effusions, small #Suspected HFpEF, new onset NSTEMI, type II secondary to stress pancreatitis ? Patient requiring 3 l nasal cannula, likely from fluid resuscitation. CXR on 06/09/2025 showed pulmonary vascular congestion. ? Discussed case with cardiology, plan for left heart cath today. Continue diuresis with Lasix 60 mg IV twice daily - Negative volume status 2.6 L in the past 24 hours. -Formal echo with wall motion abnormalities/anterior hypokinesis. #CKD stage III ?Creatinine 1.6, GFR 43. Stable. #History of renal cancer #Solitary right kidney ? History of left kidney with nephrectomy for renal cancer. Has reportedly been in remission since then. #Enlarged prostate ? Seen on CT abdomen/pelvis on admission. PSA elevated to 8.08. ? Plan to refer to urology on discharge. #Esophagitis ? Continue IV Protonix to 40 mg daily, GI cocktail seem to have helped with epigastric pain. DNR/DNI DVT prophylaxis: Lovenox 40 mg Low-fat diet
[2025-06-12] MEDS: NITROGLYCERIN 800MCG/8ML SYR (CATH LAB) 800 MCG IA (14:07)
[2025-06-12] MEDS: HEPARIN 1,000 UNITS/500ML NS (CATH LAB) 3000 UNIT IV (14:08)
--- NOTE | 2025-06-12 14:08 | P.PN_ITS ---
Subjective Subjective Date: 06/12/25 Time: 08:30 Principal diagnosis: elevated troponin, abnormal echo Interval history: This is a 70-year-old white gentleman who presented to the hospital with abdominal pain. He was found to have pancreatitis and cholecystitis. He is status post ERCP with biliary sludge in the common bile duct status post clearance. He continues to have persistent abdominal pain but it is much better today. He is able to eat today. He states that his abdominal pain is in the epigastric region. He did have an elevated troponin on admission and does have a abnormal echocardiogram in the anterolateral and inferior lateral de leon. He states he does have shortness of breath with exertion. This is improved with rest. He denies lower extremity edema. He denies any fever, chills, nausea, vomiting or diarrhea today. Exam Data for Last 24 hours Vital signs and Labs for Last 24 Hours: Temp Pulse Resp BP Pulse Ox O2 Del Method O2 Flow Rate 97.5 F L 81 18 188/100 H 97 Nasal Cannula 2 06/12/25 12:00 06/12/25 12:00 06/12/25 12:00 06/12/25 12:00 06/12/25 12:00 06/12/25 12:00 06/12/25 12:00 FiO2 28 06/09/25 18:13 Laboratory Results - last 24 hr 06/11/25 21:15: POC Glucose 89 06/12/25 05:30: POC Glucose 97 06/12/25 06:47: Lipase 226 Temp Pulse Resp BP Pulse Ox O2 Del Method O2 Flow Rate 98.3 F 79 14 168/103 H 95 Nasal Cannula 4 06/11/25 12:00 06/11/25 12:00 06/11/25 12:00 06/11/25 12:00 06/11/25 12:00 06/11/25 15:00 06/11/25 12:00 FiO2 28 06/09/25 18:13 Laboratory Results - last 24 hr 06/10/25 16:08: POC Glucose 76 06/10/25 20:32: POC Glucose 98 06/11/25 05:20: POC Glucose 73 06/11/25 06:52: WBC 11.5 H, RBC 4.09 L, Hgb 12.2 L, Hct 37.5 L, MCV 91.7, MCH 29.8, MCHC 32.5, RDW 13.4, Plt Count 177, MPV 10.9 H, Neut % (Auto) 79.1, Lymph % (Auto) 8.7 L, [place] % (Auto) 11.1 H, Eos % (Auto) 0.5, Baso % (Auto) 0.3, Neut # (Auto) 9.1 H, Lymph # (Auto) 1.0, [place] # (Auto) 1.3 H, Eos # (Auto) 0.1, Baso # (Auto) 0.0, Sodium 139, Potassium 3.4 L, Chloride 93 L, Carbon Dioxide 40 H, Anion Gap 9.4, BUN 39 H, Creatinine 1.60 H, Estimated Creat Clear 62, Estimated GFR 43 L, Est GFR ( Amer) 52 L, Glucose 93, Calcium 8.7, Magnesium 2.3, Total Bilirubin 1.6 H, AST 37, ALT 56, Alkaline Phosphatase 85, Total Protein 6.6, Albumin 3.4 L D, Globulin 3.2, Albumin/Globulin Ratio 1.1, Lipase 329 H 06/11/25 11:08: POC Glucose 86 I & O for Last 24 hours: Intake & Output 06/09/25 06/10/25 06/11/25 06/12/25 23:59 23:59 23:59 23:59 Intake Total 4445 / 4565 990 / 1140 1000 / 1240 510 / 510 Output Total 3025 / 3150 2275 / 2275 3300 / 3550 1700 / 1700 Balance 1420 / 1415 -1285 / -1135 -2300 / -2310 -1190 / -1190 Weight 231 lb 223 lb 220 lb 1.6 oz 213 lb Intake & Output 06/08/25 06/09/25 06/10/25 06/11/25 23:59 23:59 23:59 23:59 Intake Total 1785 / 2085 4445 / 4565 990 / 1140 830 / 830 Output Total 2090 / 2240 3025 / 3150 2275 / 2275 1600 / 1600 Balance -305 / -155 1420 / 1415 -1285 / -1135 -770 / -770 Weight 229 lb 1.6 oz 231 lb 223 lb 220 lb 1.6 oz Microbiology Reports for the Last 24 Hours: Microbiology 06/06/25 14:20 Blood Blood Culture - Final NO GROWTH AFTER 5 DAYS 06/06/25 14:15 Blood Blood Culture - Final NO GROWTH AFTER 5 DAYS Microbiology 06/06/25 14:20 Blood Blood Culture - Final NO GROWTH AFTER 5 DAYS 06/06/25 14:15 Blood Blood Culture - Final NO GROWTH AFTER 5 DAYS Constitutional Constitutional: no acute distress and average body habitus *Routine HEENT Exam Head: Present normocephalic and atraumatic ENT: Present mucous membranes moist *Routine Neck Exam Neck: Present supple, full ROM and normal carotid upstroke; Absent JVD, carotid bruit or lymphadenopathy *Routine Respiratory Exam Respiratory: Present CTA bilaterally, normal respiratory effort, able to speak in complete sentences and symmetric chest movement *Routine Cardiovascular Exam Cardiovascular: Present RRR, Normal S1 and Normal S2; Absent murmur or gallop *Routine Abdominal Exam Abdominal: Present soft and normoactive bowel sounds; Absent tenderness, distended or organomegaly *Routine Extremities Exam Extremities: Present full ROM, pulses intact and normal capillary refill; Absent cyanosis, clubbing or edema *Routine Skin Exam Skin: Present intact and warm; Absent erythema *Routine Neurological Exam Neurological: Present alert, oriented X3 and CN II-XII intact; Absent sensory deficit or motor deficit Routine Psychiatric Exam Psychiatric: Present normal affect Progress Note: A&P Assessment and plan (1) Non-STEMI (non-ST elevated myocardial infarction): Status: Acute (2) Acute heart failure with preserved ejection fraction (HFpEF): Status: Acute (3) Abnormal echocardiogram: Status: Acute (4) Abdominal pain: Status: Acute (5) Cholelithiasis: Status: Acute (6) Enlarged prostate: Status: Acute (7) Sepsis: Status: Acute (8) Acute gallstone pancreatitis: Status: Acute (9) Hyperglycemia due to diabetes mellitus: Status: Acute (10) Diabetes mellitus: Status: Chronic (11) Anxiety and depression: Status: Acute (12) Abnormal electrocardiogram [ECG] [EKG]: Status: Acute (13) Hypertension: Status: Chronic (14) Hyperlipidemia: Status: Chronic Assessment and Plan Assessment and Plan for All Diagnoses:: Plan: 1. The patient was admitted to the hospital and found to have pancreatitis and cholecystitis. He underwent ERCP on 06/2025 and had biliary stretch status post clearance. He will need to have his gallbladder removed but this is being completed on an outpatient basis. 2. He is still having epigastric pain. He did have an elevated troponin on admission consistent with a non-STEMI and an abnormal echocardiogram showing anterolateral and inferolateral hypokinesis very concerning for a lateral wall ischemia. Will plan to proceed with left cardiac catheterization to evaluate for coronary artery disease due to his non-STEMI, atypical angina and abnormal echocardiogram. 3. The patient has been educated the risk and benefits of proceeding with left cardiac catheterization. The patient verbalizes understanding and is agreeable to proceeding with the procedures. 4. The patient will be n.p.o. in preparation for left cardiac catheterization 5. The patient did have a significantly enlarged prostate and elevated PSA. Will also defer to the hospitalist. 6. The patient does have chest x-ray showing pulmonary vascular congestion. He is being diuresed with IV Lasix. Continue Lasix 60 mg IV twice daily. We do want to be very careful with diuresing this patient to avoid dehydration as to not worsen his pancreatitis. 7. His blood pressure is elevated which is most likely from his pain. Will continue to follow. 8. His LDL goal is less than 55. His LDL is 33. He is on a statin. 9. The patient takes Plavix for history of CVA x 2 in 2019. 10. Further recommendations will be made pending the patient's response to treatment and results of left cardiac catheterization today. Thank you for the opportunity to help participate in the care of this patient. All recommendations and orders are per Dr. Zepeda.
[2025-06-12] MEDS: VERAPAMIL 2.5MG/ML 2ML VIAL 2.5 MG IV (14:09)
[2025-06-12] MEDS: 0.9 % SODIUM CHLORIDE 500 ML 25 ML IV (14:09)
[2025-06-12] MEDS: HEPARIN 1,000 UNITS/ML 10ML VIAL (CATH LAB) 5000 UNIT IV ×2 (14:09→14:52)
[2025-06-12] MEDS: LIDOCAINE 1% 10ML MDV 10 ML IJ (14:10)
[2025-06-12 14:41] LABS: POC Glucose,Bedside 128 gm/dL (70-110)
[2025-06-12 14:42] LABS: POC Glucose,Bedside 112 gm/dL (70-110)
[2025-06-12 14:47] LABS: POC Glucose,Bedside 69 gm/dL (70-110)
[2025-06-12] MEDS: FENTANYL 100MCG/2ML VIAL 50 MCG IV (14:52)
[2025-06-12] MEDS: MIDAZOLAM HCL 1MG/ML 5ML VIAL 1 MG IV (14:52)
[2025-06-12 15:15] LABS: CATHL Activated Clotting Time 305 SEC (74-125)
[2025-06-12 16:39] LABS: POC Glucose,Bedside 126 gm/dL (70-110)
[2025-06-12] MEDS: PANTOPRAZOLE 40MG VIAL 40 MG IV (21:04)
[2025-06-12] MEDS: SODIUM CHLORIDE 0.9% 10ML VIAL 10 ML IV (21:05)
[2025-06-12 21:37] LABS: POC Glucose,Bedside 123 gm/dL (70-110)
[2025-06-13] VITALS: BP 156/84; PULSE 60; RESP 14; TEMP 36.5; O2SAT 91
[2025-06-13] MEDS: MORPHINE 4MG/ML SYRINGE 4 MG IV (01:52)
[2025-06-13] MEDS: SIMETHICONE 80MG CHEWABLE TABLET 160 MG PO ×3 (01:52→12:31)
[2025-06-13] MEDS: PIPERCILLIN/TAZO 3.375 GM in 0.9 % SODIUM CHLORIDE 50 ML IV ×2 (01:54→06:22)
[2025-06-13 04:00] VITALS: BP 162/94; PULSE 60; PULSE 93; RESP 16; TEMP 36.5; O2SAT 94; BMI 30.2
[2025-06-13] MEDS: HYDROCODONE/APAP 5/325 MG TABLET 1 TAB PO (06:21)
[2025-06-13 06:49] LABS: POC Glucose,Bedside 89 gm/dL (70-110)
[2025-06-13 08:00] VITALS: BP 143/85; PULSE 75; RESP 18; TEMP 36.4; O2SAT 97
[2025-06-13 08:13] VITALS: PULSE 80
[2025-06-13] MEDS: POLYETHYLENE GLYCOL 3350 17 GM PACKET PO (08:19)
[2025-06-13] MEDS: BUSPIRONE HCL 10 MG TABLET PO (08:19)
[2025-06-13] MEDS: ESCITALOPRAM 20MG TABLET 20 MG PO (08:19)
[2025-06-13] MEDS: FUROSEMIDE 40MG/4ML VIAL 60 MG IV (08:19)
[2025-06-13] MEDS: LISINOPRIL 20MG TABLET 40 MG PO (08:19)
[2025-06-13] MEDS: CLOPIDOGREL 75MG TAB 75 MG PO (08:19)
--- NOTE | 2025-06-13 08:25 | EXP.SURG.PN ---
Subjective Patient reports: no new complaints and still having pain Narrative: He states that his pain has improved compared to a few days ago . Exam Data for Last 24 hours Vital signs and Labs for Last 24 Hours: Temp Pulse Resp BP Pulse Ox O2 Del Method O2 Flow Rate 97.7 F 93 H 16 162/94 H 94 L Room Air 2 06/13/25 04:00 06/13/25 04:00 06/13/25 04:00 06/13/25 04:00 06/13/25 04:00 06/13/25 06:51 06/13/25 05:16 FiO2 28 06/09/25 18:13 Laboratory Results - last 24 hr 06/09/25 11:32: POC Glucose 69 L 06/11/25 17:07: POC Glucose 112 H 06/12/25 11:27: POC Glucose 128 H 06/12/25 15:50: Activated Clotting Time 305 H* 06/12/25 16:32: POC Glucose 126 H 06/12/25 20:59: POC Glucose 123 H 06/13/25 06:25: POC Glucose 89 I & O for Last 24 hours: Intake & Output 06/10/25 06/11/25 06/12/25 06/13/25 11:59 11:59 11:59 11:59 Intake Total 3090 / 3090 1360 / 1360 920 / 920 930 / 930 Output Total 2400 / 2600 2400 / 3300 3500 / 4300 2049 / 205 Balance 690 / 490 -1040 / -1940 -2580 / -3380 -1120 / -1120 Weight 223 lb 220 lb 1.6 oz 213 lb 210 lb 14.4 oz Constitutional Constitutional: no acute distress *Routine Respiratory Exam Respiratory: Absent respiratory distress *Routine Cardiovascular Exam Cardiovascular: Absent tachycardia *Routine Abdominal Exam Abdominal: Present soft, tenderness and distended (Mild epigastric distention) Progress Note: A&P Assessment and plan (1) Acute gallstone pancreatitis: Status: Acute Assessment and plan: The patient continues to slowly improve. (2) Cholelithiasis: Status: Acute Assessment and Plan Assessment and Plan for All Diagnoses:: Semi-elective cholecystectomy in the near future (Dr. Sarabia) when medically appropriate.
--- NOTE | 2025-06-13 08:26 | EXP.DC.SUM ---
General Admission date:: 06/06/25 Discharge date: 06/13/25 HPI HPI HPI: Mr. Lee is a 70-year-old inpatient gentleman who presents with the acute onset of abdominal pain and emesis that began around 11 AM yesterday. He did come to the emergency department. His CAT scan showed evidence of acute gallstone pancreatitis with gallbladder wall thickening and some periholecystic fluid. His ultrasound showed some cholecystic fluid and a 6 mm common bile duct. The patient's initial labs showed a lipase level of 22,000. He also had an elevated white blood cell count of 21.8. His initial labs also showed escalation of his liver and biliary chemistries and his initial total bilirubin was 2.5 (direct bilirubin 1.7), AST 259, ALT 137. Today his total bilirubin is 2.0 with ALT 205 and AST 191. General surgery (Amarjit Sarabia MD) has seen the patient. The patient is admitted for biliary clearance prior to elective cholecystectomy and resolution of pancreatitis. The examination is deemed medically necessary for inpatient ERCP. The patient has been seen, interviewed and examined prior to the procedure by both myself and the anesthesia provider. Hospital Course Hospital Course Hospital Course: Naty Lee is a 70-year-old male who presented with severe abdominal pain and was admitted for gallstone pancreatitis with suspected acute cholecystitis. Oxygen requirement NSTEMI during admission. Showing gradual improvement. Cardiology assisted with care. GI and surgery consulted as well. Doing better after ERCP and tolerating advancement of diet. Stable discharge home with close follow-up with specialist as an outpatient. Problems addressed as follows: #Abdominal pain #Acute gallstone pancreatitis, improving ? Patient presented with severe abdominal pain, especially in the epigastric region. Initial lipase 22,000's with transaminitis. CT abdomen/pelvis consistent with acute pancreatitis, and gallbladder wall thickening with massimo cholecystic fluid. RUQ ultrasound suggested the same. Initial WBC 21.8 with tachycardia. Lipase and white count normalizing by day of discharge. GI was consulted, ERCP performed on 06/07/2025 with biliary sludge within the common bile duct s/p clearance. Initially thought to have sepsis from acute cholecystitis, however general surgery has low suspicion for acute cholecystitis after ERCP. Plan for outpatient cholecystectomy. Leukocytosis likely reactive in the setting of pancreatitis. Repeat CT abdomen/pelvis on 06/08/2025 showed improvement in peripancreatic edema, and resolution of gallbladder wall thickening. Continued to show esophagitis. Diet advanced. Tolerated well. Treated with antibiotics during admission. Discontinue at discharge. No indication for further antibiotic course. Continue p.o. pain control at discharge. Showing gradual improvement. Eating does not make pain worse. #Acute hypoxic respiratory failure #Bilateral pleural effusions, small #Suspected HFpEF, new onset NSTEMI, type II secondary to stress pancreatitis ? Patient requiring 3 l nasal cannula, likely from fluid resuscitation. CXR on 06/09/2025 showed pulmonary vascular congestion. Cardiology was consulted, Taken for left heart cath. Found to have proximal stenosis of LAD at 70% and ending at 90% in the midportion of LAD. Lesion was stented with reduction to 0% stenosis. Continue dual antiplatelet therapy. Diuresed during admission due to volume overload. Negative volume status and able to wean to room air. Formal echo showed wall motion abnormality with some anterior hypokinesis. Left close follow-up with cardiology after discharge. Continue aspirin 81 mg daily, Lipitor 80 mg nightly, Plavix 75 mg daily, HCTZ 25 mg daily, lisinopril 40 mg daily. #CKD stage III: Creatinine stable at patient's baseline of 1.6-1.8 during admission. Making urine. #History of renal cancer #Solitary right kidney ? History of left kidney with nephrectomy for renal cancer. Has reportedly been in remission since then. #Enlarged prostate: Seen on CT abdomen/pelvis on admission. PSA elevated to 8.08. Recommend discussion about follow-up with urology with PCP. #Esophagitis: Initiated IV Protonix. Doing better with medical management. Continue pantoprazole 40 mg daily at discharge. Total time spent on discharge 35 minutes in counseling, documentation, chart review, and direct care with patient. Exam Data for Last 24 hours Vital signs and Labs for Last 24 Hours: Temp Pulse Resp BP Pulse Ox O2 Del Method O2 Flow Rate 97.7 F 93 H 16 162/94 H 94 L Room Air 2 06/13/25 04:00 06/13/25 04:00 06/13/25 04:00 06/13/25 04:00 06/13/25 04:00 06/13/25 06:51 06/13/25 05:16 FiO2 28 06/09/25 18:13 Laboratory Results - last 24 hr 06/09/25 11:32: POC Glucose 69 L 06/11/25 17:07: POC Glucose 112 H 06/12/25 11:27: POC Glucose 128 H 06/12/25 15:50: Activated Clotting Time 305 H* 06/12/25 16:32: POC Glucose 126 H 06/12/25 20:59: POC Glucose 123 H 06/13/25 06:25: POC Glucose 89 I & O for Last 24 hours: Intake & Output 06/10/25 06/11/25 06/12/25 06/13/25 23:59 23:59 23:59 23:59 Intake Total 990 / 1140 1000 / 1240 1390 / 1390 50 / 50 Output Total 2275 / 2275 3300 / 3550 1900 / 2300 1050 / 1050 Balance -1285 / -1135 -2300 / -2310 -510 / -910 -1000 / -1000 Weight 101.151 kg 99.836 kg 96.615 kg 95.663 kg Constitutional Constitutional: no acute distress, obese and chronically ill appearing *Routine HEENT Exam Head: Present normocephalic Eye: Present EOMI and PERRL ENT: Present mucous membranes moist *Routine Neck Exam Neck: Present supple; Absent lymphadenopathy *Routine Respiratory Exam Respiratory: Present CTA bilaterally; Absent wheezes *Routine Cardiovascular Exam Cardiovascular: Present RRR *Routine Abdominal Exam Abdominal: Present soft, normoactive bowel sounds and tenderness Comments: Mild epigastric abdominal tenderness without peritoneal signs. *Routine Rectal Exam Patient deferred: visual exam *Routine Exam Patient deferred: penile exam *Routine Extremities Exam Extremities: Absent cyanosis, clubbing or edema *Routine Skin Exam Skin: Present warm; Absent rash *Routine Neurological Exam Neurological: Present alert, oriented X3 and moving all extremities Results Data Completed and Pending Labs on day of discharge: Labs from last 24 hours 06/13/25 06/12/25 06/12/25 06:25 20:59 16:32 Activated Clotting Time POC Glucose 89 123 H 126 H 06/12/25 06/12/25 06/11/25 15:50 11:27 17:07 Activated Clotting Time 305 H* POC Glucose 128 H 112 H 06/09/25 11:32 Activated Clotting Time POC Glucose 69 L DS: Diagnosis Discharge Diagnosis (1) Non-STEMI (non-ST elevated myocardial infarction): Status: Acute Code(s): I21.4 - Non-ST elevation (NSTEMI) myocardial infarction (2) Acute heart failure with preserved ejection fraction (HFpEF): Status: Acute Code(s): I50.31 - Acute diastolic (congestive) heart failure (3) Abnormal echocardiogram: Status: Acute Code(s): R93.1 - Abnormal findings on diagnostic imaging of heart and coronary circulation (4) Abdominal pain: Status: Acute Code(s): R10.9 - Unspecified abdominal pain Qualifiers: Abdominal location: epigastric Qualified Code(s): R10.13 - Epigastric pain (5) Cholelithiasis: Status: Acute Code(s): K80.20 - Calculus of gallbladder without cholecystitis without obstruction Qualifiers: Biliary obstruction: without biliary obstruction Cholecystitis acuity: unspecified acuity Cholecystitis presence: with cholecystitis Cholelithiasis location: gallbladder Qualified Code(s): K80.10 - Calculus of gallbladder with chronic cholecystitis without obstruction (6) Enlarged prostate: Status: Acute Code(s): N40.0 - Benign prostatic hyperplasia without lower urinary tract symptoms (7) Sepsis: Status: Acute Code(s): A41.9 - Sepsis, unspecified organism Qualifiers: Sepsis acute organ dysfunction status: unspecified Sepsis type: sepsis due to unspecified organism Qualified Code(s): A41.9 - Sepsis, unspecified organism (8) Acute gallstone pancreatitis: Status: Acute Code(s): K85.10 - Biliary acute pancreatitis without necrosis or infection (9) Hyperglycemia due to diabetes mellitus: Status: Acute Code(s): E11.65 - Type 2 diabetes mellitus with hyperglycemia (10) Diabetes mellitus: Status: Chronic Code(s): E11.9 - Type 2 diabetes mellitus without complications Qualifiers: Diabetes mellitus complication status: without complication Diabetes mellitus genetic counselor insulin use: without genetic counselor use Diabetes mellitus type: type 2 Qualified Code(s): E11.9 - Type 2 diabetes mellitus without complications (11) Anxiety and depression: Status: Acute Code(s): F41.9 - Anxiety disorder, unspecified; F32.A - Depression, unspecified (12) Abnormal electrocardiogram [ECG] [EKG]: Status: Acute Code(s): R94.31 - Abnormal electrocardiogram [ECG] [EKG] (13) Hypertension: Status: Chronic Code(s): I10 - Essential (primary) hypertension Qualifiers: Hypertension type: primary hypertension Qualified Code(s): I10 - Essential (primary) hypertension (14) Hyperlipidemia: Status: Chronic Code(s): E78.5 - Hyperlipidemia, unspecified Qualifiers: Hyperlipidemia type: mixed hyperlipidemia Qualified Code(s): E78.2 - Mixed hyperlipidemia Meds Home Medications and Allergies Home Medications ?Medication ?Instructions ?Recorded ?Confirmed ?Type hydrochlorothiazide 25 mg tablet 25 mg PO DAILY 03/07/19 06/19/25 History metformin 500 mg tablet 500 mg PO BID 03/07/19 06/19/25 History buspirone 10 mg tablet 10 mg PO BID 01/30/21 06/19/25 History pantoprazole 40 mg tablet,delayed 40 mg PO DAILY #30 tabs 02/22/23 06/19/25 Rx release (Protonix) fenofibrate nanocrystallized 145 145 mg PO DAILY 03/31/24 06/19/25 History mg tablet aspirin 81 mg capsule 81 mg PO DAILY 06/06/25 06/19/25 History clopidogrel 75 mg tablet 75 mg PO DAILY 06/06/25 06/19/25 History escitalopram oxalate 20 mg tablet 20 mg PO DAILY 06/06/25 06/19/25 History lisinopril 40 mg tablet 40 mg PO DAILY 06/06/25 06/19/25 History atorvastatin 80 mg tablet 80 mg PO HS 06/07/25 06/19/25 History hydrocodone 5 mg-acetaminophen 325 1 - 2 tab PO Q6HP PRN Moderate To 06/13/25 06/19/25 Rx mg tablet Severe Pain (4-10) 3 days #23 tabs furosemide 40 mg tablet 40 mg PO DAILY 90 days #90 tabs 06/19/25 06/19/25 Rx metoprolol succinate 25 mg 25 mg PO DAILY 90 days #90 tabs 06/19/25 06/19/25 Rx tablet,extended release 24 hr New Prescriptions to Start Prescriptions: hydrocodone-acetaminophen Anurag Gudino Allergies Allergy/AdvReac Type Severity Reaction Status Date / Time No Known Allergies Allergy Verified 06/19/25 13:12 Discharge Plan Disposition Patient Disposition: Home, Self-Care Condition: Fair Discharge Order Discharge Orders: Discharge Order (Routine); Ordered 06/13/25 Ordered By: Anurag Gudino Follow up Plan Follow up with: Ilana Hua APRN [Nurse Practitioner, Cardiology] - 06/19/25 1:00 pm Amarjit Sarabia MD [Staff Physician, General Surgery] - 06/21/25 10:30 am Praneeth Martel II, MD [Staff Physician, Gastroenterology] - Enter time for follow up Referral Note: office will call for follow up Leonardo Singleton MD [Primary Care Provider, Internal Medicine] - 06/21/25 3:15 pm Prescriptions/Medication Reconciliation: New hydrocodone-acetaminophen 5-325 mg Tablet 1 - 2 tab PO Q6HP PRN (Reason: Moderate To Severe Pain (4-10)) 3 Days Qty: 23 0RF Continued buspirone 10 mg tablet 10 mg PO BID pantoprazole [Protonix] 40 mg tablet,delayed release (DR/EC) 40 mg PO DAILY Qty: 30 2RF fenofibrate nanocrystallized 145 mg tablet 145 mg PO DAILY metformin 500 MG tablet 500 mg PO BID hydrochlorothiazide 25 MG tablet 25 mg PO DAILY clopidogrel 75 mg tablet 75 mg PO DAILY lisinopril 40 mg tablet 40 mg PO DAILY escitalopram oxalate 20 mg tablet 20 mg PO DAILY aspirin 81 mg Capsule 81 mg PO DAILY atorvastatin 80 mg tablet 80 mg PO HS No Action furosemide 40 mg tablet 40 mg PO DAILY 90 Days Qty: 90 3RF metoprolol succinate 25 mg tablet extended release 24 hr 25 mg PO DAILY 90 Days Qty: 90 3RF Other Ambulatory Orders: Basic Metabolic Panel (Routine) Timeframe: 20250619 Facility: [facility] - Location: Laboratory Ordered By: Thai Carlson Complete Blood Count Auto Diff (Routine) Timeframe: 20250619 Facility: [facility] - Location: Laboratory Ordered By: Thai Carlson Problem Reconciliation Problems Reviewed?: Yes Patient Discharge Instructions ACTIVITY: Continue current activity DIET: continue same diet Patient Instructions: Acute Pancreatitis, DI for Pancreatitis, DI for Cardiac Catheterization, DI for Gallstones, DI for Surgical Site Infection, Stop Light Heart Failure Print Language: Burmese Providers Primary Care Provider: Leonardo Singleton Admit Provider: Timmy Ocampo Attending Provider: Timmy Ocampo
[2025-06-13 08:46] LABS: Albumin Level 4.0 g/dl (3.5-5.0); Chloride 94 mmol/L (98-107)
[2025-06-13 08:47] LABS: Hematocrit 40.9 % (42.0-52.0); Hemoglobin 13.7 g/dL (14.1-18.0); Immature Granulocytes % 0.4 %; Mean Corpuscular HGB Conc 33.5 g/dL (31.8-35.4); Mean Corpuscular Hemoglobin 30.5 pg (27.0-31.2); Mean Corpuscular Volume 91.1 fl (80-94); Nucleated Red Blood Cells % 0 %; Platelet Count 242 K/mm3 (142-424); Potassium 3.8 mmoL/L (3.5-5.1); Red Blood Count 4.49 M/mm3 (4.60-6.20); Red Cell Distribution Width-SD 44.8 fL; Sodium 138 mmol/L (136-145); White Blood Count 11.9 K/mm3 (4.8-10.8)
[2025-06-13 08:49] LABS: Alanine Aminotransferase 61 U/L (12-78); Albumin/Globulin Ratio 1.2 (1.1-1.8); Anion Gap 11.8 mEq/L (5-15); Aspartate Amino Transferase 46 U/L (17-59); Blood Urea Nitrogen 42 mg/dl (9-20); Carbon Dioxide 36 mmol/L (22.0-30.0); Creatinine Clearance Estimated 53 mL/min (50-200); Creatinine,Serum 1.80 mg/dl (0.66-1.25); Estimated Glomerular Filt Rate 38 ml/min (>60); GFR (African American) 46 ML/MIN (>60); Globulin 3.3 g/dL (1.3-3.2); Total Protein,Serum 7.3 g/dl (6.3-8.2)
[2025-06-13 08:50] LABS: Alkaline Phosphatase 124 U/L (38-126); Bilirubin,Total 1.2 mg/dl (0.2-1.3); Calcium 9.0 mg/dl (8.4-10.2); Glucose 155 mg/dl (74-100); Magnesium 2.3 mg/dl (1.6-2.3)
--- NOTE | 2025-06-13 09:12 | CA_ITS ---
FINAL REPORT TECHNIQUE: Grayscale, color Doppler and duplex Doppler ultrasound of the kidneys, aorta and renal arteries was performed. Multiple velocities were measured. CLINICAL HISTORY: HTN, Gallstone, CAD, Left nephrectomy -2015 due to RCC COMPARISON: None FINDINGS: Aorta velocity: 79 cm/sec Right kidney: 14.9 cm. No evidence of hydronephrosis or mass. Right intrarenal RI: 0.55-0.65 Right renal artery velocity: 129 cm/sec. Right RAR (Renal artery-Aortic Ratio): 1.62 Left kidney is absent. IMPRESSION: No evidence of significant right renal artery stenosis. CT angiogram or postcontrast MR angiogram would be more sensitive for evaluation of possible renal artery stenosis. Reviewed, Interpreted and Dictated by Gamaliel Conn MD Transcribed by Sarah Mckeon Authenticated and [facility]
--- NOTE | 2025-06-13 09:16 | HMH.PHAAMS2 ---
- Antimicrobial Stewardship Review culture & sensitivity review Stewardship interventions: culture & sensitivity review (CURRENTLY ON ZOSYN, WBC DECREASED, AFEBRILE. NO GROWTH IN BLD OR URINE CX.)
[2025-06-13] MEDS: METOPROLOL SUCCINATE XL 25MG TABLET 25 MG PO (10:32)
[2025-06-13] MEDS: ASPIRIN EC 81MG TABLET 81 MG PO (10:32)
[2025-06-13 10:45] LABS: POC Glucose,Bedside 144 gm/dL (70-110)
[2025-06-13 12:00] VITALS: BP 160/80; PULSE 66; RESP 18; TEMP 36.7; O2SAT 97
[2025-06-13 12:12] VITALS: PULSE 70
--- NOTE | 2025-06-13 12:34 | PC.NURSE ---
pt 94% on room air after ambulating
--- NOTE | 2025-06-13 13:24 | P.PN_ITS ---
Subjective Subjective Date: 06/13/25 Time: 08:30 Principal diagnosis: elevated troponin, abnormal echo Interval history: This is a 70-year-old gentleman who presented to the hospital with abdominal pain. He is being treated for pancreatitis and cholecystitis. He also had an elevated troponin consistent with a non-STEMI and an abnormal echocardiogram. He underwent left cardiac catheterization yesterday and had stenting to his LAD. He tolerated the procedure well. This morning he denies any chest pain or pressure. He states he is still having abdominal pain but it is much improved. He is able to tolerate eating food now. He denies any fever, chills, nausea, vomiting, diarrhea, PND orthopnea. Exam Data for Last 24 hours Vital signs and Labs for Last 24 Hours: Temp Pulse Resp BP Pulse Ox O2 Del Method O2 Flow Rate 98.0 F 66 18 160/80 H 97 Room Air 2 06/13/25 12:00 06/13/25 12:00 06/13/25 12:00 06/13/25 12:00 06/13/25 12:00 06/13/25 13:00 06/13/25 05:16 FiO2 28 06/09/25 18:13 Laboratory Results - last 24 hr 06/09/25 11:32: POC Glucose 69 L 06/11/25 17:07: POC Glucose 112 H 06/12/25 11:27: POC Glucose 128 H 06/12/25 15:50: Activated Clotting Time 305 H* 06/12/25 16:32: POC Glucose 126 H 06/12/25 20:59: POC Glucose 123 H 06/13/25 06:25: POC Glucose 89 06/13/25 08:17: WBC 11.9 H, RBC 4.49 L, Hgb 13.7 L, Hct 40.9 L, MCV 91.1, MCH 30.5, MCHC 33.5, RDW 13.3, Plt Count 242 D, MPV 11.1 H, Neut % (Auto) 77.6, Lymph % (Auto) 10.5, [place] % (Auto) 9.8 H, Eos % (Auto) 1.2, Baso % (Auto) 0.5, Neut # (Auto) 9.2 H, Lymph # (Auto) 1.3, [place] # (Auto) 1.2 H, Eos # (Auto) 0.1, Baso # (Auto) 0.1, Sodium 138, Potassium 3.8, Chloride 94 L, Carbon Dioxide 36 H , Anion Gap 11.8, BUN 42 H, Creatinine 1.80 H, Estimated Creat Clear 53, Estimated GFR 38 L, Est GFR ( Amer) 46 L, Glucose 155 H, Calcium 9.0, Magnesium 2.3, Total Bilirubin 1.2, AST 46, ALT 61, Alkaline Phosphatase 124, Total Protein 7.3, Albumin 4.0, Globulin 3.3 H, Albumin/Globulin Ratio 1.2 06/13/25 10:35: POC Glucose 144 H I & O for Last 24 hours: Intake & Output 06/10/25 06/11/25 06/12/25 06/13/25 23:59 23:59 23:59 23:59 Intake Total 990 / 1140 1000 / 1240 1390 / 1390 300 / 300 Output Total 2275 / 2275 3300 / 3550 1900 / 2300 1050 / 1050 Balance -1285 / -1135 -2300 / -2310 -510 / -910 -750 / -750 Weight 223 lb 220 lb 1.6 oz 213 lb 210 lb 14.4 oz Constitutional Constitutional: no acute distress and average body habitus *Routine HEENT Exam Head: Present normocephalic and atraumatic ENT: Present mucous membranes moist *Routine Neck Exam Neck: Present supple, full ROM and normal carotid upstroke; Absent JVD, carotid bruit or lymphadenopathy *Routine Respiratory Exam Respiratory: Present CTA bilaterally, normal respiratory effort, able to speak in complete sentences and symmetric chest movement *Routine Cardiovascular Exam Cardiovascular: Present RRR, Normal S1 and Normal S2; Absent murmur or gallop *Routine Abdominal Exam Abdominal: Present soft and normoactive bowel sounds; Absent tenderness, distended or organomegaly *Routine Extremities Exam Extremities: Present full ROM, pulses intact and normal capillary refill; Absent cyanosis, clubbing or edema *Routine Skin Exam Skin: Present intact and warm; Absent erythema *Routine Neurological Exam Neurological: Present alert, oriented X3 and CN II-XII intact; Absent sensory deficit or motor deficit Routine Psychiatric Exam Psychiatric: Present normal affect Progress Note: A&P Assessment and plan (1) Non-STEMI (non-ST elevated myocardial infarction): Status: Acute (2) Acute heart failure with preserved ejection fraction (HFpEF): Status: Acute (3) Abnormal echocardiogram: Status: Acute (4) Abdominal pain: Status: Acute (5) Cholelithiasis: Status: Acute (6) Enlarged prostate: Status: Acute (7) Sepsis: Status: Acute (8) Acute gallstone pancreatitis: Status: Acute (9) Hyperglycemia due to diabetes mellitus: Status: Acute (10) Diabetes mellitus: Status: Chronic (11) Anxiety and depression: Status: Acute (12) Abnormal electrocardiogram [ECG] [EKG]: Status: Acute (13) Hypertension: Status: Chronic (14) Hyperlipidemia: Status: Chronic (15) CAD in [place] artery: Status: Acute Assessment and Plan Assessment and Plan for All Diagnoses:: Plan: 1. The patient was admitted to the hospital and found to have pancreatitis and cholecystitis. He underwent ERCP on 06/2025 and had biliary stretch status post clearance. He will need to have his gallbladder removed but this is being completed on an outpatient basis. 2. The patient had elevated troponin and an abnormal echocardiogram. He underwent left cardiac catheterization yesterday with stenting to the LAD. He tolerated the procedure well and will be on aspirin and Plavix for dual antiplatelet therapy. 3. Renal duplex due to his malignant hypertension and coronary artery disease. 4. CAD is stable. On Plavix and aspirin. 5. The patient did have a significantly enlarged prostate and elevated PSA. Will also defer to the hospitalist. 6. The patient does have chest x-ray showing pulmonary vascular congestion. He has been diuresed with IV Lasix. Will switch him over to Lasix 40 mg p.o. daily. 7. His blood pressure is stable today. Continue lisinopril and metoprolol. 8. His LDL goal is less than 55. His LDL is 33. He is on a statin. 9. The patient has a history of CVA x 2 in 2019. 10. No further recommendations at this time from a cardiac standpoint. Patient can be discharged home today from a cardiac standpoint with follow-up in cardiology clinic in 1 week. The patient can be discharged on the following cardiac medications: Aspirin 81 mg daily Plavix 75 mg daily Lipitor 80 mg QHS Lasix 40 mg daily Lisinopril 40 mg daily Toprol-XL 25 mg daily Thank you for the opportunity to help participate in the care of this patient. All recommendations and orders are per Dr. Zepeda.
--- NOTE | 2025-06-14 10:48 | SW/DCPLANNER ---
Spoke with patient's on the phone. Patient's stated that he is feeling bad. Patient's stated that he is aware of his upcoming appointments. Patient's stated that he was able to picker box operator his new medicine from [facility] pharmacy. Patient's stated that they have no concerns or questions at this time. Felipa Sandhu
== END 2025-06-13 14:49 | disposition home or self-care (01) | DRG 981 ==
LOC: ER 16:16 → 2ND 17:08
PROVIDERS: Internal Medicine; Internal Medicine Adolescent Medicine; Internal Medicine Gastroenterology; Nurse Practitioner; Nurse Practitioner Family; Admitting Provider Student in an Organized Health Care Education/Training Program; Emergency Provider Student in an Organized Health Care Education/Training Program; PCP Internal Medicine Adolescent Medicine; Visit Provider Student in an Organized Health Care Education/Training Program
PROC: 0FC98ZZ Extirpation of Matter from Common Bile Duct, Via Natural or Artificial Opening Endoscopic (ICD-10-PCS; CPT 43260; principal; 2025-06-07 15:00)
PROC: 4A023N7 Measurement of Cardiac Sampling and Pressure, Left Heart, Percutaneous Approach (ICD-10-PCS; CPT 93452; principal; 2025-06-12 13:55)
DX: K85.10 Biliary acute pancreatitis without necrosis or infection (principal); I21.A1 Myocardial infarction type 2; I50.31 Acute diastolic (congestive) heart failure; J96.01 Acute respiratory failure with hypoxia; I13.0 Hypertensive heart and chronic kidney disease with heart failure and stage 1 through stage 4 chronic kidney disease, or unspecified chronic kidney disease; Z66 Do not resuscitate; N18.30 Chronic kidney disease, stage 3 unspecified; Z85.528 Personal history of other malignant neoplasm of kidney; Z90.5 Acquired absence of kidney; N40.0 Benign prostatic hyperplasia without lower urinary tract symptoms; K20.90 Esophagitis, unspecified without bleeding; E11.22 Type 2 diabetes mellitus with diabetic chronic kidney disease; E11.65 Type 2 diabetes mellitus with hyperglycemia; F41.9 Anxiety disorder, unspecified; F32.A Depression, unspecified; Z79.84 Long term (current) use of oral hypoglycemic drugs; E78.2 Mixed hyperlipidemia; Z79.82 Long term (current) use of aspirin; Z79.02 Long term (current) use of antithrombotics/antiplatelets; Z86.73 Personal history of transient ischemic attack (TIA), and cerebral infarction without residual deficits; F17.210 Nicotine dependence, cigarettes, uncomplicated; I25.10 Atherosclerotic heart disease of native coronary artery without angina pectoris; K80.70 Calculus of gallbladder and bile duct without cholecystitis without obstruction
CPT/HCPCS: 36415; 51798; 71045; 71275; 74018; 74177; 76000; 76705; 80053; 80061; 81001; 82247; 82248; 82550; 82803; 82962; 83036; 83605; 83690; 83735; 83880; 84153; 84484; 85007; 85025; 85347; 85378; 85610; 85651; 85730; 86140; 86803; 87040; 87086; 87389; 87636; 93005; 93306; 93976; 94640; 99152; 99153; 99285; C1725; C1726; C1769; C1874; C1887; J0692; J1100; J1171; J1200; J1644; J1885; J1938; J2003; J2250; J2270; J2405; J2470; J2543; J2704; J3010; J3375; J3475; J7030; J7040; J7120; Q9967

== ENCOUNTER 2025-06-21 09:29 | Outpatient (CLI) | payer MEDICARE, SELFPAY ==
--- OUTSIDE RECORDS SUMMARY | 2025-06-21 09:39 | XMS_ITS | Clinical Summary ---
Author Organization Healthcare Address [address] [place] [address] Care Team Providers Care Auto Body Straightener Name Role Phone Leonardo Singleton MD Primary [...] of Treatment Not on file Care Teams Auto Body Straightener Relationship Specialty Start Date End Date Leonardo Singleton MD [address] [place] [address] [place] [id number] PCP - General 04/30/21
[2025-06-21 10:12] LABS: Hematocrit 38.8 % (42.0-52.0); Hemoglobin 12.8 g/dL (14.1-18.0); Immature Granulocytes % 0.3 %; Mean Corpuscular HGB Conc 33.0 g/dL (31.8-35.4); Mean Corpuscular Hemoglobin 30.2 pg (27.0-31.2); Mean Corpuscular Volume 91.5 fl (80-94); Nucleated Red Blood Cells % 0 %; Platelet Count 319 K/mm3 (142-424); Red Blood Count 4.24 M/mm3 (4.60-6.20); Red Cell Distribution Width-SD 42.9 fL; White Blood Count 6.7 K/mm3 (4.8-10.8)
[2025-06-21 10:59] LABS: Alanine Aminotransferase 51 U/L (12-78); Albumin Level 3.8 g/dl (3.5-5.0); Albumin/Globulin Ratio 1.4 (1.1-1.8); Alkaline Phosphatase 127 U/L (38-126); Anion Gap 11.4 mEq/L (5-15); Aspartate Amino Transferase 36 U/L (17-59); Bilirubin,Total 0.8 mg/dl (0.2-1.3); Blood Urea Nitrogen 32 mg/dl (9-20); Calcium 9.1 mg/dl (8.4-10.2); Carbon Dioxide 31 mmol/L (22.0-30.0); Chloride 98 mmol/L (98-107); Creatinine,Serum 1.40 mg/dl (0.66-1.25); Estimated Glomerular Filt Rate 50 ml/min (>60); GFR (African American) 61 ML/MIN (>60); Globulin 2.8 g/dL (1.3-3.2); Glucose 113 mg/dl (74-100); Potassium 4.4 mmoL/L (3.5-5.1); Sodium 136 mmol/L (136-145); Total Protein,Serum 6.6 g/dl (6.3-8.2)
[2025-06-21 11:09] LABS: Lipase 641 U/L (23-300)
== END 2025-06-21 23:59 | disposition home or self-care (01) ==
LOC: LAB 09:30
PROVIDERS: PCP Internal Medicine Adolescent Medicine; Visit Provider Surgery
DX: K80.10 Calculus of gallbladder with chronic cholecystitis without obstruction (principal)
CPT/HCPCS: 36415; 80053; 83690; 85025

== ENCOUNTER 2025-06-22 10:47 | Outpatient (CLI) | payer MEDICARE, SELFPAY ==
--- OUTSIDE RECORDS SUMMARY | 2024-10-07 16:30 | XMS_ITS ---
Author Organization [facility] Address [address] [facility] [address] [place] [address] Care Team Providers Care Instructor Physical Name Role Phone Leonardo Singleton Primary Care Provider Migration, Provider Unavailable Unavailable REASON FOR VISIT [facility] Encounter Medications Medication SIG (Take, Route, Frequency, Duration) Notes Start Date End Date Status Fenofibrate 145 (MG) 1 TAB(S) ORALLY ONCE A DAY; Duration: 90 DAYS *Please review and pick correct strength-formulat ion from HDmessaging options. If intended option is not shown, discontinue and re-order from Quick Search* Active ASA 325 MGM 1 Q AM *Please review for potential replacement for e-prescription and drug interaction check* Active Plavix 75 MG 1 tab(s) orally once a day; Duration: 90 days Active Pantoprazole Sodium 40 MG 1 tab(s) orall y once a day; Duration: 90 days Active busPIRone HCl 10 MG 1 tab(s) orally 2 times a day; Duration: 90 days Active buPROPion HCl ER (XL) 300 MG 1 tab(s) orally every 24 hours; Duration: 90 days 08/31/2024 Active hydroCHLOROthiazide 25 (MG) 1 TAB(S) ORALLY ONCE A DAY; Duration: 90 DAYS *Please review and pick correct strength-formulat ion from HDmessaging options. If intended option is not shown, discontinue and re-order from Quick Search* Active metFORMIN HCl 500 MG 1 tab(s) orally 2 times a day; Duration: 90 days Active NIFEDIPINE (EQV-ADALAT CC) 30 MG 1 TAB(S) ORALLY ONCE A DAY; Duration: 30 DAY(S) *Please review for potential replacement for e-prescription and drug interaction check* 08/31/2024 Active Escitalopram Oxalate 20 (MG) 1 TAB(S) ORALLY ONCE A DAY; Duration: 90 DAYS *Please review and pick correct strength-formulat ion from HDmessaging options. If intended option is not shown, discontinue and re-order from Quick Search* Active Atorvastatin Calcium 80 MG 1 tab(s) orally once a day; Duration: 90 days Active Lisinopril 40 (MG) 1 TAB(S) ORALLY ONCE A DAY; Duration: 90 DAYS *Please review and pick correct strength-formulat ion from HDmessaging options. If intended option is not shown, discontinue and re-order from Quick Search* Active Encounters Encounter Location Date Provider Diagnosis [facility] CLAUDIA [address] [facility] [address] [place] [address] 10/07/2024 Provider Migration Anxiety F41.9 ; GERD without esophagitis K21.9 and Hypertension, essential I10 Assessments Encounter Date Diagnosis (ICD Code) Assessment Notes Treatment Notes Treatment Clinical Notes Section Notes 10/07/2024 Anxiety (ICD-10 - F41.9) 10/07/2024 GERD without esophagitis (ICD-10 - K21.9) 10/07/2024 Hypertension, essential (ICD-10 - I10) Plan Of Treatment Medication Medication Name Sig Start Date Stop Date Notes Fenofibrate 145 (MG) 1 TAB(S) ORALLY ONCE A DAY; Duration: 90 DAYS *Please review and pick correct strength-formulation from HDmessaging options. If intended option is not shown, discontinue and re-order from Quick Search* Plavix 75 MG 1 tab(s) orally once a day; Duration: 90 days Pantoprazole Sodium 40 MG 1 tab(s) orally once a day; Duration: 90 days busPIRone HCl 10 MG 1 tab(s) orally 2 times a day; Duration: 90 days buPROPion HCl ER (XL) 300 MG 1 tab(s) orally every 24 hours; Duration: 90 days 08/31/2024 NIFEDIPINE (EQV-ADALAT CC) 30 MG 1 TAB(S) ORALLY ONCE A DAY; Duration: 30 DAY(S) 08/31/2024 *Please review for potential replacement for e-prescription and drug interaction check* Escitalopram Oxalate 20 (MG) 1 TAB(S) ORALLY ONCE A DAY; Duration: 90 DAYS *Please review and pick correct strength-formulation from Medispan options. If intended option is not shown, discontinue and re-order from Quick Search* Next Appt Details Provider Name:Leonardo Singleton, 06/23/2025 10:15:00 AM, [address], [address], [place], [address], Progress Notes * Melony LEE LDOB:1954 (70 yo M)Acc No.[id number]:10/07/2024 Patient: Melony MOSS Provider: Yimi Schafer :1955 A ge:69 Y S ex:Male Date:10/07/2024 [address] [id number] Pcp:Leonardo Singleton Subjective: * Chief Complaints: * 1 . [facility]. * Medical History: * Medications: T aking ASA 325 MGM TABLET 1 Q AM , Notes to Pharmacist: *Please review for potential replacement for e-prescription and drug interaction check*, Taking Atorvastatin Calcium 80 MG Tablet 1 tab(s) orally once a day , Taking Lisinopril 40 (MG) TABLET 1 TAB(S) ORALLY ONCE A DAY , Notes to Pharmacist: *Please review and pick correct strength-formulation from MX Logicspan options. If intended option is not shown, discontinue and re-order from Quick Search*, Taking hydroCHLOROthiazide 25 (MG) TABLET 1 TAB(S) ORALLY ONCE A DAY , Notes to Pharmacist: *Please review and pick correct strength-formulation from Medispan options. If intended option is not shown, discontinue and re-order from Quick Search*, Taking metFORMIN HCl 500 MG Tablet 1 tab(s) orally 2 times a day Objective: * Vitals: Assessment: * Assessment: 1. H ypertension, essential - I10 (Primary) 2 . A nxiety - F41.9 3 . G ERD without esophagitis - K21.9 Plan: * Treatment: 2. A nxiety Start buPROPion HCl ER (XL) Tablet Extended Release 24 Hour, 300 MG, 1 tab(s), orally, every 24 hours, 90 days, 90, Refills 1; S tart busPIRone HCl Tablet, 10 MG, 1 tab(s), orally, 2 times a day, 90 days, 180, Refills 2. 3. G ERD without esophagitis Start Pantoprazole Sodium Tablet Delayed Release, 40 MG, 1 tab(s), orally, once a day, 90 days, 90, Refills 2. 4. O thers Start Escitalopram Oxalate TABLET, 20 (MG), 1 TAB(S), ORALLY, ONCE A DAY, 90 DAYS, 90, Refills 2, Notes to Pharmacist: *Please review and pick correct strength-formulation from Orderlordan options. If intended option is not shown, discontinue and re-order from Quick Search*; S tart Fenofibrate TABLET, 145 (MG), 1 TAB(S), ORALLY, ONCE A DAY, 90 DAYS, 90, Refills 2, Notes to Pharmacist: *Please review and pick correct strength-formulation from Orderlordan options. If intended option is not shown, discontinue and re-order from Quick Search*; S tart Plavix Tablet, 75 MG, 1 tab(s), orally, once a day, 90 days, 90, Refills 2. * * Electronic signature of Prov ider Migration on 06/22/2025 at 10:50 AM EST Sign off status: Pending * Provider: Yimi frey Migration Date: 0 10/07/2024 Generated for Didi fabian/Fredy/Sharathitting on: 1 08/23/2024 10:50 AM EST
--- OUTSIDE RECORDS SUMMARY | 2024-11-02 04:30 | XMS_ITS ---
Author Organization Located within [facility] PE D CLAUDIA Address [address] [place] [address] Care Team Providers Care Faculty Research Physician Name Role Phone Leonardo Singleton Primary Care Provider REASON FOR VISIT fu Encounters Encounter Location Date Provider Diagnosis [place] [address] [address] 11/02/2024 Leonardo Singleton Plan Of Treatment Next Appt Details Provider Name:Leonardo Singleton, 06/23/2025 10:15:00 AM, [address], [address], [place], [address], Progress Notes * Melony LEE LDOB:1954 (70 yo M)Acc No.[id number]:11/02/2024 Progress Notes Patient: Bg MOSSinna Huddleston Provider: Clarice Singleton MD :1955 A ge:69 Y S ex:Male Date:11/02/2024 Address:[address] [id number] Subjective: * Chief Complaints: * 1 . Fu. * Medical History: Objective: * Vitals: Assessment: Plan: * Treatment: * * Electronic signature of Regis Singleton MD FAAP on 06/22/2025 at 10:50 AM EST Sign off status: Pending * Provider: Clarice Singleton MD Date: 0 11/02/2024 Generated for Printi ng/Fredy/eTransmitting on: 1 08/23/2024 10:50 AM EST
--- OUTSIDE RECORDS SUMMARY | 2025-04-05 03:45 | XMS_ITS ---
Author Organization [facility] Address [address] [place] [address] Care Team Providers Care Bpo Specialist Name Role Phone Leonardo Singleton Primary Care Provider [phone] REASON FOR VISIT wellness Encounters Encounter Location Date Provider Diagnosis [place] [address] [address] 04/05/2025 Leonardo Singleton Plan Of Treatment Next Appt Details Provider Name:Leonardo Singleton, 06/23/2025 10:15:00 AM, [address], [place], [address], Progress Notes * Melony LEE LDOB:1954 (70 yo M)Acc No.[id number]:04/05/2025 Progress notes Patient: Bg MOSSinna Huddleston Provider: Clarice Singleton MD :1955 A ge:69 Y S ex:Male Date:04/05/2025 Address[address] [place]-[id number] Subjective: * Chief Complaints: * 1 . Wellness. * Medical History: Objective: * Vitals: Assessment: Plan: * Treatment: * * Electronic signature of Regis Singleton MD FAAP on 06/22/2025 at 10:50 AM EST Sign off status: Pending * Provider: Clarice Singleton MD Date: Generated for Faizai rui/Fredy/eTransmitting on: 08/23/2024 10:50 AM EST
--- OUTSIDE RECORDS SUMMARY | 2025-06-21 10:15 | XMS_ITS ---
Author Organization [facility] CLAUDIA Address [address] [facility] [address] [place] [address] Care Team Providers Care Director Of Advertising Sales Name Role Phone Leonardo Singleton Primary Care Provider Allergies No Known Allergies REASON FOR VISIT [facility] D/C 06/13/2025, abdomen pain Medications Medication SIG (Take, Route, Frequency, Duration) Notes Start Date End Date Status Atorvastatin Calcium 80 MG TAKE 1 TABLET EVERY DAY; Duration: 90 Active Farxiga 10 MG 1 tablet Orally Once a day; Duration: 90 days 11/16/2024 Active buPROPion HCl ER (XL) 300 MG 1 tab(s) orally Once a day; Duration: 90 days 08/31/2024 Active traMADol HCl 50 MG 1 tablet as needed Orally every 8 hrs; Duration: 7 days As needed 03/09/2025 Active Fenofibrate 145 (MG) 1 TAB(S) ORALLY ONCE A DAY; Duration: 90 DAYS *Please review and pick correct strength-formulat ion from [employer] options. If intended option is not shown, discontinue and re-order from [employer] Search* Active Lasix 20 MG 1 tablet Orally Once a day Active Plavix 75 MG 1 tab(s) orally once a day; Duration: 90 days Active Metoprolol Succinate 25 MG 1 capsule Orally Once a day Active Pantoprazole Sodium 40 MG TAKE 1 TABLET EVERY DAY; Duration: 90 Active ASA 325 MGM 1 Q AM *Please review for potential replacement for e-prescription and drug interaction check* Active Escitalopram Oxalate 20 MG 1 TAB(S) ORALLY ONCE A DAY; Duration: 90 days Active metFORMIN HCl 500 MG TAKE 1 TABLET TWICE DAILY; Duration: 90 Active hydroCHLOROthiazide 25 MG TAKE 1 TABLET EVERY DAY; Duration: 90 Active Lisinopril 40 MG TAKE 1 TABLET EVERY DAY; Duration: 90 Active busPIRone HCl 10 MG TAKE 1 TABLET TWICE DAILY; Duration: 90 Active NIFEdipine ER 60 MG 1 tablet [...] Atherosclerosis of coronary artery without angina pectoris ([id number]) Atherosclerosis of [place] coronary artery of [place] heart without angina pectoris (I25.10) Active confirmed Vital Signs Temperature 97.8 degrees Fahrenheit 06/21/20 25 Blood pressure systolic 152 mm Hg 06/21/20 25 Blood pressure diastolic 110 mm Hg 025 Heart Rate 88 /min 06/21/2025 Height 68 in 06/21/2025 Weight 212 lbs 06/21/2025 BMI 32.23 kg/m2 06/21/2025 Encounters Encounter Location Date Provider Diagnosis [address] [address] 06/21/2025 Leonardo Singleton Acute biliary pancreatitis, unspecified complication status K85.10 ; Atherosclerosis of [place] coronary artery of [place] heart without angina pectoris I25.10 and Hospital [...] labs at that point. 06/21/2025 Atherosclerosis of [place] coronary artery of [place] heart without angina pectoris (ICD-10 - I25.10) [...] redo labs at that point. Atherosclerosis of [place] co ronary artery of [place] heart without angina pectoris Reviewed data from cardiology. On DAPT. No side effects. Blood count reassuring this morning. No chest pain, continue to follow Hospital discharge follow-up Personally reviewed H&P and discharge summary as available from hospital discharge documentation. Reviewed pertinent labs and test done in the hospital. Personally reconciled medication. Future Test Test Name Order Date M-Complete Blood Count Auto Diff 025 M-Comprehensive Metabolic Panel 06/23/20 25 M-Amylase 06/23/2025 M-Lipase 06/23/2025 Next Appt Details Follow Up: prn,2 - 3 Days, R jase: Provider Name:Leonardo Singleton, 06/23/2025 10:15:00 AM, [address] [place] [facility] [address] [facility], [address], [place], [address], Progress Notes * Melony LEE LDOB:1954 (70 yo M)Acc No.[id number]:06/21/2025 HOSP F/U Patient: Juancarlos Melony LU Provider: Clarice Singleton MD :1955 A ge:70 Y S ex:Male Date:06/21/2025 Address:[address] [place] [address], [place], [id number] Subjective: * Chief Complaints: * 1 . [facility] D/C 06/13/2025. 2. Abdomen pain. * HPI: [...] hospital. Admitted as noted above. Admitted to [facility] with significant pancreatitis, found to have gallstone [...] 06/12/2025 in the hospital. * Medical History: H ypertension, Type 2 diabetes, Hyperlipidemia, renal cell cancer diagnosed March 2015, follows with yearly eye examinations at [facility] optometry clinic, Birads 1 LDCT 12/22 - Repeated 01/25-BI-RADS 1, Colonoscopy 08/26 with diverticulosis and diminutive polyps - f/u in 01-11, BI-RADS 1 low-dose CT scan December 2023, AAA screening negative with CT abdomen/pelvis 2021, Pancreatitis. * Surgical History: l eft nephrectomy for renal cell cancer March 2015, stent 06/12/2025. * Hospitalization/Major Diagno stic Procedure: a cory , stroke 08/2018, [facility] 06/07-04/2025. * Family History: F ather: , diagnosed with Cancer. M other: . P aternal Grand Father: . P aternal Grand Mother: . M atedorisl Grand Father: . M aternal Grand Mother: . S elza: alive, diagnosed with Diabetes, Hypertension. Nael louis: alive. 4 brother(s) , 3 sister(s) . 2 daughter(s) . . * Social History: R ecreational drug use: no. Home smoke detector use: yes. Caffeine: 2 cups coffee daily. Living Will: No. Alcohol: no. Occupation: maintenance at [employer]. Tobacco Control (Standard) T obacco use: F [...] *Please review and pick correct strength-formulation from [employer] options. If intended option is not shown, [...] - K85.10 (Primary) ?2. A therosclerosis of [place] coronary artery of [place] heart without angina pectoris - I25.10 3 . H ospital discharge follow-up - Z51.89 Plan: * Treatment: 2. A therosclerosis of [place] coronary artery of [place] heart without angina pectoris L AB: M-Comprehensive [...] Date: 08/22/2024 Generated for Didi fabian/Fredy/eTransmitting on: 08/23/2024 10:50 AM EST History and Physical Notes * HPI (History of Present Illness) Category Sub-Category Detail Notes Category Not es [place] History Transition of care visit from hospital Date of admission to hospital:: 06/06/2025 Patient is here for transitional care visit from recent discharge from hospital. Admitted as noted above. Admitted to [facility] with significant pancreatitis, found to have gallstone [...]
[2025-06-22 10:49] LABS: Clostridium Difficile A/B, PCR Not Detected (NotDetected); Cyclospora Cayetanesis Not Detected (NotDetected); Salmonella, PCR Not Detected (NotDetected); Shiga-like toxin E coli Not Detected (NotDetected); Shigella Enterovasive E coli Not Detected (NotDetected); Vibrio, PCR Not Detected (NotDetected); Yersinia Entercolitica, PCR Not Detected (NotDetected)
--- OUTSIDE RECORDS SUMMARY | 2025-06-22 10:51 | XMS_ITS | Patient Health Record ---
Author Organization [facility] Address [address] [place] [address] Care Team Providers Care Spring Tester Name Role Phone Areli Leonardo Primary Care Provider [phone] Trish Caryn Unavailable [phone] Migration, Provider Unavailable Unavailable Allergies No Known Allergies Results Component Value Reference Range Notes LIPID PANEL, STANDARD (7992) Reviewed date:10/12/2024 02:37:23 PM Interpretation: Performing Lab:DEAN, [facility] [id number], [place] [facility] HospitalAqqxYH[address] Will Lyle Notes/Report: NON-FASTING; NON-FASTING; NON-FASTING FASTING:NO FASTING: NO CHOLESTEROL, TOTAL 97 <200 mg/dL HDL CHOLESTEROL 31 > OR = 40 mg/dL TRIGLYCERIDES 113 <150 mg/dL LDL-CHOLESTEROL 46 with > or = 2 CHD risk factors. estimation of LDL-C. LDL-C is now calculated using the Lisa better accuracy than the Friedewald equation in the (http://education.pic5.Verisim/faq/BML025) Og WOODWARD et al. BRIAN. 2013;310(19): 7286-2497 <70 mg/dL for patients with CHD or [...] of <70 mg/dL) is considered a therapeutic COMPREHENSIVE METABOLIC PANE L (47780) Reviewed date:10/12/2024 02:37:23 PM Interpretation: Performing Lab:DEAN, [facility] ([facility] [id number] [facility], [facility] HospitalKqfqCO[address] Will Lyle Notes/Report: NON-FASTING; NON-FASTING; NON-FASTING FASTING:NO [...] Reviewed date:10/12/2024 02:37:23 PM Interpretation: Performing Lab:DEAN [facility] ([facility] [id number] [facility], [facility] HospitalFqbySB[address] Will Lyle Notes/Report: NON-FASTING; NON-FASTING; NON-FASTING FASTING:NO [...] prediabetes and should be confirmed with a Microalbumin (In-House) Reviewed date:11/16/2024 09:14:12 AM Interpretation: Performing Lab: Notes/Report: ALB 150 CRE 100 A:C >300 Microalbumin (In-House) Reviewed date:01/23/2025 07:33:10 PM Interpretation:Abnormal Performing Lab: Notes/Report: Abnormal ALB 150mg CRE 100mg A:C >300mg BASIC METABOLIC PANEL (48748 ) Reviewed date:01/24/2025 10:18:07 AM Interpretation: Performing Lab:DEAN [facility] ([facility] [id number] [facility]te[facility]PR, [facility] HospitalXcroWX[address] Will Lyle Notes/Report: NON-FASTING; NON-FASTING GLUCOSE 135 [...] Reviewed date:01/24/2025 10:18:07 AM Interpretation: Performing Lab:DEAN [facility] ([facility] [id number] [facility] [employer], [facility] HospitalTxjgOR[address] Will Lyle Notes/Report: NON-FASTING; NON-FASTING HEMOGLOBIN A1c [...] someone with known diabetes, a value <7% X ray : Spines, Lumbosacral Reviewed date:03/09/2025 12:20:45 PM Interpretation: Performing Lab: Notes/Report: X ray : Hip, Right Reviewed date:03/13/2025 12:55:18 PM Interpretation: Performing Lab: Notes/Report: X ray : Hip, Right Reviewed date:03/13/2025 12:55:18 PM Interpretation: Performing Lab: Notes/Report: Medications Medication SIG (Take, Route, Frequency, Duration) Notes Start Date End Date Status Escitalopram Oxalate 20 MG 1 TAB(S) ORALLY ONCE A DAY; Duration: 90 days Active NIFEdipine ER 60 MG 1 tablet on an empty stomach Orally Once a day; Duration: 90 days 10/10/2024 Active Lasix 20 MG 1 tablet Orally Once a day Active metFORMIN HCl 500 MG TAKE 1 TABLET TWICE DAILY; Duration: 90 Active Atorvastatin Calcium 80 MG TAKE 1 [...] Duration: 7 days As needed 03/09/2025 Active Metoprolol Succinate 25 MG 1 capsule Orally Once a day Active hydroCHLOROthiazide 25 MG TAKE 1 TABLET EVERY DAY; Duration: 90 Active Lisinopril 40 MG TAKE 1 TABLET EVERY DAY; Duration: 90 Active Fenofibrate 145 (MG) 1 TAB(S) ORALLY ONCE A DAY; Duration: 90 DAYS *Please review and pick correct strength-formulat ion from [employer] options. If intended option is not shown, discontinue and re-order from Quick Search* Active Pantoprazole Sodium 40 MG TAKE 1 TABLET EVERY DAY; Duration: 90 Active ASA 325 MGM 1 Q AM *Please review for potential replacement for e-prescription and drug interaction check* Active busPIRone HCl 10 MG TAKE 1 TABLET TWICE DAILY; Duration: 90 Active Immunizations Vaccine Route Administration [...] Status Risk Notes Problem Diabetic renal disease (687929800) Type 2 diabetes mellitus with other diabetic kidney complication (E11.29) Active confirmed Problem Nicotine dependence (39908231) Personal history of nicotine dependence (Z87.891) Active confirmed Problem Anxiety (84098601) Anxiety (F41.9) Active confi rmed Problem Hyperlipidemia due t o type 2 diabetes mellitus (disorder) (831909295754546) Hyperlipidemia associated with type 2 diabetes mellitus (E11.69) Active confirmed Problem Hypertriglyceridemia (708559172) Hypertriglyceridemia (E78.1) Active confirmed Problem Diabetes mellitus type 2 in obese (82217556) Diabetes mellitus type 2 in obese (E11.9) Active confirmed Problem Essential hypertension (70072097) Essential hypertension (I10) Active confirmed Problem Hyperlipidemia (64133096) Hyperlipemia, idiopathic familial (E78.5) Active confirmed Problem Gastroesophageal reflux disease (639819625) GERD without esophagitis (K21.9) Active confirmed Problem Tubular adenoma of colon (120383696) Tubular adenoma of colon (D12.6) Active confirmed Problem Atherosclerosis of coronary artery without angina pectoris (101874079579233) Atherosclerosis of [place] post[place] coronary artery of [place] heart without angina pectoris (I25.10) Active confirmed Problem Sciatica (99532069) Right sciati c nerve pain (M54.31) Active confirmed Problem Localized, primary osteoarthritis of the pelvic region and thigh (570145947) 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) Active confirmed Problem Primary malignant neoplasm of kidney (31874182) Renal cell cancer, unspecified laterality (C64.9) Active confirmed Problem Lower urinary tract symptoms due to benign prostatic hypertrophy (55720412031298) Benign prostatic hyperplasia with lower urinary tract symptoms (N40.1) Active confirmed Problem Stasis dermatitis (disorder) (74696631) Stasis dermatitis of both legs (I87.2) Active confirmed Problem Chronic kidney disease stage 2 (082630007) Stage 2 chronic kidney disease (N18.2) Active confirmed Problem COVID-19 (698475513) COVID-19 (U07.1) Active co nfirmed Problem Chronic kidney disease stage 3A (disorder) (895283551) CKD stage 3a, GFR 45-59 ml/min (N18.31) Active confirmed Vital Signs Heart Rate 88 /min 06/21/2025 Temperature 97.8 degrees Fahrenheit 06/21/2025 Blood pressure diastolic 110 mm Hg 06/21/2025 Height 68 in 06/21/2025 Blood pressure systolic 152 mm Hg 06/21/2025 Weight 212 lbs 06/21/2025 BMI 32.23 kg/m2 06/21/2025 Encounters Encounter Location Date Provider Diagnosis [facility] [address] [facility] [address] [place] [address] 10/07/2024 Provider Migration Anxiety F41.9 ; GERD without esophagitis K21.9 and Hypertension, essential I10 [address] [address] 08/31/2024 Leonardo Singleton Hypertension, essent ial I10 and Anxiety F41.[address] [address] 10/10/2024 Leonardobrady Singleton Diabetes mellitus ty pe 2 in obese E11.9 ; Hyperlipidemia associated with type 2 diabetes mellitus E11.69 ; Type 2 diabetes mellitus with other diabetic kidney complication E11.29 ; GERD without esophagitis K21.9 ; Anxiety F41.9 ; Hypertension, essential I10 and Routine medical exam Z00.[address] [address] 11/16/2024 Leonardo Singleton Hypertension, essent ial I10 and Type 2 diabetes mellitus with other diabetic kidney complication E11.[address] [address] 01/23/2025 Leonardobrady Singleton Diabetes mellitus ty pe 2 in obese E11.9 ; CKD stage 3a, GFR 45-59 ml/min N18.31 and Hypertension, essential I10 [facility] [address] [address] 02/28/2025 Caryn Chambers Right sciatic nerve pain M54.31 and Essential hypertension I10 [facility] [address] [address] 03/06/2025 Leonardo Besson Primary osteoarthrit is of right hip M16.11 and Essential hypertension I10 [facility] [address] [place] [address] 03/13/2025 Leonardo Besson Primary osteoarthrit is of right hip M16.11 [facility] [address] [place] [address] 06/21/2025 Leonardo Singleton Acute biliary pancreatitis, unspecified complication status K85.10 ; Atherosclerosis of [place] post[place] coronary artery of [place] heart without angina pectoris I25.10 and Hospital discharge follow-up Z51.89 [facility] [address] [place] [address] 06/22/2025 Leonardo Besson [facility] [address] [place] [address] 08/17/2024 Leonardo Besson [facility] [address] [place] [address] 02/28/2025 Caryn Chambers [facility] [address] [address] 03/06/2025 Leonardo Besson Primary osteoarthrit is of right hip M16.11 [facility] [address] [place] [address] 03/09/2025 Leonardo Besson [facility] [address] [address] 03/15/2025 Leonardo Areli Anxiety F41.9 and Hypertension, essential I10 [facility] [address] [place] [address] 06/13/2025 Leonardo Singleton Assessments Encounter Date Diagnosis (ICD Code) Assessment [...] as needed. 03/15/2025 Anxiety (ICD-10 - F41.9) 06/21/2025 Atherosclerosis of [place] coronary artery of [place] heart without angina pectoris (ICD-10 - I25.10) Reviewed data from cardiology. On DAPT. No side effects. Blood count reassuring this morning. No chest pain, continue to follow 06/21/2025 Acute biliary pancreatitis, unspecified complication status [...] days, redo labs at that point. 06/21/2025 Hospital discharge follow-up (ICD-10 - Z51.89) Personally reviewed H&P and discharge summary as available from hospital discharge documentation. Reviewed pertinent labs and test done in the hospital. Personally reconciled medication. 03/15/2025 Hypertension, essential (ICD-10 - I10) 01/23/2025 Hypertension, essential (ICD-10 - I10) His [...] 01/26/2023 Next Appt Details Provider Name:Leonardo Singleton, 06/23/2025 10:15:00 AM, [address], [place], [address], Insurance Providers Payer Name Payer Address Payer Phone Subscriber Number Group Number Insured Name Patient Relationship to Insured Coverage Start Date Coverage End Date [employer] [address] [address] [place] [address] [id number] Meolny Lee Self - patient is the insured Medications Administered Medication Instructions Date of Administration Dosage Notes Dexamethasone 4mg Injection 02/28/2025 4 mg Regen-Cov 03/28/2021 2.5 mL Right arm- Lot # [id number] Regen-Cov 03/28/2021 2.5 mL right leg Regen-Cov 03/28/2021 2.5 mL Left arm Regen-Cov 03/28/2021 2.5 mL left leg Medical (General) History Medical History History ICD Code hypertension type 2 diabetes hyperlipidemia renal cell cancer diagnosed March 24 follows with yearly eye examinations at [facility] optometry clinic Birads 1 LDCT 12/22 - Repeated 01/25-BI-RA DS 1 Colonoscopy 08/26 with diverticulosis and diminutive polyps - f/u in - BI-RADS 1 low-dose CT scan December 2023 AAA screening negative with CT abdomen/p lexus 2021 pancreatitis Surgical History Surgery Date(Month/Year) left nephrectomy for renal cell cancer S eptember 2014 stent 06/12/2025 Hospitalization History Reason Date(Month/Year) [facility] 06/07-04/2025 stroke 08/2018 above
--- OUTSIDE RECORDS SUMMARY | 2025-06-22 10:51 | XMS_ITS | Clinical Summary ---
Author Organization Healthcare Address [address] [place] [address] Care Team Providers Care Slag Dumper Name Role Phone Leonardo Singleton MD Primary Care Provider [phone] Allergies No known active allergies Medications verapamil [...] of Treatment Not on file Care Teams Slag Dumper Relationship Specialty Start Date End Date Leonardo Singleton MD [address] [place] [address] PCP - General 04/30/21
--- NOTE | 2025-07-17 14:48 | PC.NURSE ---
07/17/2025 Called 06/22/2025 and spoke with . He will call us back if interested. NO contact.
== END 2025-06-22 23:59 | disposition home or self-care (01) ==
LOC: LAB 10:47
PROVIDERS: PCP Internal Medicine Adolescent Medicine; Visit Provider Surgery
DX: R19.7 Diarrhea, unspecified (principal); R10.9 Unspecified abdominal pain
CPT/HCPCS: 87506

== ENCOUNTER 2025-06-23 09:05 | Outpatient (CLI) | payer MEDICARE, SELFPAY ==
--- OUTSIDE RECORDS SUMMARY | 2024-11-02 04:30 | XMS_ITS ---
Author Organization [facility] PE D CLAUDIA Address [address] [place] [address] Care Team Providers Care Server Support Technician Name Role Phone Leonardo Singleton Primary Care Provider REASON FOR VISIT fu Encounters Encounter Location Date Provider Diagnosis [place] [address] [address] 11/02/2024 Leonardo Singleton Plan Of Treatment Next Appt Details Provider Name:Leonardo Singleton, 06/23/2025 10:15:00 AM, [address], [address], [place], [address], Progress Notes * Melony LEE LDOB:1954 (70 yo M)Acc No.[id number]:11/02/2024 Progress Notes Patient: Bg MOSSinna Huddleston Provider: Clarice Singleton MD :1955 A ge:69 Y S ex:Male Date:11/02/2024 Address[address] [id number] Subjective: * Chief Complaints: * 1 . Fu. * Medical History: Objective: * Vitals: Assessment: Plan: * Treatment: * * Electronic signature of Regis Singleton MD FAAP on 06/23/2025 at 09:08 AM EST Sign off status: Pending * Provider: Clarice Singleton MD Date: 0 11/02/2024 Generated for Printi ng/Fredy/eTransmitting on: 1 08/24/2024 09:08 AM EST
--- OUTSIDE RECORDS SUMMARY | 2025-04-05 03:45 | XMS_ITS ---
Author Organization [facility] D [facility] Address [address] [place] [address] Care Team Providers Care Set Up Mechanic Coating Machines Name Role Phone Leonardo Singleton Primary Care Provider REASON FOR VISIT wellness Encounters Encounter Location Date Provider Diagnosis [place] [address] [address] 04/05/2025 Leonardo Singleton Plan Of Treatment Next Appt Details Provider Name:Leonardo Singleton, 06/23/2025 10:15:00 AM, [address], [place], [address], Progress Notes * Melony LEE LDOB:1954 (70 yo M)Acc No.[id number]:04/05/2025 Progress notes Patient: Bg MOSSinna Huddleston Provider: Clarice Singleton MD :1955 A ge:69 Y S ex:Male Date:04/05/2025 Address:[address] Subjective: * Chief Complaints: * 1 . Wellness. * Medical History: Objective: * Vitals: Assessment: Plan: * Treatment: * * Electronic signature of Regis Singleton MD FAAP on 06/23/2025 at 09:08 AM EST Sign off status: Pending * Provider: Clarice Singleton MD Date: Generated for Faizai rui/Fredy/eTransmitting on: 08/24/2024 09:08 AM EST
--- OUTSIDE RECORDS SUMMARY | 2025-06-21 10:15 | XMS_ITS ---
Author Organization [facility] CLAUDIA Address [address] [facility] [address] [place] [address] Care Team Providers Care Computer Security Coordinator Name Role Phone Leonardo Singleton Primary Care Provider Allergies No Known Allergies REASON FOR VISIT [facility] D/C 06/13/2025, abdomen pain Medications Medication SIG [...] review and pick correct strength-formulat ion from [employer] options. If intended option is not shown, [...] Atherosclerosis of coronary artery without angina pectoris ([id number]) Atherosclerosis of [place] coronary artery of [place] heart without angina pectoris (I25.10) Active confirmed Vital Signs Temperature 97.8 degrees Fahrenheit 06/21/20 25 Blood pressure systolic 152 mm Hg 06/21/20 25 Blood pressure diastolic 110 mm Hg 025 Heart Rate 88 /min 06/21/2025 Height 68 in 06/21/2025 Weight 212 lbs 06/21/2025 BMI 32.23 kg/m2 06/21/2025 Encounters Encounter Location Date Provider Diagnosis [address] [address] 06/21/2025 Leonardo Singleton Acute biliary pancreatitis, unspecified complication status K85.10 ; Atherosclerosis of [place] coronary artery of [place] heart without angina pectoris I25.10 and Hospital [...] labs at that point. 06/21/2025 Atherosclerosis of [place] coronary artery of [place] heart without angina pectoris (ICD-10 - I25.10) [...] redo labs at that point. Atherosclerosis of [place] co ronary artery of [place] heart without angina pectoris Reviewed data from [...] Name:Leonardo Singleton, 06/23/2025 10:15:00 AM, [address] [place] [facility] [address] [facility], [address], [place], [address], Progress Notes * Melony LEE LDOB:1954 (70 yo M)Acc No.[id number]:06/21/2025 HOSP F/U Patient: Juancarlos Melony LU Provider: Clarice Singleton MD :1955 A ge:70 Y S ex:Male Date:06/21/2025 Address:[address] [place] [address], [place], [id number] Subjective: * Chief Complaints: * 1 . [facility] D/C 06/13/2025. 2. Abdomen pain. * HPI: [...] hospital. Admitted as noted above. Admitted to [facility] with significant pancreatitis, found to have gallstone [...] 2015, follows with yearly eye examinations at [facility] optometry clinic, Birads 1 LDCT 12/22 - Repeated 01/25-BI-RADS 1, Colonoscopy 08/26 with diverticulosis and diminutive polyps - f/u in 01-11, BI-RADS 1 low-dose CT scan December 2023, AAA screening negative with CT abdomen/pelvis 2021, Pancreatitis. * Surgical History: l eft nephrectomy for renal cell cancer March 2015, stent 06/12/2025. * Hospitalization/Major Diagno stic Procedure: a cory , stroke 08/2018, [facility] 06/07-04/2025. * Family History: F ather: , [...] Will: No. Alcohol: no. Occupation: maintenance at [employer]. Tobacco Control (Standard) T obacco use: F [...] *Please review and pick correct strength-formulation from [employer] options. If intended option is not shown, [...] - K85.10 (Primary) ?2. A therosclerosis of [place] coronary artery of [place] heart without angina pectoris - I25.10 3 . H ospital discharge follow-up - Z51.89 Plan: * Treatment: 2. A therosclerosis of [place] coronary artery of [place] heart without angina pectoris L AB: M-Comprehensive [...] Date: 08/22/2024 Generated for Didi fabian/Fredy/eTransmitting on: 08/24/2024 09:09 AM EST History and Physical Notes * HPI (History of Present Illness) Category Sub-Category Detail Notes Category Not es [place] History Transition of care visit from hospital Date of admission to hospital:: 06/06/2025 Patient is here for transitional care visit from recent discharge from hospital. Admitted as noted above. Admitted to [facility] with significant pancreatitis, found to have gallstone [...]
--- OUTSIDE RECORDS SUMMARY | 2025-06-23 09:09 | XMS_ITS | Clinical Summary ---
Author Organization Healthcare Address [address] [place] [address] Care Team Providers Care Steward/Stewardess Room Name Role Phone Leonardo Singleton MD Primary Care Provider [phone] Allergies No known active allergies Medications verapamil [...] of Treatment Not on file Care Teams Steward/Stewardess Room Relationship Specialty Start Date End Date Leonardo Singleton MD [address] [place] [address] PCP - General 04/30/21
--- OUTSIDE RECORDS SUMMARY | 2025-06-23 09:10 | XMS_ITS | Patient Health Record ---
Author Organization [facility] Address [address] [place] [address] Care Team Providers Care Therapeutic Support Staff Name Role Phone Areli Leonardo Primary Care Provider Trish Caryn Unavailable [phone] Migration, Provider Unavailable Unavailable Allergies No Known Allergies Results Component Value Reference Range Notes LIPID PANEL, STANDARD (7906) Reviewed date:10/12/2024 02:37:23 PM Interpretation: Performing Lab:[facility] [id number] [facility], [facility] HospitalQdlgQX[address] Will Lyle Notes/Report: FASTING: NO FASTING:NO NON-FASTING; NON-FASTING; NON-FASTING CHOLESTEROL, TOTAL 97 <200 mg/dL HDL CHOLESTEROL [...] equation in the estimation of LDL-C. Og WOODWARD et al. BRIAN. 2013;310(19): 9339-7551 (http://education.PushPoint.com/faq/CMI520) CHOL/HDLC RATIO 3.1 <5.0 (calc) NON HDL CHOLESTEROL 66 <130 mg/dL (calc) For patients with diabetes plus 1 major ASCVD risk factor, treating to a non-HDL-C goal of <100 mg/dL (LDL-C of <70 mg/dL) is considered a therapeutic option. COMPREHENSIVE METABOLIC AV [place] (03565) Reviewed date:10/12/2024 02:37:23 PM Interpretation: Performing Lab:[facility], [facility] [id number] [facility], [facility] CenterIvvwOO[address] Will Lyle Notes/Report: NON-FASTING; NON-FASTING; NON-FASTING FASTING:NO [...] Reviewed date:10/12/2024 02:37:23 PM Interpretation: Performing Lab:[facility] [id number] [facility], [facility] CenterWldyGR[address] Will Lyle Notes/Report: NON-FASTING; NON-FASTING; NON-FASTING FASTING:NO [...] CRE 100mg A:C >300mg BASIC METABOLIC PANEL (98709 ) Reviewed date:01/24/2025 10:18:07 AM Interpretation: Performing Lab:[facility] [id number] [facility]teJ[facility] [facility], [facility] CenterFguyIB[address] Will Lyle Notes/Report: NON-FASTING; NON-FASTING GLUCOSE 135 [...] Reviewed date:01/24/2025 10:18:07 AM Interpretation: Performing Lab:[facility] [id number] [facility] [facility], [facility] CenterXjoeFP[address] Will Lyle Notes/Report: NON-FASTING; NON-FASTING HEMOGLOBIN A1c [...] A1c for diagnosis of diabetes for children. X ray : Spines, Lumbosacral Reviewed date:03/09/2025 [...] 1 TABLET EVERY DAY; Duration: 90 Active Acetaminophen-Codeine 300-30 MG 1-2 tabs Orally every 6 hrs; Duration: 7 days As needed 06/22/2025 Active Lisinopril 40 MG TAKE 1 TABLET EVERY DAY; Duration: 90 Active Fenofibrate 145 (MG) 1 TAB(S) ORALLY ONCE A DAY; Duration: 90 DAYS *Please review and pick correct strength-formulat ion from SuccessTSM options. If intended option is not shown, [...] Status Risk Notes Problem Diabetic renal disease (429962218) Type 2 diabetes mellitus with other diabetic kidney complication (E11.29) Active confirmed Problem Nicotine dependence (52000837) Personal history of nicotine dependence (Z87.891) Active confirmed Problem Anxiety (48276133) Anxiety (F41.9) Active confi rmed Problem Hyperlipidemia due t o type 2 diabetes mellitus (disorder) (511333191566362) Hyperlipidemia associated with type 2 diabetes mellitus (E11.69) Active confirmed Problem Hypertriglyceridemia (499506284) Hypertriglyceridemia (E78.1) Active confirmed Problem Diabetes mellitus type 2 in obese (83953412) Diabetes mellitus type 2 in obese (E11.9) Active confirmed Problem Essential hypertension (02643361) Essential hypertension (I10) Active confirmed Problem Hyperlipidemia (02224710) Hyperlipemia, idiopathic familial (E78.5) Active confirmed Problem Gastroesophageal reflux disease (949618041) GERD without esophagitis (K21.9) Active confirmed Problem Tubular adenoma of colon (163548364) Tubular adenoma of colon (D12.6) Active confirmed Problem Atherosclerosis of coronary artery without angina pectoris (146533601377675) Atherosclerosis of [place] coronary artery of [place] heart without angina pectoris (I25.10) Active confirmed Problem Sciatica (36325429) Right sciati c nerve pain (M54.31) Active confirmed Problem Localized, primary osteoarthritis of the pelvic region and thigh (725085196) 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) Active confirmed Problem Primary malignant neoplasm of kidney (96440901) Renal cell cancer, unspecified laterality (C64.9) Active confirmed Problem Lower urinary tract symptoms due to benign prostatic hypertrophy (61479561503837) Benign prostatic hyperplasia with lower urinary tract symptoms (N40.1) Active confirmed Problem Stasis dermatitis (disorder) (66828150) Stasis dermatitis of both legs (I87.2) Active confirmed Problem Chronic kidney disease stage 2 (749332792) Stage 2 chronic kidney disease (N18.2) Active confirmed Problem COVID-19 (472334248) COVID-19 (U07.1) Active co nfirmed Problem Chronic kidney disease stage 3A (disorder) (722104689) CKD stage 3a, GFR 45-59 ml/min (N18.31) Active confirmed Vital Signs Heart Rate 88 /min 06/21/2025 Temperature 97.8 degrees Fahrenheit 06/21/2025 Blood pressure diastolic 110 mm Hg 06/21/2025 Height 68 in 06/21/2025 Blood pressure systolic 152 mm Hg 06/21/2025 Weight 212 lbs 06/21/2025 BMI 32.23 kg/m2 06/21/2025 Encounters Encounter Location Date Provider Diagnosis [facility] [address] [place] [address] 10/07/2024 Provider Migration Anxiety F41.9 ; GERD without esophagitis K21.9 and Hypertension, essential I10 [place] [address] 08/31/2024 Leonardo Singleton Hypertension, essent ial I10 and Anxiety F41.[address] [address] 10/10/2024 Leonardobrady Singleton Diabetes mellitus ty pe 2 in obese E11.9 ; Hyperlipidemia associated with type 2 diabetes mellitus E11.69 ; Type 2 diabetes mellitus with other diabetic kidney complication E11.29 ; GERD without esophagitis K21.9 ; Anxiety F41.9 ; Hypertension, essential I10 and Routine medical exam Z00.[address] [place] [address] [address] 11/16/2024 Leonardobrady Singleton Hypertension, essent ial I10 and Type 2 diabetes mellitus with other diabetic kidney complication E11.29 [facility] [address] [place] [address] 01/23/2025 Leonardo Besson Diabetes mellitus ty pe 2 in obese E11.9 ; CKD stage 3a, GFR 45-59 ml/min N18.31 and Hypertension, essential I10 [facility] [address] [place] [address] 02/28/2025 Caryn Chambers Right sciatic nerve pain M54.31 and Essential hypertension I10 [facility] [address] [place] [address] 03/06/2025 Leonardo Besson Primary osteoarthrit is of right hip M16.11 and Essential hypertension I10 [facility] [address] [place] [address] 03/13/2025 Leonardo Besson Primary osteoarthrit is of right hip M16.11 [facility] [address] [place] [address] 06/21/2025 Leonardo Besson Acute biliary pancreatitis, unspecified complication status K85.10 ; Atherosclerosis of [place] coronary artery of [place] heart without angina pectoris I25.10 and Hospital discharge follow-up Z51.89 [facility] [address] [place] [address] 08/17/2024 Leonardo Besson [facility] [address] [place] [address] 02/28/2025 Caryn Shuklaence [facility] [address] [place] [address] 03/06/2025 Leonardo Besson Primary osteoarthrit is of right hip M16.11 [facility] [address] [place] [address] 03/09/2025 Leonardo Besson [facility] [address] [place] [address] 03/15/2025 Leonardo Besson Anxiety F41.9 and Hypertension, essential I10 [facility] [address] [place] [address] 06/13/2025 Leonardo Besson [facility] [address] [place] [address] 06/22/2025 Leonardo Singleton Assessments Encounter Date Diagnosis (ICD Code) Assessment Notes Treatment Notes Treatment Clinical Notes Section Notes 10/10/2024 Hyperlipidemia associated with type 2 diabetes [...] has no acute concerns at this time. 03/06/2025 Primary osteoarthritis of right hip (ICD-10 - M16.11) 03/13/2025 Primary osteoarthritis of right hip (ICD-10 [...] Anxiety (ICD-10 - F41.9) 06/21/2025 Atherosclerosis of [place] coronary artery of [place] heart without angina pectoris (ICD-10 - I25.10) [...] 2 days, redo labs at that point. 03/06/2025 Essential hypertension (ICD-10 - I10) Patient's blood pressure been well-controlled on current regimen, needs refills. Will do this and schedule routine follow-up 03/06/2025 Primary osteoarthritis of right hip (ICD-10 - M16.11) Reviewed x-rays previously obtained, DJD bilaterally, especially on the right, no evidence of fracture. Exam consistent with OA of hip 02/28/2025 Essential hypertension (ICD-10 - I10) Poorly [...] as needed. Xrays as noted. Consider PT 10/07/2024 Anxiety (ICD-10 - F41.9) 10/07/2024 GERD without esophagitis (ICD-10 - K21.9) 10/07/2024 Hypertension, essential (ICD-10 - I10) 08/31/2024 Anxiety (ICD-10 - F41.9) Has had [...] 1 month at his follow up appointment. 06/21/2025 Hospital discharge follow-up (ICD-10 - Z51.89) [...] C-LIPID PANEL 01/23/2014 C-HGBA1C 01/23/2014 VENIPUNCT, ROUTINE* 07/16/2015 VENIPUNCT, ROUTINE* 07/11/2015 CT Scan : Chest, Lung Cancer Screening 0 08/19/2021 CT Scan : Chest, Lung Cancer Screening 0 01/26/2023 Next Appt Details Provider Name:Leonardo Singleton, 06/23/2025 10:15:00 AM, [address], [place], [address], Insurance Providers Payer Name Payer Address Payer Phone Subscriber Number Group Number Insured Name Patient Relationship to Insured Coverage Start Date Coverage End Date [employer] [address] [address] [place] [address] [id number] Melony Lee Self - patient is the insured Medications Administered Medication Instructions Date of Administration Dosage Notes Dexamethasone 4mg Injection 02/28/2025 4 mg Regen-Cov 03/28/2021 2.5 mL Right arm- Lot # [id number] Regen-Cov 03/28/2021 2.5 mL right leg Regen-Cov 03/28/2021 2.5 mL Left arm Regen-Cov 03/28/2021 2.5 mL left leg Medical (General) History Medical History History ICD Code hypertension type 2 diabetes hyperlipidemia renal cell cancer diagnosed March 24 follows with yearly eye examinations at [facility] optometry [facility] Birads 1 LDCT 12/22 - Repeated 01/25-BI-RA DS 1 Colonoscopy 08/26 with diverticulosis and diminutive polyps - f/u in 7-10 BI-RADS 1 low-dose CT scan December 2023 AAA screening negative with CT abdomen/p lexus 2021 pancreatitis Surgical History Surgery Date(Month/Year) left nephrectomy for renal cell cancer S eptember 2014 stent 06/12/2025 Hospitalization History Reason Date(Month/Year) [facility] 06/07-04/2025 stroke 08/2018 above
[2025-06-23 09:23] LABS: Hematocrit 38.3 % (42.0-52.0); Hemoglobin 12.5 g/dL (14.1-18.0); Immature Granulocytes % 0.3 %; Mean Corpuscular HGB Conc 32.6 g/dL (31.8-35.4); Mean Corpuscular Hemoglobin 30.0 pg (27.0-31.2); Mean Corpuscular Volume 92.1 fl (80-94); Nucleated Red Blood Cells % 0 %; Platelet Count 338 K/mm3 (142-424); Red Blood Count 4.16 M/mm3 (4.60-6.20); Red Cell Distribution Width-SD 42.5 fL; White Blood Count 14.0 K/mm3 (4.8-10.8)
[2025-06-23 10:59] LABS: Albumin Level 4.0 g/dl (3.5-5.0)
[2025-06-23 11:00] LABS: Chloride 90 mmol/L (98-107); Potassium 4.4 mmoL/L (3.5-5.1); Sodium 133 mmol/L (136-145)
[2025-06-23 11:02] LABS: Alanine Aminotransferase 33 U/L (12-78); Amylase 103 U/L (30-110); Anion Gap 13.4 mEq/L (5-15); Aspartate Amino Transferase 24 U/L (17-59); Blood Urea Nitrogen 40 mg/dl (9-20); Carbon Dioxide 34 mmol/L (22.0-30.0); Creatinine,Serum 2.20 mg/dl (0.66-1.25); Estimated Glomerular Filt Rate 30 ml/min (>60); GFR (African American) 36 ML/MIN (>60)
[2025-06-23 11:03] LABS: Albumin/Globulin Ratio 1.5 (1.1-1.8); Alkaline Phosphatase 102 U/L (38-126); Bilirubin,Total 0.9 mg/dl (0.2-1.3); Calcium 9.7 mg/dl (8.4-10.2); Globulin 2.7 g/dL (1.3-3.2); Glucose 100 mg/dl (74-100); Lipase 410 U/L (23-300); Total Protein,Serum 6.7 g/dl (6.3-8.2)
== END 2025-06-23 23:59 | disposition home or self-care (01) ==
PROVIDERS: PCP Internal Medicine Adolescent Medicine; Visit Provider Internal Medicine Adolescent Medicine
DX: K85.10 Biliary acute pancreatitis without necrosis or infection (principal); I25.10 Atherosclerotic heart disease of native coronary artery without angina pectoris
CPT/HCPCS: 36415; 80053; 82150; 83690; 85025

== ENCOUNTER 2025-06-25 11:22 | Outpatient (CLI) | payer MEDICARE, SELFPAY ==
--- OUTSIDE RECORDS SUMMARY | 2025-06-25 11:25 | XMS_ITS | Clinical Summary ---
Author Organization Healthcare Address [address] [place] [address] Care Team Providers Care Alumni Secretary Name Role Phone Leonardo Singleton MD Primary Care Provider [phone] Allergies No known active allergies Medications verapamil [...] of Treatment Not on file Care Teams Alumni Secretary Relationship Specialty Start Date End Date Leonardo Singleton MD [address] [place] [address] PCP - General 04/30/21
[2025-06-25 12:57] LABS: Hematocrit 36.3 % (42.0-52.0); Hemoglobin 11.9 g/dL (14.1-18.0); Immature Granulocytes % 0.3 %; Mean Corpuscular HGB Conc 32.8 g/dL (31.8-35.4); Mean Corpuscular Hemoglobin 30.4 pg (27.0-31.2); Mean Corpuscular Volume 92.6 fl (80-94); Nucleated Red Blood Cells % 0 %; Platelet Count 314 K/mm3 (142-424); Red Blood Count 3.92 M/mm3 (4.60-6.20); Red Cell Distribution Width-SD 43.9 fL; White Blood Count 11.6 K/mm3 (4.8-10.8)
[2025-06-25 13:16] LABS: Anion Gap 7.6 mEq/L (5-15); Blood Urea Nitrogen 43 mg/dl (9-20); Calcium 9.3 mg/dl (8.4-10.2); Carbon Dioxide 34 mmol/L (22.0-30.0); Chloride 99 mmol/L (98-107); Creatinine,Serum 2.00 mg/dl (0.66-1.25); Estimated Glomerular Filt Rate 33 ml/min (>60); GFR (African American) 40 ML/MIN (>60); Glucose 101 mg/dl (74-100); Potassium 4.6 mmoL/L (3.5-5.1); Sodium 136 mmol/L (136-145)
[2025-06-25 13:17] LABS: Amylase 62 U/L (30-110); Lipase 267 U/L (23-300)
== END 2025-06-25 23:59 | disposition home or self-care (01) ==
LOC: LAB 11:23
PROVIDERS: Internal Medicine; PCP Internal Medicine Adolescent Medicine; Visit Provider Internal Medicine Adolescent Medicine
DX: I50.31 Acute diastolic (congestive) heart failure (principal); K85.10 Biliary acute pancreatitis without necrosis or infection; I25.10 Atherosclerotic heart disease of native coronary artery without angina pectoris
CPT/HCPCS: 36415; 80048; 82150; 83690; 85025

== ENCOUNTER 2025-07-02 08:06 | Outpatient (CLI) | payer MEDICARE, SELFPAY ==
--- OUTSIDE RECORDS SUMMARY | 2024-11-02 04:30 | XMS_ITS ---
Author Organization [facility] PE D CLAUDIA Address [address] [place] [address] Care Team Providers Care Swatch Paster Name Role Phone Leonardo Singleton Primary Care Provider REASON FOR VISIT fu Encounters Encounter Location Date Provider Diagnosis [facility] [address] [address] 11/02/2024 Leonardo Singelton Plan Of Treatment Next Appt Details Provider Name:Leonardo Singleton, 07/03/2025 10:45:00 AM, [address], [address], Progress Notes * Melony LEE LDOB:1954 (70 yo M)Acc No.[id number]:11/02/2024 Progress Notes Patient: Juancarlos Melony saravia Provider: Clarice Singleton MD :1955 A ge:69 Y S ex:Male Date:11/02/2024 [address] [facility] [id number] Subjective: * Chief Complaints: * F u Billing Information: * Procedure Codes: * Electronic signature of Regis Singleton MD FAAP on 07/02/2025 at 08:08 AM EST Sign off status: Pending * Provider: Clarice Singleton MD Date: 0 11/02/2024 Generated for Printi ng/Faxing/eTransmitting on: 1 08:08 AM EST
--- OUTSIDE RECORDS SUMMARY | 2025-04-05 03:45 | XMS_ITS ---
Author Organization [facility] Address [address] [place] [address] Care Team Providers Care Style Advisor Name Role Phone Leonardo Singleton Primary Care Provider [phone] REASON FOR VISIT wellness Encounters Encounter Location Date Provider Diagnosis [facility] [address] [address] 04/05/2025 Leonardo Singleton Plan Of Treatment Next Appt Details Provider Name:Leonardo Singleton, 07/03/2025 10:45:00 AM, [address], [address], Progress Notes * Melony LEE LDOB:1954 (70 yo M)Acc No.[id number]:04/05/2025 Progress notes Patient: Juancarlos Melony saravia Provider: Clarice Singleton MD :1955 A ge:69 Y S ex:Male Date:04/05/2025 [facility] [facility] [id number] Subjective: * Chief Complaints: * W ellness Billing Information: * Procedure Codes: * Electronic signature of Regis Singleton MD FAAP on 07/02/2025 at 08:08 AM EST Sign off status: Pending * Provider: Clarice Singleton MD Date: Generated for Printi ng/Faxing/eTransmitting on: 08:08 AM EST
--- OUTSIDE RECORDS SUMMARY | 2025-06-21 10:15 | XMS_ITS ---
Author Organization [facility] CLAUDIA Address [address] [place] [address] [facility] [address] [place] [address] Care Team Providers Care Storeroom Supervisor Name Role Phone Leonardo Singleton Primary Care Provider Allergies No Known Allergies REASON FOR VISIT [facility] D/C 06/13/2025, abdomen pain Medications Medication SIG (Take, Route, Frequency, Duration) Notes Start Date End Date Status Atorvastatin Calcium 80 MG Tablet TAKE 1 TABLET EVERY DAY; Duration: 90 Active Farxiga 10 MG Tablet 1 tablet Orally Once a day; Duration: 90 days 11/16/2024 Active buPROPion HCl ER (XL) 300 MG Tablet Extended Release 24 Hour 1 tab(s) orally Once a day; Duration: 90 days 08/31/2024 Active traMADol HCl 50 MG Tablet 1 tablet as needed Orally every 8 hrs; Duration: 7 days As needed 03/09/2025 Active Fenofibrate 145 (MG) TABLET 1 TAB(S) ORALLY ONCE A DAY; Duration: 90 DAYS *Please review and pick correct strength-formulat ion from [employer] options. If intended option is not shown, discontinue and re-order from Quick Search* Active Lasix 20 MG Tablet 1 tablet Orally Once a day Active Plavix 75 MG Tablet 1 tab(s) orally once a day; Duration: 90 days Active Metoprolol Succinate 25 MG Capsule ER 24 Hour Sprinkle 1 capsule Orally Once a day Active Pantoprazole Sodium 40 MG Tablet Delayed Release TAKE 1 TABLET EVERY DAY; Duration: 90 Active ASA 325 MGM TABLET 1 Q AM *Please revie w for potential replacement for e-prescription and drug interaction check* Active Escitalopram Oxalate 20 MG Tablet 1 TAB(S) ORALLY ONCE A DAY; Duration: 90 days Active metFORMIN HCl 500 MG Tablet TAKE 1 TABLET TWICE DAILY; Duration: 90 Active hydroCHLOROthiazide 25 MG Tablet TAKE 1 TABLET EVERY DAY; Duration: 90 Active Lisinopril 40 MG Tablet TAKE 1 TABLET EVERY DAY; Duration: 90 Active busPIRone HCl 10 MG Tablet TAKE 1 TABLET TWICE DAILY; Duration: 90 Active NIFEdipine ER 60 MG Tablet Extended Release 24 Hour 1 tablet on an empty stomach Orally Once a day; Duration: 90 days 10/10/2024 Active Social History Tobacco Use: Social History Observation Description Date Details (start date - stop date) Former Smoker NA - NA Social History Social History Social Info Question Answer Notes Tobacco Control (Standard) Tobacco use: Former smoker How long has it been since you last smoked? 1-5 years Additional Details Category Social Info Options Details Social History Occupation: [email or web address] Alcohol: no Recreational drug use: no Home smoke detector use: yes Caffeine: 2 cups coffee da chris Living Will No Problems Problem Type SNOMED Code ICD Code Onset Dates Problem Status W/U Status Risk Notes Problem Atherosclerosis of coronary artery without angina pectoris (462089082210577) Atherosclerosis of [place] coronary artery of [place] heart without angina pectoris (I25.10) Active confirmed Vital Signs Temperature 97.8 degrees Fahrenheit 06/21/20 25 Blood pressure systolic 152 mm Hg 06/21/20 25 Blood pressure diastolic 110 mm Hg 025 Heart Rate 88 /min 06/21/2025 Height 68 in 06/21/2025 Weight 212 lbs 06/21/2025 BMI 32.23 kg/m2 06/21/2025 Encounters Encounter Location Date Provider Diagnosis [address] [address] 06/21/2025 Leonardo Singleton Acute biliary pancreatitis, unspecified complication status K85.10 ; Atherosclerosis of [place] coronary artery of [place] heart without angina pectoris I25.10 and Hospital discharge follow-up Z51.89 Assessments Encounter Date Diagnosis (ICD Code) Assessment Notes Treatment Notes Treatment Clinical Notes Section Notes 06/21/2025 Acute biliary pancreatitis, unspecified complication status (ICD-10 - K85.10) Reviewed labs done by surgery today. White count is back to normal. Lipase is back up. Bilirubin and AST/ALT are normal plate Plan to be to restrict diet to only clears. He has been doing a lot of puddings and I wonder if he has overdone it with a milk issue. He will do clears, none diarrhea fruit juices like a white grape juice and Jell-O. I will see him in 2 days, redo labs at that point. 06/21/2025 Atherosclerosis of in[place] coronary artery of inaja heart without angina pectoris (ICD-10 - I25.10) Reviewed data from cardiology. On DAPT. No side effects. Blood count reassuring this morning. No chest pain, continue to follow 06/21/2025 Hospital discharge follow-up (ICD-10 - Z51.89) Personally reviewed H&P and discharge summary as available from hospital discharge documentation. Reviewed pertinent labs and test done in the hospital. Personally reconciled medication. Plan Of Treatment Treatment Notes Assessment Notes Acute biliary pancreatitis, unspecified complication status Reviewed labs done by surgery today. White count is back to normal. Lipase is back up. Bilirubin and AST/ALT are normal plate Plan to be to restrict diet to only clears. He has been doing a lot of puddings and I wonder if he has overdone it with a milk issue. He will do clears, none diarrhea fruit juices like a white grape juice and Jell-O. I will see him in 2 days, redo labs at that point. Atherosclerosis of [place] co ronary artery of inaja heart without angina pectoris Reviewed data from cardiology. On DAPT. No side effects. Blood count reassuring this morning. No chest pain, continue to follow Hospital discharge follow-up Personally reviewed H&P and discharge summary as available from hospital discharge documentation. Reviewed pertinent labs and test done in the hospital. Personally reconciled medication. Next Appt Details Follow Up: prn,2 - 3 Days, Jeremy laguna: Provider Name:Leonardo Singleton, 07/03/2025 10:45:00 AM, [address] [address], [place], [address], History and Physical Notes * HPI (History of Present Illness) Category Sub-Category Detail Notes Category Not es [place] History Transition of care visit from hospital Date of admission to hospital:: 06/06/2025 Patient is here for transitional care visit from recent discharge from hospital. Admitted as noted above. Admitted to [facility] with significant pancreatitis, found to have gallstone pancreatitis and he was admitted for this issue.Had ERCP with clearance of the biliary tree with common duct clearance, he improved slightly. Was discharged after treatment for the non-STEMI with surgery follow-up During the hospitalization he suffered type II non-STEMI. Underwent heart cath found to have proximal stenosis of LAD and received a stent. Placed on DAPT, diuresed, found to have some anterior hypokinesis of left ventricular wall. Found to have esophagitis as well and has had follow-up with general surgery today. Had repeat labs done today showing resolution of his leukocytosis down to 6.7 and improvement in his LUIS with creatinine of 1.4. Glucose is acceptable, lipase has gone back up to 641 after going down to 221 on 06/12/2025 in the hospital. Date of receipt of hospital admission re port:: 06/06/2025 Date of discharge from hospital:: 2024 Date of receipt of hospital discharge andrade mmary:: 06/14/2025 Discharge medications review ed and reconciled from hospital:: Medications left unchanged Examination Category Sub-Category Detail Notes Category Not es General Examination Pleasant, talkative, normal vital signs. Abdomen is slightly tender in the epigastric area but no bruising. He is overall alert and pleasant. Lungs clear, heart rate regular Progress Notes * Melony LEE LDOB:1954 (70 yo M)Acc No.[id number]:06/21/2025 HOSP F/U Patient: Melony MOSS Provider: Clarice Singleton MD :1955 A ge:70 Y S ex:Male Date:06/21/2025 Address:[address] [place], [place] [id number] Subjective: * Chief Complaints: * 1 . [facility] D/C 06/13/2025. 2. Abdomen pain. * HPI: I ntrim History: Transition of care visit from hospital D ate of admission to hospital: 1 08/07/2024, D ate of receipt of hospital admission report: 08/07/2024,?Date of discharge from hospital: 1 08/14/2024, D ate of receipt of hospital discharge summary: 1 08/15/2024, D ischarge medications reviewed and reconciled from hospital: M edications left unchanged. Patient is here for transitional care visit from recent discharge from hospital. Admitted as noted above. Admitted to [facility] with significant pancreatitis, found to have gallstone pancreatitis and he was admitted for this issue.Had ERCP with clearance of the biliary tree with common duct clearance, he improved slightly. Was discharged after treatment for the non-STEMI with surgery follow-up During the hospitalization he suffered type II non-STEMI. Underwent heart cath found to have proximal stenosis of LAD and received a stent. Placed on DAPT, diuresed, found to have some anterior hypokinesis of left ventricular wall. Found to have esophagitis as well and has had follow-up with general surgery today. Had repeat labs done today showing resolution of his leukocytosis down to 6.7 and improvement in his LUIS with creatinine of 1.4. Glucose is acceptable, lipase has gone back up to 641 after going down to 221 on 06/12/2025 in the hospital. * Medical History: * Surgical History: * Hospitalization/Major Diagno stic Procedure: * Family History: F ather: , diagnosed with Cancer. M other: . P aternal Grand Father: . P aternal Grand Mother: . M aternal Grand Father: . M aternal Grand Mother: . S elza: alive, diagnosed with Diabetes, Hypertension. C heriberto: alive. 4 brother(s) , 3 sister(s) . 2 daughter(s) . . * Social History: R ecreational drug use: no. Home smoke detector use: yes. Caffeine: 2 cups coffee daily. Living Will: No. Alcohol: no. Occupation: maintenance at [employer]. Tobacco Control (Standard) T obacco use: F ormer smoker, H ow long has it been since you last smoked? 1 -5 years. * Medications: T aking Lasix 20 MG Tablet 1 tablet Orally Once a day , Taking Metoprolol Succinate 25 MG Capsule ER 24 Hour Sprinkle 1 capsule Orally Once a day , Taking ASA 325 MGM TABLET 1 Q AM , Notes to Pharmacist: *Please review for potential replacement for e-prescription and drug interaction check*, Taking Fenofibrate 145 (MG) TABLET 1 TAB(S) ORALLY ONCE A DAY , Notes to Pharmacist: *Please review and pick correct strength-formulation from [employer] options. If intended option is not shown, discontinue and re-order from Quick Search*, Taking Farxiga 10 MG Tablet 1 tablet Orally Once a day , Taking Atorvastatin Calcium 80 MG Tablet TAKE 1 TABLET EVERY DAY , Taking traMADol HCl 50 MG Tablet 1 tablet as needed Orally every 8 hrs As needed, Taking buPROPion HCl ER (XL) 300 MG Tablet Extended Release 24 Hour 1 tab(s) orally Once a day , Taking NIFEdipine ER 60 MG Tablet Extended Release 24 Hour 1 tablet on an empty stomach Orally Once a day , Taking Escitalopram Oxalate 20 MG Tablet 1 TAB(S) ORALLY ONCE A DAY , Taking metFORMIN HCl 500 MG Tablet TAKE 1 TABLET TWICE DAILY , Taking Lisinopril 40 MG Tablet TAKE 1 TABLET EVERY DAY , Taking hydroCHLOROthiazide 25 MG Tablet TAKE 1 TABLET EVERY DAY , Taking busPIRone HCl 10 MG Tablet TAKE 1 TABLET TWICE DAILY , Taking Pantoprazole Sodium 40 MG Tablet Delayed Release TAKE 1 TABLET EVERY DAY , Taking Plavix 75 MG Tablet 1 tab(s) orally once a day , Medication List reviewed and reconciled with the patient * Allergies: N .K.D.A. Objective: * Vitals: N urse: dw, Pain: 10, Temp: 97.8, RR: 18, HR: 88, BP: 152/110, Ht: 68, Wt: 212, BMI:32.23. * Examination: G eneral Examination: P leasant, talkative, normal vital signs. Abdomen is slightly tender in the epigastric area but no bruising. He is overall alert and pleasant. Lungs clear, heart rate regular. Assessment: * Assessment: 1. A cute biliary pancreatitis, unspecified complication status - K85.10 (Primary) ?2. A therosclerosis of in[place] coronary artery of inaja heart without angina pectoris - I25.10 3 . H ospital discharge follow-up - Z51.89 Plan: * Treatment: 2. A therosclerosis of in[place] coronary artery of in[place] heart without angina pectoris L AB: M-Comprehensive Metabolic Panel (Ordered for 06/23/2025) L AB: M-Complete Blood Count Auto Diff (Ordered for 06/23/2025) L AB: M-Amylase (Ordered for 06/23/2025) L AB: M-Lipase (Ordered for 06/23/2025) Notes: Reviewed data from cardiology. On DAPT. No side effects. Blood count reassuring this morning. No chest pain, continue to follow 3. H ospital discharge follow-up Notes: Personally reviewed H&P and discharge summary as available from hospital discharge documentation. Reviewed pertinent labs and test done in the hospital. Personally reconciled medication. * Procedure Codes: 9 9495 TRANS CARE MGMT 14 DAY DISCH, Modifiers: 25 , 1111F DSC MED/CURENT MED MERGE * Follow Up: p rn,2 - 3 Days * * Sign off status: Completed true * Provider: Clarice Singleton MD Date: 08/22/2024 Generated for Didi fabian/Fredy/eTransmitting on: 08:08 AM EST
--- OUTSIDE RECORDS SUMMARY | 2025-06-23 05:15 | XMS_ITS ---
Author Organization [facility] Address [address] [facility] [address] [place] [address] Care Team Providers Care Survey And Mapping Technician Name Role Phone Leonardo Singleton Primary Care Provider [phone] Allergies No Known Allergies REASON FOR VISIT FU/per Dr Singleton. Not eating, stomach pain, Check [facility] labs, Medicare AWV Medications Medication SIG (Take, Route, Frequency, Duration) Notes Start Date End Date Status busPIRone HCl 10 MG Tablet TAKE 1 TABLET TWICE DAILY; Duration: 90 Active Pantoprazole Sodium 40 MG Tablet Delayed Release TAKE 1 TABLET EVERY DAY; Duration: 90 Active Lisinopril 40 MG Tablet TAKE 1 TABLET EVERY DAY; Duration: 90 Active hydroCHLOROthiazide 25 MG Tablet TAKE 1 TABLET EVERY DAY; Duration: 90 Active metFORMIN HCl 500 MG Tablet TAKE 1 TABLET TWICE DAILY; Duration: 90 Active Atorvastatin Calcium 80 MG Tablet TAKE 1 TABLET EVERY DAY; Duration: 90 Active Escitalopram Oxalate 20 MG Tablet 1 TAB(S) ORALLY ONCE A DAY; Duration: 90 days Active NIFEdipine ER 60 MG Tablet Extended Release 24 Hour 1 tablet on an empty stomach Orally Once a day; Duration: 90 days 10/10/2024 Active traMADol HCl 50 MG Tablet 1 tablet as needed Orally every 8 hrs; Duration: 7 days As needed 03/09/2025 Active buPROPion HCl ER (XL) 300 MG Tablet Extended Release 24 Hour 1 tab(s) orally Once a day; Duration: 90 days 08/31/2024 Active Farxiga 10 MG Tablet 1 tablet Orally Once a day; Duration: 90 days 11/16/2024 Active ASA 325 MGM TABLET 1 Q AM *Please revie w for potential replacement for e-prescription and drug interaction check* Active Fenofibrate 145 (MG) TABLET 1 TAB(S) ORALLY ONCE A DAY; Duration: 90 DAYS *Please review and pick correct strength-formulat ion from [employer] options. If intended option is not shown, discontinue and re-order from Quick Search* Active Lasix 20 MG Tablet 1 tablet Orally Once a day Active Metoprolol Succinate 25 MG Capsule ER 24 Hour Sprinkle 1 capsule Orally Once a day Active Plavix 75 MG Tablet 1 tab(s) orally once a day; Duration: 90 days Active Acetaminophen-Codeine 300-30 MG Tablet 1-2 tabs Orally every 6 hrs; Duration: 7 days As needed 06/22/2025 Active Social History Tobacco Use: Social History Observation Description Date Details (start date - stop date) Former Smoker NA - NA Social History Social History Social Info Question Answer Notes Tobacco Control (Standard) Tobacco use: Former smoker How long has it been since you last smoked? 1-5 years Additional Details Category Social Info Options Details Social History Occupation: [employer] Alcohol: no Recreational drug use: no Home smoke detector use: yes Caffeine: 2 cups coffee da chris Living Will No Vital Signs Temperature 98.0 degrees Fahrenheit 06/23/20 25 Blood pressure systolic 104 mm Hg 06/23/20 25 Blood pressure diastolic 60 mm Hg 025 Heart Rate 64 /min 06/23/2025 Height 68 in 06/23/2025 Weight 209.2 lbs 06/23/2025 BMI 31.81 kg/m2 06/23/2025 Encounters Encounter Location Date Provider Diagnosis [facility] [address] [facility] [address] [place] [address] 06/23/2025 Leonardo Areli Gallstone pancreatit is K85.10 ; LUIS (acute kidney injury) N17.9 ; Atherosclerosis of [place] coronary artery of [place] heart without angina pectoris I25.10 ; Diabetes mellitus type 2 in obese E11.9 and Routine medical exam Z00.00 Assessments Encounter Date Diagnosis (ICD Code) Assessment Notes Treatment Notes Treatment Clinical Notes Section Notes 06/23/2025 Gallstone pancreatitis (ICD-10 - K85.10) White count is slightly elevated from 2 days ago, 9000 up to 12,000. Lipase is down by 200 points. Liver enzymes are normal with no elevation of bilirubin. This seems reassuring, although still in pain. See notes below about kidney function. Recommended continuing to push p.o. fluids, pain medication, short-term follow-up next week 06/23/2025 LUIS (acute kidney injury) (ICD-10 - N17.9) Patient and left the office. We will try to get in touch with them later today, they have not been answering their phones, given LUIS I will make sure patient has stopped his Farxiga, HCTZ and his metformin. Push fluids as noted, I ordered labs for 48 hours from now. Will make sure I touch base personally with patient 06/23/2025 Atherosclerosis of [place] coronary artery of [place] heart without angina pectoris (ICD-10 - I25.10) Asymptomatic, on DAPT therapy 06/23/2025 Diabetes mellitus type 2 in obese (ICD-10 - E11.9) See notes above about holding diabetes medicines through this episode 06/23/2025 Routine medical exam (ICD-10 - Z00.00) HRA reviewed. No falls, depression seems to be well treated. Is up-to-date with screenings and shots in spite of this recent illness episode. Non-smoker currently. No indication for other screening things at this point. 09/03 word recall. Supportive home environment. HRA reviewed Plan Of Treatment Treatment Notes Assessment Notes Gallstone pancreatitis White count is slightly elevated from 2 days ago, 9000 up to 12,000. Lipase is down by 200 points. Liver enzymes are normal with no elevation of bilirubin. This seems reassuring, although still in pain. See notes below about kidney function. Recommended continuing to push p.o. fluids, pain medication, short-term follow-up next week LUIS (acute kidney injury) Patient and left the office. We will try to get in touch with them later today, they have not been answering their phones, given LUIS I will make sure patient has stopped his Farxiga, HCTZ and his metformin. Push fluids as noted, I ordered labs for 48 hours from now. Will make sure I touch base personally with patient Atherosclerosis of [place] co ronary artery of [place] heart without angina pectoris Asymptomatic, on DAPT therapy Diabetes mellitus type 2 in obese See no yovana above about holding diabetes medicines through this episode Routine medical exam HRA reviewed. No falls, depression seems to be well treated. Is up-to-date with screenings and shots in spite of this recent illness episode. Non-smoker currently. No indication for other screening things at this point. 3/2 word recall. Supportive home environment. HRA reviewed Future Test Test Name Order Date M-Complete Blood Count Auto Diff 025 M-Comprehensive Metabolic Panel 06/25/20 25 Next Appt Details Follow Up: prn,2 - 3 Days, Jeremy sanchezon: Provider Name:Leonardobrady Singleton, 07/03/2025 10:45:00 AM, [address] [place] [address], [address], History and Physical Notes * HPI (History of Present Illness) Category Sub-Category Detail Notes Category Not es gen Presents with his to go over his recent hospitalization and follow-up for pancreatitis/coronary disease. See notes from visit 2 days ago, has backed down to clear liquids. Thinks his pain is better, has been using some Tylenol with codeine. No vomiting. Did have some diarrhea, that is actually better, stool PCR is returned showing no pathogens isolated. He has been able to keep liquids down. He feels hungry sometimes but then he does not want to eat because of pain.In regards to Medicare wellness status please see review of systems and assessment/plan below, reviewed patient's HRA Examination Category Sub-Category Detail Notes Category Not es General Examination Patient is pleasant, does not appear to be in distress even though he states his pain is 10/10. Lungs are clear, well-expanded, heart rate regular. No ankle edema. Neurologically intact. No rashes. No periumbilical or flank bruising. Has mild epigastric tenderness but is better than exam 2 days ago. No CVA tenderness. Progress Notes * Melony LEE LDOB:1954 (70 yo M)Acc No.[id number]:06/23/2025 Progress Notes Patient: Juancarlos LU Melony L Provider: Clarice Singleton MD :1955 A ge:70 Y S ex:Male Date:06/23/2025 Address:[address] [place] [address], [facility] Subjective: * Chief Complaints: * 1 . FU/per Dr Singleton. Not eating, stomach pain. 2. Check [facility] labs. 3. Medicare AWV. * HPI: ronda magana: Presents with his to go over his recent hospitalization and follow-up for pancreatitis/coronary disease. See notes from visit 2 days ago, has backed down to clear liquids. Thinks his pain is better, has been using some Tylenol with codeine. No vomiting. Did have some diarrhea, that is actually better, stool PCR is returned showing no pathogens isolated. He has been able to keep liquids down. He feels hungry sometimes but then he does not want to eat because of pain.In regards to Medicare wellness status please see review of systems and assessment/plan below, reviewed patient's HRA. * Medical History: * Surgical History: * [...] Will: No. Alcohol: no. Occupation: maintenance at [employer]. Tobacco Control (Standard) T obacco use: F [...] tab(s) orally once a day , Taking Acetaminophen-Codeine 300-30 MG Tablet 1-2 tabs Orally every 6 hrs As needed, Medication List reviewed and reconciled with the patient * Allergies: N .K.D.A. Objective: * Vitals: N urse: KJ, Pain: 10, Temp: 98.0, RR: 16, HR: 64, BP: 104/60, Ht: 68, Wt: 209.2, BMI:31.81. * Examination: G eneral Examination: Yimi atrj is pleasant, does not appear to be in distress even though he states his pain is 10/10. Lungs are clear, well-expanded, heart rate regular. No ankle edema. Neurologically intact. No rashes. No periumbilical or flank bruising. Has mild epigastric tenderness but is better than exam 2 days ago. No CVA tenderness. Assessment: * Assessment: 1. G allstone pancreatitis - K85.10 (Primary) 2 . A KI (acute kidney injury) - N17.9 3 . A therosclerosis of [place] coronary artery of [place] heart without angina pectoris - I25.10 4 . D iabetes mellitus type 2 in obese - E11.9 & #160; 5 . R outine medical exam - Z00.00 Plan: * Treatment: 2. A KI (acute kidney injury) L AB: M-Comprehensive Metabolic Panel (Ordered for 06/25/2025) L AB: M-Complete Blood Count Auto Diff (Ordered for 06/25/2025) Notes: Patient and left the office. We will try to get in touch with them later today, they have not been answering their phones, given LUIS I will make sure patient has stopped his Farxiga, HCTZ and his metformin. Push fluids as noted, I ordered labs for 48 hours from now. Will make sure I touch base personally with patient 3. A therosclerosis of [place] coronary artery of [place] heart without angina pectoris L AB: M-Comprehensive Metabolic Panel (Ordered for 06/25/2025) L AB: M-Complete Blood Count Auto Diff (Ordered for 06/25/2025) Notes: Asymptomatic, on DAPT therapy 4. D iabetes mellitus type 2 in obese Notes: See notes above about holding diabetes medicines through this episode 5. R outine medical exam Notes: HRA reviewed. No falls, depression seems to be well treated. Is up-to-date with screenings and shots in spite of this recent illness episode. Non-smoker currently. No indication for other screening things at this point. 09/03 word recall. Supportive home environment. HRA reviewed * Procedure Codes: G 2211 Complex e/m visit add on, G0439 ANNUAL WELLNESS VST; PPS SUBSQT VST, 1170F FUNCTIONAL STATUS ASSESSMENT, M1371 Mst rec gsa<7, 1123F ADVANCED DIRECTIVE - HAS A LIVING WILL, 3017F COLORECTAL CA SCREEN DOC REV, G8417 BMI >=30 CALCUATE W/FOLLOWUP, G9717 DOC PT HAS ACTIV DX DEPR/BIPOLR D/O, G9903 Pt scrn tbco id as non user, 1036F TOBACCO NON-USER, G8783 NORMAL BP READING DOC F/U NOT RQR * Follow Up: p rn,2 - 3 Days * * Sign off status: Completed true * Provider: Clarice Singleton MD Date: 08/24/2024 Generated for Didi fabian/Fredy/eTransmitting on: 08:09 AM EST
--- OUTSIDE RECORDS SUMMARY | 2025-06-26 06:00 | XMS_ITS ---
Author Organization [facility] Address [address] [place] [address] Care Team Providers Care Hogshead Weigher Name Role Phone Leonardo Singleton Primary Care Provider Allergies No Known Allergies REASON FOR VISIT follow up- still not able to eat, still hurting Medications Medication SIG (Take, Route, Frequency, Duration) Notes Start Date End Date Status Acetaminophen-Codeine 300-30 MG Tablet 1-2 tabs Orally every 6 hrs; Duration: 7 days As needed 06/22/2025 Active Plavix 75 MG Tablet 1 tab(s) orally once a day; Duration: 90 days Active Pantoprazole Sodium 40 MG Tablet Delayed Release TAKE 1 TABLET EVERY DAY; Duration: 90 Active busPIRone HCl 10 MG Tablet TAKE 1 TABLET TWICE DAILY; Duration: 90 Active Escitalopram Oxalate 20 MG Tablet 1 TAB(S) ORALLY ONCE A DAY; Duration: 90 days Active NIFEdipine ER 60 MG Tablet Extended Release 24 Hour 1 tablet on an empty stomach Orally Once a day; Duration: 90 days 10/10/2024 Active buPROPion HCl ER (XL) 300 MG Tablet Extended Release 24 Hour 1 tab(s) orally Once a day; Duration: 90 days 08/31/2024 Active Lisinopril 40 MG Tablet TAKE 1 TABLET EVERY DAY; Duration: 90 Active traMADol HCl 50 MG Tablet 1 tablet as needed Orally every 8 hrs; Duration: 7 days As needed 03/09/2025 Active Atorvastatin Calcium 80 MG Tablet TAKE 1 TABLET EVERY DAY; Duration: 90 Active Farxiga 10 MG Tablet 1 tablet Orally Once a day; Duration: 90 days 11/16/2024 Active ASA 325 MGM TABLET 1 Q AM *Please revie w for potential replacement for e-prescription and drug interaction check* Active Metoprolol Succinate 25 MG Capsule ER 24 Hour Sprinkle 1 capsule Orally Once a day Active Social History Tobacco Use: Social History Observation Description Date Details (start date - stop date) Former Smoker NA - NA Social History Social History Social Info Question Answer Notes Tobacco Control (Standard) Tobacco use: Former smoker How long has it been since you last smoked? 1-5 years Additional Details Category Social Info Options Details Social History Occupation: [employer] Alcohol: no Recreational drug use: no Home smoke detector use: yes Caffeine: 2 cups coffee da chris Living Will No Vital Signs Temperature 97.7 degrees Fahrenheit 06/26/20 25 Blood pressure systolic 142 mm Hg 06/26/20 25 Blood pressure diastolic 100 mm Hg 025 Heart Rate 68 /min 06/26/2025 Height 68 in 06/26/2025 Weight 211 lbs 06/26/2025 BMI 32.08 kg/m2 06/26/2025 Encounters Encounter Location Date Provider Diagnosis [address] [address] 06/26/2025 Leonardo Singleton Gallstone pancreatit is K85.10 ; LUIS (acute kidney injury) N17.9 and Atherosclerosis of sy[place] coronary artery of [place] heart without angina pectoris I25.10 Assessments Encounter Date Diagnosis (ICD Code) Assessment Notes Treatment Notes Treatment Clinical Notes Section Notes 06/26/2025 Gallstone pancreatitis (ICD-10 - K85.10) Patient seems to be improving, will slightly liberalize diet to include some fruits, emphasized avoiding fat and dairy products. Lipase improved yesterday. White count about the same. See notes below about kidney function 06/26/2025 LUIS (acute kidney injury) (ICD-10 - N17.9) Creatinine still elevated at 2.2 but stable. Remain off diuretics, Farxiga and metformin. Patient will need to resume diuretics given his atherosclerotic disease and evidence of heart failure but right now cannot because of LUIS issues 06/26/2025 Atherosclerosis of sycuan coronary artery of [place] heart without angina pectoris (ICD-10 - I25.10) Has no chest pain, euvolemic, stay off diuretics as noted Plan Of Treatment Treatment Notes Assessment Notes Gallstone pancreatitis Patient seems to be improving, will slightly liberalize diet to include some fruits, emphasized avoiding fat and dairy products. Lipase improved yesterday. White count about the same. See notes below about kidney function LUIS (acute kidney injury) Creatinine still elevated at 2.2 but stable. Remain off diuretics, Farxiga and metformin. Patient will need to resume diuretics given his atherosclerotic disease and evidence of heart failure but right now cannot because of LUIS issues Atherosclerosis of sycuan co ronary artery of syc[place] heart without angina pectoris Has no chest pain, euvolemic, stay off diuretics as noted Future Test Test Name Order Date M-Complete Blood Count Man Dif M-Comprehensive Metabolic Panel 07/02/20 25 Next Appt Details Follow Up: prn, Reason: Provider Name:Leonardo Singleton, 07/03/2025 10:45:00 AM, [address] [place] [address], [id number], History and Physical Notes * HPI (History of Present Illness) Category Sub-Category Detail Notes Category Not es gen Here to follow-up his pancreatitis. I had told his to hold Lasix, Farxiga, metformin and HCTZ after last visit. She has been. He feels better. Drinking quite a bit of clear liquids, has eaten some chicken noodle soup and some Jell-O without significant pain. Tylenol 3 is helping his pain and limited amount Examination Category Sub-Category Detail Notes Category Not es General Examination Looks like he feels better. Less pale. Abdomen is soft, minimal pain in the epigastric area but certainly improved over last week's exam. Heart rate regular, lungs clear, no edema Progress Notes * Melony LEE LDOB:1954 (70 yo M)Acc No.[id number]:06/26/2025 Progress Notes Patient: Bg MOSSley Flaquito Provider: Clarice Singleton MD :1955 A ge:70 Y S ex:Male Date:06/26/2025 Address:[address] [place] [address], [facility] Subjective: * Chief Complaints: * 1 . Follow up- still not able to eat. 2. Still hurting. * HPI: g en: Here to follow-up his pancreatitis. I had told his to hold Lasix, Farxiga, metformin and HCTZ after last visit. She has been. He feels better. Drinking quite a bit of clear liquids, has eaten some chicken noodle soup and some Jell-O without significant pain. Tylenol 3 is helping his pain and limited amount. * Medical History: * Surgical History: * Hospitalization/Major Diagno stic Procedure: * Family History: F ather: , diagnosed with Cancer. M other: . P aternal Grand Father: . P aternal Grand Mother: . M aternal Grand Father: . M aternal Grand Mother: . S ibcorona: alive, diagnosed with Hypertension, Diabetes. C heriberto: alive. 4 brother(s) , 3 sister(s) . 2 daughter(s) . . * Social History: R ecreational drug use: no. Home smoke detector use: yes. Caffeine: 2 cups coffee daily. Living Will: No. Alcohol: no. Occupation: maintenance at [employer]. Tobacco Control (Standard) T obacco use: F ormer smoker, H ow long has it been since you last smoked? 1 -5 years. * Medications: T aking Metoprolol Succinate 25 MG Capsule ER 24 Hour Sprinkle 1 capsule Orally Once a day , Taking ASA 325 MGM TABLET 1 Q AM , Notes to Pharmacist: *Please review for potential replacement for e-prescription and drug interaction check*, Taking Farxiga 10 MG Tablet 1 tablet [...] TAB(S) ORALLY ONCE A DAY , Taking Lisinopril 40 MG Tablet TAKE 1 TABLET EVERY DAY , Taking busPIRone HCl 10 MG Tablet TAKE 1 TABLET TWICE DAILY , Taking Pantoprazole Sodium 40 MG Tablet Delayed Release TAKE 1 TABLET EVERY DAY , Taking Plavix 75 MG Tablet 1 tab(s) orally once a day , Taking Acetaminophen- Codeine 300-30 MG Tablet 1-2 tabs Orally every 6 hrs As needed, Discontinued Lasix 20 MG Tablet 1 tablet Orally Once a day , Discontinued Fenofibrate 145 (MG) TABLET 1 TAB(S) ORALLY ONCE A DAY , Notes to Pharmacist: *Please review and pick correct strength-formulation from Medispan options. If intended option is not shown, discontinue and re-order from Quick Search*, Discontinued metFORMIN HCl 500 MG Tablet TAKE 1 TABLET TWICE DAILY , Discontinued hydroCHLOROthiazide 25 MG Tablet TAKE 1 TABLET EVERY DAY , Medication List reviewed and reconciled with the patient * Allergies: N .K.D.A. Objective: * Vitals: N urse: dw, Pain: 0, Temp: 97.7, RR: 16, HR: 68, BP: 142/100, Ht: 68, Wt: 211, BMI:32.08. * Examination: G eneral Examination: L ooks like he feels better. Less pale. Abdomen is soft, minimal pain in the epigastric area but certainly improved over last week's exam. Heart rate regular, lungs clear, no edema. Assessment: * Assessment: 1. G allstone pancreatitis - K85.10 (Primary) 2 . A KI (acute kidney injury) - N17.9 3 . A therosclerosis of sycuan coronary artery of sycuan heart without angina pectoris - I25.10 Plan: * Treatment: 2. A KI (acute kidney injury) L AB: M-Complete Blood Count Man Dif (Ordered for 07/02/2025) L AB: M-Comprehensive Metabolic Panel (Ordered for 07/02/2025) Notes: Creatinine still elevated at 2.2 but stable. Remain off diuretics, Farxiga and metformin. Patient will need to resume diuretics given his atherosclerotic disease and evidence of heart failure but right now cannot because of LUIS issues 3. A therosclerosis of sycuan coronary artery of syc[place] heart without angina pectoris Notes: Has no chest pain, euvolemic, stay off diuretics as noted * Procedure Codes: G 2211 Complex e/m visit add on * Follow Up: p rn * * Sign off status: Completed true * Provider: Clarice Singleton MD Date: 08/27/2024 Generated for Didi fabian/Fredy/eTransmitting on: 08:08 AM EST
--- OUTSIDE RECORDS SUMMARY | 2025-07-02 08:09 | XMS_ITS | Clinical Summary ---
Author Organization Healthcare Address [address] [place] [address] Care Team Providers Care Auditing Control Clerk Name Role Phone Leonardo Singleton MD Primary Care Provider [phone] Allergies No known active allergies Medications verapamil [...] of Treatment Not on file Care Teams Auditing Control Clerk Relationship Specialty Start Date End Date Leonardo Singleton MD [facility] [address] PCP - General 04/30/21
--- OUTSIDE RECORDS SUMMARY | 2025-07-02 08:09 | XMS_ITS | Patient Health Record ---
Author Organization [facility] Address [address] [place] [address] Care Team Providers Care Billet Inspector Name Role Phone Leonardo Singleton Primary Care Provider [phone] TrishCaryn sevilla Unavailable [phone] Migration, Provider Unavailable Unavailable Allergies No Known Allergies Results Component Value Reference Range Flag Notes X ray : Hip, Right Reviewed date:03/13/2025 12:55:18 PM Interpretation: Performing Lab: Notes/Report: X ray : Hip, Right Reviewed date:03/13/2025 12:55:18 PM Interpretation: Performing Lab: Notes/Report: X ray : Spines, Lumbosacral Reviewed date:03/09/2025 12:20:45 PM Interpretation: Performing Lab: Notes/Report: HEMOGLOBIN A1c (496) Reviewed date:01/24/2025 10:18:07 AM Interpretation: Performing Lab:CB, [facility] [id number] [facility], [facility] HealthcareWhoaEW[address] Will Lyle Notes/Report: NON-FASTING; NON-FASTING HEMOGLOBIN A1c 6.2 <5.7 % H For someone without known diabetes, a hemoglobin [...] of diabetes for children. BASIC METABOLIC PANEL (34158 ) Reviewed date:01/24/2025 10:18:07 AM Interpretation: Performing Lab:DEAN [facility] [id number] [facility], [facility] CenterMpmqNK[address] Will Lyle Notes/Report: NON-FASTING; NON-FASTING GLUCOSE 135 65-99 mg/dL H Fasting reference interval For someone without known diabetes, a glucose value >125 mg/dL indicates that they may have diabetes and this should be confirmed with a follow-up test. UREA NITROGEN (BUN) 26 7-25 mg/dL H CREATININE 1.59 0.70-1.35 mg/dL H EGFR 47 > OR = 60 mL/min/1.73m2 L BUN/CREATININE RATIO 16 6-22 (calc) N SODIUM 139 135-146 mmol/L N POTASSIUM 3.9 3.5-5.3 mmol/L N CHLORIDE 102 98-110 mmol/L N CARBON DIOXIDE 27 20-32 mmol/L N CALCIUM 9.2 8.6-10.3 mg/dL N Microalbumin (In-House) Reviewed date:01/23/2025 07:33:10 PM Interpretation:Abnormal Performing Lab: Notes/Report: Abnormal ALB 150mg CRE 100mg A:C >300mg Microalbumin (In-House) Reviewed date:11/16/2024 09:14:12 AM Interpretation: Performing Lab: Notes/Report: ALB 150 CRE 100 A:C >300 HEMOGLOBIN A1c (496) Reviewed date:10/12/2024 02:37:23 PM Interpretation: Performing Lab:DEAN [facility] [id number] [facility], [facility] HospitalUympYP[address] Will Lyle Notes/Report: NON-FASTING; NON-FASTING; NON-FASTING FASTING:NO FASTING: NO HEMOGLOBIN A1c 6.1 <5.7 % of total Hgb H For someone without known diabetes, a hemoglobin [...] A1c for diagnosis of diabetes for children. COMPREHENSIVE METABOLIC PANGege Huddleston (57503) Reviewed date:10/12/2024 02:37:23 PM Interpretation: Performing Lab:[facility]AN [facility] [id number] [facility], [facility] HospitalWsyiMH[address] Will Lyle Notes/Report: NON-FASTING; NON-FASTING; NON-FASTING FASTING:NO FASTING: NO GLUCOSE 91 65-139 mg/dL N Non-fasting reference interval UREA NITROGEN (BUN) 17 7-25 mg/dL N CREATININE 1.53 0.70-1.35 mg/dL H EGFR 50 > OR = 60 mL/min/1.73m2 L BUN/CREATININE RATIO 11 6-22 (calc) N SODIUM 140 135-146 mmol/L N POTASSIUM 4.0 3.5-5.3 mmol/L N CHLORIDE 100 98-110 mmol/L N CARBON DIOXIDE 31 20-32 mmol/L N CALCIUM 9.3 8.6-10.3 mg/dL N PROTEIN, TOTAL 6.9 6.1-8.1 g/dL N ALBUMIN 4.2 3.6-5.1 g/dL N GLOBULIN 2.7 1.9-3.7 g/dL (calc) N ALBUMIN/GLOBULIN RATIO 1.6 1.0-2.5 (calc) N BILIRUBIN, TOTAL 0.7 0.2-1.2 mg/dL N ALKALINE PHOSPHATASE 87 35-144 U/L N AST 15 10-35 U/L N ALT 18 9-46 U/L N LIPID PANEL, STANDARD (7600) Reviewed date:10/12/2024 02:37:23 PM Interpretation: Performing Lab:[facility] [id number] [facility]te[facility], [facility] HospitalBeezNB[address] Will Lyle Notes/Report: NON-FASTING; NON-FASTING; NON-FASTING FASTING:NO FASTING: NO CHOLESTEROL, TOTAL 97 <200 mg/dL N HDL CHOLESTEROL 31 > OR = 40 mg/dL L TRIGLYCERIDES 113 <150 mg/dL N LDL-CHOLESTEROL 46 N Reference range: <100 Desirable range <100 mg/dL for primary prevention; <70 mg/dL for patients with CHD or diabetic patients with > or = 2 CHD risk factors. LDL-C is now calculated using the Lisa calculation, which is a validated novel method providing better accuracy than the Friedewald equation in the estimation of LDL-C. Og WOODWARD et al. BRIAN. 2013;310(19): 5344-0652 (http://education.[employer]/faq/QZG211) CHOL/HDLC RATIO 3.1 <5.0 (calc) N NON HDL CHOLESTEROL 66 <130 mg/dL (calc) N For patients with diabetes plus 1 major ASCVD risk factor, treating to a non-HDL-C goal of <100 mg/dL (LDL-C of <70 mg/dL) is considered a therapeutic option. M-Lipase Reviewed date:06/25/2025 01:46:09 PM Interpretation: Performing Lab: Notes/Report: LIP 267 23-300 U/L N M-Amylase Reviewed date:06/25/2025 01:46:09 PM Interpretation: Performing Lab: Notes/Report: TARA 62 30-110 U/L N M-Lipase Reviewed date:06/25/2025 01:46:09 PM Interpretation: Performing Lab: Notes/Report: LIP 410 23-300 U/L H M-Amylase Reviewed date:06/25/2025 01:46:09 PM Interpretation: Performing Lab: Notes/Report: TARA 103 30-110 U/L N M-Complete Blood Count Auto Diff Reviewed date:06/25/2025 01:46:09 PM Interpretation: Performing Lab: Notes/Report: WBC 14.0 4.8-10.8 K/mm3 DH Delta: 6.7 on 06/21/25 RBC 4.16 4.60-6.20 M/mm3 L HGB 12.5 14.1-18.0 g/dL L HCT 38.3 42.0-52.0 % L MCV 92.1 80-94 fl N MCH 30.0 27.0-31.2 pg N MCHC 32.6 31.8-35.4 g/dL N RDW 12.7 11.5-17.5 % N PLT 338 142-424 K/mm3 N MPV 10.2 7.4-10.4 fl N NE% 75.0 37.0-80.0 % N LY% 13.5 10-50 % N MO% 10.0 1.7-9.3 % H EO% 0.8 0.1-12.0 % N BA% 0.4 0.1-2.0 % N NE# 10.5 1.8-7.8 K/mm3 H LY# 1.9 0.7-4.5 K/mm3 N MO# 1.4 0.1-1.0 K/mm3 H EO# 0.1 0.0-0.4 Kmm3 N BA# 0.1 0-0.2 K/mm3 N RDW-SD 42.5 N NRBC% 0 N IG% 0.3 N NRBC# 0 N IG# 0.04 N M-Comprehensive Metabolic Pa seamus Reviewed date:06/25/2025 01:46:09 PM Interpretation: Performing Lab: Notes/Report: NA 133 136-145 mmol/L L K 4.4 3.5-5.1 mmoL/L N CL 90 98-107 mmol/L L CO2 34 22.0-30.0 mmol/L H GAP 13.4 5-15 mEq/L N BUN 40 9-20 mg/dl H CREATT 2.20 0.66-1.25 mg/dl DH Delta: 1. 40 on 06/21/25 GFRAA 36 >60 ML/MIN DL Delta: 61 on 1 08/22/24 EGFR 30 >60 ml/min L GLU 100 74-100 mg/dl N CA 9.7 8.4-10.2 mg/dl N BILIT 0.9 0.2-1.3 mg/dl N AST 24 17-59 U/L U Delta: 36 on 1 08/22/24 ALT 33 12-78 U/L U Delta: 51 on 1 08/22/24 TP 6.7 6.3-8.2 g/dl N ALB 4.0 3.5-5.0 g/dl N GLOB 2.7 1.3-3.2 g/dL N AGRATIO 1.5 1.1-1.8 N ALP 102 38-126 U/L N Medications Medication SIG (Take, Route, Frequency, Duration) Notes Start Date End Date Status Escitalopram Oxalate 20 MG Tablet 1 TAB(S) [...] DAY; Duration: 90 Active Acetaminophen-Codeine 300-30 MG Tablet 1-2 tabs Orally every 6 hrs; Duration: 7 days As needed 06/22/2025 Active Farxiga 10 MG Tablet 1 tablet Orally Once a day; Duration: 90 days 11/16/2024 Active Plavix 75 MG Tablet 1 tab(s) orally once a day; Duration: 90 days Active Pantoprazole Sodium 40 MG Tablet Delayed Release TAKE 1 TABLET EVERY DAY; Duration: 90 Active ASA 325 MGM TABLET 1 Q AM *Please revie w for potential replacement for e-prescription and drug interaction check* Active busPIRone HCl 10 MG Tablet TAKE 1 TABLET TWICE DAILY; Duration: 90 Active Metoprolol Succinate 25 MG Capsule ER 24 Hour Sprinkle 1 capsule Orally Once a day Active Lisinopril 40 MG Tablet TAKE 1 [...] Social Info Options Details Social History Occupation: [employer] Alcohol: no Recreational drug use: no Home smoke detector use: yes Caffeine: 2 cups coffee da chris Living Will No Problems Problem Type SNOMED Code ICD Code Onset Dates Problem Status W/U Status Risk Notes Problem Diabetic renal disease (719985020) Type 2 diabetes mellitus with other diabetic kidney complication (E11.29) Active confirmed Problem Nicotine dependence (18241071) Personal history of nicotine dependence (Z87.891) Active confirmed Problem Anxiety (29941979) Anxiety (F41.9) Active confi rmed Problem Hyperlipidemia due t o type 2 diabetes mellitus (disorder) (489132277778413) Hyperlipidemia associated with type 2 diabetes mellitus (E11.69) Active confirmed Problem Hypertriglyceridemia (141789808) Hypertriglyceridemia (E78.1) Active confirmed Problem Diabetes mellitus type 2 in obese (00387573) Diabetes mellitus type 2 in obese (E11.9) Active confirmed Problem Essential hypertension (14406168) Essential hypertension (I10) Active confirmed Problem Hyperlipidemia (45412135) Hyperlipemia, idiopathic familial (E78.5) Active confirmed Problem Gastroesophageal reflux disease (906475117) GERD without esophagitis (K21.9) Active confirmed Problem Tubular adenoma of colon (742755536) Tubular adenoma of colon (D12.6) Active confirmed Problem Atherosclerosis of coronary artery without angina pectoris (088818775539105) Atherosclerosis of wales coronary artery of wales heart without angina pectoris (I25.10) Active confirmed Problem Sciatica (97485926) Right sciati c nerve pain (M54.31) Active confirmed Problem Localized, primary osteoarthritis of the pelvic region and thigh (484308665) 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) Active confirmed Problem Primary malignant neoplasm of kidney (13910026) Renal cell cancer, unspecified laterality (C64.9) Active confirmed Problem Lower urinary tract symptoms due to benign prostatic hypertrophy (64757920949366) Benign prostatic hyperplasia with lower urinary tract symptoms (N40.1) Active confirmed Problem Stasis dermatitis (disorder) (26472662) Stasis dermatitis of both legs (I87.2) Active confirmed Problem Chronic kidney disease stage 2 (130261168) Stage 2 chronic kidney disease (N18.2) Active confirmed Problem COVID-19 (295287636) COVID-19 (U07.1) Active co nfirmed Problem Chronic kidney disease stage 3A (disorder) (997183501) CKD stage 3a, GFR 45-59 ml/min (N18.31) Active confirmed Vital Signs Heart Rate 68 /min 06/26/2025 Temperature 97.7 degrees Fahrenheit 06/26/2025 Blood pressure diastolic 100 mm Hg 06/26/2025 Height 68 in 06/26/2025 Blood pressure systolic 142 mm Hg 06/26/2025 Weight 211 lbs 06/26/2025 BMI 32.08 kg/m2 06/26/2025 Encounters Encounter Location Date Provider Diagnosis [facility] [address] [place], [place] [address] 10/07/2024 Provider Migration Anxiety F41.9 ; GERD without esophagitis K21.9 and Hypertension, essential I10 [facility] [address] [address] 08/31/2024 Leonardo Singleton Hypertension, essent ial I10 and Anxiety F41.9 [facility] [address] [address] 10/10/2024 Leonardo Areli Diabetes mellitus ty pe 2 in obese E11.9 ; Hyperlipidemia associated with type 2 diabetes mellitus E11.69 ; Type 2 diabetes mellitus with other diabetic kidney complication E11.29 ; GERD without esophagitis K21.9 ; Anxiety F41.9 ; Hypertension, essential I10 and Routine medical exam Z00.00 [facility] [address] [address] 11/16/2024 Leonardo Singleton Hypertension, essent ial I10 and Type 2 diabetes mellitus with other diabetic kidney complication E11.29 [facility] [address] [address] 01/23/2025 Leonardo Areli Diabetes mellitus ty pe 2 in obese E11.9 ; CKD stage 3a, GFR 45-59 ml/min N18.31 and Hypertension, essential I10 [facility] [address] [address] 02/28/2025 Caryn Chambers Right sciatic nerve pain M54.31 and Essential hypertension I10 [facility] [address] [address] 03/06/2025 Leonardo Singleton Primary osteoarthrit is of right hip M16.11 and Essential hypertension I10 [facility] [address] [address] 03/13/2025 Leonardo Besson Primary osteoarthrit is of right hip M16.11 [facility] [place] [address] [place] [address] 06/21/2025 Leonardo Betinajosemanuel Acute biliary pancreatitis, unspecified complication status K85.10 ; Atherosclerosis of wales coronary artery of wales heart without angina pectoris I25.10 and Hospital discharge follow-up Z51.89 [facility] [address] [place] [address] 06/23/2025 Leonardo Besson Gallstone pancreatit is K85.10 ; LUIS (acute kidney injury) N17.9 ; Atherosclerosis of wales coronary artery of wales heart without angina pectoris I25.10 ; Diabetes mellitus type 2 in obese E11.9 and Routine medical exam Z00.00 [facility] [place] [address] [place] [address] 06/26/2025 Leonardo Besson Gallstone pancreatit is K85.10 ; LUIS (acute kidney injury) N17.9 and Atherosclerosis of wales coronary artery of wales heart without angina pectoris I25.10 [facility] [place] [address] [place] [address] 08/17/2024 Leonardo Besson [facility] [address] [place] [address] 02/28/2025 Caryn Chambers [facility] [address] [place] [address] 03/06/2025 Leonardo Besson Primary osteoarthrit is of right hip M16.11 [facility] [place] [address] [place] [address] 03/09/2025 Leonardo Besson [facility] [place] [address] [place] [address] 03/15/2025 Leonardo Besson Anxiety F41.9 and Hypertension, essential I10 [facility] [address] [place] [address] 06/13/2025 Leonardo Besson [facility] [place] [address] [address] 06/22/2025 Leonardo Singleton Assessments Encounter Date Diagnosis (ICD Code) Assessment Notes Treatment Notes Treatment Clinical Notes Section Notes 06/26/2025 LUIS (acute kidney injury) (ICD-10 - N17.9) Creatinine still elevated at 2.2 but stable. Remain off diuretics, Farxiga and metformin. Patient will need to resume diuretics given his atherosclerotic disease and evidence of heart failure but right now cannot because of LUIS issues 06/26/2025 Gallstone pancreatitis (ICD-10 - K85.10) Patient seems to be improving, will slightly liberalize diet to include some fruits, emphasized avoiding fat and dairy products. Lipase improved yesterday. White count about the same. See notes below about kidney function 06/21/2025 Atherosclerosis of wales coronary artery of wales heart without angina pectoris (ICD-10 - I25.10) [...] 2 days, redo labs at that point. 03/13/2025 Primary osteoarthritis of right hip (ICD-10 - M16.11) Pt was referred to Dr. Henson orthopedic office for further evaluation and management of pt's hip pain. Pt was told to continue taking Tylenol as needed for the pain. Pt was encouraged to continue home mobility exercises as tolerated. Pt was encouraged to continue any other supportive measures for comfort as needed. 03/06/2025 Essential hypertension (ICD-10 - I10) Patient's [...] as needed. Xrays as noted. Consider PT 11/16/2024 Type 2 diabetes mellitus with other [...] labs, BMP and repeat urine micro testing 08/31/2024 Anxiety (ICD-10 - F41.9) Has had [...] 1 month at his follow up appointment. 03/15/2025 Anxiety (ICD-10 - F41.9) 10/10/2024 Hyperlipidemia associated with type 2 diabetes mellitus (ICD-10 - E11.69) Will obtain lipid panel today. 10/10/2024 Diabetes mellitus type 2 in obese (ICD-10 - E11.9) Will recheck A1C and kidney function today. 01/23/2025 Diabetes mellitus type 2 in obese (ICD-10 - E11.9) His diabetes is managed with Metformin. He has no acute concerns at this time. 01/23/2025 CKD stage 3a, GFR 45-59 ml/min (ICD-10 - N18.31) His CKD is managed with lisinopril and farxiga. He has no acute concerns at this time. 03/06/2025 Primary osteoarthritis of right hip (ICD-10 - M16.11) 06/23/2025 LUIS (acute kidney injury) (ICD-10 - [...] I touch base personally with patient 06/23/2025 Gallstone pancreatitis (ICD-10 - K85.10) White count is slightly elevated from 2 days ago, 9000 up to 12,000. Lipase is down by 200 points. Liver enzymes are normal with no elevation of bilirubin. This seems reassuring, although still in pain. See notes below about kidney function. Recommended continuing to push p.o. fluids, pain medication, short-term follow-up next week 10/07/2024 Anxiety (ICD-10 - F41.9) 10/07/2024 GERD without esophagitis (ICD-10 - K21.9) 10/07/2024 Hypertension, essential (ICD-10 - I10) 06/23/2025 Atherosclerosis of wales coronary artery of wales heart without angina pectoris (ICD-10 - I25.10) Asymptomatic, on DAPT therapy 01/23/2025 Hypertension, essential (ICD-10 - I10) His hypertension is managed with lisinopril, HCTZ, nifedipine and farxiga. His blood pressure in office is 126/82. He has no concerns at this time. 10/10/2024 Type 2 diabetes mellitus with other diabetic kidney complication (ICD-10 - E11.29) 03/15/2025 Hypertension, essential (ICD-10 - I10) 06/21/2025 Hospital discharge follow-up (ICD-10 - Z51.89) Personally reviewed H&P and discharge summary as available from hospital discharge documentation. Reviewed pertinent labs and test done in the hospital. Personally reconciled medication. 06/26/2025 Atherosclerosis of wales coronary artery of wales heart without angina pectoris (ICD-10 - I25.10) Has no chest pain, euvolemic, stay off diuretics as noted 10/10/2024 GERD without esophagitis (ICD-10 - K21.9) 06/23/2025 Diabetes mellitus type 2 in obese (ICD-10 - E11.9) See notes above about holding diabetes medicines through this episode 06/23/2025 Routine medical exam (ICD-10 - Z00.00) HRA reviewed. No falls, depression seems to be well treated. Is up-to-date with screenings and shots in spite of this recent illness episode. Non-smoker currently. No indication for other screening things at this point. / word recall. Supportive home environment. HRA reviewed 10/10/2024 Anxiety (ICD-10 - F41.9) 10/10/2024 Hypertension, [...] has no evidence of dementia with good 09/04 word recall. Anxiety depression symptoms are fairly [...] : Chest, Lung Cancer Screening 0 01/26/2023 Future Test Test Name Order Date M-Complete Blood Count Auto Diff 025 M-Comprehensive Metabolic Panel 06/25/20 25 M-Complete Blood Count Man Dif M-Comprehensive Metabolic Panel 07/02/20 Next Appt Details Provider Name:Leonardo Singleton, 07/03/2025 10:45:00 AM, 2017 [facility], [place], [address], Insurance Providers Payer Name Payer Address Payer Phone Subscriber Number Group Number Insured Name Patient Relationship to Insured Coverage Start Date Coverage End Date [employer] [address] [address] [place] [address] [id number] Melony Lee Self - patient is the insured Medications Administered Medication Instructions Date of Administration Dosage Notes Dexamethasone 4mg Injection 02/28/2025 4 mg Regen-Cov 03/28/2021 2.5 mL Right arm- Lot # [id number] Regen-Cov 03/28/2021 2.5 mL right leg Regen-Cov 03/28/2021 2.5 mL Left arm Regen-Cov 03/28/2021 2.5 mL left leg Medical (General) History Medical History History ICD Code hypertension type 2 diabetes hyperlipidemia renal cell cancer diagnosed March 24 follows with yearly eye examinations at [facility]ometry [facility] Birads 1 LDCT 12/22 - Repeated 01/25-BI-RA DS 1 Colonoscopy 08/26 with diverticulosis and diminutive polyps - f/u in 7-10 BI-RADS 1 low-dose CT scan December 2023 AAA screening negative with CT abdomen/p lexus 2021 pancreatitis Surgical History Surgery Date(Month/Year) left nephrectomy for renal cell cancer S eptember 2014 stent 06/12/2025 Hospitalization History Reason Date(Month/Year) [facility] 06/07-04/2025 stroke 08/2018 above
[2025-07-02 08:38] LABS: Hematocrit 31.7 % (42.0-52.0); Hemoglobin 10.4 g/dL (14.1-18.0); Mean Corpuscular HGB Conc 32.8 g/dL (31.8-35.4); Mean Corpuscular Hemoglobin 30.2 pg (27.0-31.2); Mean Corpuscular Volume 92.2 fl (80-94); Platelet Count 203 K/mm3 (142-424); Red Blood Count 3.44 M/mm3 (4.60-6.20); White Blood Count 5.9 K/mm3 (4.8-10.8)
[2025-07-02 09:23] LABS: Albumin Level 3.5 g/dl (3.5-5.0); Chloride 107 mmol/L (98-107); Potassium 4.1 mmoL/L (3.5-5.1); Sodium 140 mmol/L (136-145)
[2025-07-02 09:26] LABS: Alanine Aminotransferase 19 U/L (12-78); Albumin/Globulin Ratio 1.4 (1.1-1.8); Alkaline Phosphatase 93 U/L (38-126); Anion Gap 9.1 mEq/L (5-15); Aspartate Amino Transferase 22 U/L (17-59); Bilirubin,Total 0.5 mg/dl (0.2-1.3); Blood Urea Nitrogen 20 mg/dl (9-20); Carbon Dioxide 28 mmol/L (22.0-30.0); Creatinine,Serum 1.30 mg/dl (0.66-1.25); Estimated Glomerular Filt Rate 55 ml/min (>60); GFR (African American) 66 ML/MIN (>60); Globulin 2.5 g/dL (1.3-3.2); Total Protein,Serum 6.0 g/dl (6.3-8.2)
[2025-07-02 09:27] LABS: Calcium 9.3 mg/dl (8.4-10.2); Glucose 85 mg/dl (74-100)
[2025-07-02 11:07] LABS: RBC Morphology Normal; Total Cells Counted 100
== END 2025-07-02 23:59 | disposition home or self-care (01) ==
LOC: LAB 08:06
PROVIDERS: PCP Internal Medicine Adolescent Medicine; Visit Provider Internal Medicine Adolescent Medicine
DX: K85.10 Biliary acute pancreatitis without necrosis or infection (principal); N17.9 Acute kidney failure, unspecified
CPT/HCPCS: 36415; 80053; 85007; 85014; 85018; 85048; 85049